=== PATIENT | male | born 1945 | race Caucasian/White ===

== ENCOUNTER 2017-07-05 14:05 | Emergency (ER) | payer MEDICARE ==
[2017-07-05] MEDS ORDERED: IPRATROPIUM-ALBUTEROL 3 ML NEB INHALATION STA ×2 (14:52→16:07)
[2017-07-05] MEDS ORDERED: MAGNESIUM SULFATE-D5W PMX 1 GM in DEXTROSE/WATER 1 100ML.BAG IVPB STA (14:52)
[2017-07-05] MEDS ORDERED: methylPREDNISolone SOD SUCCI 125 MG/2 ML VIAL IV STA (14:52)
--- NOTE | 2017-07-05 15:07 | ED ---
SOB HPI - General Chief Complaint: Shortness of Breath Stated Complaint: SOB-sent by [facility] Time Seen by Provider: 07/05/17 14:40 Source: patient, RN notes reviewed Mode of arrival: ambulatory Limitations: no limitations - History of Present Illness Initial Comments: This is a 71-year-old male history of heart disease and COPD states that shortness of breath or exertional dyspnea for about a week or so he has a cough with minimal white phlegm production no overt fevers chills or sweats he also states he's had no increased weight or peripheral edema. He denies any overt chest pain but does complain some tightness. MD Complaint: shortness of breath, cough - Related Data Home Medications Medication Instructions Recorded Confirmed Ascorbic Acid [Vitamin C] 500 mg PO QAM 05/08/15 07/05/17 Carvedilol [Coreg] 25 mg PO BID 05/08/15 07/05/17 Furosemide [Lasix] 40 mg PO BID 05/08/15 07/05/17 Metolazone [Zaroxolyn] 2.5 mg PO WESA 05/08/15 07/05/17 Nitroglycerin Sl Tabs [Nitrostat] 0.4 mg SUBLINGUAL Q5M PRN 05/08/15 07/05/17 [place]-3 Fatty Acids/Fish Oil [Fish 1 cap PO 05/08/15 07/05/17 Oil 1,000 mg Softgel] Ubidecarenone [Co Q-10] 200 mg PO QAM 05/08/15 07/05/17 Vitamin B Complex 1 cap PO QAM 05/08/15 07/05/17 diphenhydrAMINE [Benadryl] 25 mg PO 05/08/15 07/05/17 Cholecalciferol [Vitamin D3] 5,000 unit PO HS 04/25/16 07/05/17 Lisinopril [Zestril] 20 mg PO HS 04/25/16 07/05/17 Niacin 1,000 mg PO BID 04/25/16 07/05/17 [place] 500mg 500 mg PO QAM 04/25/16 07/05/17 Albuterol Inhaler [Ventolin Hfa 2 puff INHALATION RT-Q6H PRN 07/05/17 07/05/17 Inhaler] Allopurinol [Zyloprim] 100 mg PO BID 07/05/17 07/05/17 Aspirin [Children's Aspirin] 81 mg PO HS 07/05/17 07/05/17 Colchicine [Colcrys] 0.6 mg PO DAILY PRN 07/05/17 07/05/17 Glucosamine/Chondr 3x Strength 1 tab PO BID 07/05/17 07/05/17 Potassium Chloride [Klor-Con 20] 20 meq PO HS 07/05/17 07/05/17 Sildenafil Citrate [Viagra] 100 mg PO ONCE PRN 07/05/17 07/05/17 Simvastatin [Zocor] 40 mg PO HS 07/05/17 07/05/17 Vitamin E (Dl,Tocopheryl Acet) 400 unit PO QAM 07/05/17 07/05/17 [Vitamin E] Previous Rx's Medication Instructions Recorded Ipratropium-Albuterol Nebulize 3 ml INHALATION Q6HR #30 neb 07/05/17 [Duoneb 0.5 mg-3 mg/3 ml Soln] predniSONE 20 mg PO BID #10 tab 07/05/17 Allergies Allergy/AdvReac Type Severity Reaction Status Date / Time adhesive Allergy Rash/Hives Verified 07/05/17 15:37 Review of Systems ROS Statement: Those systems with pertinent positive or pertinent negative responses have been documented in the HPI. ROS Other: All systems not noted in ROS Statement are negative. Past Medical History Past Medical History: Coronary Artery Disease (CAD), Heart Failure, COPD, Osteoarthritis (OA) History of Any Multi-Drug Resistant Organisms: None Reported Past Surgical History: Coronary Bypass/CABG, Heart Catheterization With Stent Past Psychological History: No Psychological Hx Reported Smoking Status: Current every day smoker Past Alcohol Use History: Occasional Past Drug Use History: None Reported General Exam - General Exam Comments Initial Comments: This is a well-developed well-nourished awake alert oriented 3 male Limitations: no limitations General appearance: alert, in no apparent distress Head exam: Present: atraumatic, normocephalic, normal inspection Eye exam: Present: normal appearance, PERRL, EOMI. Absent: scleral icterus, conjunctival injection, periorbital swelling ENT exam: Present: normal exam, mucous membranes moist Neck exam: Present: normal inspection. Absent: tenderness, meningismus, lymphadenopathy Respiratory exam: Present: wheezes, decreased breath sounds. Absent: respiratory distress, rales, rhonchi, stridor Cardiovascular Exam: Present: regular rate, normal rhythm, normal heart sounds. Absent: systolic murmur, diastolic murmur, rubs, gallop, clicks GI/Abdominal exam: Present: soft, normal bowel sounds. Absent: distended, tenderness, guarding, rebound, rigid Extremities exam: Present: full ROM, normal capillary refill, other (Patient does demonstrate stasis dermatitis no evidence of acute edema.). Absent: tenderness, pedal edema, joint swelling, calf tenderness Back exam: Present: normal inspection Neurological exam: Present: alert, oriented X3, CN II-XII intact Psychiatric exam: Present: normal affect, normal mood Skin exam: Present: warm, dry, intact, normal color. Absent: rash Course Vital Signs 07/05/17 07/05/17 07/05/17 14:08 15:11 15:15 Temperature 97.0 F L Pulse Rate 72 60 75 Respiratory 18 18 Rate Blood Pressure 124/60 136/76 O2 Sat by Pulse 95 95 Oximetry 07/05/17 07/05/17 07/05/17 15:16 15:25 16:00 Temperature Pulse Rate 75 62 Respiratory 20 18 Rate Blood Pressure 112/69 O2 Sat by Pulse 95 Oximetry 07/05/17 07/05/17 16:12 16:25 Temperature Pulse Rate 74 78 Respiratory Rate Blood Pressure O2 Sat by Pulse Oximetry - Reevaluation(s) Reevaluation #1: 07/05/17 16:50 Reevaluation after initial treatment revealed some improvement in his aeration he doesn't feel the tightness or shortness of breath quite is severe as it was. Medical Decision Making - Medical Decision Making Reevaluation patient reveals some improvement he still has some diminished breath sounds with occasional expiratory wheezing. Patient was offered admission and does not want to be admitted this time he wants to go home and try his home nebulizer also he requests only about 30 refills for his nebulizer. Additionally he states he will try to double up on his Lasix as he normally does. He will return if is any problems he states. - Lab Data Result diagrams: 07/05/17 15:05 07/05/17 15:05 Lab Results 07/05/17 07/05/17 07/05/17 Range/Units 15:05 15:05 15:05 WBC 13.3 H (3.8-10.6) k/uL RBC 4.76 (4.30-5.90) m/uL Hgb 14.6 (13.0-17.5) gm/dL Hct 44.0 (39.0-53.0) % MCV 92.4 (80.0-100.0) fL MCH 30.6 (25.0-35.0) pg MCHC 33.2 (31.0-37.0) g/dL RDW 13.6 (11.5-15.5) % Plt Count 205 (150-450) k/uL Neutrophils % 74 % Lymphocytes % 18 % Monocytes % 5 % Eosinophils % 2 % Basophils % 0 % Neutrophils # 9.9 H (1.3-7.7) k/uL Lymphocytes # 2.4 (1.0-4.8) k/uL Monocytes # 0.7 (0-1.0) k/uL Eosinophils # 0.2 (0-0.7) k/uL Basophils # 0.0 (0-0.2) k/uL PT (9.0-12.0) sec INR (<1.2) APTT (22.0-30.0) sec Sodium 141 (137-145) mmol/L Potassium 4.0 (3.5-5.1) mmol/L Chloride 103 (98-107) mmol/L Carbon Dioxide 27 (22-30) mmol/L Anion Gap 11 mmol/L BUN 20 (9-20) mg/dL Creatinine 0.97 (0.66-1.25) mg/dL Est GFR (MDRD) Af Amer >60 (>60 ml/min/1.73 sqM) Est GFR (MDRD) Non-Af >60 (>60 ml/min/1.73 sqM) Glucose 102 H (74-99) mg/dL Calcium 9.0 (8.4-10.2) mg/dL Magnesium 1.8 (1.6-2.3) mg/dL Total Bilirubin 0.6 (0.2-1.3) mg/dL AST 30 (17-59) U/L ALT 34 (21-72) U/L Alkaline Phosphatase 65 (38-126) U/L Total Creatine Kinase 36 L (55-170) U/L CK-MB (CK-2) 1.6 (0.0-2.4) ng/mL CK-MB (CK-2) Rel Index 4.4 Troponin I 0.021 (0.000-0.034) ng/mL NT-Pro-B Natriuret Pep pg/mL Total Protein 6.9 (6.3-8.2) g/dL Albumin 3.8 (3.5-5.0) g/dL 07/05/17 07/05/17 Range/Units 15:05 15:05 WBC (3.8-10.6) k/uL RBC (4.30-5.90) m/uL Hgb (13.0-17.5) gm/dL Hct (39.0-53.0) % MCV (80.0-100.0) fL MCH (25.0-35.0) pg MCHC (31.0-37.0) g/dL RDW (11.5-15.5) % Plt Count (150-450) k/uL Neutrophils % % Lymphocytes % % Monocytes % % Eosinophils % % Basophils % % Neutrophils # (1.3-7.7) k/uL Lymphocytes # (1.0-4.8) k/uL Monocytes # (0-1.0) k/uL Eosinophils # (0-0.7) k/uL Basophils # (0-0.2) k/uL PT 10.6 (9.0-12.0) sec INR 1.0 (<1.2) APTT 24.9 (22.0-30.0) sec Sodium (137-145) mmol/L Potassium (3.5-5.1) mmol/L Chloride (98-107) mmol/L Carbon Dioxide (22-30) mmol/L Anion Gap mmol/L BUN (9-20) mg/dL Creatinine (0.66-1.25) mg/dL Est GFR (MDRD) Af Amer (>60 ml/min/1.73 sqM) Est GFR (MDRD) Non-Af (>60 ml/min/1.73 sqM) Glucose (74-99) mg/dL Calcium (8.4-10.2) mg/dL Magnesium (1.6-2.3) mg/dL Total Bilirubin (0.2-1.3) mg/dL AST (17-59) U/L ALT (21-72) U/L Alkaline Phosphatase (38-126) U/L Total Creatine Kinase (55-170) U/L CK-MB (CK-2) (0.0-2.4) ng/mL CK-MB (CK-2) Rel Index Troponin I (0.000-0.034) ng/mL NT-Pro-B Natriuret Pep 542 pg/mL Total Protein (6.3-8.2) g/dL Albumin (3.5-5.0) g/dL - EKG Data -: EKG Interpreted by [facility] EKG shows normal: sinus rhythm (Sinus rhythm with a rate of 74. Interval to 46 QRS 154 QT since QTC of 456/506Block pattern no acute ST-T wave changes.) - Radiology Data Radiology results: report reviewed (I did review the imaging and reports are is evidence of increased vascular markings and evidence of interstitial changes.), image reviewed Disposition Clinical Impression: Acute exacerbation of chronic obstructive airways disease Disposition: HOME SELF-CARE Condition: Good Instructions: COPD (Chronic Obstructive Pulmonary Disease) (ED), How Your Lungs Work (ED) Prescriptions: Ipratropium-Albuterol Nebulize [Duoneb 0.5 mg-3 mg/3 ml Soln] 3 ml INHALATION Q6HR #30 neb predniSONE 20 mg PO BID #10 tab Referrals: Annamarie Garcia MD [Primary Care Provider] - 1-2 days
[2017-07-05 15:22] LABS: Basophils % (A) 0 %; CH 30.5; CHCM 33.2; Eosinophils # (A) 0.2 k/uL (0-0.7); Eosinophils % (A) 2 %; HGB 14.6 gm/dL (13.0-17.5); Luc # (Auto) 0.22; Luc % (Auto) 2; Lymphocytes # (A) 2.4 k/uL (1.0-4.8); Lymphocytes % (A) 18 %; MCH 30.6 pg (25.0-35.0); MCHC 33.2 g/dL (31.0-37.0); MCV 92.4 fL (80.0-100.0); Mean Platelet Volume 7.2; Monocytes # (A) 0.7 k/uL (0-1.0); Monocytes % (A) 5 %; Neutrophils # (A) 9.9 k/uL (1.3-7.7); Neutrophils % (A) 74 %; RBC 4.76 m/uL (4.30-5.90); RDW 13.6 % (11.5-15.5); WBC 13.3 k/uL (3.8-10.6); WBC (Perox) 13.37
[2017-07-05 15:30] LABS: Partial Thromboplastin Time 24.9 sec (22.0-30.0); Prothrombin Time 10.6 sec (9.0-12.0)
[2017-07-05 15:34] LABS: ALT 34 U/L (21-72); AST 30 U/L (17-59); Alkaline Phosphatase 65 U/L (38-126); Anion Gap 11 mmol/L; Blood Urea Nitrogen 20 mg/dL (9-20); Carbon Dioxide 27 mmol/L (22-30); Chloride 103 mmol/L (98-107); Glucose 102 mg/dL (74-99); Magnesium 1.8 mg/dL (1.6-2.3); Non-African American GFR(MDRD) >60 (>60 ml/min/1.73 sqM); Sodium 141 mmol/L (137-145); Total Bilirubin 0.6 mg/dL (0.2-1.3); Total Protein 6.9 g/dL (6.3-8.2)
--- NOTE | 2017-07-05 15:37 | XR ---
EXAMINATION TYPE: XR chest 2V DATE OF EXAM: 07/05/2017 COMPARISON: NONE HISTORY: Cough for 3 days. TECHNIQUE: Frontal and lateral views of the chest are obtained. FINDINGS: Post-CABG changes with mediastinal clips and sternal wires is present. There is cardiomegal y with interstitial prominence felt to reflect reflect central vascular congestion and atheroscleroti c thoracic aorta. There is no suspicious focal airspace opacity, pleural effusion, or pneumothorax se en bilaterally. Osseous structures are intact. IMPRESSION: Consider CHF exacerbation as there is cardiomegaly with interstitial prominence favoring central vascular congestion, background of chronic parenchymal change is not excluded without prior comparison. Clinical correlation advised. No suspicious focal infiltrate is noted.
[2017-07-05 15:56] LABS: Creatine Kinase MB 1.6 ng/mL (0.0-2.4); Troponin I 0.021 ng/mL (0.000-0.034)
[2017-07-05 17:21] VITALS: BP 118/60; PULSE 80; RESP 20; TEMP 98.2
== END 2017-07-05 17:21 | disposition home or self-care (01) ==
LOC: EC 14:05
DX: J44.1 Chronic obstructive pulmonary disease with (acute) exacerbation (principal); I87.2 Venous insufficiency (chronic) (peripheral); I25.10 Atherosclerotic heart disease of native coronary artery without angina pectoris; I50.9 Heart failure, unspecified; M19.90 Unspecified osteoarthritis, unspecified site; F17.200 Nicotine dependence, unspecified, uncomplicated; Z95.1 Presence of aortocoronary bypass graft; Z95.5 Presence of coronary angioplasty implant and graft; Z79.82 Long term (current) use of aspirin; Z79.899 Other long term (current) drug therapy; Z91.048 Other nonmedicinal substance allergy status
CPT/HCPCS: 36415; 94640 ×2; 93005; 83880; 80053; 82550; 82553; 83735; 84484; 85025; 85610; 85730; 71020; 99285; 96365; 96375; J2930; J3475

== ENCOUNTER 2019-12-17 09:14 | Inpatient (IN) | payer MEDICARE ==
[2019-12-17] MEDS ORDERED: SODIUM CHLORIDE 0.9% 1,000 ML IV STA (10:10)
[2019-12-17] MEDS ORDERED: FUROSEMIDE 10 MG/ML 4 ML VIAL IV STA (10:11)
[2019-12-17 10:36] LABS: Anisocytosis Slight; Basophils % (A) 0 %; Eosinophils # (A) 0.1 k/uL (0-0.7); Eosinophils % (A) 1 %; HCT 35.9 % (39.0-53.0); HGB 10.4 gm/dL (13.0-17.5); Hypochromasia Marked; Lymphocytes # (A) 1.2 k/uL (1.0-4.8); Lymphocytes % (A) 8 %; MCH 20.8 pg (25.0-35.0); MCHC 28.8 g/dL (31.0-37.0); Mean Platelet Volume 7.1; Microcytosis Marked; Monocytes % (A) 6 %; Neutrophils # (A) 12.9 k/uL (1.3-7.7); Neutrophils % (A) 83 %; Platelet Count 285 k/uL (150-450); Poikilocytosis Moderate; RBC 4.99 m/uL (4.30-5.90); RDW 18.7 % (11.5-15.5); WBC 15.6 k/uL (3.8-10.6)
--- NOTE | 2019-12-17 10:39 | ED ---
General Adult HPI - General Chief complaint: Shortness of Breath Stated complaint: SOB Time Seen by Provider: 12/17/19 09:38 Source: patient Mode of arrival: wheelchair Limitations: no limitations - History of Present Illness Initial comments: Dictation was produced using [employer] dictation software. please excuse any grammatical, word or spelling errors. Chief Complaint: 74-year-old male past medical history of coronary artery disease, heart failure and COPD presents with shortness of breath. History of Present Illness: 74-year-old male with multiple comorbidities reports today with intermittent episodes of shortness of breath. Patient states that over the last 3 or 4 days he's been having increasing episodes in frequency of shortness of breath. Patient has history of this. States that he was admitted to the hospital at [facility] and had his medications held for several days. He states that since then he's been having increased lower extremity swelling, shortness of breath. Patient states that his sugars breath is worse with lying flat. He said having difficulty sleeping at night. at bedside reports that perhaps patient experiencing anxiety-related dyspnea. Patient does take Lasix at home. He states he took 100 mg total of Lasix yesterday. Patient however is on 80 mg 3 times a day. The ROS documented in this emergency department record has been reviewed and confirmed by me. Those systems with pertinent positive or negative responses have been documented in the HPI. All other systems are other negative and/or noncontributory. PHYSICAL EXAM: General Impression: Alert and oriented x3, mildly dyspneic HEENT: Normocephalic atraumatic, extra-ocular movements intact, pupils equal and reactive to light bilaterally, mucous membranes moist. Cardiovascular: Heart regular rate and rhythm, S1&S2 audible, no murmurs, rubs or gallops Chest: Diffuse crackles Abdomen: Bowel sounds present, abdomen soft, non-tender, non-distended, no organomegaly Musculoskeletal: Pulses present and equal in all extremities, 2+ pitting edema of the lower extremities Motor: no focal deficits noted Neurological: CN II-XII grossly intact, no focal motor or sensory deficits noted Skin: Intact with no visualized rashes Psych: Normal affect and mood ED course: 74-year-old male with chief complaint of shortness of breath. Signs upon arrival shows 9% on room air, rest vital signs within acceptable limits. Patient has history of atrial fibrillation and is currently on eliquis. Laboratory evaluation obtained. Leukocytosis 15.6. Patient not have any localizing symptoms of infection. Patient also has microcytic anemia. Coag panel is unremarkable. Metabolic panel shows elevation of renal markers. C reatinine is 1.53. Most recent creatinine for comparison was from 2017. Arianna with patient's new baseline creatinine is. Lactic acidosis of 2.3. Patient has troponin 0.026 likely troponin leak. Prematurity peptide of 3700. Clinical presentation consistent with acute CHF exacerbation. Patient given Lasix. Patient still slightly dyspneic however no distal 2 point where he would require BiPAP. Patient be admitted to [facility] hospitalist group. Pending discussion with hospitalist. EKG interpretation: Ventricular rate 96, H fibrillation, QRS 152, QTc 528. - Related Data Home Medications Medication Instructions Recorded Confirmed Carvedilol [Coreg] 12.5 mg PO BID 05/08/15 12/17/19 Furosemide [Lasix] 40 mg PO DAILY@1200 05/08/15 12/17/19 Metolazone [Zaroxolyn] 2.5 mg PO Q48H 05/08/15 12/17/19 Nitroglycerin Sl Tabs [Nitrostat] 0.4 mg SUBLINGUAL Q5M PRN 05/08/15 12/17/19 [place]-3 Fatty Acids/Fish Oil [Fish 1 cap PO HS 05/08/15 12/17/19 Oil 1,000 mg Softgel] Ubidecarenone [Co Q-10] 200 mg PO QAM 05/08/15 12/17/19 Vitamin B Complex 1 cap PO QAM 05/08/15 12/17/19 diphenhydrAMINE [Benadryl] 25 mg PO HS 05/08/15 12/17/19 Cholecalciferol [Vitamin D3] 5,000 unit PO HS 04/25/16 12/17/19 Niacin 1,000 mg PO BID 04/25/16 12/17/19 [place] 500mg 500 mg PO QAM 04/25/16 12/17/19 Albuterol Inhaler [Ventolin Hfa 2 puff INHALATION RT-Q6H PRN 07/05/17 12/17/19 Inhaler] Allopurinol [Zyloprim] 100 mg PO BID 07/05/17 12/17/19 Colchicine [Colcrys] 0.6 mg PO DAILY PRN 07/05/17 12/17/19 Glucosamine/Chondr 3x Strength 1 tab PO BID 07/05/17 12/17/19 Potassium Chloride [Klor-Con 20] 20 meq PO HS 07/05/17 12/17/19 Simvastatin [Zocor] 40 mg PO HS 07/05/17 12/17/19 Vitamin E (Dl,Tocopheryl Acet) 400 unit PO QAM 07/05/17 12/17/19 [Vitamin E] Apixaban [Eliquis] 5 mg PO BID 12/17/19 12/17/19 Fluticasone/Salmeterol [Advair 1 puff INHALATION RT-BID 12/17/19 12/17/19 500-50 Diskus] Furosemide [Lasix] 60 mg PO DAILY 12/17/19 12/17/19 Omeprazole 20 mg PO BID 12/17/19 12/17/19 Tiotropium 18 Mcg/Puff [Spiriva] 1 puff INHALATION RT-DAILY 12/17/19 12/17/19 Allergies Allergy/AdvReac Type Severity Reaction Status Date / Time adhesive Allergy Rash/Hives Verified 12/17/19 09:22 Review of Systems ROS Statement: Those systems with pertinent positive or pertinent negative responses have been documented in the HPI. ROS Other: All systems not noted in ROS Statement are negative. Past Medical History Past Medical History: Coronary Artery Disease (CAD), Heart Failure, COPD, Osteoarthritis (OA) History of Any Multi-Drug Resistant Organisms: None Reported Past Surgical History: Coronary Bypass/CABG, Heart Catheterization With Stent Past Psychological History: No Psychological Hx Reported Smoking Status: Former smoker Past Alcohol Use History: Occasional Past Drug Use History: None Reported General Exam Limitations: no limitations Course Vital Signs 12/17/19 12/17/19 12/17/19 09:20 09:59 11:20 Temperature 97.8 F Pulse Rate 98 81 Respiratory 18 20 18 Rate Blood Pressure 99/59 121/89 O2 Sat by Pulse 90 L 97 Oximetry Medical Decision Making - Lab Data Result diagrams: 12/17/19 10:21 12/17/19 10:21 Lab Results 12/17/19 12/17/19 12/17/19 Range/Units 10:21 10:21 10:21 WBC 15.6 H (3.8-10.6) k/uL RBC 4.99 (4.30-5.90) m/uL Hgb 10.4 L (13.0-17.5) gm/dL Hct 35.9 L (39.0-53.0) % MCV 72.0 L (80.0-100.0) fL MCH 20.8 L (25.0-35.0) pg MCHC 28.8 L (31.0-37.0) g/dL RDW 18.7 H (11.5-15.5) % Plt Count 285 (150-450) k/uL Neutrophils % 83 % Lymphocytes % 8 % Monocytes % 6 % Eosinophils % 1 % Basophils % 0 % Neutrophils # 12.9 H (1.3-7.7) k/uL Lymphocytes # 1.2 (1.0-4.8) k/uL Monocytes # 1.0 (0-1.0) k/uL Eosinophils # 0.1 (0-0.7) k/uL Basophils # 0.0 (0-0.2) k/uL Hypochromasia Marked Poikilocytosis Moderate Anisocytosis Slight Microcytosis Marked PT 12.7 H (9.0-12.0) sec INR 1.3 H (<1.2) APTT 23.2 (22.0-30.0) sec Sodium 135 L (137-145) mmol/L Potassium 3.5 (3.5-5.1) mmol/L Chloride 92 L (98-107) mmol/L Carbon Dioxide 31 H (22-30) mmol/L Anion Gap 12 mmol/L BUN 66 H (9-20) mg/dL Creatinine 1.53 H (0.66-1.25) mg/dL Est GFR (CKD-EPI)AfAm 51 (>60 ml/min/1.73 sqM) Est GFR (CKD-EPI)NonAf 44 (>60 ml/min/1.73 sqM) Glucose 152 H (74-99) mg/dL Plasma Lactic Acid Rashid (0.7-2.0) mmol/L Calcium 8.8 (8.4-10.2) mg/dL Magnesium 2.1 (1.6-2.3) mg/dL Total Bilirubin 1.3 (0.2-1.3) mg/dL AST 46 (17-59) U/L ALT 46 (4-49) U/L Alkaline Phosphatase 89 (38-126) U/L Troponin I (0.000-0.034) ng/mL NT-Pro-B Natriuret Pep pg/mL Total Protein 7.5 (6.3-8.2) g/dL Albumin 3.7 (3.5-5.0) g/dL 12/17/19 12/17/19 12/17/19 Range/Units 10:21 10:21 10:21 WBC (3.8-10.6) k/uL RBC (4.30-5.90) m/uL Hgb (13.0-17.5) gm/dL Hct (39.0-53.0) % MCV (80.0-100.0) fL MCH (25.0-35.0) pg MCHC (31.0-37.0) g/dL RDW (11.5-15.5) % Plt Count (150-450) k/uL Neutrophils % % Lymphocytes % % Monocytes % % Eosinophils % % Basophils % % Neutrophils # (1.3-7.7) k/uL Lymphocytes # (1.0-4.8) k/uL Monocytes # (0-1.0) k/uL Eosinophils # (0-0.7) k/uL Basophils # (0-0.2) k/uL Hypochromasia Poikilocytosis Anisocytosis Microcytosis PT (9.0-12.0) sec INR (<1.2) APTT (22.0-30.0) sec Sodium (137-145) mmol/L Potassium (3.5-5.1) mmol/L Chloride (98-107) mmol/L Carbon Dioxide (22-30) mmol/L Anion Gap mmol/L BUN (9-20) mg/dL Creatinine (0.66-1.25) mg/dL Est GFR (CKD-EPI)AfAm (>60 ml/min/1.73 sqM) Est GFR (CKD-EPI)NonAf (>60 ml/min/1.73 sqM) Glucose (74-99) mg/dL Plasma Lactic Acid Rashid 2.3 H* (0.7-2.0) mmol/L Calcium (8.4-10.2) mg/dL Magnesium (1.6-2.3) mg/dL Total Bilirubin (0.2-1.3) mg/dL AST (17-59) U/L ALT (4-49) U/L Alkaline Phosphatase (38-126) U/L Troponin I 0.026 (0.000-0.034) ng/mL NT-Pro-B Natriuret Pep 3720 pg/mL Total Protein (6.3-8.2) g/dL Albumin (3.5-5.0) g/dL Disposition Clinical Impression: Congestive heart failure Disposition: ADMITTED IP TO THIS HOSP Condition: Fair Referrals: Annamarie Garcia MD [Primary Care Provider] - 1-2 days Decision Time: 11:47
[2019-12-17 10:42] LABS: INR 1.3 (<1.2); Partial Thromboplastin Time 23.2 sec (22.0-30.0); Prothrombin Time 12.7 sec (9.0-12.0)
[2019-12-17 10:45] LABS: Albumin 3.7 g/dL (3.5-5.0); Calcium 8.8 mg/dL (8.4-10.2); Magnesium 2.1 mg/dL (1.6-2.3); Potassium 3.5 mmol/L (3.5-5.1); Total Bilirubin 1.3 mg/dL (0.2-1.3); Total Protein 7.5 g/dL (6.3-8.2)
--- NOTE | 2019-12-17 11:05 | XR ---
EXAMINATION TYPE: XR chest 2V DATE OF EXAM: 12/17/2019 COMPARISON: 07/05/2017 HISTORY: Difficulty breathing TECHNIQUE: Frontal and lateral views of the chest are obtained. FINDINGS: Moderate pulmonary vascular congestion and interstitial edema. Post CABG changes the chest . Diffuse osseous demineralization. Trace left pleural effusion. No sizable pneumothorax. IMPRESSION: Moderate interstitial edema and trace left pleural effusion. Consider congestive heart f ailure.
--- NOTE | 2019-12-17 14:32 | P.CRDCN ---
History of Present Illness Consult date: 12/17/19 Consult reason: congestive heart failure Chief complaint: Shortness of breath, bilateral lower extremity edema History of present illness: This is a pleasant 74-year-old gentleman who has a known history of coronary artery disease, he had a myocardial infarction in 1994 at which time he underwent stent placement, coronary artery bypass grafting surgery in 2006, hypertension, hyperlipidemia, persistent atrial fibrillation, on Eliquis for anticoagulation. Patient recently had issues with a bleeding ulcer and was transferred to [address] [place] [address], approximately a month ago, patient states he was taken off his Eliquis at that time, he had procedures performed there, and was cleared to go back on his Eliquis. Patient also states that his regular home medications have been placed on hold. 4. At time, he had his dose of Coreg decreased and states that he held the lisinopril. Patient thinks it was secondary to hypotension, we are unsure of what his renal function looks like at that time. For approximately one month duration patient states that he's been progressively more short of breath, he's developed PND and orthopnea and significant bilateral lower extremity edema. For this reason he came to the emergency room for further evaluation and treatment. Chest x-ray showed moderate interstitial edema and trace left pleural effusion, consider congestive heart failure. EKG shows atrial fibrillation with a moderately rapid ventricular response, occasional PVCs. Left bundle-branch block pattern. Blood pressure 120/80, heart rate in the 80s to 90s, 97% on 2 L of oxygen. White blood cell count 15.6, hemoglobin 10.4, platelet count 285. Sodium 135, potassium 3.5, BUN 66, creatinine 1.5. Plasma lactic acid 2.3, magnesium 2.1, troponin 0.026, BNP level 3720. Patient was initiated on IV Lasix in the emergency room. He was also resumed on his Lipitor. We will resume the patient's Eliquis keeping a close eye on the kidney function, because he is currently on 5 twice a day. We will resume the patient's Coreg, hold off on the PAMELA inhibitor. Obtain records from [facility]. Past Medical History Past Medical History: Coronary Artery Disease (CAD), Heart Failure, COPD, Osteoarthritis (OA) History of Any Multi-Drug Resistant Organisms: None Reported Past Surgical History: Coronary Bypass/CABG, Heart Catheterization With Stent Past Psychological History: No Psychological Hx Reported Smoking Status: Former smoker Past Alcohol Use History: Occasional Past Drug Use History: None Reported Medications and Allergies Home Medications Medication Instructions Recorded Confirmed Type Carvedilol [Coreg] 12.5 mg PO BID 05/08/15 12/17/19 History Furosemide [Lasix] 40 mg PO DAILY@1200 05/08/15 12/17/19 History Metolazone [Zaroxolyn] 2.5 mg PO Q48H 05/08/15 12/17/19 History Nitroglycerin Sl Tabs [Nitrostat] 0.4 mg SUBLINGUAL Q5M PRN 05/08/15 12/17/19 History [place]-3 Fatty Acids/Fish Oil [Fish 1 cap PO HS 05/08/15 12/17/19 History Oil 1,000 mg Softgel] Ubidecarenone [Co Q-10] 200 mg PO QAM 05/08/15 12/17/19 History Vitamin B Complex 1 cap PO QAM 05/08/15 12/17/19 History diphenhydrAMINE [Benadryl] 25 mg PO HS 05/08/15 12/17/19 History Cholecalciferol [Vitamin D3] 5,000 unit PO HS 04/25/16 12/17/19 History Niacin 1,000 mg PO BID 04/25/16 12/17/19 History [place] 500mg 500 mg PO QAM 04/25/16 12/17/19 History Albuterol Inhaler [Ventolin Hfa 2 puff INHALATION RT-Q6H PRN 07/05/17 12/17/19 History Inhaler] Allopurinol [Zyloprim] 100 mg PO BID 07/05/17 12/17/19 History Colchicine [Colcrys] 0.6 mg PO DAILY PRN 07/05/17 12/17/19 History Glucosamine/Chondr 3x Strength 1 tab PO BID 07/05/17 12/17/19 History Potassium Chloride [Klor-Con 20] 20 meq PO HS 07/05/17 12/17/19 History Simvastatin [Zocor] 40 mg PO HS 07/05/17 12/17/19 History Vitamin E (Dl,Tocopheryl Acet) 400 unit PO QAM 07/05/17 12/17/19 History [Vitamin E] Apixaban [Eliquis] 5 mg PO BID 12/17/19 12/17/19 History Fluticasone/Salmeterol [Advair 1 puff INHALATION RT-BID 12/17/19 12/17/19 History 500-50 Diskus] Furosemide [Lasix] 60 mg PO DAILY 12/17/19 12/17/19 History Omeprazole 20 mg PO BID 12/17/19 12/17/19 History Tiotropium 18 Mcg/Puff [Spiriva] 1 puff INHALATION RT-DAILY 12/17/19 12/17/19 History Allergies Allergy/AdvReac Type Severity Reaction Status Date / Time adhesive Allergy Rash/Hives Verified 12/17/19 09:22 Physical Exam Vitals: Vital Signs Temp Pulse Resp BP Pulse Ox 12/17/19 11:20 81 18 121/89 97 12/17/19 09:59 20 12/17/19 09:20 97.8 F 98 18 99/59 90 L Intake and Output 12/16/19 12/17/19 12/17/19 22:59 06:59 14:59 Other: Weight 113.398 kg PHYSICAL EXAMINATION: GENERAL: 74-year-old gentleman in no acute distress at the time of my examination HEENT: Head is atraumatic, normocephalic. Pupils equal, round. Sclera anicteric. Conjunctiva are clear. Mucous membranes of the mouth are moist. Neck is supple. There is elevated jugular venous pressure.No carotid bruit is heard. HEART EXAMINATION: Heart S1 and S2 irregularly irregular a systolic murmur is heard CHEST EXAMINATION:'s reveal rales bilaterally, diminished air entry to the bases bilaterally ABDOMEN: Soft, obese, nontender. Bowel sounds are heard. No organomegaly noted. EXTREMITIES:[ 1+ peripheral pulses with 2-3+ evidence of peripheral edema , chronic venous stasis bilaterally to the lower extremities NEUROLOGIC patient is awake, alert and oriented 3 . . Results 12/17/19 10:21 12/17/19 10:21 Cardiac Enzymes 12/17/19 12/17/19 Range/Units 10:21 10:21 AST 46 (17-59) U/L Troponin I 0.026 (0.000-0.034) ng/mL Coagulation 12/17/19 Range/Units 10: PT 12.7 H (9.0-12.0) sec APTT 23.2 (22.0-30.0) sec CBC 12/17/19 Range/Units 10:21 WBC 15.6 H (3.8-10.6) k/uL RBC 4.99 (4.30-5.90) m/uL Hgb 10.4 L (13.0-17.5) gm/dL Hct 35.9 L (39.0-53.0) % Plt Count 285 (150-450) k/uL Comprehensive Metabolic Panel 12/17/19 Range/Units 10:21 Sodium 135 L (137-145) mmol/L Potassium 3.5 (3.5-5.1) mmol/L Chloride 92 L (98-107) mmol/L Carbon Dioxide 31 H (22-30) mmol/L BUN 66 H (9-20) mg/dL Creatinine 1.53 H (0.66-1.25) mg/dL Glucose 152 H (74-99) mg/dL Calcium 8.8 (8.4-10.2) mg/dL AST 46 (17-59) U/L ALT 46 (4-49) U/L Alkaline Phosphatase 89 (38-126) U/L Total Protein 7.5 (6.3-8.2) g/dL Albumin 3.7 (3.5-5.0) g/dL Current Medications Generic Name Dose Route Start Last Admin Trade Name Freq PRN Reason Stop Dose Admin Atorvastatin Calcium 40 mg 12/18/19 09:00 Lipitor PO DAILY KECIA Furosemide 40 mg 12/17/19 21:00 Lasix IV Q12H KECIA Sodium Chloride 1,000 mls @ 20 mls/hr 12/17/19 10:10 12/17/19 10:13 Saline 0.9% IV 12/18/19 10:09 Not Given .Q24H STA Intake and Output 12/16/19 12/17/19 12/17/19 22:59 06:59 14:59 Other: Weight 113.398 kg Patient Weight 12/18/19 06:59 Weight 113.398 kg 12/17/19 10:21 12/17/19 10:21 EKG Interpretations (text) EKG shows atrial fibrillation with occasional PVCs, left bundle-branch block pattern Assessment and Plan Plan: Assessment and plan #1 congestive heart failure, LV function unknown #2 recent GI bleeding with evidence of bleeding ulcer, status post procedures performed at [facility] #3 persistent atrial fibrillation, on Eliquis for anticoagulation #4 hypertension #5 coronary artery disease with prior myocardial infarction and 89 at which time patient underwent stent placement, also has history of coronary bypass grafting surgery in 2006 #6 prior history of smoking #7 COPD #8 renal insufficiency, creatinine 1.5 #9 hypokalemia #10 elevated white blood cell count with elevated lactic acid Plan We will obtain an echocardiogram with Doppler study. Continue current dose of IV Lasix. Resume the patient's Coreg. We will also request documents from a [facility] on the patient's most recent procedures. We will also attempt to get records from the patient's finger waver Dr. Fei Laird. Patient has been resumed on Eliquis 5 mg one tablet by mouth twice a day, we will monitor the kidney function closely. You to monitor the intake and output along with daily weights and daily lytes BUN and creatinine. Replace potassium. Further recommendations to follow. DNP note has been reviewed, I agree with a documented findings and plan of care. Patient was seen and examined.
[2019-12-17] MEDS ORDERED: NITROGLYCERIN SL TABS 0.4 MG TAB SUBLINGUAL PRN (14:43)
[2019-12-17] MEDS ORDERED: COLCHICINE 0.6 MG EACH PO PRN (14:43)
[2019-12-17] MEDS ORDERED: IPRATROPIUM-ALBUTEROL 3 ML NEB INHALATION PRN (14:44)
[2019-12-17] MEDS: IPRATROPIUM-ALBUTEROL 3 ML NEB INHALATION SCH ×2 (17:17→19:44)
[2019-12-17] MEDS ORDERED: ACETAMINOPHEN TAB 500 MG TAB PO PRN (18:36)
[2019-12-17] MEDS ORDERED: HYDROcodone/APAP 5-325MG 1 EACH TAB PO PRN (18:36)
[2019-12-17] MEDS ORDERED: TEMAZEPAM 15 MG CAP PO PRN (18:36)
[2019-12-17] MEDS ORDERED: ALPRAZolam 0.25 MG TAB PO PRN (18:36)
[2019-12-17] MEDS: FORMOTEROL FUMARATE 20 MCG/2 ML NEBU INHALATION SCH (19:44)
[2019-12-17] MEDS: BUDESONIDE 1 MG/2 ML NEBU INHALATION SCH (19:44)
[2019-12-17] MEDS ORDERED: SYMBICORT 160-4.5 MCG INHALER INHALATION SCH (20:00)
[2019-12-17] MEDS: methylPREDNISolone SOD SUCCI 125 MG/2 ML VIAL IV SCH (20:23)
[2019-12-17] MEDS: CARVEDILOL 12.5 MG TAB PO SCH (20:23)
[2019-12-17] MEDS: FUROSEMIDE 10 MG/ML 4 ML VIAL IV SCH (20:23)
--- NOTE | 2019-12-17 20:56 | HP ---
HISTORY AND PHYSICAL CHIEF COMPLAINT: Shortness of breath. HISTORY OF PRESENT ILLNESS: This 74-year-old gentleman with a past medical history of multiple medical problems, including history of CAD, CHF, COPD, DVT, history of CAD, CABG and stent, being followed by Dr. Annamarie Garcia in the outpatient setting in the [facility] is living in [place] at this time. The patient was complaining of shortness of breath which has increased over the last 3 to 4 days. The patient is unable to take a proper breath. The patient was previously admitted to [facility] and medications were adjusted. Now the patient also had bilateral lower extremity swelling and significant increasing shortness of breath. The patient came to [facility] and was admitted for further evaluation and treatment. The evaluation showed elevated WBC at 15.6. The patient also had a cough with mucopurulent sputum. Lactic acid is 2.3 and creatinine is 1.53. A chest x-ray was done which was evaluated personally by me. It showed evidence of bilateral interstitial edema and pleural effusion, also. The NT- proBNP was elevated up to 3727. Cardiology evaluation is underway at this time. The patient's ejection fraction is unknown at this time. The patient had persistent atrial fibrillation. The patient also had renal insufficiency and diuretics were initiated. There is no history of any fever, rigor or chills. No history of headache, loss of consciousness, seizures at this time. As mentioned earlier, EKG showed some occasional PVCs as well as no chest pain. No palpitations. No fever. PAST MEDICAL HISTORY: History of CAD, history of persistent atrial fibrillation, history of CHF, COPD, DJD, history of CAD, CABG stent. HOME MEDICATIONS: 1. Benadryl 25 mg at bedtime. 2. Vitamin E 400 units each morning. 3. Vitamin B complex 1 p.o. daily. 4. Coenzyme Q 200 mg p.o. each morning. 6. Zocor 40 mg at bedtime. 7. Klor-Con 20 mEq p.o. at bedtime. 8. Omeprazole 20 mg p.o. b.i.d. 9. [place]-3 fatty acids 1 p.o. q.8. 10.Aleve 500 mg 11.Nitrostat 0.4 subcutaneously p.r.n. 12.Niacin 1000 mg p.o. b.i.d. 13.Zaroxolyn 2.5 mg q.48 hours. 14.Glucosamine 1 p.o. b.i.d. 15.Lasix 60 mg p.o. daily and 40 mg p.o. daily. 16.Advair 500/50 one puff b.i.d. 17.Colcrys 0.6 daily p.r.n. 18.Vitamin D3 5000 daily. 19.Coreg 12.5 mg b.i.d. 20.Eliquis 5 mg p.o. b.i.d. 21.Zyloprim 100 mg p.o. b.i.d. 22.Ventolin HFA 2 puffs q.6 p.r.n. ALLERGIES: ADHESIVES. FAMILY HISTORY: History of heart disease and strokes in the family. SOCIAL HISTORY: Previous history of smoking. Occasional alcohol intake. REVIEW OF SYSTEMS: ENT: Diminished hearing. Diminished vision. CARDIOVASCULAR SYSTEM: As mentioned earlier. RESPIRATORY SYSTEM: As mentioned earlier. GI: No nausea, vomiting. : No dysuria or retention. NERVOUS SYSTEM: No numbness, weakness. ALLERGY/IMMUNOLOGY: No asthma, hayfever. MUSCULOSKELETAL: As mentioned earlier. HEMATOLOGY/ONCOLOGY: No history of anemia. ENDOCRINE: No history of diabetes, hypothyroidism. CONSTITUTIONAL: As mentioned earlier. DERMATOLOGY: Negative. RHEUMATOLOGY: Negative. PSYCHIATRY: As mentioned earlier. PHYSICAL EXAMINATION: Patient is alert and oriented x3. Pulse 86, blood pressure 99/60, respiration 18, temperature normal, pulse ox 98% on 2 L. HEENT: Conjunctivae normal. Oral mucosa moist. NECK: No jugular venous distention. No carotid bruit. No lymph node enlargement. CARDIOVASCULAR SYSTEM: S1, S2 muffled. No S3. No S4. RESPIRATORY SYSTEM: Breath sounds diminished at the bases. Bilateral scattered rhonchi and crackles. ABDOMEN: Soft, non-tender. LEGS: Bilateral leg edema. NERVOUS SYSTEM: Higher functions as mentioned earlier. Moves all 4 limbs. No focal motor or sensory deficit. LYMPHATICS: No lymph node palpable in neck, axillae or groin. SKIN: No ulcer, rash, bleeding. JOINTS: No active deforming arthropathy. LABS: WBC 15.6, hemoglobin 10.4. INR is 1.6. Sodium 135 and creatinine 1.53. ASSESSMENT: 1. Shortness of breath, multifactorial, with congestive heart failure, acute exacerbation, ejection fraction unknown, as well as chronic obstructive pulmonary disease, acute exacerbation, with acute purulent tracheobronchitis or bronchopneumonia. 2. Increased white count. 3. Anemia, microcytic, of undetermined etiology. 4. Mild coagulopathy. 5. Persistent atrial fibrillation. 6. Hyponatremia. 7. Increased creatinine with chronic kidney disease, stage III possibly. 8. Elevated lactic acid. Rule out sepsis. 9. Elevated BNP. 10.History of coronary artery disease, coronary artery bypass grafting, stent. 11.History of congestive heart failure. 12.History of degenerative joint disease. 13.Remote history of nicotine dependence. 14.Obesity with body mass index of 33.9. RECOMMENDATIONS AND DISCUSSION: In this 74-year-old gentleman who presented with multiple complex medical issues, we will monitor the patient closely, continue the current medications, continue with symptomatic treatment. We will optimize IV diuretics as well as bronchodilators. Otherwise, resume the home medications. Cardiology and pulmonology consultations. I would also recommend empiric antibiotics. Will obtain the cultures also. Resume the home medications. DVT prophylaxis. Guarded prognosis because of the multiple complex medical issues. Further recommendations to follow. I would also recommend a 2D echo with Doppler. See orders for further details. Guarded prognosis. Further recommendations to follow. I would also recommend that the patient follow up with his primary physician as well as Cardiology after discharge. KAREN / KASSANDRA: [id number] / MTDD
[2019-12-17] MEDS ORDERED: CHONDR PO SCH (21:00)
[2019-12-17] MEDS ORDERED: FUROSEMIDE 10 MG/ML 4 ML VIAL IV SCH (21:00)
[2019-12-17] MEDS ORDERED: NON FORMULARY DRUG (Simvastatin 40 MG) PO SCH (21:00)
[2019-12-17] MEDS ORDERED: NON FORMULARY DRUG (Omega-3 Fatty Acids/Fish Oil [Fish Oil 1,000 Mg Softgel] 1 CAP) PO SCH (21:00)
[2019-12-17] MEDS ORDERED: GLUCOSAMINE PO SCH (21:00)
[2019-12-17 22:07] LABS: Glucose,Whole Blood 162 mg/dL (75-99)
[2019-12-17] MEDS: CHOLECALCIFEROL 1,000 UNIT TAB PO SCH (22:07)
[2019-12-17] MEDS: diphenhydrAMINE 25 MG CAP PO SCH (22:07)
[2019-12-17] MEDS: POTASSIUM CHLORIDE ER 20 MEQ TAB.ER PO SCH (22:07)
[2019-12-17] MEDS: ALLOPURINOL 100 MG TAB PO SCH (22:07)
[2019-12-17] MEDS: APIXABAN 5 MG TAB PO SCH (22:07)
[2019-12-17] MEDS: INSULIN ASPART (NovoLOG) 100 UNIT/ML VIAL SQ SCH (22:26)
[2019-12-17] MEDS: NIACIN TR 500 MG CAPLET PO SCH (22:26)
[2019-12-18] MEDS: FUROSEMIDE 10 MG/ML 4 ML VIAL IV SCH ×4 (01:28→23:32)
[2019-12-18] MEDS: methylPREDNISolone SOD SUCCI 125 MG/2 ML VIAL IV SCH ×5 (01:29→23:32)
[2019-12-18 06:11] LABS: Glucose,Whole Blood 245 mg/dL (75-99)
[2019-12-18] MEDS: PANTOPRAZOLE 40 MG TABLET PO SCH (06:51)
[2019-12-18] MEDS: CARVEDILOL 12.5 MG TAB PO SCH ×2 (06:51→18:02)
[2019-12-18] MEDS: INSULIN ASPART (NovoLOG) 100 UNIT/ML VIAL SQ SCH ×4 (06:52→21:29)
[2019-12-18] MEDS: BUDESONIDE 1 MG/2 ML NEBU INHALATION SCH ×2 (07:29→21:23)
[2019-12-18] MEDS: FORMOTEROL FUMARATE 20 MCG/2 ML NEBU INHALATION SCH ×2 (07:29→21:23)
[2019-12-18] MEDS: IPRATROPIUM-ALBUTEROL 3 ML NEB INHALATION SCH ×4 (07:29→21:23)
[2019-12-18 07:30] LABS: Calcium 8.2 mg/dL (8.4-10.2); Potassium 3.4 mmol/L (3.5-5.1)
[2019-12-18 07:42] LABS: Anisocytosis Slight; Basophils % (A) 0 %; Eosinophils % (A) 0 %; HCT 30.9 % (39.0-53.0); Hypochromasia Marked; Lymphocytes # (A) 0.6 k/uL (1.0-4.8); Lymphocytes % (A) 4 %; MCH 20.7 pg (25.0-35.0); MCHC 28.6 g/dL (31.0-37.0); MCV 72.5 fL (80.0-100.0); Mean Platelet Volume 7.5; Microcytosis Moderate; Monocytes # (A) 0.2 k/uL (0-1.0); Monocytes % (A) 2 %; Neutrophils # (A) 12.8 k/uL (1.3-7.7); Neutrophils % (A) 93 %; Platelet Count 248 k/uL (150-450); Poikilocytosis Moderate; RBC 4.26 m/uL (4.30-5.90); RDW 18.2 % (11.5-15.5); WBC 13.7 k/uL (3.8-10.6)
[2019-12-18 07:45] LABS: HGB 8.8 gm/dL (13.0-17.5)
[2019-12-18] MEDS ORDERED: Potassium Replacement Protocol 1 EACH MISC MISCELLANE PRN (07:54)
[2019-12-18] MEDS ORDERED: NON FORMULARY DRUG (Ubidecarenone [Co Q-10] 200 MG) PO SCH (09:00)
[2019-12-18] MEDS ORDERED: OLIVE LEAF PO SCH (09:00)
[2019-12-18] MEDS ORDERED: NON FORMULARY DRUG (Vitamin B Complex [Vitamin B Complex] 1 CAP) PO SCH (09:00)
[2019-12-18] MEDS: ALLOPURINOL 100 MG TAB PO SCH ×2 (09:07→21:28)
[2019-12-18] MEDS: ATORVASTATIN 40 MG TAB PO SCH (09:07)
[2019-12-18] MEDS: POTASSIUM CHLORIDE ER 20 MEQ TAB.ER PO SCH ×3 (09:07→21:28)
[2019-12-18] MEDS: APIXABAN 5 MG TAB PO SCH ×2 (09:07→21:28)
[2019-12-18] MEDS: VITAMIN E (DL,TOCOPHERYL ACET) 400 UNIT CAP PO SCH (09:08)
[2019-12-18] MEDS: NIACIN TR 500 MG CAPLET PO SCH ×2 (09:08→21:29)
--- NOTE | 2019-12-18 11:06 | ECHOF ---
Referral Reason:cad MEASUREMENTS -------- HEIGHT: 182.9 cm WEIGHT: 113.4 kg BP: 121/89 RVIDd: 3.9 cm (< 3.3) IVSd: 1.3 cm (0.6 - 1.1) LVIDd: 5.9 cm (3.9 - 5.3) LVPWd: 1.3 cm (0.6 - 1.1) IVSs: 1.9 cm LVIDs: 3.7 cm LVPWs: 1.4 cm LA Diam: 4.7 cm (2.7 - 3.8) LAESV Index (A-L): 58.39 ml/m Ao Diam: 3.6 cm (2.0 - 3.7) AV Cusp: 2.3 cm (1.5 - 2.6) MV EXCURSION: 11.800 mm (> 18.000) MV EF SLOPE: 99 mm/s (70 - 150) EPSS: 2.1 cm RAP: 15.00 mmHg RVSP: 70.74 mmHg FINDINGS -------- Sinus rhythm. This was a technically adequate study. The left ventricular size is normal. There is mild concentric left ventricular hypertrophy. Overa ll left ventricular systolic function is mildly impaired with, an EF between 45 - 50 %. There is ev idence of paradoxical septal motion. The right ventricle is moderately enlarged. LA is severely dilated >40 ml/m2 The right atrium is normal in size. Interatrial and interventricular septum intact. There is mild aortic valve sclerosis. Mild mitral annular calcification present. [id number] mitral regurgitation is present. Kveo-rf-ztaazdyu tricuspid regurgitation present. There is severe pulmonary hypertension. The rig ht ventricular systolic pressure, as measured by Doppler, is 70.74mmHg. Trace/mild (physiologic) pulmonic regurgitation. The aortic root size is normal. The inferior vena cava is dilated with no significant inspiratory collapse which is consistent estima justin right atrial pressure of >15 mmHg. There is no pericardial effusion. CONCLUSIONS -------- 1. Sinus rhythm. 2. This was a technically adequate study. 3. The left ventricular size is normal. 4. There is mild concentric left ventricular hypertrophy. 5. Overall left ventricular systolic function is mildly impaired with, an EF between 45 - 50 %. 6. There is evidence of paradoxical septal motion. 7. The right ventricle is moderately enlarged. 8. LA is severely dilated >40 ml/m2 9. The right atrium is normal in size. 10. Interatrial and interventricular septum intact. 11. There is mild aortic valve sclerosis. 12. Mild mitral annular calcification present. 13. Hdal-wz-apsccwsw mitral regurgitation is present. 14. Sebi-yc-eeasyuum tricuspid regurgitation present. 15. There is severe pulmonary hypertension. 16. The right ventricular systolic pressure, as measured by Doppler, is 70.74mmHg. 17. Trace/mild (physiologic) pulmonic regurgitation. 18. The aortic root size is normal. 19. The inferior vena cava is dilated with no significant inspiratory collapse which is consistent es timated right atrial pressure of >20 mmHg. 20. There is no pericardial effusion. HAND WORKER: Liza Marshall RDCS
[2019-12-18 12:22] LABS: Glucose,Whole Blood 365 mg/dL (75-99)
[2019-12-18 14:29] VITALS: BMI 32.5
[2019-12-18 17:33] LABS: Glucose,Whole Blood 153 mg/dL (75-99)
[2019-12-18 20:54] LABS: Glucose,Whole Blood 265 mg/dL (75-99)
[2019-12-18] MEDS: diphenhydrAMINE 25 MG CAP PO SCH (21:28)
[2019-12-18] MEDS: CHOLECALCIFEROL 1,000 UNIT TAB PO SCH (21:28)
--- NOTE | 2019-12-18 22:21 | PN ---
PROGRESS NOTE DATE OF SERVICE: 12/18/2019 This 74-year-old gentleman who was admitted with CHF, acute exacerbation, also had multiple other medical problems, including COPD as well as possible tracheobronchitis. Cardiology is following the patient closely. A 2D echo with Doppler was done yesterday which showed ejection fraction about 45% to 50% and mild to moderate mitral regurgitation, mild to moderate tricuspid regurgitation and severe pulmonary hypertension. The patient is being closely monitored. The patient had bilateral leg swelling. Past medical history reviewed. REVIEW OF SYSTEMS: CARDIOVASCULAR SYSTEM: As mentioned earlier. RESPIRATORY SYSTEM: As mentioned earlier. GI: No nausea, vomiting. : No dysuria or retention. NERVOUS SYSTEM: No numbness, weakness. CURRENT MEDICATIONS: Reviewed. They include: 1. Tylenol p.r.n. 2. [place] 5 mg q.6 p.r.n. 3. DuoNeb q.i.d. and p.r.n. 4. Zyloprim 100 mg p.o. b.i.d. 5. Xanax 0.25 t.i.d. 6. Eliquis 5 mg p.o. b.i.d. 7. Lipitor. 8. Pulmicort 1 mg b.i.d. 9. Coreg. 10.Rocephin 1 gram daily. 11.Colcrys. 12.Perforomist b.i.d. 13.NovoLog. 14.Solu-Medrol 60 IV q.6. 15.Nitrostat. 16.K-Dur. 17.Restoril. 18.Vitamin E. PHYSICAL EXAMINATION: Patient is alert and oriented x3. Pulse 101, blood pressure 101/53, respiration 20, temperature normal, pulse ox 94% on 4 L. HEENT: Conjunctivae normal. NECK: No jugular venous distention. CARDIOVASCULAR SYSTEM: S1, S2 muffled. RESPIRATORY SYSTEM: Breath sounds diminished at the bases. Bilateral scattered rhonchi and crackles. ABDOMEN: Soft, obese. LEGS: Bilateral leg edema. NERVOUS SYSTEM: Diffusely weak. LABS: WBC 13.7, hemoglobin is 8.8. Sodium 134, potassium 3.4. Creatinine is 1.60. Accu- Cheks 153. ASSESSMENT: 1. Shortness of breath, multifactorial, with congestive heart failure, acute exacerbation, with acute on chronic systolic dysfunction, ejection fraction 40% to 50%, as well as chronic obstructive pulmonary disease, acute exacerbation, with acute purulent tracheobronchitis or bronchopneumonia. 2. Increased white count. 3. Anemia, microcytic, of undetermined etiology. 4. Mild coagulopathy. 5. Persistent atrial fibrillation. 6. Hyponatremia. 7. Increased creatinine with chronic kidney disease, stage III, possibly. 8. Mild to moderate mitral regurgitation as well as mild to moderate tricuspid regurgitation and severe pulmonary hypertension on the 2D echo. 9. Elevated lactic acid. Rule out sepsis. 10.Elevated BNP. 11.History of coronary artery disease, coronary artery bypass grafting, stent. 12.History of congestive heart failure. 13.History of degenerative joint disease. 14.Remote history of nicotine dependence. 15.Obesity with body mass index of 33.9. RECOMMENDATIONS AND DISCUSSION: I recommend to continue current medications, continue with symptomatic treatment. Continue with IV diuretics. Monitor fluid/electrolyte balance. Fluid restriction to 1200 mL per 24 hours. Continue with the bronchodilators. Continue the antibiotics. Continue steroids. Otherwise, the prognosis is guarded because of multiple complex medical issues, and further recommendations to follow. Strict intake per chart. The patient has already lost about several liters of fluid per intake/output charting. Once again, the prognosis is guarded and further recommendations to follow. Patient on Coreg and Eliquis, also. MMODL / IJN: [id number] / MTDD
[2019-12-19 06:34] LABS: Glucose,Whole Blood 241 mg/dL (75-99)
[2019-12-19] MEDS: methylPREDNISolone SOD SUCCI 125 MG/2 ML VIAL IV SCH ×3 (06:36→18:17)
[2019-12-19] MEDS: PANTOPRAZOLE 40 MG TABLET PO SCH (06:36)
[2019-12-19] MEDS: INSULIN ASPART (NovoLOG) 100 UNIT/ML VIAL SQ SCH ×4 (06:41→20:23)
[2019-12-19 08:17] LABS: Anisocytosis Slight; Basophils % (A) 0 %; Eosinophils % (A) 0 %; HGB 8.5 gm/dL (13.0-17.5); Hypochromasia Marked; Lymphocytes # (A) 0.5 k/uL (1.0-4.8); Lymphocytes % (A) 2 %; MCH 21.2 pg (25.0-35.0); MCHC 29.4 g/dL (31.0-37.0); MCV 72.2 fL (80.0-100.0); Mean Platelet Volume 7.7; Microcytosis Marked; Monocytes # (A) 0.9 k/uL (0-1.0); Monocytes % (A) 4 %; Neutrophils # (A) 20.7 k/uL (1.3-7.7); Neutrophils % (A) 93 %; Platelet Count 236 k/uL (150-450); Poikilocytosis Moderate; RBC 4.02 m/uL (4.30-5.90); WBC 22.2 k/uL (3.8-10.6)
[2019-12-19 08:29] LABS: Calcium 8.3 mg/dL (8.4-10.2); Potassium 3.3 mmol/L (3.5-5.1)
[2019-12-19] MEDS: FORMOTEROL FUMARATE 20 MCG/2 ML NEBU INHALATION SCH ×2 (09:54→20:53)
[2019-12-19] MEDS: BUDESONIDE 1 MG/2 ML NEBU INHALATION SCH ×2 (09:54→20:53)
[2019-12-19] MEDS: IPRATROPIUM-ALBUTEROL 3 ML NEB INHALATION SCH ×4 (09:54→20:54)
[2019-12-19] MEDS: CARVEDILOL 12.5 MG TAB PO SCH ×2 (10:03→18:17)
[2019-12-19] MEDS: FUROSEMIDE 10 MG/ML 4 ML VIAL IV SCH ×2 (10:04→20:09)
[2019-12-19] MEDS: APIXABAN 5 MG TAB PO SCH ×2 (10:04→20:10)
[2019-12-19] MEDS: VITAMIN E (DL,TOCOPHERYL ACET) 400 UNIT CAP PO SCH (10:04)
[2019-12-19] MEDS: ATORVASTATIN 40 MG TAB PO SCH (10:04)
[2019-12-19] MEDS: ALLOPURINOL 100 MG TAB PO SCH ×2 (10:04→20:10)
[2019-12-19] MEDS: NIACIN TR 500 MG CAPLET PO SCH ×2 (10:04→20:09)
[2019-12-19 12:48] LABS: Glucose,Whole Blood 256 mg/dL (75-99)
[2019-12-19] MEDS: POTASSIUM CHLORIDE ER 20 MEQ TAB.ER PO SCH ×3 (13:18→20:11)
--- NOTE | 2019-12-19 15:58 | PN ---
PROGRESS NOTE Mr. Gerber is a 74-year-old male who presented with symptoms of progressive dyspnea and evidence of congestive heart failure. He has a known history of coronary artery disease and has been followed in the past at [facility]. He has a prior history of coronary artery bypass grafting in 2006, history of hypertension, hyperlipidemia, atrial fibrillation, on Eliquis. He is feeling much better today. He is lying supine. He denies any chest pain. His breathing is better. He denies any dizziness or palpitations. He denies any nausea. He underwent an echocardiogram on admission and that revealed an ejection fraction of 45% to 50% with mild to moderate mitral regurgitation. He continues to be at this time on Eliquis 5 mg twice a day, Coreg 12.5 mg twice a day, Lasix 40 mg IV q.8 hours. PHYSICAL EXAMINATION: Blood pressure 100/60 with a heart rate in the 80s. LUNGS: Clear. HEART: Irregularly irregular. S1, S2. No S3. No rub, with a systolic murmur. ABDOMEN: Soft, nontender. EXTREMITIES: Plus 1 to 2 edema with chronic stasis. LAB DATA: Lab data revealed a white blood cell count of 22.2, which is worse compared to yesterday. Hemoglobin of 8.5. His BUN and creatinine are 70 and 1.69, mildly worse than yesterday. His potassium is 3.3. IMPRESSION: 1. Congestive heart failure with mild ischemic cardiomyopathy. 2. Atrial fibrillation, anticoagulated. 3. Status post coronary artery bypass grafting. 4. Status post recent gastrointestinal bleeding, stable. 5. Chronic obstructive lung disease. 6. History of hypertension. His blood pressure is on the low side at this time. RECOMMENDATIONS: I will cut down the dose of his IV Lasix at this time. Follow his renal function. I will obtain a reevaluation of his CBC as well as chest x-ray because of his leukocytosis. I will try to obtain the workup that was done at [facility] to compare his ejection fraction. If his blood pressure stabilizes, then he may be a candidate to add hydralazine to his regimen. MMODL / IJN: [id number] /
[2019-12-19 17:13] LABS: Glucose,Whole Blood 281 mg/dL (75-99)
--- NOTE | 2019-12-19 17:49 | PN ---
PROGRESS NOTE DATE OF SERVICE: 12/19/2019 This 74-year-old gentleman who presented with CHF, acute exacerbation, ejection fraction 45% to 50%, also had multiple valvular abnormalities. The patient also had atrial fibrillation. Cardiology is following the patient closely. Lab-golden, white count is elevated at 20.2 and creatinine is 1.69. Glucose is 212. Magnesium is 2.4. Past medical history reviewed. REVIEW OF SYSTEMS: CARDIOVASCULAR SYSTEM: As mentioned earlier. RESPIRATORY SYSTEM: As mentioned earlier. GI: As mentioned earlier. : No dysuria or retention. NERVOUS SYSTEM: No numbness, weakness. CURRENT MEDICATIONS: Reviewed. They include: 1. Tylenol p.r.n. 2. Velma 5 mg q.6. 3. DuoNeb q.i.d. and p.r.n. 4. Zyloprim 100 mg p.o. b.i.d. 5. Xanax 0.25 t.i.d. 6. Eliquis 5 mg p.o. b.i.d. 7. Lipitor 40 mg daily. 8. Pulmicort 1 mg b.i.d. 9. Coreg 12.5 mg b.i.d. 10.Rocephin 1 gram daily. 11.Vitamin D3. 12.Colchicine 0.6 daily. 13.Benadryl. 14.Perforomist. 15.Lasix 40 mg IV b.i.d. 16.NovoLog. 17.Solu-Medrol 60 IV q.6. 18.Niacin TR. 19.Nitrostat. 20.Protonix. 21.K-Dur 10 mEq. 22.Restoril. 23.Vitamin E. PHYSICAL EXAMINATION: Patient is alert, oriented x3. Still short of breath. Pulse 79, blood pressure 100/57, respiration 20, temperature normal, pulse ox 100% on 4 L. HEENT: Conjunctivae normal. NECK: Jugular venous distention in the root of the neck. CARDIOVASCULAR SYSTEM: S1, S2 muffled. Ejection systolic murmur. RESPIRATORY SYSTEM: Breath sounds diminished at the bases. Scattered rhonchi and crackles. ABDOMEN: Soft, obese. Abdominal wall edema. LEGS: Bilateral leg edema. NERVOUS SYSTEM: Diffusely weak. LABS: WBC 20.2, hemoglobin 8.5. Sodium 133, potassium 3.3, creatinine 1.69. ASSESSMENT: 1. Shortness of breath, multifactorial, with congestive heart failure, acute exacerbation, with acute on chronic systolic dysfunction, ejection fraction 40% to 50%, as well as chronic obstructive pulmonary disease, acute exacerbation, with acute purulent tracheobronchitis and bronchopneumonia. 2. Increased white count. 3. Anemia, microcytic, of undetermined origin. 4. Mild coagulopathy. 5. Persistent atrial fibrillation. 6. Hyponatremia. 7. Increased creatinine with chronic kidney disease, stage III possibly. 8. Mild to moderate mitral regurgitation as well as mild to moderate tricuspid regurgitation and severe pulmonary hypertension on the 2D echo. 9. Elevated lactic acid, improved. 10.Increased BNP. 11.History of coronary artery disease, coronary artery bypass grafting, stent. 12.History of congestive heart failure. 13.History of degenerative joint disease. 14.Remote history of nicotine dependence. 15.Obesity with body mass index of 33.9. 16.FULL CODE. RECOMMENDATIONS AND DISCUSSION: In this 74-year-old gentleman who presented with multiple complex medical issues, we will monitor the patient closely, continue the current medications, continue symptomatic treatment. The patient is diuresing at this time. The Lasix dose has been decreased. Continue with antibiotics. Continue the bronchodilators. I would also recommend a chest x-ray, repeat evaluation chest x-ray today and continue to monitor. Further recommendations to follow. Repeat labs in the morning. Continue the rest of the medications. Closely follow with Cardiology. Further recommendations to follow. MMLATHAL / ROSALINON: [id number] /
[2019-12-19] MEDS ORDERED: POTASSIUM CHLORIDE ER 20 MEQ TAB.ER PO STA (20:00)
[2019-12-19] MEDS: CHOLECALCIFEROL 1,000 UNIT TAB PO SCH (20:09)
[2019-12-19] MEDS: diphenhydrAMINE 25 MG CAP PO SCH (20:10)
[2019-12-19 20:20] LABS: Glucose,Whole Blood 213 mg/dL (75-99)
--- NOTE | 2019-12-19 21:30 | XR ---
EXAMINATION: XR chest 2V DATE AND TIME: 12/19/2019 6:49 PM CLINICAL INDICATION: PHH; chf TECHNIQUE: Departmental protocol COMPARISON: 12/17/2019 FINDINGS: The inflation pattern of the lung parenchyma is mildly improved. There remains a prominent pattern of cardiogenic interstitial phase pulmonary edema. The pleural spaces are negative. The cardiac silhouette is mild-moderately enlarged. The skeletal structures and soft tissues are negative for acute findings. IMPRESSION: Mild interval improvement, but prominent cardiogenic interstitial phase pulmonary edema remains.
[2019-12-20] MEDS: methylPREDNISolone SOD SUCCI 125 MG/2 ML VIAL IV SCH ×4 (01:00→17:07)
[2019-12-20 06:04] LABS: Glucose,Whole Blood 282 mg/dL (75-99)
[2019-12-20] MEDS: CARVEDILOL 12.5 MG TAB PO SCH ×2 (06:21→17:07)
[2019-12-20] MEDS: INSULIN ASPART (NovoLOG) 100 UNIT/ML VIAL SQ SCH ×4 (06:21→20:18)
[2019-12-20] MEDS: PANTOPRAZOLE 40 MG TABLET PO SCH (06:21)
[2019-12-20 08:04] LABS: Anisocytosis Slight; Basophils % (A) 0 %; Eosinophils % (A) 0 %; HCT 32.2 % (39.0-53.0); Hypochromasia Marked; Lymphocytes # (A) 0.5 k/uL (1.0-4.8); Lymphocytes % (A) 2 %; MCH 20.5 pg (25.0-35.0); MCV 73.3 fL (80.0-100.0); Mean Platelet Volume 8.2; Microcytosis Moderate; Monocytes # (A) 0.5 k/uL (0-1.0); Monocytes % (A) 2 %; Neutrophils # (A) 20.9 k/uL (1.3-7.7); Neutrophils % (A) 95 %; Platelet Count 249 k/uL (150-450); Poikilocytosis Moderate; RDW 19.1 % (11.5-15.5); WBC 21.9 k/uL (3.8-10.6)
[2019-12-20 08:13] LABS: Calcium 8.6 mg/dL (8.4-10.2)
[2019-12-20] MEDS: FUROSEMIDE 10 MG/ML 4 ML VIAL IV SCH ×2 (09:13→20:19)
[2019-12-20] MEDS: APIXABAN 5 MG TAB PO SCH ×2 (09:13→20:19)
[2019-12-20] MEDS: ALLOPURINOL 100 MG TAB PO SCH ×2 (09:13→20:19)
[2019-12-20] MEDS: ATORVASTATIN 40 MG TAB PO SCH (09:13)
[2019-12-20] MEDS: NIACIN TR 500 MG CAPLET PO SCH ×2 (09:14→20:19)
[2019-12-20] MEDS: BUDESONIDE 1 MG/2 ML NEBU INHALATION SCH ×2 (09:14→19:38)
[2019-12-20] MEDS: FORMOTEROL FUMARATE 20 MCG/2 ML NEBU INHALATION SCH ×2 (09:14→19:38)
[2019-12-20] MEDS: IPRATROPIUM-ALBUTEROL 3 ML NEB INHALATION SCH ×4 (09:14→19:38)
[2019-12-20] MEDS: VITAMIN E (DL,TOCOPHERYL ACET) 400 UNIT CAP PO SCH (09:15)
[2019-12-20 12:35] LABS: Glucose,Whole Blood 226 mg/dL (75-99)
[2019-12-20 15:03] LABS: Anisocytosis Slight; HCT 34.3 % (39.0-53.0); HGB 9.7 gm/dL (13.0-17.5); Hypochromasia Marked; MCH 20.9 pg (25.0-35.0); MCHC 28.4 g/dL (31.0-37.0); MCV 73.4 fL (80.0-100.0); Mean Platelet Volume 7.7; Microcytosis Moderate; Platelet Count 246 k/uL (150-450); Poikilocytosis Moderate; RBC 4.67 m/uL (4.30-5.90); RDW 19.1 % (11.5-15.5); WBC 23.9 k/uL (3.8-10.6)
--- NOTE | 2019-12-20 16:35 | P.PN ---
Subjective Progress Note Date: 12/20/19 This pleasant 74-year-old gentleman who presented with symptoms of progressive dyspnea and evidence of congestive heart failure. He has a known history of CAD is a follow-up past at [facility]. He has prior history of CABG in 2017, hypertension, hyperlipidemia, atrial fibrillation for which he is on Eliquis. Overall he is feeling better. He denies any chest discomfort, his breathing is improved, he has no dizziness or palpitations, no nausea or vomiting, no orthopnea or PND. Echocardiogram on this admission revealed an ejection fraction of 45% with mild to moderate MR. Labs this morning showed a white blood cell count of 21,900, hemoglobin 9.0, BUN 80, creatinine 2.02 which is up since yesterday. He is currently on Lipitor 40 mg daily, Eliquis 5mg BID, carvedilol 12.5 mg by mouth twice a day, Lasix 40 mg IV push every 12 hours. Blood pressure has been low at times. Objective - Vital Signs Vital signs: Vital Signs Temp 98.4 F 12/20/19 12:00 Pulse 88 12/20/19 12:07 Resp 18 12/20/19 12:00 BP 105/62 12/20/19 12:00 Pulse Ox 98 12/20/19 12:00 Intake & Output 12/19/19 12/20/19 12/20/19 18:59 06:59 18:59 Intake Total 698 838 600 Output Total 1000 1100 600 Balance -302 -262 0 Weight 110.9 kg Intake: Oral 698 838 600 Output: Urine 1000 1100 600 Other: Voiding Method Toilet Toilet Toilet - Exam PHYSICAL EXAMINATION: HEENT: Head is atraumatic, normocephalic. Pupils equal, round. Neck is supple. There is no elevated jugular venous pressure. HEART EXAMINATION: Heart sounds irregularly irregular, S1 and S2 with a systolic murmur. CHEST EXAMINATION: Lungs are clear to auscultation and precussion. No chest wall tenderness is noted on palpation or with deep breathing. ABDOMEN: Soft, nontender. Bowel sounds are heard. No organomegaly noted. EXTREMITIES: Evidence of 1+ peripheral edema and evidence of chronic stasis noted. NEUROLOGIC patient is awake, alert and oriented x3. . - Labs CBC & Chem 7: 12/20/19 14:12 12/20/19 06:57 Labs: Abnormal Lab Results - Last 24 Hours (Table) 12/19/19 12/19/19 12/20/19 Range/Units 17:12 20:19 06:02 WBC (3.8-10.6) k/uL Hgb (13.0-17.5) gm/dL Hct (39.0-53.0) % MCV (80.0-100.0) fL MCH (25.0-35.0) pg MCHC (31.0-37.0) g/dL RDW (11.5-15.5) % Neutrophils # (1.3-7.7) k/uL Lymphocytes # (1.0-4.8) k/uL Sodium (137-145) mmol/L Chloride (98-107) mmol/L BUN (9-20) mg/dL Creatinine (0.66-1.25) mg/dL Glucose (74-99) mg/dL POC Glucose (mg/dL) 281 H 213 H 282 H (75-99) mg/dL 12/20/19 12/20/19 12/20/19 Range/Units 06:57 06:57 12:33 WBC 21.9 H (3.8-10.6) k/uL Hgb 9.0 L (13.0-17.5) gm/dL Hct 32.2 L (39.0-53.0) % MCV 73.3 L (80.0-100.0) fL MCH 20.5 L (25.0-35.0) pg MCHC 28.0 L (31.0-37.0) g/dL RDW 19.1 H (11.5-15.5) % Neutrophils # 20.9 H (1.3-7.7) k/uL Lymphocytes # 0.5 L (1.0-4.8) k/uL Sodium 132 L (137-145) mmol/L Chloride 90 L (98-107) mmol/L BUN 80 H (9-20) mg/dL Creatinine 2.02 H (0.66-1.25) mg/dL Glucose 258 H (74-99) mg/dL POC Glucose (mg/dL) 226 H (75-99) mg/dL 12/20/19 Range/Units 14:12 WBC 23.9 H (3.8-10.6) k/uL Hgb 9.7 L (13.0-17.5) gm/dL Hct 34.3 L (39.0-53.0) % MCV 73.4 L (80.0-100.0) fL MCH 20.9 L (25.0-35.0) pg MCHC 28.4 L (31.0-37.0) g/dL RDW 19.1 H (11.5-15.5) % Neutrophils # (1.3-7.7) k/uL Lymphocytes # (1.0-4.8) k/uL Sodium (137-145) mmol/L Chloride (98-107) mmol/L BUN (9-20) mg/dL Creatinine (0.66-1.25) mg/dL Glucose (74-99) mg/dL POC Glucose (mg/dL) (75-99) mg/dL Assessment and Plan Assessment: #1 congestive heart failure with mild ischemic cardiomyopathy #2 chronic atrial fibrillation, anticoagulated #3 status post CABG #4 status post recent GI bleed, stable #5 COPD #6 hypertension with hypotension at times Plan: From cardiology perspective, we'll switch to by mouth Lasix. Follow his renal function. Continue to follow daily weights, electrolytes and accurate I's and O's. Continue to follow blood pressure closely. May consider addition of hydralazine once blood pressure stabilizes. We will continue to follow the patient and provide further recommendations accordingly. [employer]PLANE [employer]LECT[employer]IC[employer] note has been reviewed, I agree with a documented findings and plan of care. Patient was seen and examined.
[2019-12-20 17:25] LABS: Glucose,Whole Blood 212 mg/dL (75-99)
[2019-12-20] MEDS ORDERED: BENZOCAINE/MENTHOL LOZENG 1 EACH LOZENGE MUCOUS MEM PRN (19:38)
[2019-12-20 20:15] LABS: Glucose,Whole Blood 269 mg/dL (75-99)
[2019-12-20] MEDS: predniSONE 20 MG TAB PO SCH (20:18)
[2019-12-20] MEDS: POTASSIUM CHLORIDE ER 20 MEQ TAB.ER PO SCH (20:19)
[2019-12-20] MEDS: CHOLECALCIFEROL 1,000 UNIT TAB PO SCH (20:19)
[2019-12-20] MEDS: diphenhydrAMINE 25 MG CAP PO SCH (20:19)
--- NOTE | 2019-12-20 21:56 | PN ---
PROGRESS NOTE DATE OF SERVICE: 12/20/2019 This 74-year-old gentleman admitted with CHF, acute exacerbation, is on IV diuretics. The chest x-ray has improved significantly. It still shows some increased vascularity. Cardiology has recommended to continue with daily weight and recommended switching to p.o. Lasix. The blood pressure is 98/52 at this time. Patient is being closely monitored. No chest pain. No palpitations. No fever. PHYSICAL EXAMINATION: Alert and oriented x3. Pulse 77, blood pressure 98/52, respirations 16, temperature 98.2, pulse ox 94% on room air. HEENT: Conjunctivae normal. NECK: No jugular venous distention. CARDIOVASCULAR SYSTEM: S1, S2 muffled. RESPIRATORY SYSTEM: Breath sounds diminished at the bases. No rhonchi. No crackles. ABDOMEN: Soft, non-tender. LEGS: No edema. No swelling. NERVOUS SYSTEM: No focal deficit. LABS: Labs at this time show WBC 23.9, hemoglobin 9.7, glucose 212. ASSESSMENT: 1. Shortness of breath, possibly multifactorial, mostly congestive heart failure, acute exacerbation, with acute on chronic systolic dysfunction, ejection fraction 40% to 50%, as well as chronic obstructive pulmonary disease, acute exacerbation, with purulent tracheobronchitis and bronchopneumonia. 2. Increased white count. 3. Anemia, microcytic, of undetermined etiology. 4. Mild coagulopathy. 5. Persistent atrial fibrillation. 6. Hyponatremia. 7. Increased creatinine with chronic kidney disease, stage III possibly. 8. Mild to moderate mitral regurgitation as well as mild to moderate tricuspid regurgitation with severe pulmonary hypertension on the 2D echo. 9. Elevated lactic acid, improved. 10.Increased BNP. 11.History of coronary artery disease, coronary artery bypass grafting, stent. 12.History of congestive heart failure. 13.History of degenerative joint disease. 14.Remote history of nicotine dependence. 15.Obesity with body mass index of 33.2. 16.FULL CODE. RECOMMENDATIONS AND DISCUSSION: I recommend to continue current medications, continue with the monitoring, symptomatic treatment. Otherwise at this time continue with the p.o. diuretics. Monitor creatinine closely. Closely follow with Cardiology. Guarded prognosis because of multiple complex medical issues. Further recommendations to follow. Possible discharge in the next 24-48 hours. MMODL / IJN: [id number] /
[2019-12-21 04:09] VITALS: RESP 20
[2019-12-21 06:06] LABS: Glucose,Whole Blood 268 mg/dL (75-99)
[2019-12-21] MEDS: INSULIN ASPART (NovoLOG) 100 UNIT/ML VIAL SQ SCH ×2 (06:20→12:24)
[2019-12-21] MEDS: PANTOPRAZOLE 40 MG TABLET PO SCH (06:20)
[2019-12-21] MEDS: CARVEDILOL 12.5 MG TAB PO SCH (06:20)
[2019-12-21 08:13] LABS: Calcium 8.7 mg/dL (8.4-10.2); Potassium 3.6 mmol/L (3.5-5.1)
[2019-12-21] MEDS: BUDESONIDE 1 MG/2 ML NEBU INHALATION SCH (09:16)
[2019-12-21] MEDS: IPRATROPIUM-ALBUTEROL 3 ML NEB INHALATION SCH ×2 (09:16→12:33)
[2019-12-21] MEDS: FORMOTEROL FUMARATE 20 MCG/2 ML NEBU INHALATION SCH (09:16)
[2019-12-21] MEDS: VITAMIN E (DL,TOCOPHERYL ACET) 400 UNIT CAP PO SCH (09:45)
[2019-12-21] MEDS: FUROSEMIDE 10 MG/ML 4 ML VIAL IV SCH (09:45)
[2019-12-21] MEDS: ATORVASTATIN 40 MG TAB PO SCH (09:45)
[2019-12-21] MEDS: ALLOPURINOL 100 MG TAB PO SCH (09:45)
[2019-12-21] MEDS: APIXABAN 5 MG TAB PO SCH (09:45)
[2019-12-21] MEDS: predniSONE 20 MG TAB PO SCH (09:45)
[2019-12-21] MEDS: NIACIN TR 500 MG CAPLET PO SCH (09:45)
[2019-12-21 11:59] VITALS: TEMP 97.3
[2019-12-21 12:11] LABS: Glucose,Whole Blood 425 mg/dL (75-99)
[2019-12-21 12:13] LABS: Glucose,Whole Blood 439 mg/dL (75-99)
[2019-12-21 12:44] VITALS: PULSE 75
[2019-12-21 14:13] VITALS: BP 102/57
--- NOTE | 2019-12-21 22:52 | DS ---
DISCHARGE SUMMARY FINAL DIAGNOSES: 1. Shortness of breath possibly multifactorial mostly congestive heart failure acute exacerbation with acute on chronic systolic dysfunction ejection fraction 40-50 percent, as well as chronic obstructive pulmonary disease acute exacerbation with acute purulent tracheobronchitis with bronchopneumonia, improved. 2. Increased WBC. 3. Anemia, microcytic undetermined etiology. 4. Mild coagulopathy. 5. Persistent atrial fibrillation. 6. Hyponatremia. 7. Increased creatinine with chronic kidney disease stage III possibly. 8. Mild to moderate mitral regurgitation as well as [id number] tricuspid regurgitation with severe pulmonary hypertension on the 2D echo. 9. Elevated lactic acid, improved. 10.BNP. 11.History of coronary artery disease, coronary artery bypass grafting stent. 12.History of congestive heart failure. 13.History of degenerative joint disease. 14.Remote history of nicotine dependence. 15.Obesity with body mass index of 33.6. 16.FULL CODE. DISCHARGE DISPOSITION: The patient will be discharged in stable condition with guarded prognosis. Cardiology cleared the patient for discharge. Total time taken 35 minutes. HISTORY OF PRESENT ILLNESS: This 74-year-old gentleman with a past medical history of multiple medical problems recently moved to the area, was admitted with shortness of breath which was possibly multifactorial. The patient was monitored closely. Patient also had COPD and CHF. Patient treated with bronchodilators and diuretics and steroids. Patient improved significantly. Cardiology saw the patient. Chest x-ray showed significant improvement. On exam, vitals are stable. Cardio system: S1, S2. Abdomen soft. Respirations: A few scattered rhonchi and crackles. NERVOUS SYSTEM: No focal deficits. The patient discharged in stable condition. Guarded prognosis. DISCHARGE ADVICE AND MEDICATIONS: 1. Diet is cardiac diet. 2. Activity limited until followup. 3. Followup with Dr. Tena 2-3 days. 4. Follow up with Dr. Carlson as recommended. 5. Follow up with Gastroenterology, Dermatology as recommended. MEDICATIONS: To be as follows include: 1. Advair 1 puff b.i.d. 2. Benadryl 25 mg q.h.s. 3. Coenzyme Q 20 mg q.a.m. 4. Colcrys 0.6 daily. 5. Coreg 12.5 mg b.i.d. 6. Eliquis 5 mg p.o. b.i.d. 7. [place]-3 fatty acids q.h.s. 8. Glucosamine b.i.d. 9. Klor-Con 20 mEq p.o. q.h.s. 10.Lasix 60 mg p.o. b.i.d. 11.Niacin 1000 mg p.o. b.i.d. 12.Nitrostat 0.4 sublingual p.r.n. 13.Aleve 500 q.a.m. 14.Omeprazole 20 mg p.o. b.i.d. 15.Spiriva 1 puff daily. 16.Ventolin p.r.n. 17.Vitamin B complex daily. 18.Vitamin D3 5000 units q.h.s. 19.Vitamin E 400 units q.a.m. 20.Zaroxolyn 2.5 mg q.48 hours. 21.Zocor 40 mg q.h.s. 22.Zyloprim 100 mg p.o. b.i.d. 23.Ceftin 500 mg p.o. b.i.d. for 3 days. 24.DuoNeb q.i.d. and p.r.n. 25.Lipitor 40 mg p.o. 26.Prednisone taper that is 40 mg daily for 3 days, 30 for 3 days, 20 for 3 days and 10 for 3 days. 27.Lasix dose was increased. 28.Follow up CBC, BMP with primary and field associate. MMODL / IJN: [id number] /
== END 2019-12-21 16:09 | disposition home or self-care (01) | DRG 291 ==
LOC: EC 09:14 → 3SCARD 11:43
PROVIDERS: ADMIT Hospitalist; ATTEND Hospitalist
DX: I13.0 Hypertensive heart and chronic kidney disease with heart failure and stage 1 through stage 4 chronic kidney disease, or unspecified chronic kidney disease (principal); I50.23 Acute on chronic systolic (congestive) heart failure; J18.0 Bronchopneumonia, unspecified organism; D68.9 Coagulation defect, unspecified; E87.1 Hypo-osmolality and hyponatremia; E87.2 Acidosis; I48.19 Other persistent atrial fibrillation; J44.0 Chronic obstructive pulmonary disease with (acute) lower respiratory infection; J44.1 Chronic obstructive pulmonary disease with (acute) exacerbation; D50.9 Iron deficiency anemia, unspecified; E66.9 Obesity, unspecified; E78.5 Hyperlipidemia, unspecified; E87.6 Hypokalemia; F41.9 Anxiety disorder, unspecified; I08.1 Rheumatic disorders of both mitral and tricuspid valves; I25.10 Atherosclerotic heart disease of native coronary artery without angina pectoris; I25.2 Old myocardial infarction; I25.5 Ischemic cardiomyopathy; I27.20 Pulmonary hypertension, unspecified; I44.7 Left bundle-branch block, unspecified; N18.3 Chronic kidney disease, stage 3 (moderate); J20.9 Acute bronchitis, unspecified; Z68.33 Body mass index [BMI] 33.0-33.9, adult; Z79.01 Long term (current) use of anticoagulants; Z79.899 Other long term (current) drug therapy; Z82.3 Family history of stroke; Z87.891 Personal history of nicotine dependence; Z95.1 Presence of aortocoronary bypass graft; Z95.5 Presence of coronary angioplasty implant and graft; Z82.49 Family history of ischemic heart disease and other diseases of the circulatory system; M19.90 Unspecified osteoarthritis, unspecified site; I49.3 Ventricular premature depolarization; Z87.11 Personal history of peptic ulcer disease; Z86.718 Personal history of other venous thrombosis and embolism
CPT/HCPCS: 36415; 71046; 80048; 80053; 83605; 83735; 83880; 84132; 84484; 85025; 85027; 85610; 85730; 93005; 93306; 94640; 94760; 96374; 99285

== ENCOUNTER → 2019-12-24 | Outpatient (CLI) | payer MEDICARE ==
[2019-12-24 19:01] LABS: African American GFR (CKD) 41.7 (60.0-200.0); Anion Gap 7.6 mmol/L (4.00-12.00); BUN/Creat Ratio 40.56 Ratio (12.00-20.00); Calcium 8.8 mg/dL (8.7-10.3); Carbon Dioxide 37.4 mmol/L (21.6-31.8); Potassium 3.3 mmol/L (3.5-5.5)
== END | disposition home or self-care (01) ==
LOC: LABWHC1 14:12
PROVIDERS: ATTEND Internal Medicine Interventional Cardiology
DX: I25.5 Ischemic cardiomyopathy (principal)
CPT/HCPCS: 36415; 80048; 83880

== ENCOUNTER 2020-01-21 07:17 | Inpatient (IN) | payer MEDICARE ==
[2020-01-21] MEDS ORDERED: IPRATROPIUM-ALBUTEROL 3 ML NEB INHALATION STA (07:46)
[2020-01-21] MEDS ORDERED: NITROGLYCERIN OINT 1 INCH/GM PACKET TOPICAL STA (07:46)
--- NOTE | 2020-01-21 07:51 | ED ---
General Adult HPI - General Chief complaint: Shortness of Breath Stated complaint: SAMIR Time Seen by Provider: 01/21/20 07:33 Source: patient, EMS, RN notes reviewed Mode of arrival: EMS Limitations: no limitations - History of Present Illness Initial comments: Patient is a pleasant 74-year-old male presenting to the emergency Department with complaints of shortness of breath. Onset of symptoms was last day or 2. Occasional cough. Dyspnea does worsen with lying flat. Patient complains of increasing leg edema. Patient did have his Lasix increased without much improvement. Patient does have history of similar symptoms previously associated with CHF. Patient also has history of COPD. No fevers. Cough is nonproductive. - Related Data Home Medications Medication Instructions Recorded Confirmed Carvedilol [Coreg] 12.5 mg PO BID 05/08/15 12/17/19 Metolazone [Zaroxolyn] 2.5 mg PO Q48H 05/08/15 12/17/19 Nitroglycerin Sl Tabs [Nitrostat] 0.4 mg SUBLINGUAL Q5M PRN 05/08/15 12/17/19 Philip-3 Fatty Acids/Fish Oil [Fish 1 cap PO HS 05/08/15 12/17/19 Oil 1,000 mg Softgel] Ubidecarenone [Co Q-10] 200 mg PO QAM 05/08/15 12/17/19 Vitamin B Complex 1 cap PO QAM 05/08/15 12/17/19 diphenhydrAMINE [Benadryl] 25 mg PO HS 05/08/15 12/17/19 Cholecalciferol [Vitamin D3 (25 5,000 unit PO HS 04/25/16 12/17/19 Mcg = 1000 Iu)] Niacin 1,000 mg PO BID 04/25/16 12/17/19 [place] Pyote 500mg 500 mg PO QAM 04/25/16 12/17/19 Albuterol Inhaler (Bulk) [Ventolin 2 puff INHALATION RT-Q6H PRN 07/05/17 Hfa Inhaler (Bulk)] Allopurinol [Zyloprim] 100 mg PO BID 07/05/17 12/17/19 Colchicine [Colcrys] 0.6 mg PO DAILY PRN 07/05/17 12/17/19 Glucosamine/Chondr 3x Strength 1 tab PO BID 07/05/17 12/17/19 Potassium Chloride [Klor-Con 20] 20 meq PO HS 07/05/17 12/17/19 Simvastatin [Zocor] 40 mg PO HS 07/05/17 12/17/19 Vitamin E (Dl,Tocopheryl Acet) 400 unit PO QAM 07/05/17 12/17/19 [Vitamin E] Apixaban [Eliquis] 5 mg PO BID 12/17/19 12/17/19 Fluticasone/Salmeterol [Advair 1 puff INHALATION RT-BID 12/17/19 12/17/19 500-50 Diskus] Omeprazole 20 mg PO BID 12/17/19 12/17/19 Tiotropium 18 Mcg/Puff [Spiriva] 1 puff INHALATION RT-DAILY 12/17/19 12/17/19 Previous Rx's Medication Instructions Recorded Atorvastatin [Lipitor] 40 mg PO DAILY #30 tab 12/21/19 Cefuroxime Axetil [Ceftin] 500 mg PO BID 3 Days #6 tab 12/21/19 Furosemide [Lasix] 60 mg PO BID #60 12/21/19 Ipratropium-Albuterol Nebulize 0 ml INHALATION TID #120 neb 12/21/19 [Duoneb 0.5 mg-3 mg/3 ml Soln] predniSONE 10 mg PO DIRECTED #30 tab 12/21/19 Allergies Allergy/AdvReac Type Severity Reaction Status Date / Time adhesive Allergy Rash/Hives Verified 01/21/20 07:58 Review of Systems ROS Statement: Those systems with pertinent positive or pertinent negative responses have been documented in the HPI. ROS Other: All systems not noted in ROS Statement are negative. Constitutional: Denies: fever Eyes: Denies: eye pain ENT: Denies: ear pain Respiratory: Reports: cough, dyspnea Cardiovascular: Denies: chest pain Endocrine: Denies: fatigue Gastrointestinal: Denies: abdominal pain Genitourinary: Denies: dysuria Musculoskeletal: Denies: back pain Skin: Denies: rash Neurological: Denies: weakness Past Medical History Past Medical History: Atrial Fibrillation, Coronary Artery Disease (CAD), Heart Failure, COPD, Osteoarthritis (OA), Prostate Disorder Additional Past Medical History / Comment(s): prostate cancer History of Any Multi-Drug Resistant Organisms: None Reported Past Surgical History: Coronary Bypass/CABG, Heart Catheterization With Stent Past Anesthesia/Blood Transfusion Reactions: No Reported Reaction Date of Last Stent Placement:: 1994 Past Psychological History: No Psychological Hx Reported Smoking Status: Former smoker Past Alcohol Use History: Occasional Past Drug Use History: None Reported - Past Family History Father Family Medical History: Cancer Additional Family Medical History / Comment(s): lung cancer Mother History Unknown: Yes General Exam Limitations: no limitations General appearance: alert, in no apparent distress Head exam: Present: normocephalic Eye exam: Present: normal appearance Neck exam: Present: normal inspection Respiratory exam: Present: decreased breath sounds Cardiovascular Exam: Present: regular rate, irregular rhythm GI/Abdominal exam: Present: soft. Absent: tenderness Extremities exam: Present: pedal edema. Absent: calf tenderness Neurological exam: Present: alert Psychiatric exam: Present: normal affect, normal mood Skin exam: Present: normal color Course Vital Signs 01/21/20 01/21/20 01/21/20 07:26 08:21 08:25 Temperature 97.8 F Pulse Rate 85 83 100 Respiratory 20 20 Rate Blood Pressure 105/75 101/72 O2 Sat by Pulse 96 98 Oximetry 01/21/20 09:00 Temperature Pulse Rate 81 Respiratory 20 Rate Blood Pressure 102/66 O2 Sat by Pulse 95 Oximetry EKG Findings - EKG Comments: EKG Findings:: Irregular rhythm 90. QRS 120. QT 360. QTC 450. Left axis. Poor R-wave progression. No acute ST change. Medical Decision Making - Medical Decision Making Patient reevaluated and updated. Case discussed in detail with Dr. Mcpherson, who will admit covering for hospital call. Cardiology will be placed on consult. - Lab Data Result diagrams: 01/21/20 07:31 01/21/20 07:31 Lab Results 01/21/20 01/21/20 01/21/20 Range/Units 07:31 07:31 07:31 WBC 14.8 H (3.8-10.6) k/uL RBC 5.03 (4.30-5.90) m/uL Hgb 9.9 L (13.0-17.5) gm/dL Hct 35.8 L (39.0-53.0) % MCV 71.1 L (80.0-100.0) fL MCH 19.6 L (25.0-35.0) pg MCHC 27.6 L (31.0-37.0) g/dL RDW 19.1 H (11.5-15.5) % Plt Count 338 (150-450) k/uL Neutrophils % 87 % Lymphocytes % 6 % Monocytes % 6 % Eosinophils % 0 % Basophils % 0 % Neutrophils # 12.8 H (1.3-7.7) k/uL Lymphocytes # 0.9 L (1.0-4.8) k/uL Monocytes # 0.8 (0-1.0) k/uL Eosinophils # 0.1 (0-0.7) k/uL Basophils # 0.0 (0-0.2) k/uL Hypochromasia Marked Poikilocytosis Slight Anisocytosis Slight Microcytosis Marked PT 14.6 H (9.0-12.0) sec INR 1.5 H (<1.2) APTT 25.4 (22.0-30.0) sec Sodium 135 L (137-145) mmol/L Potassium 4.6 (3.5-5.1) mmol/L Chloride 101 (98-107) mmol/L Carbon Dioxide 24 (22-30) mmol/L Anion Gap 10 mmol/L BUN 89 H (9-20) mg/dL Creatinine 1.60 H (0.66-1.25) mg/dL Est GFR (CKD-EPI)AfAm 48 (>60 ml/min/1.73 sqM) Est GFR (CKD-EPI)NonAf 42 (>60 ml/min/1.73 sqM) Glucose 232 H (74-99) mg/dL Plasma Lactic Acid Rashid (0.7-2.0) mmol/L Calcium 8.1 L (8.4-10.2) mg/dL Total Bilirubin 1.3 (0.2-1.3) mg/dL AST 60 H (17-59) U/L ALT 99 H (4-49) U/L Alkaline Phosphatase 116 (38-126) U/L Troponin I (0.000-0.034) ng/mL NT-Pro-B Natriuret Pep pg/mL Total Protein 6.3 (6.3-8.2) g/dL Albumin 2.9 L (3.5-5.0) g/dL 04/14/20 04/14/20 04/14/20 Range/Units 07:31 07:31 07:31 WBC (3.8-10.6) k/uL RBC (4.30-5.90) m/uL Hgb (13.0-17.5) gm/dL Hct (39.0-53.0) % MCV (80.0-100.0) fL MCH (25.0-35.0) pg MCHC (31.0-37.0) g/dL RDW (11.5-15.5) % Plt Count (150-450) k/uL Neutrophils % % Lymphocytes % % Monocytes % % Eosinophils % % Basophils % % Neutrophils # (1.3-7.7) k/uL Lymphocytes # (1.0-4.8) k/uL Monocytes # (0-1.0) k/uL Eosinophils # (0-0.7) k/uL Basophils # (0-0.2) k/uL Hypochromasia Poikilocytosis Anisocytosis Microcytosis PT (9.0-12.0) sec INR (<1.2) APTT (22.0-30.0) sec Sodium (137-145) mmol/L Potassium (3.5-5.1) mmol/L Chloride (98-107) mmol/L Carbon Dioxide (22-30) mmol/L Anion Gap mmol/L BUN (9-20) mg/dL Creatinine (0.66-1.25) mg/dL Est GFR (CKD-EPI)AfAm (>60 ml/min/1.73 sqM) Est GFR (CKD-EPI)NonAf (>60 ml/min/1.73 sqM) Glucose (74-99) mg/dL Plasma Lactic Acid Rashid 2.1 H* (0.7-2.0) mmol/L Calcium (8.4-10.2) mg/dL Total Bilirubin (0.2-1.3) mg/dL AST (17-59) U/L ALT (4-49) U/L Alkaline Phosphatase (38-126) U/L Troponin I 0.015 (0.000-0.034) ng/mL NT-Pro-B Natriuret Pep 4320 pg/mL Total Protein (6.3-8.2) g/dL Albumin (3.5-5.0) g/dL - Radiology Data Radiology results: image reviewed (Chest x-ray shows interstitial pattern consistent with CHF or interstitial pneumonia) Disposition Clinical Impression: Congestive heart failure Disposition: ADMITTED IP TO THIS HOSP Is patient prescribed a controlled substance at d/c from ED?: No Referrals: None,Stated [Primary Care Provider] - 1-2 days Decision Time: 09:34
[2020-01-21] MEDS ORDERED: PROPOFOL 10 MG/ML 20 ML VIAL IV ONE (08:12)
[2020-01-21 08:16] LABS: Anisocytosis Slight; Basophils % (A) 0 %; Eosinophils # (A) 0.1 k/uL (0-0.7); Eosinophils % (A) 0 %; HCT 35.8 % (39.0-53.0); HGB 9.9 gm/dL (13.0-17.5); Hypochromasia Marked; Lymphocytes # (A) 0.9 k/uL (1.0-4.8); Lymphocytes % (A) 6 %; MCH 19.6 pg (25.0-35.0); MCHC 27.6 g/dL (31.0-37.0); MCV 71.1 fL (80.0-100.0); Mean Platelet Volume 7.5; Microcytosis Marked; Monocytes # (A) 0.8 k/uL (0-1.0); Monocytes % (A) 6 %; Neutrophils # (A) 12.8 k/uL (1.3-7.7); Neutrophils % (A) 87 %; Platelet Count 338 k/uL (150-450); Poikilocytosis Slight; RBC 5.03 m/uL (4.30-5.90); RDW 19.1 % (11.5-15.5); WBC 14.8 k/uL (3.8-10.6)
[2020-01-21 08:24] LABS: Albumin 2.9 g/dL (3.5-5.0); Calcium 8.1 mg/dL (8.4-10.2); Potassium 4.6 mmol/L (3.5-5.1); Total Bilirubin 1.3 mg/dL (0.2-1.3); Total Protein 6.3 g/dL (6.3-8.2)
[2020-01-21 08:28] LABS: INR 1.5 (<1.2); Partial Thromboplastin Time 25.4 sec (22.0-30.0); Prothrombin Time 14.6 sec (9.0-12.0)
--- NOTE | 2020-01-21 08:31 | XR ---
EXAMINATION TYPE: XR chest 1V portable DATE OF EXAM: 01/21/2020 COMPARISON: 12/19/2019 HISTORY: Shortness of breath TECHNIQUE: Single frontal view of the chest is obtained. FINDINGS: Diffuse increased interstitial pattern with subsegmental basilar consolidation. Heart enla rged and is postoperative change. No pneumothorax. IMPRESSION: 1. Interstitial pattern with basilar consolidation correlate for CHF versus interstitial pneumonia.
[2020-01-21] MEDS ORDERED: ASPIRIN 325 MG TAB PO STA (09:48)
[2020-01-21] MEDS: FUROSEMIDE 10 MG/ML 4 ML VIAL IV SCH ×2 (09:59→17:29)
[2020-01-21] MEDS ORDERED: NITROGLYCERIN OINT 1 INCH/GM PACKET TOPICAL SCH (13:00)
[2020-01-21] MEDS ORDERED: IPRATROPIUM-ALBUTEROL 3 ML NEB INHALATION PRN (13:17)
[2020-01-21] MEDS: APIXABAN 5 MG TAB PO SCH ×2 (13:25→21:29)
[2020-01-21] MEDS ORDERED: NITROGLYCERIN SL TABS 0.4 MG TAB SUBLINGUAL PRN (13:38)
--- NOTE | 2020-01-21 13:52 | P.CRDCN ---
History of Present Illness History of present illness: HISTORY OF PRESENTING ILLNESS This is a pleasant 74-year-old [place] male past medical history significant for chronic persistent atrial fibrillation, coronary artery disease s/p bypass g rafting, COPD, chronic heart failure and former nicotine dependence. He follows in the office with Dr. Carlson. We have been asked to see in consultation for heart failure. Has been struggling with increased shortness of breath over the previous 2 days. He's been working with his primary care physician in adjusting his diuretics as an outpatient however he states he is not achieving any relief. He has a intermittent dry cough, dyspnea with exertion, lower extremity edema, PND and orthopnea. He denies chest pain, dizziness or palpitations. DIAGNOSTICS EKG reveals atrial fibrillation, left bundle branch block and poor R-wave progression. Chest xray basilar consolidations with interstitial pattern. Laboratory reviewed, WBC 14.8, hemoglobin 9.9, platelets 338, sodium 135, potassium 4.6, creatinine 1.6 with a GFR 42, lactic acid 2.1, troponin negative 1, NT proBNP 4320. Current cardiac medications include simvastatin 40 mg at bedtime, Lasix 80 mg daily, carvedilol 12.5 mg twice a day and Eliquis 5 mg twice a day. Most recent echocardiogram in December 2019 revealed mildly impaired LV systolic function with ejection fraction 45-50%, paradoxical septal wall motion abnormality, mild to moderate MR, mild to moderate TR and pulmonary hypertension with an RVSP of 70 mmHg. REVIEW OF SYSTEMS At the time of my exam: CONSTITUTIONAL: Denies fever or chills. CARDIOVASCULAR: Complains of shortness of breath, orthopnea and PND. Denies chest pain or palpitations. RESPIRATORY: Denies cough. GASTROINTESTINAL: Denies abdominal pain, diarrhea, constipation, nausea or vomiting. MUSCULOSKELETAL: Denies myalgias. NEUROLOGIC: Denies numbness, tingling or weakness. ENDOCRINE: Denies fatigue, weight change, polydipsia or polyurina. GENITOURINARY: Denies burning, hematuria or urgency with micturation. HEMATOLOGIC: Denies history of anemia or bleeding. PHYSICAL EXAMINATION Blood pressure 110/59 heart rate 97 afebrile and maintaining oxygen saturation on nasal cannula. CONSTITUTIONAL: No apparent distress. HEENT: Head is normocephalic. Pupils are equal, round. Sclerae anicteric. Mucous membranes of the mouth are moist. No JVD. No carotid bruit. CHEST EXAMINATION: Expiratory wheezes, bibasilar rales. No rhonchi. No chest wall tenderness is noted on palpation or with deep breathing. HEART EXAMINATION: Irregular rate and rhythm. S1, S2 heard. Systolic ejection murmur at the left sternal border, no gallops or rub. ABDOMEN: Soft, nontender. Positive bowel sounds. EXTREMITIES: 2+ peripheral pulses, bilateral Vinayak wraps in place, bilateral lower extremity 2+ pitting edema and no calf tenderness. NEUROLOGIC EXAMINATION: Patient is awake, alert and oriented x3. ASSESSMENT Acute on chronic diastolic heart failure, EF 45-50% Mild ischemic cardiomyopathy Leukocytosis Lactic acidosis Acute kidney injury Chronic persistent atrial fibrillation on long-term anticoagulation Left bundle branch block Coronary artery disease status post bypass grafting, performed at [facility] 2006. Exact details unavailable. Hypertension Dyslipidemia PLAN Continue to diurese with Lasix 40 mg IV 3 times a day. Resume Eliquis, aspirin, atorvastatin and Coreg as previously ordered. Follow renal function and electrolytes in the morning. Document accurate intake and output along with daily weights in the morning. Further recommendations to follow based on clinical course. Thank you kindly for this consultation. Nurse Practitioner note has been reviewed, I agree with a documented findings and plan of care. Patient was seen and examined. Past Medical History Past Medical History: Atrial Fibrillation, Coronary Artery Disease (CAD), Heart Failure, COPD, Osteoarthritis (OA), Prostate Disorder Additional Past Medical History / Comment(s): prostate cancer History of Any Multi-Drug Resistant Organisms: None Reported Past Surgical History: Coronary Bypass/CABG, Heart Catheterization With Stent Past Anesthesia/Blood Transfusion Reactions: No Reported Reaction Date of Last Stent Placement:: 1994 Past Psychological History: No Psychological Hx Reported Smoking Status: Former smoker Past Alcohol Use History: Occasional Past Drug Use History: None Reported - Past Family History Father Family Medical History: Cancer Additional Family Medical History / Comment(s): lung cancer Mother History Unknown: Yes Medications and Allergies Home Medications Medication Instructions Recorded Confirmed Type Nitroglycerin Sl Tabs [Nitrostat] 0.4 mg SUBLINGUAL Q5M PRN 05/08/15 01/21/20 History diphenhydrAMINE [Benadryl] 25 mg PO HS 05/08/15 01/21/20 History Albuterol Inhaler (Bulk) [Ventolin 2 puff INHALATION RT-Q6H PRN 07/05/17 01/21/20 History Hfa Inhaler (Bulk)] Allopurinol [Zyloprim] 100 mg PO BID 07/05/17 01/21/20 History Colchicine [Colcrys] 0.6 mg PO DAILY PRN 07/05/17 01/21/20 History Potassium Chloride [Klor-Con 20] 20 meq PO HS 07/05/17 01/21/20 History Apixaban [Eliquis] 5 mg PO BID 12/17/19 01/21/20 History Fluticasone/Salmeterol [Advair 1 puff INHALATION RT-BID 12/17/19 01/21/20 History 500-50 Diskus] Omeprazole 20 mg PO BID 12/17/19 01/21/20 History Tiotropium 18 Mcg/Puff [Spiriva] 1 puff INHALATION RT-DAILY 12/17/19 01/21/20 History Carvedilol [Coreg] 12.5 mg PO BID 01/21/20 01/21/20 History Furosemide [Lasix] 80 mg PO DAILY 01/21/20 01/21/20 History Ipratropium-Albuterol Nebulize 3 ml INHALATION RT-TID 01/21/20 01/21/20 History [Duoneb 0.5 mg-3 mg/3 ml Soln] Simvastatin [Zocor] 40 mg PO HS 01/21/20 01/21/20 History Allergies Allergy/AdvReac Type Severity Reaction Status Date / Time adhesive Allergy Rash/Hives Verified 01/21/20 10:09 Physical Exam Vitals: Vital Signs Temp Pulse Pulse Resp BP BP Pulse Ox 01/21/20 10:45 97 16 110/59 96 01/21/20 10:30 98.7 F 89 20 101/76 97 01/21/20 09:00 81 20 102/66 95 01/21/20 08:25 100 01/21/20 08:21 83 20 101/72 98 01/21/20 07:26 97.8 F 85 20 105/75 96 Intake and Output 01/20/20 01/21/20 01/21/20 22:59 06:59 14:59 Other: Weight 109.9 kg Results 01/21/20 07:31 01/21/20 07:31 Cardiac Enzymes 01/21/20 01/21/20 Range/Units 07:31 07:31 AST 60 H (17-59) U/L Troponin I 0.015 (0.000-0.034) ng/mL Coagulation 01/21/20 Range/Units 07:31 PT 14.6 H (9.0-12.0) sec APTT 25.4 (22.0-30.0) sec CBC 01/21/20 Range/Units 07:31 WBC 14.8 H (3.8-10.6) k/uL RBC 5.03 (4.30-5.90) m/uL Hgb 9.9 L (13.0-17.5) gm/dL Hct 35.8 L (39.0-53.0) % Plt Count 338 (150-450) k/uL Comprehensive Metabolic Panel 01/21/20 Range/Units 07:31 Sodium 135 L (137-145) mmol/L Potassium 4.6 (3.5-5.1) mmol/L Chloride 101 (98-107) mmol/L Carbon Dioxide 24 (22-30) mmol/L BUN 89 H (9-20) mg/dL Creatinine 1.60 H (0.66-1.25) mg/dL Glucose 232 H (74-99) mg/dL Calcium 8.1 L (8.4-10.2) mg/dL AST 60 H (17-59) U/L ALT 99 H (4-49) U/L Alkaline Phosphatase 116 (38-126) U/L Total Protein 6.3 (6.3-8.2) g/dL Albumin 2.9 L (3.5-5.0) g/dL Current Medications Generic Name Dose Route Start Last Admin Trade Name Freq PRN Reason Stop Dose Admin Apixaban 5 mg 01/21/20 12:45 Eliquis PO BID [facility] Aspirin 81 mg 01/23/20 09:00 Aspirin PO DAILY [facility] Atorvastatin Calcium 20 mg 01/21/20 21:00 Lipitor PO HS [facility] Carvedilol 12.5 mg 01/21/20 17:30 Coreg PO AC-BID [facility] Furosemide 40 mg 01/21/20 10:00 01/21/20 09:59 Lasix IV 40 mg Q8H [facility] Administration Potassium Chloride 20 meq 01/21/20 21:00 K-Dur 20 PO HS [facility] Sodium Chloride 10 ml 01/21/20 21:00 Saline Flush IV BID [facility] Intake and Output 01/20/20 01/21/20 01/21/20 22:59 06:59 14:59 Other: Weight 109.9 kg Patient Weight 01/22/20 06:59 Weight 109.9 kg 01/21/20 07:31 01/21/20 07:31
--- NOTE | 2020-01-21 14:34 | P.HPIM ---
History of Present Illness H&P Date: 01/21/20 Chief Complaint: Worsening dyspnea and lower extremity edema This a 74-year-old gentleman with medical history of CAD, MT, CABG, CHF, COPD, DVT, and multiple other medical issues presented to the ER with complaints of worsening shortness of breath and bilateral lower extremity edema. Reports over the last week medications adjusted/Lasix increased per PCP with no improvement in symptoms and presented to the ER. BUN 89, Creatinine 1.6, baseline 1.5, INR 1.5. Denies fever or chills. Denies sore throat. Reports occasional nonproductive cough ,exertional dyspnea, orthopnea. Denies chest pain, palpitations. Denies lightheadedness, dizziness or focal deficits. WBC 14.8. Lactic acid 2.1. Neutrophils 12.8 . Afebrile. EKG reported sinus rhythm with left bundle branch block ,anterior lateral infarct, age undetermined, possible septal sub-endocardial injury. Troponins negative 1. BNP 4320. AST 60, ALT 99. Hemoglobin 9.9. Chest x-ray reporting interstitial pattern, bibasilar consolidation, CHF versus interstitial pneumonia. Vital signs stable, maintaining O2 sats in the 90s on 3 L nasal cannula. Review of Systems ROS Statement: Those systems with pertinent positive or pertinent negative responses have been documented in the HPI. ROS Other: All systems not noted in ROS Statement are negative. Past Medical History Past Medical History: Atrial Fibrillation, Coronary Artery Disease (CAD), Heart Failure, COPD, Osteoarthritis (OA), Prostate Disorder Additional Past Medical History / Comment(s): prostate cancer History of Any Multi-Drug Resistant Organisms: None Reported Past Surgical History: Coronary Bypass/CABG, Heart Catheterization With Stent Past Anesthesia/Blood Transfusion Reactions: No Reported Reaction Date of Last Stent Placement:: 1994 Past Psychological History: No Psychological Hx Reported Smoking Status: Former smoker Past Alcohol Use History: Occasional Past Drug Use History: None Reported - Past Family History Father Family Medical History: Cancer Additional Family Medical History / Comment(s): lung cancer Mother History Unknown: Yes Medications and Allergies Home Medications Medication Instructions Recorded Confirmed Type Nitroglycerin Sl Tabs [Nitrostat] 0.4 mg SUBLINGUAL Q5M PRN 05/08/15 01/21/20 History diphenhydrAMINE [Benadryl] 25 mg PO HS 05/08/15 01/21/20 History Albuterol Inhaler (Bulk) [Ventolin 2 puff INHALATION RT-Q6H PRN 07/05/17 01/21/20 History Hfa Inhaler (Bulk)] Allopurinol [Zyloprim] 100 mg PO BID 07/05/17 01/21/20 History Colchicine [Colcrys] 0.6 mg PO DAILY PRN 07/05/17 01/21/20 History Potassium Chloride [Klor-Con 20] 20 meq PO HS 07/05/17 01/21/20 History Apixaban [Eliquis] 5 mg PO BID 12/17/19 01/21/20 History Fluticasone/Salmeterol [Advair 1 puff INHALATION RT-BID 12/17/19 01/21/20 History 500-50 Diskus] Omeprazole 20 mg PO BID 12/17/19 01/21/20 History Tiotropium 18 Mcg/Puff [Spiriva] 1 puff INHALATION RT-DAILY 12/17/19 01/21/20 History Carvedilol [Coreg] 12.5 mg PO BID 01/21/20 01/21/20 History Furosemide [Lasix] 80 mg PO DAILY 01/21/20 01/21/20 History Ipratropium-Albuterol Nebulize 3 ml INHALATION RT-TID 01/21/20 01/21/20 History [Duoneb 0.5 mg-3 mg/3 ml Soln] Simvastatin [Zocor] 40 mg PO HS 01/21/20 01/21/20 History Allergies Allergy/AdvReac Type Severity Reaction Status Date / Time adhesive Allergy Rash/Hives Verified 01/21/20 10:09 Physical Exam Vitals: Vital Signs Temp Pulse Pulse Resp BP BP Pulse Ox 01/21/20 10:45 97 16 110/59 96 01/21/20 10:30 98.7 F 89 20 101/76 97 01/21/20 09:00 81 20 102/66 95 01/21/20 08:25 100 01/21/20 08:21 83 20 101/72 98 01/21/20 07:26 97.8 F 85 20 105/75 96 Intake and Output 01/20/20 01/21/20 01/21/20 22:59 06:59 14:59 Other: Weight 109.9 kg PHYSICAL EXAM: VITAL SIGNS: As above GENERAL: Sitting up in bed, no acute distress HEENT: Conjunctivae normal. eyes normal. NECK: No JVD. No thyroid enlargement. No LNs CARDIOVASCULAR: S1, S2, irregular. Systolic murmur. RESPIRATION: Breath sounds diminished in the bases. No rhonchi. Bibasilar crackles with expiratory wheezes ABDOMEN: Soft, obese, nontender . No guarding. no masses palpable. No ascites, No hepatosplenomegaly.Bowel sounds heard. LEGS: Bilateral chronic venous stasis with 2+ pitting edema, Vinayak wrapped PSYCHIATRY: Alert and oriented X3, mood and affect normal. NERVOUS SYSTEM: Cranial N 2-12 grossly normal. Moves all 4 limbs. No focal deficits. Strength and sensation grossly intact.. Skin: no rash , warm and dry Lymphatic system. No LN neck axilla. Results CBC & Chem 7: 01/21/20 07:31 01/21/20 07:31 Labs: Abnormal Lab Results - Last 24 Hours (Table) 01/21/20 01/21/20 01/21/20 Range/Units 07:31 07:31 07:31 WBC 14.8 H (3.8-10.6) k/uL Hgb 9.9 L (13.0-17.5) gm/dL Hct 35.8 L (39.0-53.0) % MCV 71.1 L (80.0-100.0) fL MCH 19.6 L (25.0-35.0) pg MCHC 27.6 L (31.0-37.0) g/dL RDW 19.1 H (11.5-15.5) % Neutrophils # 12.8 H (1.3-7.7) k/uL Lymphocytes # 0.9 L (1.0-4.8) k/uL PT 14.6 H (9.0-12.0) sec INR 1.5 H (<1.2) Sodium 135 L (137-145) mmol/L BUN 89 H (9-20) mg/dL Creatinine 1.60 H (0.66-1.25) mg/dL Glucose 232 H (74-99) mg/dL Plasma Lactic Acid Rashid (0.7-2.0) mmol/L Calcium 8.1 L (8.4-10.2) mg/dL AST 60 H (17-59) U/L ALT 99 H (4-49) U/L Albumin 2.9 L (3.5-5.0) g/dL 01/21/20 Range/Units 07:31 WBC (3.8-10.6) k/uL Hgb (13.0-17.5) gm/dL Hct (39.0-53.0) % MCV (80.0-100.0) fL MCH (25.0-35.0) pg MCHC (31.0-37.0) g/dL RDW (11.5-15.5) % Neutrophils # (1.3-7.7) k/uL Lymphocytes # (1.0-4.8) k/uL PT (9.0-12.0) sec INR (<1.2) Sodium (137-145) mmol/L BUN (9-20) mg/dL Creatinine (0.66-1.25) mg/dL Glucose (74-99) mg/dL Plasma Lactic Acid Rashid 2.1 H* (0.7-2.0) mmol/L Calcium (8.4-10.2) mg/dL AST (17-59) U/L ALT (4-49) U/L Albumin (3.5-5.0) g/dL Assessment and Plan Assessment: Acute on chronic CHF exacerbation, systolic dysfunction, EF 45-50% Possible interstitial pneumonia, community-acquired, empiric antibiotics initiated Acute hypoxic respiratory failure secondary to the above Lactic acidosis Acute on chronic renal failure, stage III Chronic persistent atrial fibrillation, maintained on Eliquis CAD, history of MT, CABG, stent Hypertension Osteoarthritis Former nicotine dependence COPD History of prostate cancer Obesity, BMI 32.9 Utey-[id number] mitral regurgitation Mild to moderate tricuspid regurgitation Severe pulmonary hypertension Degenerative joint disease Plan: Continue on current medication regime ,monitoring and symptomatic treatment. Anticoagulated on Eliquis, aspirin. Maintain diuresing on Lasix IV push as per cardiology. Close monitoring of renal function with repeat labs ordered for a.m. Nephrology consult in place with recommendations pending. Nebulized bronchodilators ordered. Home medications reviewed and resumed accordingly. GI prophylaxis. Empiric antibiotics added to med regime. Pr ognosis guarded given multiple complex medical issues. The impression and plan of care has been dictated as directed. : I performed a history and examination of this patient, discussed the same with the dictator. I agree with the dictator's note ,documented as a scribe. Any additional findings or plans will be noted.
[2020-01-21] MEDS: IPRATROPIUM-ALBUTEROL 3 ML NEB INHALATION SCH ×2 (15:32→19:31)
[2020-01-21] MEDS: CARVEDILOL 12.5 MG TAB PO SCH (17:29)
[2020-01-21] MEDS: SYMBICORT 160-4.5 MCG INHALER INHALATION SCH (19:31)
[2020-01-21] MEDS: POTASSIUM CHLORIDE ER 20 MEQ TAB.ER PO SCH (21:29)
[2020-01-21] MEDS: ATORVASTATIN 20 MG TAB PO SCH (21:30)
[2020-01-21] MEDS: ALPRAZolam 0.5 MG TAB PO PRN (21:30)
--- NOTE | 2020-01-22 00:06 | CT ---
EXAMINATION TYPE: CT chest wo con DATE OF EXAM: 01/21/2020 COMPARISON: None HISTORY: SOB, CHF CT DLP: 697.10 mGycm Automated exposure control for dose reduction was used. Images were obtained from the thoracic inlet to the diaphragm without contrast. There is diffuse interstitial infiltrate throughout the lungs. Heart is enlarged. There are sternal w ires. There is no evidence of a pulmonary mass. There is no pericardial effusion. There is no pleural effusion. There are no hilar masses. There are small paratracheal lymph nodes that measure less than 1 cm. Thoracic aorta is atheromatous. There is no evidence of aneurysm. There is dense coronary roxi ry calcification. The bony thorax is intact. IMPRESSION: Extensive pulmonary interstitial infiltrates. This is nonspecific and could relate to congestive hear t failure. Moderate cardiomegaly. Interstitial pneumonia also possible. No pleural fluid seen to supp ort diagnosis of congestive heart failure.
[2020-01-22] MEDS: FUROSEMIDE 10 MG/ML 4 ML VIAL IV SCH ×2 (01:37→07:48)
[2020-01-22] MEDS: IPRATROPIUM-ALBUTEROL 3 ML NEB INHALATION SCH ×4 (07:43→19:26)
[2020-01-22] MEDS: SYMBICORT 160-4.5 MCG INHALER INHALATION SCH ×2 (07:43→19:26)
[2020-01-22] MEDS: APIXABAN 5 MG TAB PO SCH ×2 (07:48→20:46)
[2020-01-22] MEDS: CARVEDILOL 12.5 MG TAB PO SCH ×2 (07:48→17:33)
[2020-01-22] MEDS ORDERED: NON FORMULARY DRUG (Tiotropium 18 Mcg/Puff 1 PUFF) INHALATION SCH (08:00)
[2020-01-22 08:07] LABS: Anisocytosis Slight; Basophils % (A) 0 %; Eosinophils # (A) 0.1 k/uL (0-0.7); Eosinophils % (A) 0 %; HCT 36.9 % (39.0-53.0); HGB 10.2 gm/dL (13.0-17.5); Hypochromasia Marked; Lymphocytes # (A) 0.9 k/uL (1.0-4.8); Lymphocytes % (A) 6 %; MCH 19.7 pg (25.0-35.0); MCHC 27.6 g/dL (31.0-37.0); MCV 71.5 fL (80.0-100.0); Mean Platelet Volume 7.7; Microcytosis Marked; Monocytes # (A) 0.9 k/uL (0-1.0); Monocytes % (A) 6 %; Neutrophils % (A) 86 %; Platelet Count 321 k/uL (150-450); Poikilocytosis Slight; RBC 5.16 m/uL (4.30-5.90); RDW 19.1 % (11.5-15.5); WBC 15.1 k/uL (3.8-10.6)
[2020-01-22 08:16] LABS: Albumin 3.1 g/dL (3.5-5.0); Calcium 8.7 mg/dL (8.4-10.2); Potassium 4.4 mmol/L (3.5-5.1); Total Bilirubin 1.6 mg/dL (0.2-1.3); Total Protein 6.7 g/dL (6.3-8.2)
[2020-01-22] MEDS ORDERED: FUROSEMIDE 10 MG/ML 4 ML VIAL IV STA (08:32)
--- NOTE | 2020-01-22 08:46 | P.PN ---
Subjective HISTORY OF PRESENTING ILLNESS This is a pleasant 74-year-old [place] male past medical history significant for chronic persistent atrial fibrillation, coronary artery disease s/p bypass grafting, COPD, chronic heart failure and former nicotine dependence. He follows in the office with Dr. Carlson. He is seen and examined sitting up in the chair with his feet on the ground. He states his breathing is stable but he has been up urinating quite a bit which has made his night uncomfortable. He denies chest pain, dizziness or palpitations. Blood pressure 105/71 heart rate 94. Laboratory reviewed, WBC 15.1, hgb 10.2, plt 321, sodium 135, potassium 4.4, creatinine 1.5 with a GFR 45 and total bilirubin 1.6 up from 1.3 on admission. Currently maintained on Lasix IV 40 mg 3 times a day. Urine output for the previous 24 hours is 450 mL. PHYSICAL EXAMINATION CONSTITUTIONAL: No apparent distress. HEENT: Head is normocephalic. Pupils are equal, round. Sclerae anicteric. Mucous membranes of the mouth are moist. No JVD. No carotid bruit. CHEST EXAMINATION: Expiratory wheezes, bibasilar rales. No rhonchi. No chest wall tenderness is noted on palpation or with deep breathing. HEART EXAMINATION: Irregular rate and rhythm. S1, S2 heard. Systolic ejection murmur at the left sternal border, no gallops or rub. EXTREMITIES: 2+ peripheral pulses, bilateral Vinayak wraps in place, bilateral lower extremity 2+ pitting edema and no calf tenderness. ASSESSMENT Acute on chronic diastolic heart failure, EF 45-50% Mild ischemic cardiomyopathy Leukocytosis Lactic acidosis Acute kidney injury Chronic persistent atrial fibrillation on long-term anticoagulation Left bundle branch block Coronary artery disease status post bypass grafting, performed at [facility] 2006. Exact details unavailable. Hypertension Dyslipidemia PLAN Adjust Lasix dosing to 80 mg in the morning and 40 mg in the afternoon. Repeat CMP in the morning. Nurse Practitioner note has been reviewed, I agree with a documented findings and plan of care. Patient was seen and examined. Objective - Vital Signs Vital signs: Vital Signs Temp 96.4 F L 01/22/20 08:08 Pulse 94 01/22/20 07:55 Resp 17 01/22/20 07:00 BP 105/71 01/22/20 07:00 Pulse Ox 93 L 01/22/20 07:00 Intake & Output 01/21/20 01/22/20 01/22/20 18:59 06:59 18:59 Intake Total 150 Output Total 450 Balance 150 -450 Weight 109.9 kg 110.6 kg Intake: Oral 150 Output: Urine 450 Other: # Bowel Movements 1 - Labs CBC & Chem 7: 01/22/20 07:41 01/22/20 07:41 Labs: Abnormal Lab Results - Last 24 Hours (Table) 01/22/20 01/22/20 Range/Units 07:41 07:41 WBC 15.1 H (3.8-10.6) k/uL Hgb 10.2 L (13.0-17.5) gm/dL Hct 36.9 L (39.0-53.0) % MCV 71.5 L (80.0-100.0) fL MCH 19.7 L (25.0-35.0) pg MCHC 27.6 L (31.0-37.0) g/dL RDW 19.1 H (11.5-15.5) % Neutrophils # 13.0 H (1.3-7.7) k/uL Lymphocytes # 0.9 L (1.0-4.8) k/uL Sodium 135 L (137-145) mmol/L BUN 76 H (9-20) mg/dL Creatinine 1.50 H (0.66-1.25) mg/dL Glucose 139 H (74-99) mg/dL Total Bilirubin 1.6 H (0.2-1.3) mg/dL ALT 93 H (4-49) U/L Albumin 3.1 L (3.5-5.0) g/dL
[2020-01-22] MEDS ORDERED: ASPIRIN 325 MG TAB PO SCH (09:49)
--- NOTE | 2020-01-22 12:12 | P.NPCON ---
History of Present Illness - Reason for Consult chronic renal failure - History of Present Illness Reason for presentation: Chronic kidney disease History of present illness: Patient is a 74-year-old male seen in renal consultation for chronic kidney disease. Patient has chronic kidney disease stage III with baseline creatinine near 1.5. Patient presented to the hospital with shortness of breath and w orsening lower extremity edema. He was also complaining of orthopnea. Patient states his dose of Lasix was increased as an outpatient without any relief in his symptoms. He does admit to a nonproductive cough. No vomiting or diarrhea. No history of diabetes. Denies use of nonsteroidals. Admits to good urine output. No hematuria or dysuria. His legs are currently wrapped but states edema is slowly improving. Blood pressure is stable on the lower side. He is currently receiving IV Lasix. Denies fever or chills. No chest pain. No abdominal pain. No other complaints at this time. Vital signs are stable. General: The patient appeared well nourished and normally developed. HEENT: Head exam is unremarkable. Neck is without jugular venous distension. LUNGS: Lungs are clear to auscultation and percussion. Breath sounds decreased. HEART: Rate and Rhythm are regular. ABDOMEN: Abdominal exam reveals normal bowel sounds. Non-tender and non- distended. EXTREMITITES: 2+ edema. Past Medical History Past Medical History: Atrial Fibrillation, Coronary Artery Disease (CAD), Heart Failure, COPD, Osteoarthritis (OA), Prostate Disorder Additional Past Medical History / Comment(s): prostate cancer History of Any Multi-Drug Resistant Organisms: None Reported Past Surgical History: Coronary Bypass/CABG, Heart Catheterization With Stent Past Anesthesia/Blood Transfusion Reactions: No Reported Reaction Date of Last Stent Placement:: 1994 Past Psychological History: No Psychological Hx Reported Smoking Status: Former smoker Past Alcohol Use History: Occasional Past Drug Use History: None Reported - Past Family History Father Family Medical History: Cancer Additional Family Medical History / Comment(s): lung cancer Mother History Unknown: Yes Medications and Allergies Home Medications Medication Instructions Recorded Confirmed Type Nitroglycerin Sl Tabs [Nitrostat] 0.4 mg SUBLINGUAL Q5M PRN 05/08/15 01/21/20 History diphenhydrAMINE [Benadryl] 25 mg PO HS 05/08/15 01/21/20 History Albuterol Inhaler (Bulk) [Ventolin 2 puff INHALATION RT-Q6H PRN 07/05/17 01/21/20 History Hfa Inhaler (Bulk)] Allopurinol [Zyloprim] 100 mg PO BID 07/05/17 01/21/20 History Colchicine [Colcrys] 0.6 mg PO DAILY PRN 07/05/17 01/21/20 History Potassium Chloride [Klor-Con 20] 20 meq PO HS 07/05/17 01/21/20 History Apixaban [Eliquis] 5 mg PO BID 12/17/19 01/21/20 History Fluticasone/Salmeterol [Advair 1 puff INHALATION RT-BID 12/17/19 01/21/20 History 500-50 Diskus] Omeprazole 20 mg PO BID 12/17/19 01/21/20 History Tiotropium 18 Mcg/Puff [Spiriva] 1 puff INHALATION RT-DAILY 12/17/19 01/21/20 History Carvedilol [Coreg] 12.5 mg PO BID 01/21/20 01/21/20 History Furosemide [Lasix] 80 mg PO DAILY 01/21/20 01/21/20 History Ipratropium-Albuterol Nebulize 3 ml INHALATION RT-TID 01/21/20 01/21/20 History [Duoneb 0.5 mg-3 mg/3 ml Soln] Simvastatin [Zocor] 40 mg PO HS 01/21/20 01/21/20 History Allergies Allergy/AdvReac Type Severity Reaction Status Date / Time adhesive Allergy Rash/Hives Verified 01/21/20 10:09 Physical Exam Vitals: Vital Signs Temp Pulse Pulse Resp BP Pulse Ox 01/22/20 11:49 90 01/22/20 11:39 92 01/22/20 08:08 96.4 F L 01/22/20 07:55 94 01/22/20 07:45 17 01/22/20 07:40 94 01/22/20 07:00 87 17 105/71 93 L 01/22/20 04:37 21 01/22/20 02:32 97.5 F L 96 21 101/59 96 01/21/20 23:53 92 18 01/21/20 20:00 92 18 01/21/20 19:47 97.7 F 92 18 94/64 98 01/21/20 19:43 99 01/21/20 19:34 98 01/21/20 16:00 18 01/21/20 15:45 94 01/21/20 15:32 92 01/21/20 14:35 97.3 F L 97 17 100/64 93 L Intake and Output 01/21/20 01/22/20 01/22/20 22:59 06:59 14:59 Intake Total 150 380 Output Total 450 Balance 150 -450 380 Intake: Oral 150 380 Output: Urine 450 Other: # Bowel Movements 1 Weight 110.6 kg Results - Lab Results Most recent lab results Calcium 8.7 mg/dL (8.4-10.2) 01/22/20 07:41 01/22/20 07:41 01/22/20 07:41 Assessment and Plan Plan: Assessment: 1. Chronic kidney disease stage III with baseline creatinine near 1.5. GFR at baseline. 2. Acute on chronic systolic CHF with ejection fraction of 45-50% with mild to moderate mitral and tricuspid regurgitation. 3. Severe pulmonary hypertension. 4. Volume overload. Plan: Maintain IV Lasix. He is receiving 80 mg in the morning and 40 mg in the evening. Low-salt diet and 1500 mL fluid resection. Continue to monitor renal function and urine output. Check urinalysis. Check renal ultrasound. Thank you for the sedation. I will continue to follow the patient with you during his hospital stay.
--- NOTE | 2020-01-22 13:14 | P.PN ---
Subjective Progress Note Date: 01/22/20 This a 74-year-old gentleman with medical history of CAD, [place], CABG, CHF, COPD, DVT, and multiple other medical issues presented to the ER with complaints of worsening shortness of breath and bilateral lower extremity edema. Reports over the last week medications adjusted/Lasix increased per PCP with no improvement in symptoms and presented to the ER. BUN 89, Creatinine 1.6, baseline 1.5, INR 1.5. Denies fever or chills. Denies sore throat. Reports occasional nonproductive cough ,exertional dyspnea, orthopnea. Denies chest pain, palpitations. Denies lightheadedness, dizziness or focal deficits. WBC 14.8. Lactic acid 2.1. Neutrophils 12.8 . Afebrile. EKG reported sinus rhythm with left bundle branch block ,anterior lateral infarct, age undetermined, possible septal sub-endocardial injury. Troponins negative 1. BNP 4320. AST 60, ALT 99. Hemoglobin 9.9. Chest x-ray reporting interstitial pattern, bibasilar consolidation, CHF versus interstitial pneumonia. Vital signs stable, rodrigue ntaining O2 sats in the 90s on 3 L nasal cannula. 01/22/2020 diuresing on Lasix IV push with 24-hour I&O reflecting a negative fluid balance. Edema improving. Renal function improving, BUN 76 creatinine 1.5. Oxygen requirements titrated down to 2 L, maintaining O2 sats in the 90s. Borderline hypotension. Denies chest pain, palpitations or increasing shortness of breath. Objective - Vital Signs Vital signs: Vital Signs Temp 96.4 F L 01/22/20 08:08 Pulse 90 01/22/20 11:49 Resp 17 01/22/20 07:45 BP 105/71 01/22/20 07:00 Pulse Ox 93 L 01/22/20 07:00 Intake & Output 01/21/20 01/22/20 01/22/20 18:59 06:59 18:59 Intake Total 150 380 Output Total 450 Balance 150 -450 380 Weight 109.9 kg 110.6 kg Intake: Oral 150 380 Output: Urine 450 Other: # Bowel Movements 1 - Exam VITAL SIGNS: As above GENERAL: Sitting up in bed, no acute distress HEENT: Conjunctivae normal. eyes normal. Oral mucosa moist. NECK: No JVD. No thyroid enlargement. No LNs CARDIOVASCULAR: S1, S2, irregular. Systolic murmur. RESPIRATION: Breath sounds diminished in the bases. No rhonchi. Fine Bibasilar crackles with occasional scattered expiratory wheezes ABDOMEN: Soft, obese, nontender . No guarding. no masses palpable. No ascites, No hepatosplenomegaly.Bowel sounds heard. LEGS: Bilateral chronic venous stasis with decreasing edema, Vinayak wrapped PSYCHIATRY: Alert and oriented X3, mood and affect normal. NERVOUS SYSTEM: Cranial N 2-12 grossly normal. Moves all 4 limbs. No focal deficits. Strength and sensation grossly intact.. Skin: no rash , warm and dry - Labs CBC & Chem 7: 01/22/20 07:41 01/22/20 07:41 Labs: Abnormal Lab Results - Last 24 Hours (Table) 01/22/20 01/22/20 Range/Units 07:41 07:41 WBC 15.1 H (3.8-10.6) k/uL Hgb 10.2 L (13.0-17.5) gm/dL Hct 36.9 L (39.0-53.0) % MCV 71.5 L (80.0-100.0) fL MCH 19.7 L (25.0-35.0) pg MCHC 27.6 L (31.0-37.0) g/dL RDW 19.1 H (11.5-15.5) % Neutrophils # 13.0 H (1.3-7.7) k/uL Lymphocytes # 0.9 L (1.0-4.8) k/uL Sodium 135 L (137-145) mmol/L BUN 76 H (9-20) mg/dL Creatinine 1.50 H (0.66-1.25) mg/dL Glucose 139 H (74-99) mg/dL Total Bilirubin 1.6 H (0.2-1.3) mg/dL ALT 93 H (4-49) U/L Albumin 3.1 L (3.5-5.0) g/dL Assessment and Plan Assessment: Acute on chronic CHF exacerbation, systolic dysfunction, EF 45-50% Possible interstitial pneumonia, community-acquired, empiric antibiotics initiated Acute hypoxic respiratory failure secondary to the above Lactic acidosis Acute on chronic renal failure, stage III. Baseline creatinine 1.5 Chronic persistent atrial fibrillation, maintained on Eliquis CAD, history of [place], CABG, stent Hypertension Osteoarthritis Former nicotine dependence COPD History of prostate cancer Obesity, BMI 32.9 [id number] mitral regurgitation Mild to moderate tricuspid regurgitation Severe pulmonary hypertension Degenerative joint disease Plan: Continue on current medication regime ,monitoring and symptomatic treatment. Diuretics as per cardiology and nephrology. Maintain CHF/fluid restriction diet. Renal ultrasound ordered. CMP in a.m., mild increase in total bilirubin from 1.3-1.6. The impression and plan of care has been dictated as directed. : I performed a history and examination of this patient, discussed the same with the dictator. I agree with the dictator's note ,documented as a scribe. Any additional findings or plans will be noted.
--- NOTE | 2020-01-22 13:34 | US ---
EXAMINATION TYPE: US kidneys/renal and bladder DATE OF EXAM: 01/22/2020 COMPARISON: NONE CLINICAL HISTORY: russ. abn labs, patient states just voiding before exam Portable exam EXAM MEASUREMENTS: Right Kidney: 11.3 x 4.1 x 5.4 cm Left Kidney: 11.4 x 3.7 x 5.2 cm Right Kidney: No hydronephrosis or masses seen Left Kidney: No hydronephrosis or masses seen Bladder: Nondistended, not well visualized Bilateral Jets not seen due to nondistended bladder There is no evidence for hydronephrosis at this point in time. No nephrolithiasis is seen. No lb s are identified. The urinary bladder is anechoic. IMPRESSION: No distinct abnormality appreciated.
[2020-01-22] MEDS ORDERED: FUROSEMIDE 10 MG/ML 4 ML VIAL IV SCH (14:00)
[2020-01-22] MEDS: ALPRAZolam 0.5 MG TAB PO PRN ×2 (14:40→20:36)
[2020-01-22] MEDS: POTASSIUM CHLORIDE ER 20 MEQ TAB.ER PO SCH (20:36)
[2020-01-22] MEDS: ATORVASTATIN 20 MG TAB PO SCH (20:36)
[2020-01-22] MEDS: diphenhydrAMINE 25 MG CAP PO SCH (20:36)
[2020-01-23] MEDS: APIXABAN 5 MG TAB PO SCH ×2 (07:22→20:49)
[2020-01-23] MEDS: CARVEDILOL 12.5 MG TAB PO SCH ×2 (07:22→17:35)
[2020-01-23] MEDS: IPRATROPIUM-ALBUTEROL 3 ML NEB INHALATION SCH ×4 (08:21→19:34)
[2020-01-23] MEDS: SYMBICORT 160-4.5 MCG INHALER INHALATION SCH ×2 (08:21→19:34)
[2020-01-23 08:53] LABS: Calcium 8.7 mg/dL (8.4-10.2); Magnesium 2.2 mg/dL (1.6-2.3); Potassium 4.3 mmol/L (3.5-5.1); Total Bilirubin 1.2 mg/dL (0.2-1.3); Total Protein 6.7 g/dL (6.3-8.2)
[2020-01-23] MEDS ORDERED: FUROSEMIDE 10 MG/ML 10 ML VIAL IV SCH (09:00)
[2020-01-23] MEDS ORDERED: ASPIRIN 81 MG PO SCH (09:00)
--- NOTE | 2020-01-23 09:35 | P.PN ---
Subjective HISTORY OF PRESENTING ILLNESS This is a pleasant 74-year-old [place] male past medical history significant for chronic persistent atrial fibrillation, coronary artery disease s/p bypass grafting, COPD, chronic heart failure and former nicotine dependence. He follows in the office with Dr. Carlson. He is seen and examined sitting up in the chair with his feet on the ground eating breakfast. He states his breathing is slightly improving, however the staff states he gets quite dyspneic getting from the bed to the chair. He denies chest pain, dizziness or palpitations. Diuretics were adjusted yesterday to avoid night time dose. Currently maintained on 120 mg daily. Blood pressure 106/71 heart rate 93 afebrile and maintaining oxygen saturation on nasal cannula. Nephrology saw him yesterday and ordered an ultrasound of his abdomen that was unremarkable. Laboratory data reviewed, sodium 136, potassium 4.3, creatinine 1.43 with a GFR of 48, total bilirubin 1.2. PHYSICAL EXAMINATION CONSTITUTIONAL: No apparent distress. HEENT: Head is normocephalic. Pupils are equal, round. Sclerae anicteric. Mucous membranes of the mouth are moist. No JVD. No carotid bruit. CHEST EXAMINATION: Expiratory wheezes, no rales or rhonchi. No chest wall tenderness is noted on palpation or with deep breathing. HEART EXAMINATION: Irregular rate and rhythm. S1, S2 heard. Systolic ejection murmur at the left sternal border, no gallops or rub. EXTREMITIES: 2+ peripheral pulses, bilateral Vinayak wraps in place, bilateral lower extremity 2+ pitting edema up to the knees and no calf tenderness. ASSESSMENT Acute on chronic diastolic heart failure, EF 45-50% Mild ischemic cardiomyopathy Leukocytosis Lactic acidosis Acute kidney injury Valvular heart disease Pulmonary hypertension, RVSP 70 mmHg Chronic persistent atrial fibrillation on long-term anticoagulation Left bundle branch block Coronary artery disease status post bypass grafting, performed at [facility] 2006. Exact details unavailable. Hypertension Dyslipidemia PLAN Continue current medical regimen. Accurate documentation of output to effectively assess diuresis. Follow renal function and electrolytes in the morning. Nurse Practitioner note has been reviewed, I agree with a documented findings and plan of care. Patient was seen and examined. Objective - Vital Signs Vital signs: Vital Signs Temp 97.3 F L 01/22/20 19:32 Pulse 93 01/23/20 07:00 Resp 16 01/23/20 07:00 BP 106/71 01/23/20 07:00 Pulse Ox 92 L 01/22/20 19:32 Intake & Output 01/22/20 01/23/20 01/23/20 18:59 06:59 18:59 Intake Total 530 Balance 530 Weight 110.6 kg Intake: Oral 530 - Labs CBC & Chem 7: 01/22/20 07:41 01/23/20 07:44 Labs: Abnormal Lab Results - Last 24 Hours (Table) 01/22/20 01/22/20 Range/Units 07:41 07:41 WBC 15.1 H (3.8-10.6) k/uL Hgb 10.2 L (13.0-17.5) gm/dL Hct 36.9 L (39.0-53.0) % MCV 71.5 L (80.0-100.0) fL MCH 19.7 L (25.0-35.0) pg MCHC 27.6 L (31.0-37.0) g/dL RDW 19.1 H (11.5-15.5) % Neutrophils # 13.0 H (1.3-7.7) k/uL Lymphocytes # 0.9 L (1.0-4.8) k/uL Sodium 135 L (137-145) mmol/L BUN 76 H (9-20) mg/dL Creatinine 1.50 H (0.66-1.25) mg/dL Glucose 139 H (74-99) mg/dL Total Bilirubin 1.6 H (0.2-1.3) mg/dL ALT 93 H (4-49) U/L Albumin 3.1 L (3.5-5.0) g/dL
[2020-01-23] MEDS: AZITHROMYCIN 500 MG in SODIUM CHLORIDE 0.9% 250 ML IVPB SCH (11:23)
--- NOTE | 2020-01-23 11:46 | P.PN ---
Subjective Progress Note Date: 01/23/20 This a 74-year-old gentleman with medical history of CAD, [place], CABG, CHF, COPD, DVT, and multiple other medical issues presented to the ER with complaints of worsening shortness of breath and bilateral lower extremity edema. Reports over the last week medications adjusted/Lasix increased per PCP with no improvement in symptoms and presented to the ER. BUN 89, Creatinine 1.6, baseline 1.5, INR 1.5. Denies fever or chills. Denies sore throat. Reports occasional nonproductive cough ,exertional dyspnea, orthopnea. Denies chest pain, palpitations. Denies lightheadedness, dizziness or focal deficits. WBC 14.8. Lactic acid 2.1. Neutrophils 12.8 . Afebrile. EKG reported sinus rhythm with left bundle branch block ,anterior lateral infarct, age undetermined, possible septal sub-endocardial injury. Troponins negative 1. BNP 4320. AST 60, ALT 99. Hemoglobin 9.9. Chest x-ray reporting interstitial pattern, bibasilar consolidation, CHF versus interstitial pneumonia. Vital signs stable, rodrigue ntaining O2 sats in the 90s on 3 L nasal cannula. 01/22/2020 diuresing on Lasix IV push with 24-hour I&O reflecting a negative fluid balance. Edema improving. Renal function improving, BUN 76 creatinine 1.5. Oxygen requirements titrated down to 2 L, maintaining O2 sats in the 90s. Borderline hypotension. Denies chest pain, palpitations or increasing shortness of breath. 01/23/2020 maintained on 1500 MLS fluid restriction, low-salt diet and diuretics . Lasix dosing adjusted yesterday to avoid night dose and facilitate sleep. 24- hour I&O inaccurate. Reports better sleep, breathing improving. Staff reports exertional dyspnea .Maintaining O2 sats in the 90s on 3 L nasal cannula. Bord alex hypotension. Evaluated by nephrology with recommendations noted. Creatinine slowly trending down, currently 1.43. Renal ultrasound unremarkable. LFTs within normal limits with exception of mild elevation of ALT. Sodium 136, potassium 4.3, magnesium 2.2 Objective - Vital Signs Vital signs: Vital Signs Temp 97.3 F L 01/22/20 19:32 Pulse 96 01/23/20 08:32 Resp 16 01/23/20 07:00 BP 106/71 01/23/20 07:00 Pulse Ox 92 L 01/22/20 19:32 Intake & Output 01/22/20 01/23/20 01/23/20 18:59 06:59 18:59 Intake Total 530 Balance 530 Weight 110.6 kg Intake: Oral 530 - Exam VITAL SIGNS: As above GENERAL: Sitting up in chair, no acute distress HEENT: Conjunctivae normal. eyes normal. Oral mucosa moist. NECK: No JVD. No thyroid enlargement. No LNs CARDIOVASCULAR: S1, S2, irregular. Systolic murmur. RESPIRATION: Breath sounds diminished in the bases. No rhonchi. Scattered expiratory wheezes ABDOMEN: Soft, obese, nontender . No guarding. no masses palpable. No ascites, No hepatosplenomegaly.Bowel sounds heard. LEGS: Bilateral chronic venous stasis with edema, Vinayak wrapped. PSYCHIATRY: Alert and oriented X3, mood and affect normal. NERVOUS SYSTEM: Cranial N 2-12 grossly normal. Moves all 4 limbs. No focal deficits. Strength and sensation grossly intact.. Skin: no rash , warm and dry - Labs CBC & Chem 7: 01/22/20 07:41 01/23/20 07:44 Labs: Abnormal Lab Results - Last 24 Hours (Table) 01/23/20 Range/Units 07:44 Sodium 136 L (137-145) mmol/L BUN 70 H (9-20) mg/dL Creatinine 1.43 H (0.66-1.25) mg/dL Glucose 117 H (74-99) mg/dL ALT 79 H (4-49) U/L Albumin 3.0 L (3.5-5.0) g/dL Assessment and Plan Assessment: Acute on chronic CHF exacerbation, systolic dysfunction, EF 45-50% Possible interstitial pneumonia, community-acquired, empiric antibiotics initiated Acute hypoxic respiratory failure secondary to the above Lactic acidosis Chronic renal failure, stage III. Baseline creatinine 1.5 Chronic persistent atrial fibrillation, maintained on Eliquis CAD, history of [place], CABG, stent Hypertension Osteoarthritis Former nicotine dependence COPD History of prostate cancer Obesity, BMI 32.9 [id number] mitral regurgitation Mild to moderate tricuspid regurgitation Severe pulmonary hypertension Degenerative joint disease Plan: Continue on current medication regime ,monitoring and symptomatic treatment. Continue on fluid restrictions. Maintain diuretics as per cardiology and nephrology. Strict I&O's as per CHF protocol. Close monitoring of renal function, electrolytes with repeat labs ordered for a.m. increase ambulation as tolerated. The impression and plan of care has been dictated as directed. : I performed a history and examination of this patient, discussed the same with the dictator. I agree with the dictator's note ,documented as a scribe. Any additional findings or plans will be noted.
--- NOTE | 2020-01-23 12:12 | P.PN ---
Subjective patient is seen in follow-up for chronic kidney disease. Renal function is stable. Remains edematous. He has been voiding. No vomiting or diarrhea. Vital signs are stable. General: The patient appeared well nourished and normally developed. HEENT: Head exam is unremarkable. Neck is without jugular venous distension. LUNGS: Lungs are clear to auscultation and percussion. Breath sounds decreased. HEART: Rate and Rhythm are regular. ABDOMEN: Nontender. Nondistended. EXTREMITITES: 2+ edema. Objective - Vital Signs Vital signs: Vital Signs Temp 97.3 F L 01/22/20 19:32 Pulse 90 01/23/20 11:50 Resp 16 01/23/20 07:00 BP 106/71 01/23/20 07:00 Pulse Ox 92 L 01/22/20 19:32 Intake & Output 01/22/20 01/23/20 01/23/20 18:59 06:59 18:59 Intake Total 530 Balance 530 Weight 110.6 kg Intake: Oral 530 - Labs CBC & Chem 7: 01/22/20 07:41 01/23/20 07:44 Labs: Abnormal Lab Results - Last 24 Hours (Table) 01/23/20 Range/Units 07:44 Sodium 136 L (137-145) mmol/L BUN 70 H (9-20) mg/dL Creatinine 1.43 H (0.66-1.25) mg/dL Glucose 117 H (74-99) mg/dL ALT 79 H (4-49) U/L Albumin 3.0 L (3.5-5.0) g/dL Assessment and Plan Plan: Assessment: 1. Chronic kidney disease stage III with baseline creatinine near 1.5. GFR at baseline. No hydronephrosis noted on kidney ultrasound. 2. Acute on chronic systolic CHF with ejection fraction of 45-50% with mild to moderate mitral and tricuspid regurgitation. 3. Severe pulmonary hypertension. 4. Volume overload. Plan: Discontinue IV push Lasix and start Lasix drip at 10 mL an hour. Low-salt diet and 1500 mL fluid resection. Continue to monitor renal function and urine output. Follow-up urinalysis. Repeat electrolytes in the morning.
[2020-01-23] MEDS: FUROSEMIDE 100 MG in SODIUM CHLORIDE 0.9% 90 ML IV SCH ×2 (13:40→21:25)
[2020-01-23 18:11] LABS: Appearance,Urine Clear (Clear); Bilirubin,Urine Negative (Negative); Blood,Urine Negative (Negative); Color,Urine Yellow; Glucose,Urine (UA) Negative (Negative); Ketones,Urine Negative (Negative); Leukocyte Esterase,Urine Negative (Negative); Nitrite,Urine Negative (Negative); PH, Urine 5.5 (5.0-8.0); Protein,Urine Negative (Negative); Specific Gravity,Urine 1.012 (1.001-1.035); Urobilinogen,Urine <2.0 mg/dL (<2.0)
[2020-01-23] MEDS: ATORVASTATIN 20 MG TAB PO SCH (20:49)
[2020-01-23] MEDS: POTASSIUM CHLORIDE ER 20 MEQ TAB.ER PO SCH (20:49)
[2020-01-23] MEDS: diphenhydrAMINE 25 MG CAP PO SCH (20:49)
[2020-01-24] MEDS: FUROSEMIDE 100 MG in SODIUM CHLORIDE 0.9% 90 ML IV SCH ×2 (07:29→17:10)
[2020-01-24] MEDS: SYMBICORT 160-4.5 MCG INHALER INHALATION SCH ×2 (08:02→19:17)
[2020-01-24] MEDS: IPRATROPIUM-ALBUTEROL 3 ML NEB INHALATION SCH ×4 (08:02→19:16)
--- NOTE | 2020-01-24 08:29 | P.PN ---
Subjective HISTORY OF PRESENTING ILLNESS This is a pleasant 74-year-old [place] male past medical history significant for chronic persistent atrial fibrillation, coronary artery disease s/p bypass grafting, COPD, chronic heart failure and former nicotine dependence. He follows in the office with Dr. Carlson. He is seen and examined sitting up in the chair with his feet elevated. VINAYAK wraps in place with ongoing significant bilateral lower extremity edema. He is struggling with ongoing exertional dyspnea. He is having frequent PVC's on telemetry with a short run of ventricular tachycardia. He denies chest pain, dizziness or palpitations. Lasix infusion has been initiated per nephrology. Output documented as 1100 cc for the previous 24 hrs however his weight has gone up according to the documentation. Blood pressure 110/88 heart rate 88 maintaining oxygen saturation on nasal cannula. Daily labs are pending. PHYSICAL EXAMINATION CONSTITUTIONAL: No apparent distress. HEENT: Head is normocephalic. Pupils are equal, round. Sclerae anicteric. Mucous membranes of the mouth are moist. No JVD. No carotid bruit. CHEST EXAMINATION: Expiratory wheezes, bilateral scattered rales and rhonchi. No chest wall tenderness is noted on palpation or with deep breathing. HEART EXAMINATION: Irregular rate and rhythm. S1, S2 heard. Systolic ejection murmur at the left sternal border, no gallops or rub. EXTREMITIES: 2+ peripheral pulses, bilateral Vinayak wraps in place, bilateral lower extremity 2+ pitting edema up to the knees and no calf tenderness. ASSESSMENT Acute on chronic diastolic heart failure, EF 45-50% Mild ischemic cardiomyopathy Leukocytosis Lactic acidosis Acute kidney injury Valvular heart disease Pulmonary hypertension, RVSP 70 mmHg Chronic persistent atrial fibrillation on long-term anticoagulation Left bundle branch block Coronary artery disease status post bypass grafting, performed at [facility] 2006. Exact details unavailable. Hypertension Dyslipidemia PLAN Continue with lasix infusion. Fluid restriction discussed with him in detail. Keep legs elevated as much as possible. We will consider increasing coreg if his blood pressure will tolerate. Nurse Practitioner note has been reviewed, I agree with a documented findings and plan of care. Patient was seen and examined. Objective - Vital Signs Vital signs: Vital Signs Temp 97.2 F L 01/24/20 07:00 Pulse 88 01/24/20 08:14 Resp 20 01/24/20 07:00 BP 110/88 01/24/20 07:00 Pulse Ox 93 L 01/24/20 07:00 Intake & Output 01/23/20 01/24/20 01/24/20 18:59 06:59 18:59 Intake Total 77.5 100 Output Total 300 800 Balance -300 -722.5 100 Weight 112.5 kg Intake: Intake, IV Titration 77.5 100 Amount Furosemide 100 mg In 77.5 100 Sodium Chloride 0.9% 90 ml @ 10 MG/HR 10 mls/hr IV .Q10H [facility] Rx#: [id number] Output: Urine 300 800 Other: Voiding Method Urinal # Voids 1 1 # Bowel Movements 1 - Labs CBC & Chem 7: 01/22/20 07:41 01/23/20 07:44 Labs: Abnormal Lab Results - Last 24 Hours (Table) 01/23/20 Range/Units 07:44 Sodium 136 L (137-145) mmol/L BUN 70 H (9-20) mg/dL Creatinine 1.43 H (0.66-1.25) mg/dL Glucose 117 H (74-99) mg/dL ALT 79 H (4-49) U/L Albumin 3.0 L (3.5-5.0) g/dL
[2020-01-24] MEDS ORDERED: CARVEDILOL 12.5 MG TAB PO SCH (08:30)
[2020-01-24] MEDS: CARVEDILOL 12.5 MG TAB PO SCH ×2 (08:50→17:10)
[2020-01-24] MEDS: AZITHROMYCIN 500 MG in SODIUM CHLORIDE 0.9% 250 ML IVPB SCH (09:23)
[2020-01-24] MEDS: APIXABAN 5 MG TAB PO SCH ×2 (09:23→20:58)
[2020-01-24 10:28] LABS: Calcium 8.3 mg/dL (8.4-10.2); Magnesium 2.1 mg/dL (1.6-2.3)
[2020-01-24 10:31] LABS: Potassium 5.4 mmol/L (3.5-5.1)
--- NOTE | 2020-01-24 11:29 | P.PN ---
Subjective patient is seen in follow-up for chronic kidney disease. Renal function is stable. Remains edematous. He has been voiding but strict I's and O's not done. No vomiting or diarrhea. He is currently maintained on Lasix drip at 10 mL an hour. Vital signs are stable. General: The patient appeared well nourished and normally developed. HEENT: Head exam is unremarkable. Neck is without jugular venous distension. LUNGS: Lungs are clear to auscultation and percussion. Breath sounds decreased. HEART: Rate and Rhythm are regular. ABDOMEN: Nontender. Nondistended. EXTREMITITES: 2+ edema. Objective - Vital Signs Vital signs: Vital Signs Temp 97.2 F L 01/24/20 07:00 Pulse 88 01/24/20 08:14 Resp 20 01/24/20 07:00 BP 110/88 01/24/20 07:00 Pulse Ox 93 L 01/24/20 07:00 Intake & Output 01/23/20 01/24/20 01/24/20 18:59 06:59 18:59 Intake Total 77.5 100 Output Total 300 800 120 Balance -300 -722.5 -20 Weight 112.5 kg Intake: Intake, IV Titration 77.5 100 Amount Furosemide 100 mg In 77.5 100 Sodium Chloride 0.9% 90 ml @ 10 MG/HR 10 mls/hr IV .Q10H [facility] Rx#: [id number] Output: Urine 300 800 120 Other: Voiding Method Toilet Urinal # Voids 1 1 # Bowel Movements 1 - Labs CBC & Chem 7: 01/22/20 07:41 01/24/20 08:45 Labs: Abnormal Lab Results - Last 24 Hours (Table) 01/24/20 Range/Units 08:45 Sodium 135 L (137-145) mmol/L Potassium 5.4 H (3.5-5.1) mmol/L BUN 68 H (9-20) mg/dL Creatinine 1.44 H (0.66-1.25) mg/dL Glucose 159 H (74-99) mg/dL Calcium 8.3 L (8.4-10.2) mg/dL Assessment and Plan Plan: Assessment: 1. Chronic kidney disease stage III with baseline creatinine near 1.5. GFR at baseline. No hydronephrosis noted on kidney ultrasound. UA benign. 2. Acute on chronic systolic CHF with ejection fraction of 45-50% with mild to moderate mitral and tricuspid regurgitation. 3. Severe pulmonary hypertension. 4. Volume overload. Plan: Continue Lasix drip at 10 mL an hour. Add metolazone 5 mg once daily. Low-salt diet and 1500 mL fluid resection. Strict I's and O's and daily weights.bmp Continue to monitor renal function and urine output. Repeat electrolytes in the morning.
--- NOTE | 2020-01-24 11:34 | P.PN ---
Subjective Progress Note Date: 01/24/20 This a 74-year-old gentleman with medical history of CAD, TX, CABG, CHF, COPD, DVT, and multiple other medical issues presented to the ER with complaints of worsening shortness of breath and bilateral lower extremity edema. Reports over the last week medications adjusted/Lasix increased per PCP with no improvement in symptoms and presented to the ER. BUN 89, Creatinine 1.6, baseline 1.5, INR 1.5. Denies fever or chills. Denies sore throat. Reports occasional nonproductive cough ,exertional dyspnea, orthopnea. Denies chest pain, palpitations. Denies lightheadedness, dizziness or focal deficits. WBC 14.8. Lactic acid 2.1. Neutrophils 12.8 . Afebrile. EKG reported sinus rhythm with left bundle branch block ,anterior lateral infarct, age undetermined, possible septal sub-endocardial injury. Troponins negative 1. BNP 4320. AST 60, ALT 99. Hemoglobin 9.9. Chest x-ray reporting interstitial pattern, bibasilar consolidation, CHF versus interstitial pneumonia. Vital signs stable, rodrigue ntaining O2 sats in the 90s on 3 L nasal cannula. 01/22/2020 diuresing on Lasix IV push with 24-hour I&O reflecting a negative fluid balance. Edema improving. Renal function improving, BUN 76 creatinine 1.5. Oxygen requirements titrated down to 2 L, maintaining O2 sats in the 90s. Borderline hypotension. Denies chest pain, palpitations or increasing shortness of breath. 01/23/2020 maintained on 1500 MLS fluid restriction, low-salt diet and diuretics . Lasix dosing adjusted yesterday to avoid night dose and facilitate sleep. 24- hour I&O inaccurate. Reports better sleep, breathing improving. Staff reports exertional dyspnea .Maintaining O2 sats in the 90s on 3 L nasal cannula. Bord alex hypotension. Evaluated by nephrology with recommendations noted. Creatinine slowly trending down, currently 1.43. Renal ultrasound unremarkable. LFTs within normal limits with exception of mild elevation of ALT. Sodium 136, potassium 4.3, magnesium 2.2 01/24/2020 Lasix infusion initiated yesterday afternoon as per nephrology. 24- hour I&O reporting increased weight. Significant edema. Worsening dyspnea. Maintaining O2 sats in the low 90s on 4 L nasal cannula O2. Renal function sta ble. Potassium 5.4 Telemetry reporting controlled A. fib with short asymptomatic, nonsustained V. tach run earlier this morning. Objective - Vital Signs Vital signs: Vital Signs Temp 97.2 F L 01/24/20 07:00 Pulse 88 01/24/20 08:14 Resp 20 01/24/20 07:00 BP 110/88 01/24/20 07:00 Pulse Ox 93 L 01/24/20 07:00 Intake & Output 01/23/20 01/24/20 01/24/20 18:59 06:59 18:59 Intake Total 77.5 100 Output Total 300 800 120 Balance -300 -722.5 -20 Weight 112.5 kg Intake: Intake, IV Titration 77.5 100 Amount Furosemide 100 mg In 77.5 100 Sodium Chloride 0.9% 90 ml @ 10 MG/HR 10 mls/hr IV .Q10H [facility] Rx#: [id number] Output: Urine 300 800 120 Other: Voiding Method Urinal # Voids 1 1 # Bowel Movements 1 - Exam VITAL SIGNS: As above GENERAL: Sitting up in chair, no acute distress HEENT: Conjunctivae normal. eyes normal. Oral mucosa moist. NECK: No JVD. No thyroid enlargement. No LNs CARDIOVASCULAR: S1, S2, irregular. Systolic murmur. RESPIRATION: Breath sounds diminished in the bases. No rhonchi. Scattered rhonchi, crackles with expiratory wheezes ABDOMEN: Soft, obese, nontender . No guarding. no masses palpable. No ascites, No hepatosplenomegaly.Bowel sounds heard. LEGS: Bilateral chronic venous stasis with 2+edema, Vinayak wrapped. PSYCHIATRY: Alert and oriented X3, mood and affect normal. NERVOUS SYSTEM: Cranial N 2-12 grossly normal. Moves all 4 limbs. No focal deficits. Strength and sensation grossly intact.. Skin: no rash , warm and dry - Labs CBC & Chem 7: 01/22/20 07:41 01/24/20 08:45 Labs: Abnormal Lab Results - Last 24 Hours (Table) 01/24/20 Range/Units 08:45 Sodium 135 L (137-145) mmol/L Potassium 5.4 H (3.5-5.1) mmol/L BUN 68 H (9-20) mg/dL Creatinine 1.44 H (0.66-1.25) mg/dL Glucose 159 H (74-99) mg/dL Calcium 8.3 L (8.4-10.2) mg/dL Assessment and Plan Assessment: Acute on chronic CHF exacerbation, systolic dysfunction, EF 45-50%, on Lasix drip Possible interstitial pneumonia, community-acquired, empiric antibiotics initiated Acute hypoxic respiratory failure secondary to the above Lactic acidosis Chronic renal failure, stage III. Baseline creatinine 1.5 Chronic persistent atrial fibrillation, maintained on Eliquis CAD, history of TX, CABG, stent Hypertension Osteoarthritis Former nicotine dependence COPD History of prostate cancer Obesity, BMI 32.9 [id number]-rfddsaeu mitral regurgitation Mild to moderate tricuspid regurgitation Severe pulmonary hypertension Degenerative joint disease Plan: Continue on current medication regime ,monitoring and symptomatic treatment. Continue diuresing on Lasix drip, maintaining fluid restrictions, low potassium diet. Strict I and Os. Close monitoring of renal function, electrolytes with repeat labs ordered for a.m.PT/OT. The impression and plan of care has been dictated as directed. : I performed a history and examination of this patient, discussed the same with the dictator. I agree with the dictator's note ,documented as a scribe. Any additional findings or plans will be noted.
[2020-01-24] MEDS: METOLAZONE 5 MG TAB PO SCH (12:18)
[2020-01-24] MEDS: ALPRAZolam 0.5 MG TAB PO PRN (12:18)
[2020-01-24] MEDS ORDERED: LIDOCAINE URO-JET JELLY 2% 5 ML KIT URETHRAL ONE (13:45)
--- NOTE | 2020-01-24 16:25 | P.GSCN ---
History of Present Illness Consult date: 01/24/20 Reason for Consult: Urinary retention Requesting physician: Kenyetta Sneed History of present illness: The patient is a 74-year-old white male with a history of CAD, AL, CHF, COPD, DVT, and multiple other medical issues admitted with progressive shortness of breath and bilateral lower extremity edema. He is being treated for exacerbation of CHF. He has experienced increased difficulty voiding. Bladder scan has shown over 700 mL of urine in the bladder, and attempts by the nursing staff to insert a Choi catheter have been unsuccessful. The patient states that he has been voiding every hour at home prior to admission. Review of Systems - Constitutional Denies chills, Denies fever - Cardiovascular Denies chest pain - Respiratory Reports dyspnea - Genitourinary Reports urinary frequency, Reports urinary retention Past Medical History Past Medical History: Atrial Fibrillation, Coronary Artery Disease (CAD), Heart Failure, COPD, Osteoarthritis (OA), Prostate Disorder Additional Past Medical History / Comment(s): prostate cancer History of Any Multi-Drug Resistant Organisms: None Reported Past Surgical History: Coronary Bypass/CABG, Heart Catheterization With Stent Past Anesthesia/Blood Transfusion Reactions: No Reported Reaction Date of Last Stent Placement:: 1994 Past Psychological History: No Psychological Hx Reported Smoking Status: Former smoker Past Alcohol Use History: Occasional Past Drug Use History: None Reported - Past Family History Father Family Medical History: Cancer Additional Family Medical History / Comment(s): lung cancer Mother History Unknown: Yes Medications and Allergies Home Medications Medication Instructions Recorded Confirmed Type Nitroglycerin Sl Tabs [Nitrostat] 0.4 mg SUBLINGUAL Q5M PRN 05/08/15 01/21/20 History diphenhydrAMINE [Benadryl] 25 mg PO 05/08/15 01/21/20 History Albuterol Inhaler (Bulk) [Ventolin 2 puff INHALATION RT-Q6H PRN 07/05/17 01/21/20 History Hfa Inhaler (Bulk)] Allopurinol [Zyloprim] 100 mg PO BID 07/05/17 01/21/20 History Colchicine [Colcrys] 0.6 mg PO DAILY PRN 07/05/17 01/21/20 History Potassium Chloride [Klor-Con 20] 20 meq PO 07/05/17 01/21/20 History Apixaban [Eliquis] 5 mg PO BID 12/17/19 01/21/20 History Fluticasone/Salmeterol [Advair 1 puff INHALATION RT-BID 12/17/19 01/21/20 History 500-50 Diskus] Omeprazole 20 mg PO BID 12/17/19 01/21/20 History Tiotropium 18 Mcg/Puff [Spiriva] 1 puff INHALATION RT-DAILY 12/17/19 01/21/20 History Carvedilol [Coreg] 12.5 mg PO BID 01/21/20 01/21/20 History Furosemide [Lasix] 80 mg PO DAILY 01/21/20 01/21/20 History Ipratropium-Albuterol Nebulize 3 ml INHALATION RT-TID 01/21/20 01/21/20 History [Duoneb 0.5 mg-3 mg/3 ml Soln] Simvastatin [Zocor] 40 mg PO HS 01/21/20 01/21/20 History Allergies Allergy/AdvReac Type Severity Reaction Status Date / Time adhesive Allergy Rash/Hives Verified 01/21/20 10:09 Surgical - Exam Vital Signs Temp Pulse Resp BP Pulse Ox 97.8 F 85 20 105/75 96 01/21/20 07:26 01/21/20 07:26 01/21/20 07:26 01/21/20 07:26 01/21/20 07:26 - General well developed, well nourished, no distress - Abdomen Abdomen: soft, non tender, no guarding, no rigid, no rebound - Genitourinary normal penis with no external lesions, testicles non-tender - Psychiatric oriented to time, oriented to person, oriented to place, speech is normal, memory intact Results - Labs 01/22/20 07:41 01/24/20 08:45 Abnormal Lab Results - Last 24 Hours (Table) 01/24/20 Range/Units 08:45 Sodium 135 L (137-145) mmol/L Potassium 5.4 H (3.5-5.1) mmol/L BUN 68 H (9-20) mg/dL Creatinine 1.44 H (0.66-1.25) mg/dL Glucose 159 H (74-99) mg/dL Calcium 8.3 L (8.4-10.2) mg/dL Diabetes panel 01/24/20 Range/Units 08:45 Sodium 135 L (137-145) mmol/L Potassium 5.4 H (3.5-5.1) mmol/L Chloride 102 (98-107) mmol/L Carbon Dioxide 24 (22-30) mmol/L BUN 68 H (9-20) mg/dL Creatinine 1.44 H (0.66-1.25) mg/dL Glucose 159 H (74-99) mg/dL Calcium 8.3 L (8.4-10.2) mg/dL Calcium panel 01/24/20 Range/Units 08:45 Calcium 8.3 L (8.4-10.2) mg/dL Pituitary panel 01/24/20 Range/Units 08:45 Sodium 135 L (137-145) mmol/L Potassium 5.4 H (3.5-5.1) mmol/L Chloride 102 (98-107) mmol/L Carbon Dioxide 24 (22-30) mmol/L BUN 68 H (9-20) mg/dL Creatinine 1.44 H (0.66-1.25) mg/dL Glucose 159 H (74-99) mg/dL Calcium 8.3 L (8.4-10.2) mg/dL Adrenal panel 01/24/20 Range/Units 08:45 Sodium 135 L (137-145) mmol/L Potassium 5.4 H (3.5-5.1) mmol/L Chloride 102 (98-107) mmol/L Carbon Dioxide 24 (22-30) mmol/L BUN 68 H (9-20) mg/dL Creatinine 1.44 H (0.66-1.25) mg/dL Glucose 159 H (74-99) mg/dL Calcium 8.3 L (8.4-10.2) mg/dL Assessment and Plan (1) Urinary retention Current Visit: Yes Status: Acute Code(s): R33.9 - RETENTION OF URINE, UNSPECIFIED SNOMED Code(s): 112573752 Plan: The penis was prepped and draped sterilely. 2% lidocaine gel was administered intraurethrally. A 16-Angolan coud-tip Choi catheter was inserted, with return of 1 L of clear yellow urine. I would suggested the Choi catheter remain in place while the patient is being diuresed. I have ordered tamsulosin, and he will be given a voiding trial in several days.
[2020-01-24] MEDS: diphenhydrAMINE 25 MG CAP PO SCH (20:58)
[2020-01-24] MEDS: ATORVASTATIN 20 MG TAB PO SCH (20:58)
[2020-01-24] MEDS: POTASSIUM CHLORIDE ER 20 MEQ TAB.ER PO SCH (20:58)
[2020-01-24 21:39] LABS: Calcium 8.4 mg/dL (8.4-10.2); Magnesium 2.1 mg/dL (1.6-2.3); Potassium 3.9 mmol/L (3.5-5.1)
[2020-01-24] MEDS ORDERED: CARVEDILOL 6.25 MG TAB PO STA (23:14)
[2020-01-25] MEDS: ALPRAZolam 0.5 MG TAB PO PRN ×3 (02:02→21:30)
[2020-01-25] MEDS: FUROSEMIDE 100 MG in SODIUM CHLORIDE 0.9% 90 ML IV SCH ×3 (02:37→21:30)
[2020-01-25 08:05] LABS: Calcium 8.1 mg/dL (8.4-10.2); Potassium 3.5 mmol/L (3.5-5.1)
[2020-01-25 08:18] LABS: Anisocytosis Slight; Hypochromasia Marked; MCH 19.6 pg (25.0-35.0); MCHC 27.4 g/dL (31.0-37.0); MCV 71.6 fL (80.0-100.0); Mean Platelet Volume 8.2; Microcytosis Marked; Platelet Count 335 k/uL (150-450); Poikilocytosis Slight; RBC 4.61 m/uL (4.30-5.90); RDW 19.3 % (11.5-15.5); WBC 14.9 k/uL (3.8-10.6)
[2020-01-25] MEDS: IPRATROPIUM-ALBUTEROL 3 ML NEB INHALATION SCH ×4 (08:18→19:51)
[2020-01-25] MEDS: SYMBICORT 160-4.5 MCG INHALER INHALATION SCH ×2 (08:19→19:52)
[2020-01-25 09:03] LABS: ABG HCO3 29 mmol/L (21-25); ABG PCO2 37 mmHg (35-45); ABG PO2 180 mmHg (83-108); ABG TCO2 30 mmol/L (19-24); Allen Test Performed? Yes
[2020-01-25] MEDS: HALOPERIDOL LACTATE 5 MG/ML 1 ML VIAL IVP PRN ×2 (09:15→22:53)
--- NOTE | 2020-01-25 09:15 | XR ---
EXAMINATION TYPE: XR chest 1V portable DATE OF EXAM: 01/25/2020 HISTORY: sob. REFERENCE: Previous study dated 01/21/2020. FINDINGS: There has been a midline sternotomy. The heart is enlarged. There is vascular congestion and interstitial change. I suspect a left-sided e ffusion. The overall appearance has improved slightly from previous. IMPRESSION: FINDINGS MOST CONSISTENT WITH IMPROVING CONGESTIVE HEART FAILURE.
[2020-01-25] MEDS: METOLAZONE 5 MG TAB PO SCH (09:23)
[2020-01-25] MEDS: APIXABAN 5 MG TAB PO SCH ×2 (09:23→20:09)
[2020-01-25] MEDS: METOPROLOL TARTRATE 25 MG TAB PO SCH ×4 (09:25→20:09)
[2020-01-25] MEDS: TAMSULOSIN 0.4 MG CAP.ER.24H PO SCH (09:25)
--- NOTE | 2020-01-25 09:41 | PN ---
PROGRESS NOTE Mr. Ayala was transferred from the medical floor because of wide QRS tachycardia. On reviewing the rhythm strips, this could very well be aberrancy. He has underlying atrial fibrillation. He is; however, stable. He is not in heart failure. He is still on a Lasix drip. His magnesium level was 2.1 and potassium level was acceptable last night. Vitals are stable. JVD 1 cm, no carotid bruit. S1, S2 heard normally. Short systolic murmur noted. Lungs revealed improved air entry. Abdomen is soft. Lower extremities reveal remarkably improved edema. I am recommending that we switch him from Coreg to metoprolol and check a BMP magnesium level tomorrow. The Lasix drip can possibly switched over to IV push Lasix, but I will let Dr. Bui, the textile bag sewer address this issue. MMODL / IJN: [id number] /
--- NOTE | 2020-01-25 09:53 | P.PN ---
Subjective Progress Note Date: 01/25/20 Principal diagnosis: 74-year-old followed up for chronic kidney disease, congestive heart failure, edema on Lasix drip, and metolazone. Has 1820 mL of urine. He remains on a BiPAP but cc somewhat better. He has mild edema History of present illness: Patient is a 74-year-old male seen in renal consultation for chronic kidney disease. Patient has chronic kidney disease stage III with baseline creatinine near 1.5. Patient presented to the hospital with shortness of breath and worsening lower extremity edema. He was also complaining of orthopnea. Patient states his dose of Lasix was increased as an outpatient without any relief in his symptoms. He does admit to a nonproductive cough. No vomiting or diarrhea. No history of diabetes. Denies use of nonsteroidals. Admits to good urine output. No hematuria or dysuria. His legs are currently wrapped but states edema is slowly improving. Blood pressure is stable on the lower side. He is currently receiving IV Lasix. Denies fever or chills. No chest pain. No abdominal pain. No other complaints at this time. Objective - Vital Signs Vital signs: Vital Signs Temp 97.7 F 01/25/20 08:46 Pulse 92 01/25/20 08:31 Resp 22 01/25/20 08:00 BP 131/61 01/25/20 08:00 Pulse Ox 98 01/25/20 09:20 Intake & Output 01/24/20 01/25/20 01/25/20 18:59 06:59 18:59 Intake Total 196.833 94.5 Output Total 820 1000 Balance -623.167 -905.5 Weight 109.5 kg Intake: Intake, IV Titration 196.833 94.5 Amount Furosemide 100 mg In 196.833 94.5 Sodium Chloride 0.9% 90 ml @ 10 MG/HR 10 mls/hr IV .Q10H [facility] Rx#: [id number] Output: Urine 820 1000 Uretheral (Choi) 700 Other: Voiding Method Toilet Urinal On examination he is on BiPAP. Neck is supple no facial asymmetry no JVD noted Lungs are clear to auscultation with good air entry bilaterally Heart sounds are unremarkable No murmur rub gallop were heard Abdomen soft nontender no masses felt Extremity exam was mild edema Neurologically awake alert oriented - Labs CBC & Chem 7: 01/25/20 05:25 01/25/20 05:25 Labs: Abnormal Lab Results - Last 24 Hours (Table) 01/24/20 01/24/20 01/25/20 Range/Units 08:45 21:01 05:25 WBC (3.8-10.6) k/uL Hgb (13.0-17.5) gm/dL Hct (39.0-53.0) % MCV (80.0-100.0) fL MCH (25.0-35.0) pg MCHC (31.0-37.0) g/dL RDW (11.5-15.5) % ABG pH (7.35-7.45) ABG pO2 (83-108) mmHg ABG HCO3 (21-25) mmol/L ABG Total CO2 (19-24) mmol/L ABG O2 Saturation (94-97) % Sodium 135 L 136 L (137-145) mmol/L Potassium 5.4 H (3.5-5.1) mmol/L BUN 68 H 65 H 61 H (9-20) mg/dL Creatinine 1.44 H 1.41 H 1.46 H (0.66-1.25) mg/dL Glucose 159 H 127 H 106 H (74-99) mg/dL Calcium 8.3 L 8.1 L (8.4-10.2) mg/dL 01/25/20 01/25/20 Range/Units 05:25 08:53 WBC 14.9 H (3.8-10.6) k/uL Hgb 9.0 L (13.0-17.5) gm/dL Hct 33.0 L (39.0-53.0) % MCV 71.6 L (80.0-100.0) fL MCH 19.6 L (25.0-35.0) pg MCHC 27.4 L (31.0-37.0) g/dL RDW 19.3 H (11.5-15.5) % ABG pH 7.50 H (7.35-7.45) ABG pO2 180 H (83-108) mmHg ABG HCO3 29 H (21-25) mmol/L ABG Total CO2 30 H (19-24) mmol/L ABG O2 Saturation 100.0 H (94-97) % Sodium (137-145) mmol/L Potassium (3.5-5.1) mmol/L BUN (9-20) mg/dL Creatinine (0.66-1.25) mg/dL Glucose (74-99) mg/dL Calcium (8.4-10.2) mg/dL Assessment and Plan Assessment: Impression 1. Chronic kidney disease stage III baseline creatinine 1.5. Stable renal function 2. Volume overload is in need of IV Lasix drip with metolazone and therefore his renal function and wall May not be controlled once she is off of IV Lasix. His urine output is marginal in spite of this and requiring further metolazone. Chest x-ray shows CHF but improved 3. Severe pulmonary hypertension 4. Anemia off chronic kidney disease hemoglobin is 9. Recommendation 1. Check iron saturation. 2. Maintain Lasix drip. 3 if I saturation is adequate we'll start Epogen
[2020-01-25] MEDS: AZITHROMYCIN 500 MG in SODIUM CHLORIDE 0.9% 250 ML IVPB SCH (11:35)
[2020-01-25] MEDS: CARVEDILOL 12.5 MG TAB PO SCH (11:37)
--- NOTE | 2020-01-25 12:12 | P.PN ---
Subjective This a 74-year-old gentleman with medical history of CAD, NM, CABG, CHF, COPD, DVT, and multiple other medical issues presented to the ER with complaints of worsening shortness of breath and bilateral lower extremity edema. Reports over the last week medications adjusted/Lasix increased per PCP with no improvement in symptoms and presented to the ER. BUN 89, Creatinine 1.6, baseline 1.5, INR 1.5. Denies fever or chills. Denies sore throat. Reports occasional nonproductive cough ,exertional dyspnea, orthopnea. Denies chest pain, palpitations. Denies lightheadedness, dizziness or focal deficits. WBC 14.8. Lactic acid 2.1. Neutrophils 12.8 . Afebrile. EKG reported sinus rhythm with left bundle branch block ,anterior lateral infarct, age undetermined, possible septal sub-endocardial injury. Troponins negative 1. BNP 4320. AST 60, ALT 99. Hemoglobin 9.9. Chest x-ray reporting interstitial pattern, bibasilar consolidation, CHF versus interstitial pneumonia. Vital signs stable, maintaining O2 sats in the 90s on 3 L nasal cannula. 01/22/2020 diuresing on Lasix IV push with 24-hour I&O reflecting a negative fluid balance. Edema improving. Renal function improving, BUN 76 creatinine 1.5. Oxygen requirements titrated down to 2 L, maintaining O2 sats in the 90s. Borderline hypotension. Denies chest pain, palpitations or increasing shortness of breath. 01/23/2020 maintained on 1500 MLS fluid restriction, low-salt diet and diuretics . Lasix dosing adjusted yesterday to avoid night dose and facilitate sleep. 24- hour I&O inaccurate. Reports better sleep, breathing improving. Staff reports exertional dyspnea .Maintaining O2 sats in the 90s on 3 L nasal cannula. Borderline hypotension. Evaluated by nephrology with recommendations noted. Creatinine slowly trending down, currently 1.43. Renal ultrasound unremarkable. LFTs within normal limits with exception of mild elevation of ALT. Sodium 136, potassium 4.3, magnesium 2.2 01/24/2020 Lasix infusion initiated yesterday afternoon as per nephrology. 24- hour I&O reporting increased weight. Significant edema. Worsening dyspnea. Maintaining O2 sats in the low 90s on 4 L nasal cannula O2. Renal function stable. Potassium 5.4 Telemetry reporting controlled A. fib with short asymptomatic, nonsustained V. tach run earlier this morning. 01/25/2020: Patient became very confused overnight and had a 22 beat run of suspected V. tach. I was contacted several times by the nursing staff. Pulmonology was also consult at that time and the patient was transferred down to the telemetry floor. He also became very confused and pulled out his IVs. He has received 1 mg Haldol since then. Cardiology will adjust his medications and he remains on Lasix drip for congestive heart failure. He had echo in 19 testing done which was negative. Currently his status is improved from overnight. Blood pressure remains controlled, oxygen is now better after he was on a BiPAP. He discontinue the BiPAP himself and is now on partial rebreather and tolerating this with an O2 sat of 94%. He remains afebrile and slightly hypothermic. Heart rate has remained controlled in the 90s. Labs today show continued leukocytosis with anemia. Hemoglobin is now down to 9.0. MCV 71.6. BUN and creatinine are stable at currently 61 and 1.46 with a GFR of 54. Other laboratory studies remained stable. A blood gas today showed pH 7.5 with a PCO2 of 37 and PO2 of 180. He appears more himself and then the staff prescribed earlier. He is currently awake alert and oriented 3. He indicates he feels better. He denies significant chest pains pressures worsening of shortness of breath on minimal exertion. He indicates he has an appetite and does not have any nausea or vomiting. Unsure when his last bowel movement was. Objective - Vital Signs Vital signs: Vital Signs Temp 97.4 F L 01/25/20 11:35 Pulse 99 01/25/20 11:38 Resp 20 01/25/20 11:35 BP 103/58 01/25/20 11:35 Pulse Ox 94 L 01/25/20 11:35 Intake & Output 01/24/20 01/25/20 01/25/20 18:59 06:59 18:59 Intake Total 196.833 94.5 Output Total 820 1000 Balance -623.167 -905.5 Weight 109.5 kg Intake: Intake, IV Titration 196.833 94.5 Amount Furosemide 100 mg In 196.833 94.5 Sodium Chloride 0.9% 90 ml @ 10 MG/HR 10 mls/hr IV .Q10H [facility] Rx#: [id number] Output: Urine 820 1000 Uretheral (Choi) 700 Other: Voiding Method Toilet Urinal - Exam General: The patient is awake and alert, in no distress, and is on a rebreather this time. Neck: The neck is supple, there is no thyromegaly, lymphadenopathy, tenderness or JVD. Cardiovascular: S1S2 is normal, There is a regular rate and rhythm. No significant murmur, rub or gallop is appreciated. Respiratory: Lungs are coarse with the slightly worsening basilar crackles compared to one day ago. There is a minimal expiratory wheeze. There is no significant rhonchi appreciated. Gastrointestinal: Soft, distended due to truncal obesity, non-tender abdomen without masses or organomegaly noted. There is no rebound or guarding present. Bowel sounds are unremarkable. Musculoskeletal: Normal ROM, no tenderness, There is no pedal edema. There is no calf tenderness or swelling. No cords were appreciated. Neurological: CN II-XII intact, there are no obvious motor or sensory deficits. Coordination appears grossly intact. Speech is normal. He is awake alert and oriented 3. Skin: Skin is warm and dry and no rashes or lesions are noted. - Labs CBC & Chem 7: 01/25/20 05:25 01/25/20 05:25 Labs: Abnormal Lab Results - Last 24 Hours (Table) 01/24/20 01/25/20 01/25/20 Range/Units 21:01 05:25 05:25 WBC 14.9 H (3.8-10.6) k/uL Hgb 9.0 L (13.0-17.5) gm/dL Hct 33.0 L (39.0-53.0) % MCV 71.6 L (80.0-100.0) fL MCH 19.6 L (25.0-35.0) pg MCHC 27.4 L (31.0-37.0) g/dL RDW 19.3 H (11.5-15.5) % ABG pH (7.35-7.45) ABG pO2 (83-108) mmHg ABG HCO3 (21-25) mmol/L ABG Total CO2 (19-24) mmol/L ABG O2 Saturation (94-97) % Sodium 136 L (137-145) mmol/L BUN 65 H 61 H (9-20) mg/dL Creatinine 1.41 H 1.46 H (0.66-1.25) mg/dL Glucose 127 H 106 H (74-99) mg/dL Calcium 8.1 L (8.4-10.2) mg/dL 01/25/20 Range/Units 08:53 WBC (3.8-10.6) k/uL Hgb (13.0-17.5) gm/dL Hct (39.0-53.0) % MCV (80.0-100.0) fL MCH (25.0-35.0) pg MCHC (31.0-37.0) g/dL RDW (11.5-15.5) % ABG pH 7.50 H (7.35-7.45) ABG pO2 180 H (83-108) mmHg ABG HCO3 29 H (21-25) mmol/L ABG Total CO2 30 H (19-24) mmol/L ABG O2 Saturation 100.0 H (94-97) % Sodium (137-145) mmol/L BUN (9-20) mg/dL Creatinine (0.66-1.25) mg/dL Glucose (74-99) mg/dL Calcium (8.4-10.2) mg/dL Assessment and Plan (1) Acute systolic CHF (congestive heart failure) Current Visit: Yes Status: Acute Priority: High Code(s): I50.21 - ACUTE SYSTOLIC (CONGESTIVE) HEART FAILURE SNOMED Code(s): 254137036 (2) Acute respiratory failure with hypoxia Current Visit: Yes Status: Acute Priority: High Code(s): J96.01 - ACUTE RESPIRATORY FAILURE WITH HYPOXIA SNOMED Code(s): 97941078 (3) Chronic renal disease, stage 3, moderately decreased glomerular filtration rate between 30-59 mL/min/1.73 square meter Current Visit: Yes Status: Chronic Priority: Medium Code(s): N18.3 - CHRONIC KIDNEY DISEASE, STAGE 3 (MODERATE) SNOMED Code(s): 019819913 (4) Atrial fibrillation Current Visit: Yes Status: Chronic Priority: Medium Code(s): I48.91 - UNSPECIFIED ATRIAL FIBRILLATION SNOMED Code(s): 88621534 (5) Coronary arteriosclerosis in [place] artery Current Visit: Yes Status: Chronic Priority: Medium Code(s): I25.10 - ATHSCL HEART DISEASE OF [place] CORONARY ARTERY W/O ANG PCTRS SNOMED Code(s): 27650426 (6) Essential (primary) hypertension Current Visit: Yes Status: Chronic Priority: Low Code(s): I10 - ESSENTIAL (PRIMARY) HYPERTENSION SNOMED Code(s): 84702979 (7) COPD (chronic obstructive pulmonary disease) Current Visit: Yes Status: Chronic Priority: Medium Code(s): J44.9 - CHRONIC OBSTRUCTIVE PULMONARY DISEASE, UNSPECIFIED SNOMED Code(s): 00561980 (8) Personal history of prostate cancer Current Visit: Yes Status: Acute Priority: Low Code(s): Z85.46 - PERSONAL HISTORY OF MALIGNANT NEOPLASM OF PROSTATE SNOMED Code(s): 373508799 (9) Mitral regurgitation Current Visit: Yes Status: Chronic Priority: Low Code(s): I34.0 - NONRHEUMATIC MITRAL (VALVE) INSUFFICIENCY SNOMED Code(s): 60796011 (10) Tricuspid regurgitation Current Visit: Yes Status: Chronic Priority: Medium Code(s): I07.1 - RHEUMATIC TRICUSPID INSUFFICIENCY SNOMED Code(s): 352017270 (11) Pulmonary hypertension Current Visit: Yes Status: Chronic Priority: High Code(s): I27.20 - PULMONARY HYPERTENSION, UNSPECIFIED SNOMED Code(s): 04230782 (12) Anemia of chronic disease Current Visit: Yes Status: Chronic Priority: Medium Code(s): D63.8 - ANEM IA IN OTHER CHRONIC DISEASES CLASSIFIED ELSEWHERE SNOMED Code(s): 537669781 (13) Iron deficiency Current Visit: Yes Status: Chronic Priority: Medium Code(s): E61.1 - IRON DEFICIENCY SNOMED Code(s): 41156565 Plan: Further recommendations from my nephrology regarding the IV Lasix drip.. Await further recommendations from cardiology. A consult pulmonology was ordered await the recommendations well. Overall Status is improved from several hours ago. We'll have staff continue to monitor him closely. Repeat labs in a.m. He'll be reevaluated next 24 hours.
--- NOTE | 2020-01-25 14:38 | CONS ---
CONSULTATION PULMONARY/CRITICAL CARE CONSULTATION: DATE OF SERVICE: 01/25/2020 REASON FOR CONSULTATION: Increased shortness of breath, CHF, respiratory distress, rapid response team called on patient. This is a 74-year-old male who presented to the emergency department on January 20 complaining of shortness of breath. He apparently had been having shortness of breath for a couple days prior to admission. In addition, he had some occasional cough which was nonproductive of any phlegm. In addition, he apparently complained of being orthopneic. In addition, he complained of increasing lower extremity edema. The patient recently had his Lasix increased without much improvement. For that reason, came in to be evaluated. He was essentially admitted with a diagnosis of CHF exacerbation according to the ER notes. The patient apparently became more short of breath this morning. A rapid response team was called. I happened to be on [address] [facility] floor. They put me on consultation. The patient had a blood gas done. The blood gas done on 100% showed a pO2 of 180, pCO2 of 37, and a pH of 7.50. That was on a non-rebreather. The patient also had vital signs which suggested that he was in distress, i.e. more rapid heart rate and also more rapid respiratory rate. He had conversational dyspnea. He could not lie flat. We decided to go ahead and put him on BiPAP at 12/5 at 50%. In addition, he was being maintained on a Lasix drip. The primary was called. In addition to the chest x-ray which showed CHF, the blood gas was ordered. The chest x-ray was done at about 9:15 this morning and it was already read by their radiologist and it was consistent with CHF. On admission, his N terminal proBNP was 4320. His rapid senior virus screen was negative. I thought he was stable enough to stay on the floor at this time. The primary service was called. HOME MEDICATIONS: Include Coreg, Zaroxolyn, nitroglycerin tablets, fish oil, coenzyme Q, vitamin B complex, Benadryl, niacin, olive leaf, albuterol inhaler, Zyloprim, colchicine, glucosamine, potassium chloride, Zocor, vitamin E, Eliquis, Advair, omeprazole, and tiotropium bromide. In addition, other medications include prednisone, Lasix, Ceftin, and Lipitor. ALLERGIES: ADHESIVE TAPE. MEDICAL HISTORY: Positive for atrial fibrillation, CAD, CHF, COPD, DJD, and prostate cancer. SURGICAL HISTORY: Includes bypass grafting, heart catheterization with stent and some other minor procedures. SOCIAL HISTORY: Positive for previous tobacco use. He drinks occasionally. No illicit drug use. FAMILY HISTORY: Positive for mother who is healthy and a father with a history of lung cancer. REVIEW OF SYSTEMS: CONSTITUTIONAL: Weakness. NEUROLOGIC: Negative. HEENT: Negative. CARDIOVASCULAR: Negative. PULMONARY: Shortness of breath, worse lying flat and dry nonproductive cough. GI: Negative. : Negative. RHEUMATOLOGIC: Negative. IMMUNOLOGIC: Negative. ENDOCRINOLOGIC: Negative. DERMATOLOGIC: Negative. Vital signs are reviewed. Temperature is 97.7, heart rate 92, respiratory rate 22, blood pressure 131/61 mean 84 and 6 L saturation was only 84%. He is saturating much better on the non-rebreather. The patient clearly had some conversational dyspnea. There was no audible wheezing or use of accessory muscles. HEENT: Examination is grossly unremarkable. Mucous membranes are moist. Nasal O2 noted. NECK: Supple, full range of motion. No adenopathy. Neck veins are flat. CARDIOVASCULAR: Examination reveals regular rhythm and rate. Heart rate in mid 90s. S1, S2 normal. No distinct murmur. Heart sounds are distant. LUNGS: Sounds reveal bibasilar crackles. A few scattered rhonchi. No wheezes. ABDOMEN: Obese, bowel sounds are heard. EXTREMITIES: Reveal some mild edema. SKIN: Without rash. NEUROLOGIC: Examination is brief but nonfocal. LAB WORK: From January 24, include a white count of 14.9, hemoglobin 9, hematocrit 33.0, platelet count 335,000. Blood gases on the non-rebreather show a pO2 of 180, pCO2 of 37, and a pH of 7.50. These blood gases are consistent with a primary metabolic alkalosis. Sodium 137, potassium 3.5, chloride 101, CO2 is 29. BUN and creatinine were 61 and 1.46 compared to 65 and 1.41 yesterday. The rest of his labs look okay. His initial N terminal proBNP was 4320. His senior virus rapid test was negative. His urine is negative. Chest x-ray is consistent with heart failure. A CT scan of the chest done back on January 21 is consistent with CHF. Medications are reviewed. ASSESSMENT: 1. Increasing shortness of breath, likely related to underlying congestive heart failure. There may also be a component of chronic obstructive pulmonary disease exacerbation. 2. History of coronary artery disease. 3. History of congestive heart failure. 4. History of chronic obstructive pulmonary disease. 5. History of osteoarthritis. 6. History of prostate cancer. 7. History of hyperlipidemia. 8. Multiple other medical problems and comorbidities. 9. Atrial fibrillation PLAN: The patient was placed on BiPAP at 12, 5 and 50%. He is already on a Lasix drip. In addition, the patient is on Zithromax and Rocephin. He is on Symbicort. He is on updrafts. He is also receiving a Zaroxolyn. No additional recommendations are made. The patient in my opinion could stay on the floor. The primary service is called. Additional recommendations and suggestions are forthcoming. KAREN / KASSANDRA: [id number] / MTDD
[2020-01-25 16:29] LABS: % Iron Saturation 4.7 (15.00-50.00)
[2020-01-25] MEDS: POTASSIUM CHLORIDE ER 20 MEQ TAB.ER PO SCH (20:09)
[2020-01-25] MEDS: diphenhydrAMINE 25 MG CAP PO SCH (20:09)
[2020-01-25] MEDS: ATORVASTATIN 20 MG TAB PO SCH (20:09)
[2020-01-26 06:43] LABS: Anisocytosis Slight; HCT 31.4 % (39.0-53.0); HGB 8.7 gm/dL (13.0-17.5); Hypochromasia Marked; MCH 19.5 pg (25.0-35.0); MCHC 27.8 g/dL (31.0-37.0); MCV 70.1 fL (80.0-100.0); Mean Platelet Volume 7.1; Microcytosis Marked; Platelet Count 269 k/uL (150-450); Poikilocytosis Slight; RBC 4.48 m/uL (4.30-5.90); RDW 19.4 % (11.5-15.5); WBC 16.7 k/uL (3.8-10.6)
[2020-01-26] MEDS ORDERED: ALBUTEROL HFA INHALER INHALATION PRN (07:00)
[2020-01-26 07:05] LABS: Calcium 7.9 mg/dL (8.4-10.2); Potassium 3.3 mmol/L (3.5-5.1)
[2020-01-26] MEDS ORDERED: TIOTROPIUM 18 MCG/PUFF INHALER INHALATION SCH (08:00)
[2020-01-26] MEDS: METOPROLOL TARTRATE 25 MG TAB PO SCH ×2 (08:26→15:59)
[2020-01-26] MEDS: TAMSULOSIN 0.4 MG CAP.ER.24H PO SCH (08:26)
[2020-01-26] MEDS: APIXABAN 5 MG TAB PO SCH ×2 (08:26→21:00)
[2020-01-26] MEDS: METOLAZONE 5 MG TAB PO SCH ×2 (08:27→11:54)
[2020-01-26] MEDS: ALBUTEROL HFA INHALER INHALATION SCH ×3 (08:27→20:59)
[2020-01-26] MEDS: SYMBICORT 160-4.5 MCG INHALER INHALATION SCH (08:27)
[2020-01-26] MEDS ORDERED: AZITHROMYCIN 500 MG TAB PO SCH (09:00)
--- NOTE | 2020-01-26 09:29 | XR ---
EXAMINATION TYPE: XR chest 1V portable DATE OF EXAM: 01/26/2020 HISTORY: CHF. REFERENCE: Previous study dated 01/25/2020. FINDINGS: The study remains rotated. There is been a midline sternotomy. The heart is enlarged. There is vascular congestion and interstit ial change. Cannot exclude a small, left effusion. IMPRESSION: CONTINUING CHANGES OF CONGESTIVE HEART FAILURE, NOT MUCH CHANGED FROM PREVIOUS.
--- NOTE | 2020-01-26 10:17 | P.PN ---
Subjective Progress Note Date: 01/26/20 Principal diagnosis: 74-year-old followed up for chronic kidney disease, congestive heart failure, edema on Lasix drip, and metolazone. His response is suboptimal. He feels very weak and tired hardly able to sit up even with support. He says he has a good appetite. He has mild edema. His urine output was 1500 mL on Lasix 10 mg/h with metolazone 5 mg a day. His ejection fraction is maintained at 45-50% based on Dr. Carlson's report of the echocardiogram in December 2019 Hence his poor response to large doses of diuretics in spite of a well- maintained ejection fraction is not very well explained. Urine analysis benign ultrasound of the kidney does not show any hydronephrosis History of present illness: Patient is a 74-year-old male seen in renal consultation for chronic kidney disease. Patient has chronic kidney disease stage III with baseline creatinine near 1.5. Patient presented to the hospital with shortness of breath and worsening lower extremity edema. He was also complaining of orthopnea. Patient states his dose of Lasix was increased as an outpatient without any relief in his symptoms. He does admit to a nonproductive cough. No vomiting or diarrhea. No history of diabetes. Denies use of nonsteroidals. Admits to good urine output. No hematuria or dysuria. His legs are currently wrapped but states edema is slowly improving. Blood pressure is stable on the lower side. He is currently receiving IV Lasix. Denies fever or chills. No chest pain. No abdominal pain. No other complaints at this time. Objective - Vital Signs Vital signs: Vital Signs Temp 97.4 F L 01/26/20 08:00 Pulse 83 01/26/20 08:00 Resp 18 01/26/20 08:00 BP 116/67 01/26/20 08:00 Pulse Ox 96 01/26/20 08:00 Intake & Output 01/25/20 01/26/20 01/26/20 18:59 06:59 18:59 Intake Total 400 192.667 Output Total 1500 Balance -1100 192.667 Weight 114.5 kg Intake: Intake, IV Titration 100 72.667 Amount Furosemide 100 mg In 100 72.667 Sodium Chloride 0.9% 90 ml @ 10 MG/HR 10 mls/hr IV .Q10H [facility] Rx#: [id number] Oral 300 120 Output: Urine 1500 Other: Voiding Method Indwelling Catheter Indwelling Catheter Indwelling Catheter On examination he is profoundly weak and depressed HEENT exam no JVP neck is supple no facial asymmetry Lungs are significant for bilateral fine crackles more on the right than on the left with fair air entry bilaterally Heart sounds are unremarkable for any murmur rub gallop Abdomen soft nontender no masses felt Extremity exam was mild edema with cool to touch Neurologically awake alert oriented but extremely weak had difficulty sitting up even with support - Labs CBC & Chem 7: 01/26/20 06:28 01/26/20 06:28 Labs: Abnormal Lab Results - Last 24 Hours (Table) 01/25/20 01/25/20 01/26/20 Range/Units 05:25 05:25 06:28 WBC (3.8-10.6) k/uL Hgb (13.0-17.5) gm/dL Hct (39.0-53.0) % MCV (80.0-100.0) fL MCH (25.0-35.0) pg MCHC (31.0-37.0) g/dL RDW (11.5-15.5) % Potassium 3.3 L (3.5-5.1) mmol/L BUN 61 H (9-20) mg/dL Creatinine 1.50 H (0.66-1.25) mg/dL Glucose 125 H (74-99) mg/dL Calcium 7.9 L (8.4-10.2) mg/dL Iron 14 L (65-175) ug/dL % Saturation 4.70 L (15.00-50.00) Procalcitonin 0.35 H (0.02-0.09) ng/mL 01/26/20 Range/Units 06:28 WBC 16.7 H (3.8-10.6) k/uL Hgb 8.7 L (13.0-17.5) gm/dL Hct 31.4 L (39.0-53.0) % MCV 70.1 L (80.0-100.0) fL MCH 19.5 L (25.0-35.0) pg MCHC 27.8 L (31.0-37.0) g/dL RDW 19.4 H (11.5-15.5) % Potassium (3.5-5.1) mmol/L BUN (9-20) mg/dL Creatinine (0.66-1.25) mg/dL Glucose (74-99) mg/dL Calcium (8.4-10.2) mg/dL Iron (65-175) ug/dL % Saturation (15.00-50.00) Procalcitonin (0.02-0.09) ng/mL Assessment and Plan Assessment: Impression 1. Chronic kidney disease stage III baseline creatinine 1.5. Stable renal function, with creatinine 1.5 but poor urine output on max dose of Lasix 10 mg per hour drip as well as 5 mg and metolazone. 2. Chest x-ray shows CHF but improved 3. Severe pulmonary hypertension 4. Anemia off chronic kidney disease hemoglobin is 9. Recommendation 1. Start IV Ferrlecit 125 daily for 3 doses . 2. Maintain Lasix drip. At 10 mg per hour 3. Increase metolazone to 10 mg 4. Will discuss with cardiology and start him on dopamine drip and see if this will improve his urine output and congestive heart failure
[2020-01-26] MEDS: DARBEPOETIN ALFA 40 MCG/0.4 ML SYRINGE SQ SCH (11:27)
[2020-01-26] MEDS: POTASSIUM CHLORIDE ER 20 MEQ TAB.ER PO SCH ×4 (11:27→21:00)
[2020-01-26] MEDS: HALOPERIDOL LACTATE 5 MG/ML 1 ML VIAL IVP PRN (11:27)
[2020-01-26] MEDS: DEXTROSE/WATER 1 250ML.BAG with DOPamine DRIP 800 MG IV SCH (11:34)
--- NOTE | 2020-01-26 11:48 | PN ---
PROGRESS NOTE Mr. Gerber is in sinus rhythm. He had short run of 4-beat PVC. He is doing better. Potassium is low at 3.3. I am recommending that we supplement potassium. Ventricular ectopy has improved a lot. We will continue Lopressor. Vitals are stable. No JVD. S1-S2 heard normally. Short, systolic murmur noted. Lungs reveal improved air entry. Abdomen and lower extremity exam looks unchanged. The patient is still on a Lasix drip is being addressed by Nephrology. Potassium is low at 3.3. I will address this with supplements. Continue beta danuta for now. No significant ectopy. MMODL / IJN: [id number] /
--- NOTE | 2020-01-26 12:12 | P.PN ---
Subjective Progress Note Date: 01/26/20 Principal diagnosis: Acute exacerbation of congestive heart failure/COPD The patient is seen today 01/26/2020 in follow-up on the selective care unit. He is currently resting comfortably in bed. Awake and alert in no acute distress. Breathing a bit easier today compared to yesterday. Currently off the BiPAP. Maintaining O2 saturations in the low 90s on 6 L high flow nasal cannula. Chest x-ray continued to show evidence of congestive heart failure. He is afebrile. Atrial fibrillation with a controlled ventricular response. White count 16.7. Hemoglobin 8.7. Sodium 137. Potassium 3.3. Creatinine 1.50. Currently 19 not detected. He is continued on Symbicort, Spiriva, albuterol. He is on a Lasix drip at 10 mg per hour. Dopamine drip at 2.5 mcg/kg/m. Currently in a positive balance. Objective - Vital Signs Vital signs: Vital Signs Temp 97.8 F 01/26/20 11:36 Pulse 90 01/26/20 11:36 Resp 26 H 01/26/20 11:36 BP 102/68 01/26/20 11:36 Pulse Ox 92 L 01/26/20 11:36 Intake & Output 01/25/20 01/26/20 01/26/20 18:59 06:59 18:59 Intake Total 400 192.667 118 Output Total 1500 Balance -1100 192.667 118 Weight 114.5 kg Intake: Intake, IV Titration 100 72.667 Amount Furosemide 100 mg In 100 72.667 Sodium Chloride 0.9% 90 ml @ 10 MG/HR 10 mls/hr IV .Q10H [facility] Rx#: [id number] Oral 300 120 118 Output: Urine 1500 Other: Voiding Method Indwelling Catheter Indwelling Catheter Indwelling Catheter - Exam GENERAL EXAM: Alert, pleasant 74-year-old gentleman, on 6 L high flow nasal cannula currently, comfortable in no apparent distress. HEAD: Normocephalic. EYES: Normal reaction of pupils, equal size. NOSE: Clear with pink turbinates. THROAT: No erythema or exudates. NECK: No masses, no JVD. CHEST: No chest wall deformity. LUNGS: Equal air entry with crackles in the bilateral posterior bases CVS: S1 and S2 normal with no audible murmur, irregular rhythm. ABDOMEN: No hepatosplenomegaly, normal bowel sounds, no guarding or rigidity. SPINE: No scoliosis or deformity SKIN: No rashes CENTRAL NERVOUS SYSTEM: No focal deficits, tone is normal in all 4 extremities. EXTREMITIES: There is 1-2+ peripheral edema. No clubbing, no cyanosis. Periph eral pulses are intact. - Labs CBC & Chem 7: 01/26/20 06:28 01/26/20 06:28 Labs: Abnormal Lab Results - Last 24 Hours (Table) 01/25/20 01/25/20 01/26/20 Range/Units 05:25 05:25 06:28 WBC (3.8-10.6) k/uL Hgb (13.0-17.5) gm/dL Hct (39.0-53.0) % MCV (80.0-100.0) fL MCH (25.0-35.0) pg MCHC (31.0-37.0) g/dL RDW (11.5-15.5) % Potassium 3.3 L (3.5-5.1) mmol/L BUN 61 H (9-20) mg/dL Creatinine 1.50 H (0.66-1.25) mg/dL Glucose 125 H (74-99) mg/dL Calcium 7.9 L (8.4-10.2) mg/dL Iron 14 L (65-175) ug/dL % Saturation 4.70 L (15.00-50.00) Procalcitonin 0.35 H (0.02-0.09) ng/mL 01/26/20 Range/Units 06:28 WBC 16.7 H (3.8-10.6) k/uL Hgb 8.7 L (13.0-17.5) gm/dL Hct 31.4 L (39.0-53.0) % MCV 70.1 L (80.0-100.0) fL MCH 19.5 L (25.0-35.0) pg MCHC 27.8 L (31.0-37.0) g/dL RDW 19.4 H (11.5-15.5) % Potassium (3.5-5.1) mmol/L BUN (9-20) mg/dL Creatinine (0.66-1.25) mg/dL Glucose (74-99) mg/dL Calcium (8.4-10.2) mg/dL Iron (65-175) ug/dL % Saturation (15.00-50.00) Procalcitonin (0.02-0.09) ng/mL Assessment and Plan Assessment: 1 Acute exacerbation of chronic systolic congestive heart failure with mildly impaired left ventricular systolic function ejection fraction 45-50%. Currently on a Lasix drip and dopamine drip. 2 Acute exacerbation of chronic obstructive pulmonary disease 3 Pulmonary hypertension 4 Coronary artery disease 5 History of osteoarthritis 6 History of prostate cancer 7 Hyperlipidemia 8 Atrial fibrillation anticoagulated with Eliquis 9 Acute on chronic kidney disease Plan: The patient was seen and evaluated by Dr. Stafford. Chest x-ray and labs reviewed We'll continue to titrate down the FiO2 as tolerated BiPAP support as necessary Continue diuretics We'll continue to follow and make further recommendations based on his clinical status I, the cosigning physician, performed a history & physical examination of the patient. Lungs sounds with crackles in the bilateral posterior bases. Maintaining good O2 saturations in the 90s on 6 L high flow nasal cannula. I discussed the assessment and plan of care with my nurse practitioner, Latisha Lowe. I attest to the above note as dictated by her.
--- NOTE | 2020-01-26 12:14 | P.PN ---
Subjective Progress Note Date: 01/26/20 Principal diagnosis: Anemia of chronic disease CHF 01/26/2020 patient oriented times 3, following commands. He is mildly agitated as he is wanting to get out of bed. With this he has received 1 mg of Haldol at 2100 with little to no improvement. . Currently vital signs are stable blood pressure 116/67 heart rate 83 sinus rhythm on 6 L nasal cannula 96% and 97.4 axillary temp with respiratory rate of 18. Current status is questionable worsening from yesterday if not same although he has not required BiPAP to maintain oxygenation his lung sounds worsened. An increased white blood count to 16.7, hemoglobin study is 8.7 hematocrit 31.4, platelet count is 67. Chem panel showed increase in creatinine to 1.5, sodium 137 potassium 3.3 BUN 61 calcium level 7.9 with pro-calcitonin level drawn yesterday 0.35. Peripheral edema in lower extremity greatly improved. Objective - Vital Signs Vital signs: Vital Signs Temp 97.8 F 01/26/20 11:36 Pulse 90 01/26/20 11:36 Resp 26 H 01/26/20 11:36 BP 102/68 01/26/20 11:36 Pulse Ox 92 L 01/26/20 11:36 Intake & Output 01/25/20 01/26/20 01/26/20 18:59 06:59 18:59 Intake Total 400 192.667 118 Output Total 1500 Balance -1100 192.667 118 Weight 114.5 kg Intake: Intake, IV Titration 100 72.667 Amount Furosemide 100 mg In 100 72.667 Sodium Chloride 0.9% 90 ml @ 10 MG/HR 10 mls/hr IV .Q10H [facility] Rx#: [id number] Oral 300 120 118 Output: Urine 1500 Other: Voiding Method Indwelling Catheter Indwelling Catheter Indwelling Catheter - Exam GENERAL: Ill-appearing, anxious . HEAD: Atraumatic, normocephalic. EYES: Pupils equal round and reactive to light, extraocular movements intact, sclera anicteric, conjunctiva are normal. ENT:nares patent, oropharynx clear without exudates. Moist mucous membranes. NECK: Normal range of motion, supple without lymphadenopathy or JVD, no thyromegaly LUNGS: Lungs are coarse with slightly worsening basilar crackles compared to yesterday. No significant rhonchi appreciated. HEART: Regular rate and rhythm without murmurs, rubs or gallops.S1S2 Normal ABDOMEN: Soft, distended due to truncal obesity, normoactive bowel sounds. No guarding, no rebound. No masses appreciated. EXTREMITIES: Normal range of motion, no pitting or edema. No clubbing or cyanosis. NEUROLOGICAL: Cranial nerves II through XII grossly intact. Normal speech, recurrent MSIR. PSYCH: Normal mood, normal affect. SKIN: Warm, Dry, normal turgor, no rashes or lesions noted. - Constitutional General appearance: Present: morbidly obese - Labs CBC & Chem 7: 01/26/20 06:28 01/26/20 06:28 Labs: Abnormal Lab Results - Last 24 Hours (Table) 01/25/20 01/25/20 01/26/20 Range/Units 05:25 05:25 06:28 WBC (3.8-10.6) k/uL Hgb (13.0-17.5) gm/dL Hct (39.0-53.0) % MCV (80.0-100.0) fL MCH (25.0-35.0) pg MCHC (31.0-37.0) g/dL RDW (11.5-15.5) % Potassium 3.3 L (3.5-5.1) mmol/L BUN 61 H (9-20) mg/dL Creatinine 1.50 H (0.66-1.25) mg/dL Glucose 125 H (74-99) mg/dL Calcium 7.9 L (8.4-10.2) mg/dL Iron 14 L (65-175) ug/dL % Saturation 4.70 L (15.00-50.00) Procalcitonin 0.35 H (0.02-0.09) ng/mL 01/26/20 Range/Units 06:28 WBC 16.7 H (3.8-10.6) k/uL Hgb 8.7 L (13.0-17.5) gm/dL Hct 31.4 L (39.0-53.0) % MCV 70.1 L (80.0-100.0) fL MCH 19.5 L (25.0-35.0) pg MCHC 27.8 L (31.0-37.0) g/dL RDW 19.4 H (11.5-15.5) % Potassium (3.5-5.1) mmol/L BUN (9-20) mg/dL Creatinine (0.66-1.25) mg/dL Glucose (74-99) mg/dL Calcium (8.4-10.2) mg/dL Iron (65-175) ug/dL % Saturation (15.00-50.00) Procalcitonin (0.02-0.09) ng/mL Assessment and Plan (1) Acute respiratory failure with hypoxia Current Visit: Yes Status: Acute Priority: High Code(s): J96.01 - ACUTE RESPIRATORY FAILURE WITH HYPOXIA SNOMED Code(s): 26415360 (2) Acute systolic CHF (congestive heart failure) Current Visit: Yes Status: Acute Priority: High Code(s): I50.21 - ACUTE SYSTOLIC (CONGESTIVE) HEART FAILURE SNOMED Code(s): 234856002 (3) At risk for readmission to hospital Current Visit: Yes Status: Acute Code(s): Z91.89 - OTH PERSONAL RISK FACTORS, NOT ELSEWHERE CLASSIFIED SNOMED Code(s): 2749757622783 (4) Congestive heart failure Current Visit: Yes Status: Acute Code(s): I50.9 - HEART FAILURE, UNSPECIFIED SNOMED Code(s): 85640583 (5) Personal history of prostate cancer Current Visit: Yes Status: Acute Priority: Low Code(s): Z85.46 - PERSONAL HISTORY OF MALIGNANT NEOPLASM OF PROSTATE SNOMED Code(s): 080035652 (6) Pneumonia Current Visit: Yes Status: Acute Code(s): J18.9 - PNEUMONIA, UNSPECIFIED ORGANISM SNOMED Code(s): 772850694 (7) Urinary retention Current Visit: Yes Status: Acute Code(s): R33.9 - RETENTION OF URINE, UNSPECIFIED SNOMED Code(s): 923389510 (8) Anemia of chronic disease Current Visit: Yes Status: Chronic Priority: Medium Code(s): D63.8 - ANEMIA IN OTHER CHRONIC DISEASES CLASSIFIED ELSEWHERE SNOMED Code(s): 335691197 (9) COPD (chronic obstructive pulmonary disease) Current Visit: Yes Status: Chronic Priority: Medium Code(s): J44.9 - CHRONIC OBSTRUCTIVE PULMONARY DISEASE, UNSPECIFIED SNOMED Code(s): 98606980 (10) Chronic renal disease, stage 3, moderately decreased glomerular filtration rate between 30-59 mL/min/1.73 square meter Current Visit: Yes Status: Chronic Priority: Medium Code(s): N18.3 - CHRONIC KIDNEY DISEASE, STAGE 3 (MODERATE) SNOMED Code(s): 809078822 (11) Coronary arteriosclerosis in [place] artery Current Visit: Yes Status: Chronic Priority: Medium Code(s): I25.10 - ATHSCL HEART DISEASE OF [place] CORONARY ARTERY W/O ANG PCTRS SNOMED Code(s): 85500099 (12) Essential (primary) hypertension Current Visit: Yes Status: Chronic Priority: Low Code(s): I10 - ESSENTIAL (PRIMARY) HYPERTENSION SNOMED Code(s): 84925102 (13) Iron deficiency Current Visit: Yes Status: Chronic Priority: Medium Code(s): E61.1 - IRON DEFICIENCY SNOMED Code(s): 46970057 (14) Mitral regurgitation Current Visit: Yes Status: Chronic Priority: Low Code(s): I34.0 - NONRHEUMATIC MITRAL (VALVE) INSUFFICIENCY SNOMED Code(s): 44018693 (15) Pulmonary hypertension Current Visit: Yes Status: Chronic Priority: High Code(s): I27.20 - PULMONARY HYPERTENSION, UNSPECIFIED SNOMED Code(s): 57646076 Plan: Surface echo at bedside Sepsis bundle for increasing white count Repeat labs in the a.m. We'll be reevaluated in 24 hours We will have staff continue to monitor him closely Wait for further recommendations from cardiology, nephrology and pulmonology Time with Patient: Greater than 30
[2020-01-26 12:20] LABS: Anisocytosis Slight; HCT 35.7 % (39.0-53.0); HGB 9.6 gm/dL (13.0-17.5); Hypochromasia Marked; MCH 19.1 pg (25.0-35.0); MCV 70.8 fL (80.0-100.0); Mean Platelet Volume 7.3; Microcytosis Marked; Platelet Count 319 k/uL (150-450); Poikilocytosis Slight; RBC 5.04 m/uL (4.30-5.90); RDW 19.4 % (11.5-15.5); WBC 17.1 k/uL (3.8-10.6)
[2020-01-26 12:25] LABS: INR 1.7 (<1.2); Partial Thromboplastin Time 26.4 sec (22.0-30.0); Prothrombin Time 16.6 sec (9.0-12.0)
[2020-01-26 12:28] LABS: Albumin 2.6 g/dL (3.5-5.0); Calcium 8.1 mg/dL (8.4-10.2); Potassium 3.7 mmol/L (3.5-5.1); Total Bilirubin 1.1 mg/dL (0.2-1.3)
[2020-01-26] MEDS: FUROSEMIDE 100 MG in SODIUM CHLORIDE 0.9% 90 ML IV SCH ×2 (12:40→20:22)
[2020-01-26 13:04] LABS: Eosinophils # (M) 0.17 k/uL (0-0.7); Lymphocytes # (M) 1.03 k/uL (1.0-4.8); Monocytes # (M) 0.34 k/uL (0-1.0); Neutrophils # (M) 15.56 k/uL (1.3-7.7); Neutrophils % (M) 91 %; Nucleated Red Blood Cells 0 /100 WBC (0-0); Total Cells Counted 100
[2020-01-26] MEDS ORDERED: LORazepam 2 MG/ML INJ IV STA (13:24)
--- NOTE | 2020-01-26 13:34 | P.PN ---
Progress Note - Text Progress Note Date: 01/26/20 Mr. Gerber' Choi catheter continues to drain clear yellow urine. His congestive heart failure is being treated with Lasix and dopamine drips. He is receiving tamsulosin. The Choi catheter may be removed for a voiding trial when it is no longer medically needed. However, I would ask that the catheter be removed early in the morning in the event that catheter replacement is needed. Postvoid residuals should be checked with a bladder scan after the catheter is removed.
[2020-01-26] MEDS: SODIUM FERRIC GLUCONAT-SUCROSE 125 MG in SODIUM CHLORIDE 0.9% 100 ML IVPB SCH (13:43)
[2020-01-26 16:04] LABS: Glucose,Whole Blood 200 mg/dL (75-99)
[2020-01-26] MEDS ORDERED: CISATRACURIUM 2 MG/ML 5 ML VIAL IV ONE (16:16)
--- NOTE | 2020-01-26 16:22 | XR ---
EXAMINATION TYPE: XR chest 1V portable DATE OF EXAM: 01/26/2020 COMPARISON: Today HISTORY: Tube placement TECHNIQUE: FINDINGS: Endotracheal tube is 4 cm from the che. There is pulmonary interstitial and alveolar simón ma. There are sternal wires. Heart is enlarged. There is nasogastric tube in the stomach. There are c hest leads. IMPRESSION: Pulmonary edema probably due to congestive heart failure slightly improved compared to ex am earlier today.
[2020-01-26 16:52] LABS: ABG Base Excess 6.6 mmol/L; ABG HCO3 30 mmol/L (21-25); ABG Oxygen Saturation 99.5 % (94-97); ABG PCO2 40 mmHg (35-45); ABG PH 7.49 (7.35-7.45); ABG PO2 219 mmHg (83-108); ABG TCO2 31 mmol/L (19-24); Allen Test Performed? Yes
[2020-01-26] MEDS: NOREPINEPHRINE 8 MG in SODIUM CHLORIDE 0.9% 250 ML IV SCH (16:59)
--- NOTE | 2020-01-26 17:38 | XR ---
EXAMINATION TYPE: XR chest 1V portable DATE OF EXAM: 01/26/2020 COMPARISON: Today HISTORY: Check tube placement. Central line placement. TECHNIQUE: FINDINGS: Endotracheal tube is 4.5 cm from the che. There is left subclavian catheter with the tip in the superior vena cava. Nasogastric tube is in the stomach. There is some pulmonary interstitial edema. Heart is enlarged. There is blunting left costophrenic angle. IMPRESSION: Pulmonary edema. Pleural fluid and infiltrate left lower lobe increased compared to exam one hour ago.
[2020-01-26] MEDS ORDERED: NALOXONE 0.4 MG/ML 1 ML VIAL IV PRN (17:45)
[2020-01-26 20:00] LABS: ABG Base Excess 5.9 mmol/L; ABG HCO3 30 mmol/L (21-25); ABG Oxygen Saturation 89.8 % (94-97); ABG PCO2 41 mmHg (35-45); ABG PH 7.47 (7.35-7.45); ABG TCO2 31 mmol/L (19-24); Allen Test Performed? Yes
[2020-01-26] MEDS ORDERED: INSULIN ASPART (NovoLOG) 100 UNIT/ML VIAL SQ SCH (20:00)
[2020-01-26 20:10] LABS: ABG PO2 59 mmHg (83-108)
--- NOTE | 2020-01-26 20:20 | XR ---
EXAMINATION TYPE: XR chest 1V portable DATE OF EXAM: 01/26/2020 COMPARISON: 01/26/2020 HISTORY: Check line placement TECHNIQUE: FINDINGS: Endotracheal tube is 4.5 cm from the che. There is left subclavian catheter with tip in the superior vena cava. There is nasogastric tube in the stomach. There is pulmonary edema. Heart chuck ears enlarged. There are sternal wires. There are surgical clips in the left upper lobe. IMPRESSION: Pulmonary edema unchanged compared to exam 3 hours ago.
[2020-01-26] MEDS: CHLORHEXIDINE GLUCONATE 15 ML CUP MUCOUS MEM SCH (20:35)
[2020-01-26] MEDS: PROPOFOL 1,000 MG in EMPTY BAG 1 BAG IV SCH (20:37)
[2020-01-26] MEDS ORDERED: HALOPERIDOL 1 MG TAB PO SCH (21:00)
[2020-01-26] MEDS: ATORVASTATIN 20 MG TAB PO SCH (21:00)
[2020-01-26] MEDS: FORMOTEROL FUMARATE 20 MCG/2 ML NEBU INHALATION SCH (21:05)
[2020-01-26] MEDS: IPRATROPIUM-ALBUTEROL 3 ML NEB INHALATION SCH (21:05)
[2020-01-26] MEDS: BUDESONIDE 1 MG/2 ML NEBU INHALATION SCH (21:05)
[2020-01-26 23:27] LABS: Glucose,Whole Blood 140 mg/dL (75-99)
[2020-01-27] MEDS: INSULIN ASPART (NovoLOG) 100 UNIT/ML VIAL SQ SCH ×4 (00:14→20:45)
[2020-01-27] MEDS: PROPOFOL 1,000 MG in EMPTY BAG 1 BAG IV SCH ×6 (00:14→20:46)
[2020-01-27] MEDS: IPRATROPIUM-ALBUTEROL 3 ML NEB INHALATION SCH ×6 (00:29→18:57)
[2020-01-27] MEDS: POTASSIUM BICARBONATE/CIT AC 20 MEQ TABLET.EFF NG-TUBE SCH ×6 (01:15→22:35)
[2020-01-27] MEDS: FUROSEMIDE 100 MG in SODIUM CHLORIDE 0.9% 90 ML IV SCH ×3 (01:46→19:45)
--- NOTE | 2020-01-27 04:30 | PCN ---
PROCEDURE NOTE PROCEDURE: Right radial arterial line. PREOPERATIVE DIAGNOSIS: Frequent blood draws and blood gas monitoring. POSTOPERATIVE DIAGNOSIS: Frequent blood draws and blood gas monitoring. LEATHER ROLLER: Dr. Stafford ARTERIAL LINE PLACEMENT: Indications: Hemodynamic monitoring. A time-out was completed verifying correct patient, procedure, site, positioning, and implant(s) or special equipment if applicable. Carlos's test was performed to ensure adequate perfusion. The patient's right wrist was prepped and draped in sterile fashion. 1% Lidocaine was used to anesthetize the area. An 18G Arrow arterial line was introduced into the right radial artery. The catheter was threaded over the guide wire and the needle was removed with appropriate pulsatile blood return. Blood loss was minimal. The catheter was then sutured in place to the skin and a sterile dressing applied. Perfusion to the extremity distal to the point of catheter insertion was checked and found to be adequate. The patient tolerated the procedure well and there were no complications. There was no immediate complication. We used a right radial arterial site. This catheter was sutured in place. A sterile dressing was applied by the nurse. There was informed consent and universal timeout. There was good waveform and blood pressure reading. The patient tolerated the procedure well. A sterile dressing was applied by the nurse. MMODL / IJN: [id number] /
--- NOTE | 2020-01-27 04:30 | PCN ---
PROCEDURE NOTE PROCEDURE: Left subclavian triple-lumen catheter. PREOPERATIVE DIAGNOSIS: Administration of fluids and pressors. POSTOPERATIVE DIAGNOSIS: Administration of fluids and pressors. COILER: Dr. Stafford. TRIPLE LUMEN CATHETER PLACEMENT: Indication: Hemodynamic monitoring/Intravenous access. A time-out was completed verifying correct patient, procedure, site, positioning, and implant(s) or special equipment if applicable. The patient was placed in a dependent position appropriate for triple lumen catheter placement based on the vein to be cannulated. The patient's left shoulder was prepped and draped in sterile fashion. 1% Lidocaine was used to anesthetize the surrounding skin area. A triple lumen 9F Cordis catheter was introduced into the left subclavian vein using Seldinger technique. The catheter was threaded smoothly over the guide wire and appropriate blood return was obtained. Each lumen of the catheter was evacuated of air and flushed with sterile saline. The catheter was then sutured in place to the skin and a sterile dressing applied. Perfusion to the extremity distal to the point of catheter insertion was checked and found to be adequate. There was informed consent and universal timeout. There was no immediate complication. We used the left subclavian site. Patient tolerated the procedure well. There was good blood return from all 3 ports. A stat chest x-ray was ordered. The tip of the catheter was seen at the junction of the right atrium superior vena cava. The catheter was sutured in place. A sterile dressing was applied by the nurse. There was no immediate complication. MMODL / IJN: [id number] /
[2020-01-27 05:23] LABS: ABG Base Excess 11.4 mmol/L; ABG HCO3 34 mmol/L (21-25); ABG Oxygen Saturation 98.7 % (94-97); ABG PCO2 40 mmHg (35-45); ABG PH 7.54 (7.35-7.45); ABG PO2 132 mmHg (83-108); ABG TCO2 35 mmol/L (19-24)
[2020-01-27 05:24] LABS: Allen Test Performed? no
[2020-01-27 05:42] LABS: Anisocytosis Slight; Basophils % (A) 0 %; Eosinophils # (A) 0.1 k/uL (0-0.7); Eosinophils % (A) 1 %; HCT 37.4 % (39.0-53.0); HGB 10.3 gm/dL (13.0-17.5); Hypochromasia Marked; Lymphocytes # (A) 1.4 k/uL (1.0-4.8); Lymphocytes % (A) 7 %; MCH 19.2 pg (25.0-35.0); MCHC 27.5 g/dL (31.0-37.0); MCV 69.7 fL (80.0-100.0); Mean Platelet Volume 7.2; Microcytosis Marked; Monocytes # (A) 1.1 k/uL (0-1.0); Monocytes % (A) 6 %; Neutrophils # (A) 16.5 k/uL (1.3-7.7); Neutrophils % (A) 85 %; Platelet Count 375 k/uL (150-450); Poikilocytosis Slight; RBC 5.37 m/uL (4.30-5.90); RDW 19.2 % (11.5-15.5); WBC 19.5 k/uL (3.8-10.6)
[2020-01-27 05:59] LABS: Glucose,Whole Blood 133 mg/dL (75-99)
[2020-01-27 06:18] LABS: Albumin 2.7 g/dL (3.5-5.0); Calcium 8.3 mg/dL (8.4-10.2); Potassium 3.2 mmol/L (3.5-5.1); Total Bilirubin 1.3 mg/dL (0.2-1.3); Total Protein 6.4 g/dL (6.3-8.2)
--- NOTE | 2020-01-27 07:46 | PN ---
PROGRESS NOTE Mr. Gerber is a 74-year-old male with a known history of mild to moderate cardiomyopathy, history of chronic persistent atrial fibrillation, prior history of GI bleeding, who presented with symptoms of progressive dyspnea and CHF, had worsening of his dyspnea requiring mechanical ventilation. He remains intubated and sedated. He is in atrial fibrillation, which has been chronic. He is on low-dose IV dopamine in addition to norepinephrine. His urine output is good. He had ventricular ectopic activity that has resolved. He continued to be on Eliquis 5 mg twice a day, Lipitor 20 mg daily, Lasix 10 mg IV drip, metolazone 10 mg daily. PHYSICAL EXAMINATION: Blood pressure running in the low 100 with a heart rate in the 80s. LUNGS: Clear anteriorly. HEART: Irregular, irregular S1, S2. No S3 with a systolic murmur heard at the base. No diastolic murmur. No rub. ABDOMEN: Soft. Positive bowel sounds. No organomegaly. EXTREMITIES: +2 edema with chronic skin changes. LAB DATA: Lab data revealed BUN and creatinine 53 and 1.16. A pH 7.54, pO2 of 132. Hemoglobin of 10.3, white blood cell of 19.5. IMPRESSION: 1. Respiratory failure with congestive heart failure with a moderately impaired left ventricular systolic function. 2. History of chronic persistent atrial fibrillation, has been anticoagulated. 3. Renal failure improving. 4. Prior history of gastrointestinal bleeding. 5. History of coronary artery disease, status post coronary artery bypass grafting. 6. History of chronic obstructive lung disease. 7. History of hypertension. 8. History of hyperlipidemia. RECOMMENDATION: The patient underwent an echocardiogram during his admission earlier in December and at that time. His echocardiogram revealed an ejection fraction 45% to 50% with mild to moderate mitral and tricuspid regurgitation and significant pulmonary hypertension. Patient will be continued on the IV Lasix. We will try to wean the IV norepinephrine as tolerated. Follow his blood pressure closely and his urine output. Hopefully, we can start to attempt to wean in the next 24 hours and depending on his progress, further recommendation will be made. MMODL / IJN: [id number] /
[2020-01-27] MEDS: FORMOTEROL FUMARATE 20 MCG/2 ML NEBU INHALATION SCH ×2 (07:51→18:57)
[2020-01-27] MEDS: BUDESONIDE 1 MG/2 ML NEBU INHALATION SCH ×2 (07:51→18:57)
--- NOTE | 2020-01-27 07:52 | XR ---
EXAMINATION TYPE: XR chest 1V portable DATE OF EXAM: 01/27/2020 COMPARISON: 01/26/2020 HISTORY: SOB, Follow Up FINDINGS: Indwelling tubes and catheters are unchanged. Scattered interstitial and alveolar infiltrates as well as small left-sided pleural effusion persist and appear slightly improved. Stable appearance of the cardio-mediastinal structures at this time. Pleural effusion unchanged. IMPRESSION: 1. Scattered interstitial and alveolar infiltrates as well as small left-sided pleural effusion pers ist and appear slightly improved. Clinical correlation and follow up until resolution is recommended.
[2020-01-27] MEDS: CHLORHEXIDINE GLUCONATE 15 ML CUP MUCOUS MEM SCH ×2 (08:19→20:09)
[2020-01-27] MEDS: PANTOPRAZOLE 40 MG/10 ML VIAL IV SCH (08:21)
[2020-01-27] MEDS: APIXABAN 5 MG TAB PO SCH ×2 (08:26→20:09)
[2020-01-27] MEDS: SODIUM FERRIC GLUCONAT-SUCROSE 125 MG in SODIUM CHLORIDE 0.9% 100 ML IVPB SCH (08:45)
[2020-01-27] MEDS: METOLAZONE 5 MG TAB PO SCH (08:47)
[2020-01-27] MEDS: AZITHROMYCIN 500 MG in SODIUM CHLORIDE 0.9% 250 ML IVPB SCH (09:15)
--- NOTE | 2020-01-27 10:39 | P.PN ---
Subjective Progress Note Date: 01/27/20 this is a 74-year-old male patient with known history of CAD, previous bypass surgery, COPD, congestion heart failure, chronic atrial fibrillation who has been struggling for worsening shortness of breath and he came into the hospital for further adviceon 01/21/2020. His EKG showed atrial fibrillation per chest x-ray showed basilar consolidation with interstitial pattern. His proBNP level was 4320 and the troponins were negative and echocardiogram from December showed mildly impaired LV function with an ejection fraction of 45-50% and paradoxical septal wall motion abnormality with a [id number] MR, moderate TR, severe pulmonary hypertension with a RVSP of 70 mmHg. The patient was diagnosed having an acute on top of chronic diastolic heart failure and the patient was diuresed with IV Lasix 40 mg every 8 hours and he was asked to resume his long-term medications. The patient got sick sequently transferred to the intensive care unit on 01/25/2024 worsening shortness of breath. Adequate response team was involved in a patient was found to be hypoxic and he was placed on 100% nonrebreather facemask. Subsequently was placed on a BiPAP and he got moved to the intensive care unit for further monitoring. He was kept on BiPAP and he was started on Lasix drip and he was covered with an empiric antibiotic coverage utilizing a combination of Rocephin and Zithromax. The patient currently is still on the same antibiotic coverage. He has required low-dose norepinephrine infusion for blood pressure control. He remains on Lasix drip at 10 mg an hour. His net fluid balance has been -1.5 L on 01/25/2020 . The patient was doing well and 60s of oxygen by nasal cannula. Yesterday afternoon, the patient became progressively more hypoxic and had to be intubated and placed on mechanical ventilation. Chest x-ray post intubation showed pulmonary edema essentially unchanged and ET tube was repositioned and it was in a adequate location. Post intubation blood gas showed a pH of 7.49 with a pCO2 of 41 and pO2 of 59 and a necessity ventilator changes were done. This morning of 01/27/2020,the patient is being seen in follow-up in the intensive care unit. He remains on renal dose dopamine at 2.5 mg/kg/m. He is receiving Lasix drip at 10 mg an hour in addition to Zaroxolyn 10 mg by mouth daily. Norepinephrine infusion is being utilized forblood pressure support. Meanwhile the patient is sedated with propofol and the patient is on a ventilator. The patient remains on a assist-control mode of ventilator and currently he is on a mechanical ventilator within assist-control mode at the rate of 20 with a tidal volume of 500 and FiO2 of 50% with a PEEP of 10. Blood gases from today showed a pH of 7.4 with a pCO2 of 40 and pO2 of 142. The patient's chest exit shows improvement in the pulmonary edema. The patient is on dopamine at 2.5 g per KG per minute. The patient on Lasix drip at 10 mg an hour. The patient is on levo fed running at 0.02 mg per KG per minute and IV fluids with normal state rate of 10 mL an hour. He is receiving vital 1.03 capacities an hour. He is was sedated for now with propofol. Objective - Vital Signs Vital signs: Vital Signs Temp 98.4 F 01/27/20 04:00 Pulse 87 01/27/20 06:00 Resp 20 01/27/20 06:00 BP 102/68 01/27/20 06:00 Pulse Ox 99 01/27/20 06:00 Intake & Output 01/26/20 01/26/20 01/27/20 06:59 18:59 06:59 Intake Total 192.667 232.586 488.883 Output Total 2400 2295 Balance 192.667 -2167.414 -1806.117 Weight 114.5 kg 107.9 kg Intake: IV 154.0 Dextrose/Water 1 250ml. 54.0 bag @ 2.5 MCG/KG/MIN 5. 367 mls/hr IV .Q24H [facility] with DOPamine DRIP 800 mg Rx#:[id number] Furosemide 100 mg In 100 Sodium Chloride 0.9% 90 ml @ 10 MG/HR 10 mls/hr IV .Q10H [facility] Rx#: [id number] Intake, IV Titration 72.667 114.586 299.883 Amount Furosemide 100 mg In 72.667 100 54 Sodium Chloride 0.9% 90 ml @ 10 MG/HR 10 mls/hr IV .Q10H [facility] Rx#: [id number] Norepinephrine 8 mg In 14.586 45.310 Sodium Chloride 0.9% 250 ml @ 0.05 MCG/KG/MIN 11. 078 mls/hr IV .[id number] [facility] Rx#:[id number] Propofol 1,000 mg In 200.573 Empty Bag 1 bag @ Titrate IV .Q0M [facility] Rx#: [id number] Oral 120 118 Tube Feeding 35 Output: Urine 2400 2295 Other: Voiding Method Indwelling Catheter Indwelling Catheter Indwelling Catheter ABP, PAP, CO, CI - Last Documented Arterial Blood Pressure 109/51 - Exam GENERAL EXAM: Alert, pleasant 74-year-old gentleman, currently intubated on mechanical ventilator sedated with propofol. Orogastric and orotracheal tube are both in place and the patient has a left IJ triple-lumen catheter in place. HEAD: Normocephalic. EYES: Normal reaction of pupils, equal size. NOSE: Clear with pink turbinates. THROAT: No erythema or exudates. NECK: No masses, no JVD. CHEST: No chest wall deformity. LUNGS: Equal air entry with crackles in the bilateral posterior bases CVS: S1 and S2 normal with no audible murmur, irregular rhythm. ABDOMEN: No hepatosplenomegaly, normal bowel sounds, no guarding or rigidity. SPINE: No scoliosis or deformity SKIN: No rashes CENTRAL NERVOUS SYSTEM: No focal deficits, tone is normal in all 4 extremities. EXTREMITIES: There is 1-2+ peripheral edema. No clubbing, no cyanosis. Peripheral pulses are intact. - Labs CBC & Chem 7: 01/27/20 05:15 01/27/20 05:15 Labs: Abnormal Lab Results - Last 24 Hours (Table) 01/26/20 01/26/20 01/26/20 Range/Units 06:28 06:28 11:56 WBC 16.7 H 17.1 H (3.8-10.6) k/uL Hgb 8.7 L 9.6 L (13.0-17.5) gm/dL Hct 31.4 L 35.7 L (39.0-53.0) % MCV 70.1 L 70.8 L (80.0-100.0) fL MCH 19.5 L 19.1 L (25.0-35.0) pg MCHC 27.8 L 27.0 L (31.0-37.0) g/dL RDW 19.4 H 19.4 H (11.5-15.5) % Neutrophils # (1.3-7.7) k/uL Neutrophils # (Manual) 15.56 H (1.3-7.7) k/uL Monocytes # (0-1.0) k/uL PT (9.0-12.0) sec INR (<1.2) ABG pH (7.35-7.45) ABG pO2 (83-108) mmHg ABG HCO3 (21-25) mmol/L ABG Total CO2 (19-24) mmol/L ABG O2 Saturation (94-97) % Potassium 3.3 L (3.5-5.1) mmol/L Carbon Dioxide (22-30) mmol/L BUN 61 H (9-20) mg/dL Creatinine 1.50 H (0.66-1.25) mg/dL Glucose 125 H (74-99) mg/dL POC Glucose (mg/dL) (75-99) mg/dL Plasma Lactic Acid Rashid (0.7-2.0) mmol/L Calcium 7.9 L (8.4-10.2) mg/dL AST (17-59) U/L ALT (4-49) U/L Alkaline Phosphatase (38-126) U/L Troponin I (0.000-0.034) ng/mL Total Protein (6.3-8.2) g/dL Albumin (3.5-5.0) g/dL 01/26/20 01/26/20 01/26/20 Range/Units 11:56 11:56 11:56 WBC (3.8-10.6) k/uL Hgb (13.0-17.5) gm/dL Hct (39.0-53.0) % MCV (80.0-100.0) fL MCH (25.0-35.0) pg MCHC (31.0-37.0) g/dL RDW (11.5-15.5) % Neutrophils # (1.3-7.7) k/uL Neutrophils # (Manual) (1.3-7.7) k/uL Monocytes # (0-1.0) k/uL PT 16.6 H (9.0-12.0) sec INR 1.7 H (<1.2) ABG pH (7.35-7.45) ABG pO2 (83-108) mmHg ABG HCO3 (21-25) mmol/L ABG Total CO2 (19-24) mmol/L ABG O2 Saturation (94-97) % Potassium (3.5-5.1) mmol/L Carbon Dioxide (22-30) mmol/L BUN 57 H (9-20) mg/dL Creatinine 1.52 H (0.66-1.25) mg/dL Glucose 148 H (74-99) mg/dL POC Glucose (mg/dL) (75-99) mg/dL Plasma Lactic Acid Rashid (0.7-2.0) mmol/L Calcium 8.1 L (8.4-10.2) mg/dL AST 60 H (17-59) U/L ALT 66 H (4-49) U/L Alkaline Phosphatase 171 H (38-126) U/L Troponin I 0.047 H* (0.000-0.034) ng/mL Total Protein 6.0 L (6.3-8.2) g/dL Albumin 2.6 L (3.5-5.0) g/dL 01/26/20 01/26/20 01/26/20 Range/Units 12:16 16:02 16:49 WBC (3.8-10.6) k/uL Hgb (13.0-17.5) gm/dL Hct (39.0-53.0) % MCV (80.0-100.0) fL MCH (25.0-35.0) pg MCHC (31.0-37.0) g/dL RDW (11.5-15.5) % Neutrophils # (1.3-7.7) k/uL Neutrophils # (Manual) (1.3-7.7) k/uL Monocytes # (0-1.0) k/uL PT (9.0-12.0) sec INR (<1.2) ABG pH 7.49 H (7.35-7.45) ABG pO2 219 H (83-108) mmHg ABG HCO3 30 H (21-25) mmol/L ABG Total CO2 31 H (19-24) mmol/L ABG O2 Saturation 99.5 H (94-97) % Potassium (3.5-5.1) mmol/L Carbon Dioxide (22-30) mmol/L BUN (9-20) mg/dL Creatinine (0.66-1.25) mg/dL Glucose (74-99) mg/dL POC Glucose (mg/dL) 200 H (75-99) mg/dL Plasma Lactic Acid Rashid 3.3 H* (0.7-2.0) mmol/L Calcium (8.4-10.2) mg/dL AST (17-59) U/L ALT (4-49) U/L Alkaline Phosphatase (38-126) U/L Troponin I (0.000-0.034) ng/mL Total Protein (6.3-8.2) g/dL Albumin (3.5-5.0) g/dL 01/26/20 01/26/20 01/26/20 Range/Units 17:10 19:58 23:24 WBC (3.8-10.6) k/uL Hgb (13.0-17.5) gm/dL Hct (39.0-53.0) % MCV (80.0-100.0) fL MCH (25.0-35.0) pg MCHC (31.0-37.0) g/dL RDW (11.5-15.5) % Neutrophils # (1.3-7.7) k/uL Neutrophils # (Manual) (1.3-7.7) k/uL Monocytes # (0-1.0) k/uL PT (9.0-12.0) sec INR (<1.2) ABG pH 7.47 H (7.35-7.45) ABG pO2 59 L* (83-108) mmHg ABG HCO3 30 H (21-25) mmol/L ABG Total CO2 31 H (19-24) mmol/L ABG O2 Saturation 89.8 L (94-97) % Potassium (3.5-5.1) mmol/L Carbon Dioxide (22-30) mmol/L BUN (9-20) mg/dL Creatinine (0.66-1.25) mg/dL Glucose (74-99) mg/dL POC Glucose (mg/dL) 140 H (75-99) mg/dL Plasma Lactic Acid Rashid (0.7-2.0) mmol/L Calcium (8.4-10.2) mg/dL AST (17-59) U/L ALT (4-49) U/L Alkaline Phosphatase (38-126) U/L Troponin I 0.065 H* (0.000-0.034) ng/mL Total Protein (6.3-8.2) g/dL Albumin (3.5-5.0) g/dL 01/27/20 01/27/20 01/27/20 Range/Units 00:25 05:15 05:15 WBC 19.5 H (3.8-10.6) k/uL Hgb 10.3 L (13.0-17.5) gm/dL Hct 37.4 L (39.0-53.0) % MCV 69.7 L (80.0-100.0) fL MCH 19.2 L (25.0-35.0) pg MCHC 27.5 L (31.0-37.0) g/dL RDW 19.2 H (11.5-15.5) % Neutrophils # 16.5 H (1.3-7.7) k/uL Neutrophils # (Manual) (1.3-7.7) k/uL Monocytes # 1.1 H (0-1.0) k/uL PT (9.0-12.0) sec INR (<1.2) ABG pH (7.35-7.45) ABG pO2 (83-108) mmHg ABG HCO3 (21-25) mmol/L ABG Total CO2 (19-24) mmol/L ABG O2 Saturation (94-97) % Potassium 2.8 L 3.2 L (3.5-5.1) mmol/L Carbon Dioxide 33 H (22-30) mmol/L BUN 53 H (9-20) mg/dL Creatinine (0.66-1.25) mg/dL Glucose 120 H (74-99) mg/dL POC Glucose (mg/dL) (75-99) mg/dL Plasma Lactic Acid Rashid (0.7-2.0) mmol/L Calcium 8.3 L (8.4-10.2) mg/dL AST (17-59) U/L ALT 63 H (4-49) U/L Alkaline Phosphatase 166 H (38-126) U/L Troponin I (0.000-0.034) ng/mL Total Protein (6.3-8.2) g/dL Albumin 2.7 L (3.5-5.0) g/dL 01/27/20 01/27/20 01/27/20 Range/Units 05:15 05:18 05:58 WBC (3.8-10.6) k/uL Hgb (13.0-17.5) gm/dL Hct (39.0-53.0) % MCV (80.0-100.0) fL MCH (25.0-35.0) pg MCHC (31.0-37.0) g/dL RDW (11.5-15.5) % Neutrophils # (1.3-7.7) k/uL Neutrophils # (Manual) (1.3-7.7) k/uL Monocytes # (0-1.0) k/uL PT (9.0-12.0) sec INR (<1.2) ABG pH 7.54 H (7.35-7.45) ABG pO2 132 H (83-108) mmHg ABG HCO3 34 H (21-25) mmol/L ABG Total CO2 35 H (19-24) mmol/L ABG O2 Saturation 98.7 H (94-97) % Potassium (3.5-5.1) mmol/L Carbon Dioxide (22-30) mmol/L BUN (9-20) mg/dL Creatinine (0.66-1.25) mg/dL Glucose (74-99) mg/dL POC Glucose (mg/dL) 133 H (75-99) mg/dL Plasma Lactic Acid Rashid (0.7-2.0) mmol/L Calcium (8.4-10.2) mg/dL AST (17-59) U/L ALT (4-49) U/L Alkaline Phosphatase (38-126) U/L Troponin I 0.114 H* (0.000-0.034) ng/mL Total Protein (6.3-8.2) g/dL Albumin (3.5-5.0) g/dL Assessment and Plan Plan: 1 acute hypoxic respiratory failure secondary to acute decompensated systolic heaailure/pulmonary edema. The patient's present with congestion heart failure. The patient had a mildly impaired left ventricular systolic function ejection fraction 45-50%. he patient was treated with a combination of diuretics ut ilizing Lasix and Zaroxolyn was placed on dopamine drip. Nevertheless the patient's condition decompensated and the patient had to be intubated yesterday and placed on mechanical ventilator and the post intubation chest x-rays consistent with pulmonary edema. Note that the patient also has significant pulmonary hypertension on echocardiogram, probably chronic and the PA pressures arequite elevated with an RVSP of 70 without any significant respiratory collapse of the IVC consistent withright-sided fluid overload. He has severe pulmonary hypertension consistent with right heart failure along with mild to moderate MR His LA is severely dilated also. No history of any pulmonary embolism. 2 Acute exacerbation of chronic obstructive pulmonary disease 3 severe secondary pulmonary hypertension, details as discussed above 4 Coronary artery disease, the with previous history of coronary artery bypass surgery 5 chronic atrial fibrillation maintained on Eliquis on outpatient basis 6 History of prostate cancer 7 Hyperlipidemia 8 chronic kidney disease stage III without evidence of any hydronephrosis based on the ultrasound of the kidneys done during this current admission. The renal function is also normalized and the creatinine is down to 1.16. 9 chronic microcytic anemia, rule out underlying iron deficiency 10 leukocytosis, likely reactive Plan Continue ventilator support Dropped a respiratory rate down to 12 as the patient has some respiratory alkalosis. Also drop the FiO2 down to 40% and PEEP down to 8 Continue Lasix drip at 10 mg an hour Renal dose dopamine Norepinephrine infusion for blood pressure control Keep the propofol for sedation Continue the broad-spectrum antibiotics Continue Zaroxolyn Continue enteral feeding for nutritional support We'll continue to follow and will make further recommendations based on her progress. Condition is still critical. This critically care evaluation was done and more than 30 minutes. Time with Patient: Greater than 30
[2020-01-27 10:58] LABS: Glucose,Whole Blood 133 mg/dL (75-99)
--- NOTE | 2020-01-27 15:28 | PN ---
PROGRESS NOTE Patient is seen for followup for acute kidney injury, mainly cardiorenal, associated with CHF. He is currently maintained on Lasix drip. Patient has good urine output. He is also on 10 mg of Zaroxolyn daily. There is also a very low dose of Levophed noted. PHYSICAL EXAMINATION: On examination, the patient is on the vent. He is stable. Blood pressure this morning 116/99, heart rate 90 per minute. He is afebrile. Examination shows abdomen is soft, nontender. Examination of lower extremities shows no significant edema. MANAGER COMMUNICATION exam cannot be performed. LABS: Hemoglobin 10.3, sodium 139, potassium 3.2, chloride 98. CO2 is 33. BUN 53, creatinine 1.16. ASSESSMENT: 1. Acute kidney injury, cardiorenal, with improvement in renal function. Continue with Lasix drip. 2. Chronic kidney disease, stage III. Baseline creatinine 1.5; perhaps lower now secondary to nephrosclerosis. 3. Congestive heart failure volume overload, improving. 4. Severe pulmonary hypertension. 5. Anemia of chronic disease. 6. Iron deficiency, maintained on IV iron. PLAN: Continue with IV iron. Continue Lasix drip and metolazone. Repeat labs in a.m. Monitor electrolytes, mainly potassium and magnesium, and watch for metabolic alkalosis. MMODL / IJN: [id number] /
[2020-01-27] MEDS: DEXTROSE/WATER 1 250ML.BAG with DOPamine DRIP 800 MG IV SCH (16:38)
--- NOTE | 2020-01-27 17:31 | P.PN ---
Subjective Progress Note Date: 01/27/20 This a 74-year-old gentleman with medical history of CAD, OK, CABG, CHF, COPD, DVT, and multiple other medical issues presented to the ER with complaints of worsening shortness of breath and bilateral lower extremity edema. Reports over the last week medications adjusted/Lasix increased per PCP with no improvement in symptoms and presented to the ER. BUN 89, Creatinine 1.6, baseline 1.5, INR 1.5. Denies fever or chills. Denies sore throat. Reports occasional nonproductive cough ,exertional dyspnea, orthopnea. Denies chest pain, palpitations. Denies lightheadedness, dizziness or focal deficits. WBC 14.8. Lactic acid 2.1. Neutrophils 12.8 . Afebrile. EKG reported sinus rhythm with left bundle branch block ,anterior lateral infarct, age undetermined, possible septal sub-endocardial injury. Troponins negative 1. BNP 4320. AST 60, ALT 99. Hemoglobin 9.9. Chest x-ray reporting interstitial pattern, bibasilar consolidation, CHF versus interstitial pneumonia. Vital signs stable, rodrigue ntaining O2 sats in the 90s on 3 L nasal cannula. 01/22/2020 diuresing on Lasix IV push with 24-hour I&O reflecting a negative fluid balance. Edema improving. Renal function improving, BUN 76 creatinine 1.5. Oxygen requirements titrated down to 2 L, maintaining O2 sats in the 90s. Borderline hypotension. Denies chest pain, palpitations or increasing shortness of breath. 01/23/2020 maintained on 1500 MLS fluid restriction, low-salt diet and diuretics . Lasix dosing adjusted yesterday to avoid night dose and facilitate sleep. 24- hour I&O inaccurate. Reports better sleep, breathing improving. Staff reports exertional dyspnea .Maintaining O2 sats in the 90s on 3 L nasal cannula. Bord alex hypotension. Evaluated by nephrology with recommendations noted. Creatinine slowly trending down, currently 1.43. Renal ultrasound unremarkable. LFTs within normal limits with exception of mild elevation of ALT. Sodium 136, potassium 4.3, magnesium 2.2 01/24/2020 Lasix infusion initiated yesterday afternoon as per nephrology. 24- hour I&O reporting increased weight. Significant edema. Worsening dyspnea. Maintaining O2 sats in the low 90s on 4 L nasal cannula O2. Renal function sta ble. Potassium 5.4 Telemetry reporting controlled A. fib with short asymptomatic, nonsustained V. tach run earlier this morning. 01/27/2020 patient developed worsening shortness of breath, was transferred to ICU yesterday, intubated. ABGs noted. Remains vent dependent with FiO2 weaned down to 40% and PEEP weaned down to +6. Maintained on renal dose dopamine, Lasix drip, Levophed, diprovan. Chest x-ray reporting improvement. Renal function improving. Potassium 3.2, magnesium pending. Objective - Vital Signs Vital signs: Vital Signs Temp 98.7 F 01/27/20 16:00 Pulse 106 H 01/27/20 17:00 Resp 16 01/27/20 17:00 BP 89/59 01/27/20 17:00 Pulse Ox 96 01/27/20 17:00 Intake & Output 01/26/20 01/27/20 01/27/20 18:59 06:59 18:59 Intake Total 232.586 564.854 3696.0 Output Total 2400 2695 2050 Balance -2167.414 -2061.290 -817.0 Weight 107.9 kg 107.9 kg Intake: IV 169.4 618.0 Azthromycin 250 Dextrose/Water 1 250ml. 59.4 81.0 bag @ 2.5 MCG/KG/MIN 5. 367 mls/hr IV .Q24H [facility] with DOPamine DRIP 800 mg Rx#:[id number] Furosemide 100 mg In 110 10 Sodium Chloride 0.9% 90 ml @ 10 MG/HR 10 mls/hr IV .Q10H [facility] Rx#: [id number] Lasix 100 Pressure bag 27 cefTRIAXone 1 gm In 50 Sodium Chloride 0.9% 50 ml @ 100 mls/hr IVPB Q24H [facility] Rx#:[id number] ferric 100 Intake, IV Titration 114.586 399.310 287 Amount Furosemide 100 mg In 100 54 87 Sodium Chloride 0.9% 90 ml @ 10 MG/HR 10 mls/hr IV .Q10H [facility] Rx#: [id number] Norepinephrine 8 mg In 14.586 45.310 Sodium Chloride 0.9% 250 ml @ 0.05 MCG/KG/MIN 11. 078 mls/hr IV .[id number] [facility] Rx#:[id number] Propofol 1,000 mg In 300.000 200 Empty Bag 1 bag @ Titrate IV .Q0M [facility] Rx#: [id number] Oral 118 Tube Feeding 65 328 Output: Urine 2400 2695 2050 Other: Voiding Method Indwelling Catheter Indwelling Catheter Indwelling Catheter ABP, PAP, CO, CI - Last Documented Arterial Blood Pressure 122/54 - Exam VITAL SIGNS: As above GENERAL: Intubated, on mechanical ventilation, sedated on diprovan HEENT: Conjunctivae normal. eyes normal. NECK: No JVD. No thyroid enlargement. No LNs CARDIOVASCULAR: S1, S2, irregular. Systolic murmur. RESPIRATION: Breath sounds diminished in the bases. No rhonchi. Bibasilar crackles. ABDOMEN: Soft, obese, nontender . No guarding. no masses palpable. No ascites, No hepatosplenomegaly.Bowel sounds heard. LEGS: Bilateral chronic venous stasis with positive edema NERVOUS SYSTEM: Unable to assess as patient sedated and on mechanical ventilation Skin: no rash , warm and dry Microbiology 01/26/20 11:56 Blood Blood Culture - Preliminary No Growth after 24 hours 01/26/20 12:06 Blood Blood Culture - Preliminary No Growth after 24 hours 01/26/20 21:25 Sputum Gram Stain - Preliminary 01/26/20 21:25 Sputum Sputum Culture - Preliminary - Labs CBC & Chem 7: 01/27/20 05:15 01/27/20 10:50 Labs: Abnormal Lab Results - Last 24 Hours (Table) 01/26/20 01/26/20 01/26/20 Range/Units 17:10 17:10 19:58 WBC (3.8-10.6) k/uL Hgb (13.0-17.5) gm/dL Hct (39.0-53.0) % MCV (80.0-100.0) fL MCH (25.0-35.0) pg MCHC (31.0-37.0) g/dL RDW (11.5-15.5) % Neutrophils # (1.3-7.7) k/uL Monocytes # (0-1.0) k/uL ABG pH 7.47 H (7.35-7.45) ABG pO2 59 L* (83-108) mmHg ABG HCO3 30 H (21-25) mmol/L ABG Total CO2 31 H (19-24) mmol/L ABG O2 Saturation 89.8 L (94-97) % Potassium (3.5-5.1) mmol/L Carbon Dioxide (22-30) mmol/L BUN (9-20) mg/dL Glucose (74-99) mg/dL POC Glucose (mg/dL) (75-99) mg/dL Calcium (8.4-10.2) mg/dL ALT (4-49) U/L Alkaline Phosphatase (38-126) U/L Troponin I 0.065 H* (0.000-0.034) ng/mL Albumin (3.5-5.0) g/dL Procalcitonin 0.44 H (0.02-0.09) ng/mL 01/26/20 01/27/20 01/27/20 Range/Units 23:24 00:25 05:15 WBC 19.5 H (3.8-10.6) k/uL Hgb 10.3 L (13.0-17.5) gm/dL Hct 37.4 L (39.0-53.0) % MCV 69.7 L (80.0-100.0) fL MCH 19.2 L (25.0-35.0) pg MCHC 27.5 L (31.0-37.0) g/dL RDW 19.2 H (11.5-15.5) % Neutrophils # 16.5 H (1.3-7.7) k/uL Monocytes # 1.1 H (0-1.0) k/uL ABG pH (7.35-7.45) ABG pO2 (83-108) mmHg ABG HCO3 (21-25) mmol/L ABG Total CO2 (19-24) mmol/L ABG O2 Saturation (94-97) % Potassium 2.8 L (3.5-5.1) mmol/L Carbon Dioxide (22-30) mmol/L BUN (9-20) mg/dL Glucose (74-99) mg/dL POC Glucose (mg/dL) 140 H (75-99) mg/dL Calcium (8.4-10.2) mg/dL ALT (4-49) U/L Alkaline Phosphatase (38-126) U/L Troponin I (0.000-0.034) ng/mL Albumin (3.5-5.0) g/dL Procalcitonin (0.02-0.09) ng/mL 01/27/20 01/27/20 01/27/20 Range/Units 05:15 05:15 05:18 WBC (3.8-10.6) k/uL Hgb (13.0-17.5) gm/dL Hct (39.0-53.0) % MCV (80.0-100.0) fL MCH (25.0-35.0) pg MCHC (31.0-37.0) g/dL RDW (11.5-15.5) % Neutrophils # (1.3-7.7) k/uL Monocytes # (0-1.0) k/uL ABG pH 7.54 H (7.35-7.45) ABG pO2 132 H (83-108) mmHg ABG HCO3 34 H (21-25) mmol/L ABG Total CO2 35 H (19-24) mmol/L ABG O2 Saturation 98.7 H (94-97) % Potassium 3.2 L (3.5-5.1) mmol/L Carbon Dioxide 33 H (22-30) mmol/L BUN 53 H (9-20) mg/dL Glucose 120 H (74-99) mg/dL POC Glucose (mg/dL) (75-99) mg/dL Calcium 8.3 L (8.4-10.2) mg/dL ALT 63 H (4-49) U/L Alkaline Phosphatase 166 H (38-126) U/L Troponin I 0.114 H* (0.000-0.034) ng/mL Albumin 2.7 L (3.5-5.0) g/dL Procalcitonin (0.02-0.09) ng/mL 01/27/20 01/27/20 01/27/20 Range/Units 05:58 10:50 10:57 WBC (3.8-10.6) k/uL Hgb (13.0-17.5) gm/dL Hct (39.0-53.0) % MCV (80.0-100.0) fL MCH (25.0-35.0) pg MCHC (31.0-37.0) g/dL RDW (11.5-15.5) % Neutrophils # (1.3-7.7) k/uL Monocytes # (0-1.0) k/uL ABG pH (7.35-7.45) ABG pO2 (83-108) mmHg ABG HCO3 (21-25) mmol/L ABG Total CO2 (19-24) mmol/L ABG O2 Saturation (94-97) % Potassium (3.5-5.1) mmol/L Carbon Dioxide (22-30) mmol/L BUN (9-20) mg/dL Glucose (74-99) mg/dL POC Glucose (mg/dL) 133 H 133 H (75-99) mg/dL Calcium (8.4-10.2) mg/dL ALT (4-49) U/L Alkaline Phosphatase (38-126) U/L Troponin I 0.086 H* (0.000-0.034) ng/mL Albumin (3.5-5.0) g/dL Procalcitonin (0.02-0.09) ng/mL Microbiology - Last 24 Hours (Table) 01/26/20 11:56 Blood Culture - Preliminary Blood No Growth after 24 hours 01/26/20 12:06 Blood Culture - Preliminary Blood No Growth after 24 hours 01/26/20 21:25 Gram Stain - Preliminary Sputum Sputum Culture - Preliminary Assessment and Plan Assessment: Acute hypoxic respiratory failure secondary to decompensated acute CHF systolic dysfunction secondary to pulmonary edema, mechanical ventilator-dependent, Hypotension secondary to the above, pressor dependent Acute on chronic CHF exacerbation, systolic dysfunction, EF 45-50%, on Lasix and renal dose dopamine drips Possible interstitial pneumonia, community-acquired, empiric antibiotics ini tiated Acute COPD exacerbation Lactic acidosis Acute on Chronic renal failure, stage III. Baseline creatinine 1.5, cardiorenal. Chronic microcytic anemia, iron deficiency Chronic persistent atrial fibrillation, maintained on Eliquis CAD, history of OK, CABG, stent Hypertension Osteoarthritis Former nicotine dependence Obesity, BMI 32.9 mitral regurgitation tricuspid regurgitation Severe pulmonary hypertension Degenerative joint disease History of prostate cancer Choi catheter placement per urology, possibly urinary retention, possible stricture Hypokalemia secondary to diuresing Plan: Continue on current medication regime ,monitoring and symptomatic treatment. Cultures pending, maintain antibiotics. Diuretics IV iron as per nephrology. Receiving replacement protocol supplementation for potassium of 3.2. Vent weaning/pressors as per deck molder. Follow closely with multiple consults. Prognosis guarded given multiple complex medical issues. The impression and plan of care has been dictated as directed. : I performed a history and examination of this patient, discussed the same with the dictator. I agree with the dictator's note ,documented as a scribe. Any additional findings or plans will be noted.
[2020-01-27] MEDS: ATORVASTATIN 20 MG TAB PO SCH (20:09)
[2020-01-27] MEDS: POTASSIUM CHLORIDE ER 20 MEQ TAB.ER PO SCH (20:09)
[2020-01-27 20:22] LABS: Glucose,Whole Blood 161 mg/dL (75-99)
[2020-01-27 23:56] LABS: Glucose,Whole Blood 145 mg/dL (75-99)
[2020-01-28] MEDS: POTASSIUM BICARBONATE/CIT AC 20 MEQ TABLET.EFF NG-TUBE SCH ×6 (00:58→17:27)
[2020-01-28] MEDS: IPRATROPIUM-ALBUTEROL 3 ML NEB INHALATION SCH ×7 (01:14→23:34)
[2020-01-28 04:32] LABS: Anisocytosis Moderate; Basophils # (A) 0.1 k/uL (0-0.2); Basophils % (A) 0 %; Eosinophils # (A) 0.1 k/uL (0-0.7); Eosinophils % (A) 1 %; HCT 37.2 % (39.0-53.0); HGB 10.5 gm/dL (13.0-17.5); Hypochromasia Marked; Lymphocytes # (A) 1.4 k/uL (1.0-4.8); Lymphocytes % (A) 8 %; MCH 19.7 pg (25.0-35.0); MCHC 28.3 g/dL (31.0-37.0); MCV 69.7 fL (80.0-100.0); Mean Platelet Volume 6.5; Microcytosis Marked; Monocytes # (A) 1.3 k/uL (0-1.0); Monocytes % (A) 7 %; Neutrophils # (A) 14.9 k/uL (1.3-7.7); Neutrophils % (A) 82 %; Platelet Count 306 k/uL (150-450); Poikilocytosis Moderate; RBC 5.34 m/uL (4.30-5.90); WBC 18.1 k/uL (3.8-10.6)
[2020-01-28 04:41] LABS: Calcium 8.3 mg/dL (8.4-10.2)
[2020-01-28] MEDS: FUROSEMIDE 100 MG in SODIUM CHLORIDE 0.9% 90 ML IV SCH (06:00)
[2020-01-28 06:03] LABS: ABG Base Excess 19.8 mmol/L; ABG Oxygen Saturation 98.7 % (94-97); ABG PCO2 45 mmHg (35-45); ABG PO2 117 mmHg (83-108); ABG TCO2 43 mmol/L (19-24)
[2020-01-28 06:06] LABS: ABG HCO3 42 mmol/L (21-25); ABG PH 7.58 (7.35-7.45)
[2020-01-28 06:36] LABS: Glucose,Whole Blood 157 mg/dL (75-99)
[2020-01-28] MEDS: FORMOTEROL FUMARATE 20 MCG/2 ML NEBU INHALATION SCH ×2 (07:22→19:13)
[2020-01-28] MEDS: BUDESONIDE 1 MG/2 ML NEBU INHALATION SCH ×2 (07:22→19:13)
--- NOTE | 2020-01-28 07:59 | XR ---
EXAMINATION TYPE: XR chest 1V portable DATE OF EXAM: 01/28/2020 COMPARISON: 01/27/2020 INDICATION: Difficulty breathing TECHNIQUE: Single frontal view of the chest is obtained. FINDINGS: The heart size is enlarged. The pulmonary vasculature is normal. Small left pleural effusion is present. Endotracheal tube tip is above the che. Nasogastric tube transverses the thorax. Left central veno us catheter tip is in the distal superior vena cava. IMPRESSION: 1. Small left pleural effusion, stable. 2. Small right lung infiltrate is improving from comparison. 3. Lines and catheters discussed above
[2020-01-28] MEDS: CHLORHEXIDINE GLUCONATE 15 ML CUP MUCOUS MEM SCH ×2 (08:03→22:57)
[2020-01-28] MEDS: PANTOPRAZOLE 40 MG/10 ML VIAL IV SCH (08:03)
[2020-01-28] MEDS: APIXABAN 5 MG TAB PO SCH ×2 (08:04→20:28)
[2020-01-28] MEDS: PROPOFOL 1,000 MG in EMPTY BAG 1 BAG IV SCH (08:15)
[2020-01-28] MEDS: AZITHROMYCIN 500 MG in SODIUM CHLORIDE 0.9% 250 ML IVPB SCH (08:27)
[2020-01-28] MEDS: NOREPINEPHRINE 8 MG in SODIUM CHLORIDE 0.9% 250 ML IV SCH ×3 (08:30→19:08)
[2020-01-28] MEDS: METOPROLOL TARTRATE 25 MG TAB PO SCH ×2 (08:36→20:28)
[2020-01-28] MEDS: INSULIN ASPART (NovoLOG) 100 UNIT/ML VIAL SQ SCH ×5 (08:45→23:11)
[2020-01-28] MEDS: FUROSEMIDE 10 MG/ML 4 ML VIAL IV SCH (08:50)
[2020-01-28] MEDS ORDERED: METOLAZONE 5 MG TAB PO SCH (09:00)
--- NOTE | 2020-01-28 09:23 | PN ---
PROGRESS NOTE Mr. Gerber is a 74-year-old male with a history of coronary artery disease, status post coronary artery bypass grafting history of chronic persistent atrial fibrillation, prior history of GI bleeding, who presented with progressive dyspnea and worsening CHF, requiring mechanical ventilation. He continues to be intubated and sedated. He continues to be on IV dopamine at low dose as well as norepinephrine. He has a good urinary output. Hemodynamically, he had no evidence of hypotension. His urine output has been good. He has a low-grade fever. He continues to be at this time on Diamox, Eliquis 5 mg twice a day, Lipitor 20 mg daily, furosemide 40 mg IV daily, metolazone 10 mg a day. PHYSICAL EXAMINATION: Blood pressure 110/60 with a heart rate in the 110s. Temperature of 100.1, T-max of a 100.6. LUNGS: Clear anteriorly. HEART: Irregular regular, S1, S2. No S3 with a systolic murmur, no diastolic murmur, no rub. ABDOMEN: Soft. Positive bowel sounds. EXTREMITIES: +2 edema. LAB DATA: Revealed BUN and creatinine 48 and 1.22. Sodium 141, potassium 3.0. His pH 7.58, PO2 of 117. White blood cell of 18.1, hemoglobin of 10.5. His chest x-ray revealed a left- sided effusion with evidence of fluid overload. IMPRESSION: 1. Respiratory failure with congestive heart failure in a mildly to moderately impaired left ventricular systolic function by echocardiography. 2. Status post coronary artery bypass grafting. 3. Chronic persistent atrial fibrillation. 4. Renal failure. 5. Low-grade fever, could be pneumonia. 6. History of chronic obstructive lung disease. 7. Hypertension. 8. Hyperlipidemia. RECOMMENDATION: From the cardiac standpoint, will stop his IV norepinephrine. I will cut down the dose of the metolazone to 5 mg daily. I will add a low-dose beta danuta to control his ventricular response. Dr. Contreras will adjust his antibiotics and make a decision regarding weaning. Will follow his renal function closely and depending on his progress, further recommendation will be made. MMODL / IJN: [id number] /
[2020-01-28] MEDS: SODIUM FERRIC GLUCONAT-SUCROSE 125 MG in SODIUM CHLORIDE 0.9% 100 ML IVPB SCH (09:26)
[2020-01-28 12:00] LABS: Glucose,Whole Blood 138 mg/dL (75-99)
--- NOTE | 2020-01-28 12:02 | P.PN ---
Subjective Progress Note Date: 01/28/20 this is a 74-year-old male patient with known history of CAD, previous bypass surgery, COPD, congestion heart failure, chronic atrial fibrillation who has been struggling for worsening shortness of breath and he came into the hospital for further adviceon 01/21/2020. His EKG showed atrial fibrillation per chest x-ray showed basilar consolidation with interstitial pattern. His proBNP level was 4320 and the troponins were negative and echocardiogram from December showed mildly impaired LV function with an ejection fraction of 45-50% and paradoxical septal wall motion abnormality with a [id number] MR, moderate TR, severe pulmonary hypertension with a RVSP of 70 mmHg. The patient was diagnosed having an acute on top of chronic diastolic heart failure and the patient was diuresed with IV Lasix 40 mg every 8 hours and he was asked to resume his long-term medications. The patient got sick sequently transferred to the intensive care unit on 01/25/2024 worsening shortness of breath. Adequate response team was involved in a patient was found to be hypoxic and he was placed on 100% nonrebreather facemask. Subsequently was placed on a BiPAP and he got moved to the intensive care unit for further monitoring. He was kept on BiPAP and he was started on Lasix drip and he was covered with an empiric antibiotic coverage utilizing a combination of Rocephin and Zithromax. The patient currently is still on the same antibiotic coverage. He has required low-dose norepinephrine infusion for blood pressure control. He remains on Lasix drip at 10 mg an hour. His net fluid balance has been -1.5 L on 01/25/2020 . The patient was doing well and 60s of oxygen by nasal cannula. Yesterday afternoon, the patient became progressively more hypoxic and had to be intubated and placed on mechanical ventilation. Chest x-ray post intubation showed pulmonary edema essentially unchanged and ET tube was repositioned and it was in a adequate location. Post intubation blood gas showed a pH of 7.49 with a pCO2 of 41 and pO2 of 59 and a necessity ventilator changes were done. This morning of 01/27/2020,the patient is being seen in follow-up in the intensive care unit. He remains on renal dose dopamine at 2.5 mg/kg/m. He is receiving Lasix drip at 10 mg an hour in addition to Zaroxolyn 10 mg by mouth daily. Norepinephrine infusion is being utilized forblood pressure support. Meanwhile the patient is sedated with propofol and the patient is on a ventilator. The patient remains on a assist-control mode of ventilator and currently he is on a mechanical ventilator within assist-control mode at the rate of 20 with a tidal volume of 500 and FiO2 of 50% with a PEEP of 10. Blood gases from today showed a pH of 7.4 with a pCO2 of 40 and pO2 of 142. The patient's chest exit shows improvement in the pulmonary edema. The patient is on dopamine at 2.5 g per KG per minute. The patient on Lasix drip at 10 mg an hour. The patient is on levo fed running at 0.02 mg per KG per minute and IV fluids with normal state rate of 10 mL an hour. He is receiving vital 1.03 capacities an hour. He is was sedated for now with propofol. On today's evaluation of 01/28/2020, seeing the patient for a follow-up. This morning the patient remains sedated with propofol at 20 mcg/kg per minute. The patient is on normal saline at 30 mL an hour. The patient has a CVA combination of diuretics including Lasix and Zaroxolyn. The patient was also on renal dose dopamine. The patient has been a negative fluid balance of more than 3 L over the past 24 hours. The patient has developed some metabolic alkalosis. Norepinephrine is running at a lower rate of 0.08 mg per KG per minute for blood pressure support. The patient is currently on assist control mode at the rate of 12 with tidal volume of 450 and FiO2 of 40% with a PEEP of 5. The blood gases from today showed a pH of 7.58 with a pCO2 of 45 and pO2 of 117. The white cell count is at 18.1. The chest x-ray shows improvement in the pulmonary edema with some residual pleural fluid in the lung bases bilaterally. The patient also showing improvement in the renal function and creatinine is down to 1.2. No other significant events otherwise. Lactic acid level is down to 1.4. The patient is on empiric antibiotic coverage utilizing a combination of Rocephin and Zithromax. The patient is on long-term and to coagulation with Eliquis 5 mg by mouth twice a day. Norepinephrine dose being titrated accordingly. Objective - Vital Signs Vital signs: Vital Signs Temp 100.6 F H 01/28/20 08:00 Pulse 98 01/28/20 11:30 Resp 23 01/28/20 11:00 BP 100/71 01/28/20 11:00 Pulse Ox 98 01/28/20 11:00 Intake & Output 01/27/20 01/28/20 01/28/20 18:59 06:59 18:59 Intake Total 1254.4 902.854 643.783 Output Total 2250 1765 473 Balance -995.6 -862.146 170.783 Weight 107.9 kg 106.1 kg Intake: IV 639.4 220.8 389.4 Azthromycin 250 250 Dextrose/Water 1 250ml. 86.4 64.8 5.4 bag @ 2.5 MCG/KG/MIN 5. 367 mls/hr IV .Q24H [facility] with DOPamine DRIP 800 mg Rx#:[id number] Furosemide 100 mg In 10 Sodium Chloride 0.9% 90 ml @ 10 MG/HR 10 mls/hr IV .Q10H [facility] Rx#: [id number] Lasix 110 120 10 Pressure bag 33 36 24 cefTRIAXone 1 gm In 50 Sodium Chloride 0.9% 50 ml @ 100 mls/hr IVPB Q24H [facility] Rx#:[id number] ferric 100 100 Intake, IV Titration 287 346.054 230.383 Amount Furosemide 100 mg In 87 202.166 Sodium Chloride 0.9% 90 ml @ 10 MG/HR 10 mls/hr IV .Q10H [facility] Rx#: [id number] Norepinephrine 8 mg In 198.104 Sodium Chloride 0.9% 250 ml @ 0.05 MCG/KG/MIN 11. 078 mls/hr IV .[id number] [facility] Rx#:[id number] Propofol 1,000 mg In 200 143.888 32.279 Empty Bag 1 bag @ Titrate IV .Q0M [facility] Rx#: [id number] Tube Feeding 328 336 24 Output: Urine 2250 1765 473 Other: Voiding Method Indwelling Catheter Indwelling Catheter Indwelling Catheter ABP, PAP, CO, CI - Last Documented Arterial Blood Pressure 120/60 - Exam GENERAL EXAM: Alert, pleasant 74-year-old gentleman, currently intubated on mechanical ventilator sedated with propofol. Orogastric and orotracheal tube are both in place and the patient has a left IJ triple-lumen catheter in place. HEAD: Normocephalic. EYES: Normal reaction of pupils, equal size. NOSE: Clear with pink turbinates. THROAT: No erythema or exudates. NECK: No masses, no JVD. CHEST: No chest wall deformity. LUNGS: Equal air entry with crackles in the bilateral posterior bases CVS: S1 and S2 normal with no audible murmur, irregular rhythm. ABDOMEN: No hepatosplenomegaly, normal bowel sounds, no guarding or rigidity. SPINE: No scoliosis or deformity SKIN: No rashes CENTRAL NERVOUS SYSTEM: No focal deficits, tone is normal in all 4 extremities. EXTREMITIES: There is 1-2+ peripheral edema. No clubbing, no cyanosis. Peripheral pulses are intact. - Labs CBC & Chem 7: 01/28/20 04:10 01/28/20 04:10 Labs: Abnormal Lab Results - Last 24 Hours (Table) 01/27/20 01/27/20 01/27/20 Range/Units 20: 20:20 23:55 WBC (3.8-10.6) k/uL Hgb (13.0-17.5) gm/dL Hct (39.0-53.0) % MCV (80.0-100.0) fL MCH (25.0-35.0) pg MCHC (31.0-37.0) g/dL RDW (11.5-15.5) % Neutrophils # (1.3-7.7) k/uL Monocytes # (0-1.0) k/uL ABG pH (7.35-7.45) ABG pO2 (83-108) mmHg ABG HCO3 (21-25) mmol/L ABG Total CO2 (19-24) mmol/L ABG O2 Saturation (94-97) % Potassium 2.7 L* (3.5-5.1) mmol/L Chloride (98-107) mmol/L Carbon Dioxide (22-30) mmol/L BUN (9-20) mg/dL Glucose (74-99) mg/dL POC Glucose (mg/dL) 161 H 145 H (75-99) mg/dL Calcium (8.4-10.2) mg/dL 01/28/20 01/28/20 01/28/20 Range/Units 04:10 04:10 05:36 WBC 18.1 H (3.8-10.6) k/uL Hgb 10.5 L (13.0-17.5) gm/dL Hct 37.2 L (39.0-53.0) % MCV 69.7 L (80.0-100.0) fL MCH 19.7 L (25.0-35.0) pg MCHC 28.3 L (31.0-37.0) g/dL RDW 20.0 H (11.5-15.5) % Neutrophils # 14.9 H (1.3-7.7) k/uL Monocytes # 1.3 H (0-1.0) k/uL ABG pH 7.58 H* (7.35-7.45) ABG pO2 117 H (83-108) mmHg ABG HCO3 42 H* (21-25) mmol/L ABG Total CO2 43 H (19-24) mmol/L ABG O2 Saturation 98.7 H (94-97) % Potassium 3.0 L (3.5-5.1) mmol/L Chloride 94 L (98-107) mmol/L Carbon Dioxide 38 H (22-30) mmol/L BUN 48 H (9-20) mg/dL Glucose 148 H (74-99) mg/dL POC Glucose (mg/dL) (75-99) mg/dL Calcium 8.3 L (8.4-10.2) mg/dL 01/28/20 Range/Units 06:34 WBC (3.8-10.6) k/uL Hgb (13.0-17.5) gm/dL Hct (39.0-53.0) % MCV (80.0-100.0) fL MCH (25.0-35.0) pg MCHC (31.0-37.0) g/dL RDW (11.5-15.5) % Neutrophils # (1.3-7.7) k/uL Monocytes # (0-1.0) k/uL ABG pH (7.35-7.45) ABG pO2 (83-108) mmHg ABG HCO3 (21-25) mmol/L ABG Total CO2 (19-24) mmol/L ABG O2 Saturation (94-97) % Potassium (3.5-5.1) mmol/L Chloride (98-107) mmol/L Carbon Dioxide (22-30) mmol/L BUN (9-20) mg/dL Glucose (74-99) mg/dL POC Glucose (mg/dL) 157 H (75-99) mg/dL Calcium (8.4-10.2) mg/dL Microbiology - Last 24 Hours (Table) 01/26/20 21:25 Gram Stain - Preliminary Sputum Sputum Culture - Preliminary Gram Neg Bacilli 01/26/20 11:56 Blood Culture - Preliminary Blood No Growth after 24 hours 01/26/20 12:06 Blood Culture - Preliminary Blood No Growth after 24 hours Assessment and Plan Plan: 1 acute hypoxic respiratory failure secondary to acute decompensated systolic heaailure/pulmonary edema. The patient's present with congestion heart failure. The patient had a mildly impaired left ventricular systolic function ejection fraction 45-50%. he patient was treated with a combination of diuretics utilizing Lasix and Zaroxolyn was placed on dopamine drip. Nevertheless the patient's condition decompensated and the patient had to be intubated yesterday and placed on mechanical ventilator and the post intubation chest x-rays consistent with pulmonary edema. Note that the patient also has significant pulmonary hypertension on echocardiogram, probably chronic and the PA pressures arequite elevated with an RVSP of 70 without any significant respiratory collapse of the IVC consistent withright-sided fluid overload. He has severe pulmonary hypertension consistent with right heart failure along with mild to moderate MR His LA is severely dilated also. No history of any pulmonary embolism. On today's evaluation of 01/28/2020, the patient is improving. The patient has been negative fluid balance and the patient has been diuresing well with a combination of diuretics. The patient will be taken off the Lasix and placed on Lasix 40 mg IV every 24 hours. Zaroxolyn can be discontinued. The patient will be also taken off the dopamine renal dose. Norepinephrine is being utilized for hemodynamic support. Oxygenation is improved. The patient's chest x-rays improved. The patient developed some metabolic alkalosis secondary to aggressive diuresis. 2 Acute exacerbation of chronic obstructive pulmonary disease 3 severe secondary pulmonary hypertension, details as discussed above 4 Coronary artery disease, the with previous history of coronary artery bypass surgery 5 chronic atrial fibrillation maintained on Eliquis on outpatient basis 6 History of prostate cancer 7 Hyperlipidemia 8 chronic kidney disease stage III without evidence of any hydronephrosis based on the ultrasound of the kidneys done during this current admission. The renal function is also normalized and the creatinine is down to 1.2, and the patient has excellent urine output 9 chronic microcytic anemia, rule out underlying iron deficiency 10 leukocytosis, likely reactive Plan Continue ventilator support Drop the tidal volume to 450 and keep the respiratory rate of 12 Discontinue the Lasix drip and put the patient Lasix 40 mg IV 24 hours Titrate norepinephrine infusion for blood pressure control Discontinue the dopamine renal dose Give 2 dose of Diamox to 50 mg IV every 12 hours Sedation holiday Assessment weaning parameters and candidacy for further weaning Continue enteral feeding for nutritional support We'll continue to follow and will make further recommendations based on her progress. Condition is still critical. This critically care evaluation was done and more than 30 minutes. Time with Patient: Greater than 30
--- NOTE | 2020-01-28 15:11 | PN ---
PROGRESS NOTE Patient is seen for followup for acute kidney injury. He was maintained on Lasix drip. Patient's volume status has improved significantly. There is improvement in his lower extremity edema. This morning his blood pressure had dropped and serum creatinine is at 1.2 from 1.16 yesterday. He is also more alkalotic based on his electrolytes. The Lasix drip was discontinued and patient is switched to IV push Lasix. PHYSICAL EXAMINATION: On examination today, patient is sedated he is on the vent. FiO2 is at 40%. Blood pressure this morning was 129/55, heart rate of 102 per minute. Patient is afebrile. Examination shows the abdomen is soft and lower extremities shows improvement in edema with wrinkling of the skin noted. Chronic skin changes are seen. [facility] [employer] [facility] exam cannot be performed. LABS: Show hemoglobin 10.5 g/dL, sodium 141, potassium 3.0, chloride 94, CO2 is 38, BUN 48, creatinine 1.2. ASSESSMENT: 1. Acute kidney injury, cardiorenal, switch to IV push Lasix right now secondary to hypotension and ongoing metabolic alkalosis. Repeat labs in a.m. 2. Hypokalemia secondary to diuresis, currently being replaced. 3. Hypoxic respiratory failure currently on the vent. Sputum culture growing Gram- negative bacilli. PLAN: Agree with decreasing diuretics. Add Diamox for 1 day. Repeat labs in a.m. MMODL / IJN: [id number] /
[2020-01-28] MEDS ORDERED: Potassium Replacement Protocol 1 EACH MISC MISCELLANE PRN (16:01)
[2020-01-28 16:47] LABS: ABG Base Excess 17.6 mmol/L; ABG PCO2 47 mmHg (35-45); ABG PH 7.54 (7.35-7.45); ABG PO2 87 mmHg (83-108); ABG TCO2 42 mmol/L (19-24); Allen Test Performed? Yes
[2020-01-28 16:49] LABS: ABG HCO3 40 mmol/L (21-25)
[2020-01-28] MEDS ORDERED: POTASSIUM CHLORIDE 20 MEQ in WATER FOR INJECTION 1 100ML.BAG IVPB STA (17:26)
--- NOTE | 2020-01-28 18:19 | P.PN ---
Subjective Progress Note Date: 01/28/20 This a 74-year-old gentleman with medical history of CAD, VA, CABG, CHF, COPD, DVT, and multiple other medical issues presented to the ER with complaints of worsening shortness of breath and bilateral lower extremity edema. Reports over the last week medications adjusted/Lasix increased per PCP with no improvement in symptoms and presented to the ER. BUN 89, Creatinine 1.6, baseline 1.5, INR 1.5. Denies fever or chills. Denies sore throat. Reports occasional nonproductive cough ,exertional dyspnea, orthopnea. Denies chest pain, palpitations. Denies lightheadedness, dizziness or focal deficits. WBC 14.8. Lactic acid 2.1. Neutrophils 12.8 . Afebrile. EKG reported sinus rhythm with left bundle branch block ,anterior lateral infarct, age undetermined, possible septal sub-endocardial injury. Troponins negative 1. BNP 4320. AST 60, ALT 99. Hemoglobin 9.9. Chest x-ray reporting interstitial pattern, bibasilar consolidation, CHF versus interstitial pneumonia. Vital signs stable, rodrigue ntaining O2 sats in the 90s on 3 L nasal cannula. 01/22/2020 diuresing on Lasix IV push with 24-hour I&O reflecting a negative fluid balance. Edema improving. Renal function improving, BUN 76 creatinine 1.5. Oxygen requirements titrated down to 2 L, maintaining O2 sats in the 90s. Borderline hypotension. Denies chest pain, palpitations or increasing shortness of breath. 01/23/2020 maintained on 1500 MLS fluid restriction, low-salt diet and diuretics . Lasix dosing adjusted yesterday to avoid night dose and facilitate sleep. 24- hour I&O inaccurate. Reports better sleep, breathing improving. Staff reports exertional dyspnea .Maintaining O2 sats in the 90s on 3 L nasal cannula. Bord alex hypotension. Evaluated by nephrology with recommendations noted. Creatinine slowly trending down, currently 1.43. Renal ultrasound unremarkable. LFTs within normal limits with exception of mild elevation of ALT. Sodium 136, potassium 4.3, magnesium 2.2 01/24/2020 Lasix infusion initiated yesterday afternoon as per nephrology. 24- hour I&O reporting increased weight. Significant edema. Worsening dyspnea. Maintaining O2 sats in the low 90s on 4 L nasal cannula O2. Renal function sta ble. Potassium 5.4 Telemetry reporting controlled A. fib with short asymptomatic, nonsustained V. tach run earlier this morning. 01/27/2020 patient developed worsening shortness of breath, was transferred to ICU yesterday, intubated. ABGs noted. Remains vent dependent with FiO2 weaned down to 40% and PEEP weaned down to +6. Maintained on renal dose dopamine, Lasix drip, Levophed, diprovan. Chest x-ray reporting improvement. Renal function improving. Potassium 3.2, magnesium pending. 01/28/2020 chest x-ray reports improvement. Maintained on mechanical ventilation with FiO2 40%, PEEP weaned down to +5. Lasix and dopamine drips have been discontinued. Receiving Diamox 2 doses. Lasix converted to IV push. Remains pressor dependent with Levophed weaning in progress renal function continues to improve, creatinine down to 1.2. Maintained on Rocephin and Zithromax. Sputum culture currently reporting gram-negative bacilli. Potassium being replaced. Sedation holiday being discussed, but patient extremely weak, opening eyes. Objective - Vital Signs Vital signs: Vital Signs Temp 99.0 F 01/28/20 12:00 Pulse 102 H 01/28/20 12:00 Resp 20 01/28/20 12:00 BP 108/63 01/28/20 12:00 Pulse Ox 98 01/28/20 12:00 Intake & Output 01/27/20 01/28/20 01/28/20 18:59 06:59 18:59 Intake Total 1254.4 902.854 907.783 Output Total 2250 1765 553 Balance -995.6 -862.146 354.783 Weight 107.9 kg 106.1 kg Intake: IV 639.4 220.8 395.4 Azthromycin 250 250 Dextrose/Water 1 250ml. 86.4 64.8 5.4 bag @ 2.5 MCG/KG/MIN 5. 367 mls/hr IV .Q24H [facility] with DOPamine DRIP 800 mg Rx#:[id number] Furosemide 100 mg In 10 Sodium Chloride 0.9% 90 ml @ 10 MG/HR 10 mls/hr IV .Q10H [facility] Rx#: [id number] Lasix 110 120 10 Pressure bag 33 36 30 cefTRIAXone 1 gm In 50 Sodium Chloride 0.9% 50 ml @ 100 mls/hr IVPB Q24H [facility] Rx#:[id number] ferric 100 100 Intake, IV Titration 287 346.054 488.383 Amount Furosemide 100 mg In 87 202.166 Sodium Chloride 0.9% 90 ml @ 10 MG/HR 10 mls/hr IV .Q10H [facility] Rx#: [id number] Norepinephrine 8 mg In 456.104 Sodium Chloride 0.9% 250 ml @ 0.05 MCG/KG/MIN 11. 078 mls/hr IV .[id number] [facility] Rx#:[id number] Propofol 1,000 mg In 200 143.888 32.279 Empty Bag 1 bag @ Titrate IV .Q0M [facility] Rx#: [id number] Tube Feeding 328 336 24 Output: Urine 2250 1765 553 Other: Voiding Method Indwelling Catheter Indwelling Catheter Indwelling Catheter ABP, PAP, CO, CI - Last Documented Arterial Blood Pressure 124/57 - Exam VITAL SIGNS: As above GENERAL: Intubated, on mechanical ventilation, sedated on diprovan HEENT: Conjunctivae normal. eyes normal. NECK: No JVD. No thyroid enlargement. No LNs CARDIOVASCULAR: S1, S2, irregular. Systolic murmur. RESPIRATION: Breath sounds diminished in the bases. No rhonchi. Bibasilar crackles. ABDOMEN: Soft, obese, nontender . No guarding. no masses palpable. Bowel sounds heard. LEGS: Bilateral chronic venous stasis with decreasing edema NERVOUS SYSTEM: Unable to assess as patient sedated and on mechanical ventilation Skin: no rash , warm and dry Microbiology 01/26/20 11:56 Blood Blood Culture - Preliminary No Growth after 48 hours 01/26/20 12:06 Blood Blood Culture - Preliminary No Growth after 48 hours 01/26/20 21:25 Sputum Gram Stain - Preliminary 01/26/20 21:25 Sputum Sputum Culture - Preliminary Gram Neg Bacilli - Labs CBC & Chem 7: 01/28/20 04:10 01/28/20 14:15 Labs: Abnormal Lab Results - Last 24 Hours (Table) 01/27/20 01/27/20 01/27/20 Range/Units 20:20 20:20 23:55 WBC (3.8-10.6) k/uL Hgb (13.0-17.5) gm/dL Hct (39.0-53.0) % MCV (80.0-100.0) fL MCH (25.0-35.0) pg MCHC (31.0-37.0) g/dL RDW (11.5-15.5) % Neutrophils # (1.3-7.7) k/uL Monocytes # (0-1.0) k/uL ABG pH (7.35-7.45) ABG pO2 (83-108) mmHg ABG HCO3 (21-25) mmol/L ABG Total CO2 (19-24) mmol/L ABG O2 Saturation (94-97) % Potassium 2.7 L* (3.5-5.1) mmol/L Chloride (98-107) mmol/L Carbon Dioxide (22-30) mmol/L BUN (9-20) mg/dL Glucose (74-99) mg/dL POC Glucose (mg/dL) 161 H 145 H (75-99) mg/dL Calcium (8.4-10.2) mg/dL 01/28/20 01/28/20 01/28/20 Range/Units 04:10 04:10 05:36 WBC 18.1 H (3.8-10.6) k/uL Hgb 10.5 L (13.0-17.5) gm/dL Hct 37.2 L (39.0-53.0) % MCV 69.7 L (80.0-100.0) fL MCH 19.7 L (25.0-35.0) pg MCHC 28.3 L (31.0-37.0) g/dL RDW 20.0 H (11.5-15.5) % Neutrophils # 14.9 H (1.3-7.7) k/uL Monocytes # 1.3 H (0-1.0) k/uL ABG pH 7.58 H* (7.35-7.45) ABG pO2 117 H (83-108) mmHg ABG HCO3 42 H* (21-25) mmol/L ABG Total CO2 43 H (19-24) mmol/L ABG O2 Saturation 98.7 H (94-97) % Potassium 3.0 L (3.5-5.1) mmol/L Chloride 94 L (98-107) mmol/L Carbon Dioxide 38 H (22-30) mmol/L BUN 48 H (9-20) mg/dL Glucose 148 H (74-99) mg/dL POC Glucose (mg/dL) (75-99) mg/dL Calcium 8.3 L (8.4-10.2) mg/dL 01/28/20 01/28/20 Range/Units 06:34 11:58 WBC (3.8-10.6) k/uL Hgb (13.0-17.5) gm/dL Hct (39.0-53.0) % MCV (80.0-100.0) fL MCH (25.0-35.0) pg MCHC (31.0-37.0) g/dL RDW (11.5-15.5) % Neutrophils # (1.3-7.7) k/uL Monocytes # (0-1.0) k/uL ABG pH (7.35-7.45) ABG pO2 (83-108) mmHg ABG HCO3 (21-25) mmol/L ABG Total CO2 (19-24) mmol/L ABG O2 Saturation (94-97) % Potassium (3.5-5.1) mmol/L Chloride (98-107) mmol/L Carbon Dioxide (22-30) mmol/L BUN (9-20) mg/dL Glucose (74-99) mg/dL POC Glucose (mg/dL) 157 H 138 H (75-99) mg/dL Calcium (8.4-10.2) mg/dL Microbiology - Last 24 Hours (Table) 01/26/20 21:25 Gram Stain - Preliminary Sputum Sputum Culture - Preliminary Gram Neg Bacilli 01/26/20 11:56 Blood Culture - Preliminary Blood No Growth after 24 hours 01/26/20 12:06 Blood Culture - Preliminary Blood No Growth after 24 hours Assessment and Plan Assessment: Acute hypoxic respiratory failure secondary to decompensated acute CHF systolic dysfunction secondary to pulmonary edema, mechanical ventilator-dependent, Hypotension secondary to the above, pressor dependent Acute on chronic CHF exacerbation, systolic dysfunction, EF 45-50%, on Lasix and renal dose dopamine drips Possible interstitial pneumonia, community-acquired, empiric antibiotics initiated Acute COPD exacerbation Lactic acidosis Acute on Chronic renal failure, stage III. Baseline creatinine 1.5, cardiorenal. Chronic microcytic anemia, iron deficiency Chronic persistent atrial fibrillation, maintained on Eliquis CAD, history of VA, CABG, stent Hypertension Osteoarthritis Former nicotine dependence Obesity, BMI 32.9 mitral regurgitation tricuspid regurgitation Severe pulmonary hypertension Degenerative joint disease History of prostate cancer Choi catheter placement per urology, possibly urinary retention, possible stricture Hypokalemia secondary to diuresing Plan: Continue on current medication regime ,monitoring and symptomatic treatment. Sedation holiday/weaning per pulmonary. Cultures pending, maintain antibiotics. Potassium replacement. Follow closely with multiple consults. Prognosis guarded given multiple complex medical issues. The impression and plan of care has been dictated as directed. : I performed a history and examination of this patient, discussed the same with the dictator. I agree with the dictator's note ,documented as a scribe. Any additional findings or plans will be noted.
[2020-01-28 19:04] LABS: Glucose,Whole Blood 142 mg/dL (75-99)
[2020-01-28] MEDS: ATORVASTATIN 20 MG TAB PO SCH (20:28)
[2020-01-28] MEDS: POTASSIUM CHLORIDE ER 20 MEQ TAB.ER PO SCH (20:29)
[2020-01-28 21:56] LABS: ABG Base Excess 17.8 mmol/L; ABG Oxygen Saturation 98.8 % (94-97); ABG PCO2 45 mmHg (35-45); ABG PO2 113 mmHg (83-108); ABG TCO2 41 mmol/L (19-24); Allen Test Performed? Yes
[2020-01-28 21:58] LABS: ABG PH 7.56 (7.35-7.45)
[2020-01-28 21:59] LABS: ABG HCO3 40 mmol/L (21-25)
[2020-01-28 23:02] LABS: Glucose,Whole Blood 147 mg/dL (75-99)
[2020-01-29] MEDS: POTASSIUM CHLORIDE 10 MEQ in WATER FOR INJECTION 1 100ML.BAG IVPB SCH ×4 (00:31→03:53)
[2020-01-29 06:23] LABS: Glucose,Whole Blood 128 mg/dL (75-99)
[2020-01-29] MEDS: INSULIN ASPART (NovoLOG) 100 UNIT/ML VIAL SQ SCH ×3 (06:24→17:48)
[2020-01-29 06:53] LABS: Anisocytosis Moderate; HCT 33.4 % (39.0-53.0); Hypochromasia Marked; MCH 19.3 pg (25.0-35.0); MCHC 26.9 g/dL (31.0-37.0); MCV 71.6 fL (80.0-100.0); Mean Platelet Volume 7.1; Microcytosis Marked; Platelet Count 263 k/uL (150-450); Poikilocytosis Slight; RBC 4.67 m/uL (4.30-5.90); RDW 20.5 % (11.5-15.5)
[2020-01-29 06:54] LABS: INR 1.3 (<1.2); Partial Thromboplastin Time 26.8 sec (22.0-30.0); Prothrombin Time 13.3 sec (9.0-12.0)
[2020-01-29 06:56] LABS: Potassium 3.5 mmol/L (3.5-5.1)
[2020-01-29] MEDS: BUDESONIDE 1 MG/2 ML NEBU INHALATION SCH ×2 (07:33→20:00)
[2020-01-29] MEDS: FORMOTEROL FUMARATE 20 MCG/2 ML NEBU INHALATION SCH ×2 (07:33→20:00)
[2020-01-29] MEDS: IPRATROPIUM-ALBUTEROL 3 ML NEB INHALATION SCH ×4 (07:33→20:00)
[2020-01-29] MEDS: CHLORHEXIDINE GLUCONATE 15 ML CUP MUCOUS MEM SCH ×2 (07:57→19:51)
--- NOTE | 2020-01-29 08:16 | XR ---
EXAMINATION TYPE: XR chest 1V portable DATE OF EXAM: 01/29/2020 COMPARISON: 01/28/2020 HISTORY: Difficulty breathing TECHNIQUE: Single frontal view of the chest is obtained. FINDINGS: There is improved left pleural effusion but new trace right pleural effusion. Cardiomedias tinal silhouette is again stable with post CABG changes and is rotated to the left secondary to patie nt positioning. Bibasilar airspace disease at the hemidiaphragms is likely on the basis of atelectasi s. No new focal consolidation or pneumothorax. IMPRESSION: M proved left but new right pleural effusions, both trace. Probable bibasilar atelectasi s.
[2020-01-29 08:33] LABS: Eosinophils # (M) 0.16 k/uL (0-0.7); Monocytes # (M) 0.48 k/uL (0-1.0); Neutrophils # (M) 14.56 k/uL (1.3-7.7); Neutrophils % (M) 91 %; Nucleated Red Blood Cells 0 /100 WBC (0-0); Total Cells Counted 100
[2020-01-29 08:40] LABS: Polychromasia Present
--- NOTE | 2020-01-29 09:13 | PN ---
PROGRESS NOTE Mr. Gerber is a 74-year-old male with a known history of coronary artery disease status post coronary artery bypass grafting, history of atrial fibrillation who presented with worsening dyspnea and had worsening renal function. He was intubated, extubated yesterday. He is awake, confused at time. He is on BIPAP. His ventricular response is stable, hemodynamically stable. He is on no pressor. He continues to be at this time on Diamox 250 mg IV q.12 hours, Eliquis 5 mg twice a day, Lipitor 20 mg daily, Lasix 40 mg IV daily, metoprolol tartrate 25 mg twice a day. PHYSICAL EXAMINATION: Blood pressure 114/40 with a heart rate in 90s. LUNGS: With crackles at the bases. HEART: Irregular regular, S1, S2. No S3 with a systolic murmur. ABDOMEN: Soft, nontender. EXTREMITIES: +1 edema. LAB DATA: BUN and creatinine 47 and 1.58, potassium 3.5, hemoglobin of 9. His bicarb is 37, which is slightly improved compared to yesterday, but he continues to be alkalotic on his blood gases. His chest x-ray revealed bilateral effusion with worse on the right side with possible consolidation. IMPRESSION: 1. Respiratory failure with evidence of CHF, improving clinically. 2. Worsening renal function. 3. Status post coronary artery bypass grafting. 4. Chronic persistent atrial fibrillation. 5. History of chronic obstructive lung disease. 6. Hypertension. 7. Hyperlipidemia. RECOMMENDATION: Will continue present therapy. Will follow his renal function closely to adjust his diuretic as needed. Will continue on the present dose of beta danuta and depending on his progress, further recommendation will be made. MMODL / IJN: [id number] /
[2020-01-29] MEDS: AZITHROMYCIN 500 MG in SODIUM CHLORIDE 0.9% 250 ML IVPB SCH (09:21)
[2020-01-29] MEDS: PANTOPRAZOLE 40 MG/10 ML VIAL IV SCH (09:21)
[2020-01-29] MEDS: APIXABAN 5 MG TAB PO SCH ×2 (09:21→20:43)
[2020-01-29] MEDS: METOPROLOL TARTRATE 25 MG TAB PO SCH ×2 (09:21→20:42)
[2020-01-29] MEDS: FUROSEMIDE 10 MG/ML 4 ML VIAL IV SCH (09:22)
[2020-01-29] MEDS: PIPERACILLIN-TAZOBACTAM 3.375 GM in SODIUM CHLORIDE 0.9% 100 ML IVPB SCH ×2 (09:48→15:58)
[2020-01-29] MEDS: SODIUM FERRIC GLUCONAT-SUCROSE 125 MG in SODIUM CHLORIDE 0.9% 100 ML IVPB SCH (10:58)
[2020-01-29 12:15] LABS: Glucose,Whole Blood 209 mg/dL (75-99)
--- NOTE | 2020-01-29 14:03 | P.PN ---
Subjective Progress Note Date: 01/29/20 this is a 74-year-old male patient with known history of CAD, previous bypass surgery, COPD, congestion heart failure, chronic atrial fibrillation who has been struggling for worsening shortness of breath and he came into the hospital for further adviceon 01/21/2020. His EKG showed atrial fibrillation per chest x-ray showed basilar consolidation with interstitial pattern. His proBNP level was 4320 and the troponins were negative and echocardiogram from December showed mildly impaired LV function with an ejection fraction of 45-50% and paradoxical septal wall motion abnormality with a [id number] MR, moderate TR, severe pulmonary hypertension with a RVSP of 70 mmHg. The patient was diagnosed having an acute on top of chronic diastolic heart failure and the patient was diuresed with IV Lasix 40 mg every 8 hours and he was asked to resume his long-term medications. The patient got sick sequently transferred to the intensive care unit on 01/25/2024 worsening shortness of breath. Adequate response team was involved in a patient was found to be hypoxic and he was placed on 100% nonrebreather facemask. Subsequently was placed on a BiPAP and he got moved to the intensive care unit for further monitoring. He was kept on BiPAP and he was started on Lasix drip and he was covered with an empiric antibiotic coverage utilizing a combination of Rocephin and Zithromax. The patient currently is still on the same antibiotic coverage. He has required low-dose norepinephrine infusion for blood pressure control. He remains on Lasix drip at 10 mg an hour. His net fluid balance has been -1.5 L on 01/25/2020 . The patient was doing well and 60s of oxygen by nasal cannula. Yesterday afternoon, the patient became progressively more hypoxic and had to be intubated and placed on mechanical ventilation. Chest x-ray post intubation showed pulmonary edema essentially unchanged and ET tube was repositioned and it was in a adequate location. Post intubation blood gas showed a pH of 7.49 with a pCO2 of 41 and pO2 of 59 and a necessity ventilator changes were done. This morning of 01/27/2020,the patient is being seen in follow-up in the intensive care unit. He remains on renal dose dopamine at 2.5 mg/kg/m. He is receiving Lasix drip at 10 mg an hour in addition to Zaroxolyn 10 mg by mouth daily. Norepinephrine infusion is being utilized forblood pressure support. Meanwhile the patient is sedated with propofol and the patient is on a ventilator. The patient remains on a assist-control mode of ventilator and currently he is on a mechanical ventilator within assist-control mode at the rate of 20 with a tidal volume of 500 and FiO2 of 50% with a PEEP of 10. Blood gases from today showed a pH of 7.4 with a pCO2 of 40 and pO2 of 142. The patient's chest exit shows improvement in the pulmonary edema. The patient is on dopamine at 2.5 g per KG per minute. The patient on Lasix drip at 10 mg an hour. The patient is on levo fed running at 0.02 mg per KG per minute and IV fluids with normal state rate of 10 mL an hour. He is receiving vital 1.03 capacities an hour. He is was sedated for now with propofol. On today's evaluation of 01/28/2020, seeing the patient for a follow-up. This morning the patient remains sedated with propofol at 20 mcg/kg per minute. The patient is on normal saline at 30 mL an hour. The patient has a CVA combination of diuretics including Lasix and Zaroxolyn. The patient was also on renal dose dopamine. The patient has been a negative fluid balance of more than 3 L over the past 24 hours. The patient has developed some metabolic alkalosis. Norepinephrine is running at a lower rate of 0.08 mg per KG per minute for blood pressure support. The patient is currently on assist control mode at the rate of 12 with tidal volume of 450 and FiO2 of 40% with a PEEP of 5. The blood gases from today showed a pH of 7.58 with a pCO2 of 45 and pO2 of 117. The white cell count is at 18.1. The chest x-ray shows improvement in the pulmonary edema with some residual pleural fluid in the lung bases bilaterally. The patient also showing improvement in the renal function and creatinine is down to 1.2. No other significant events otherwise. Lactic acid level is down to 1.4. The patient is on empiric antibiotic coverage utilizing a combination of Rocephin and Zithromax. The patient is on long-term and to coagulation with Eliquis 5 mg by mouth twice a day. Norepinephrine dose being titrated accordingly. On 01/29/2020, the patient is extubated. Noted the patient was taken off the sedation yesterday and he remains quite sleepy and drowsy for prolonged period of time. Ultimately by afternoon, he was extubated to BiPAP. He remained on BiPAP throughout the night and the patient continues to be the BiPAP this morning. He became slightly there is a sitter at the bedside. On today's evaluation, I saw in the ICU. He was on a BiPAP pressure of 10/5 cm of water and FiO2 of 40%. He was extubated. His IV fluids were running at KVO. He was in atrial fibrillation with a controlled rate. His chest x-ray showed improvem ent in the pulmonary edema. The patient was in a negative fluid balance of at least 6 L over the past 24 hours. He has developed some metabolic alkalosis and a serum bicarbonate is up to 37. BUN is at 47 with a creatinine of 1.5. Based on that, we are going to back off on his diuretics. Diabetes. 40 mg every 24 hours. He remains on DuoNeb nebulized treatments around the clock. He remains on a combination of Zosyn and Zithromax. Zosyn was added and the Rocephin was up as the patient sputum Gram stain and culture showed pneumonias aeruginosa. The Is a 16. Hemoglobin Dropped down to 9.0. No Other Significant Events Otherwise for Now. The Patient Is Currently off Pressors. Objective - Vital Signs Vital signs: Vital Signs Temp 97.7 F 01/29/20 12:00 Pulse 85 01/29/20 12:30 Resp 22 01/29/20 12:30 BP 108/61 01/29/20 07:00 Pulse Ox 86 L 01/29/20 12:30 Intake & Output 01/28/20 01/29/20 01/29/20 18:59 06:59 18:59 Intake Total 943.783 346.441 568 Output Total 921 540 790 Balance 22.783 -193.559 -222 Weight 107.1 kg 107.1 kg Intake: IV 431.4 259 568 Azithromycin 500 mg In 250 Sodium Chloride 0.9% 250 ml @ 250 mls/hr IVPB DAILY [facility] Rx#:[id number] Azthromycin 250 Dextrose/Water 1 250ml. 5.4 bag @ 2.5 MCG/KG/MIN 5. 367 mls/hr IV .Q24H [facility] with DOPamine DRIP 800 mg Rx#:[id number] KVO 220 100 Lasix 10 Piperacillin-Tazobactam 3 100 .375 gm In Sodium Chloride 0.9% 100 ml @ 25 mls/hr IVPB Q8HR [facility] Rx# :[id number] Pressure bag 66 39 18 Sodium Ferric Gluconat- 100 Sucrose 125 mg In Sodium Chloride 0.9% 100 ml @ 100 mls/hr IVPB DAILY [facility] Rx#:[id number] ferric 100 Intake, IV Titration 488.383 87.441 Amount Norepinephrine 8 mg In 456.104 87.441 Sodium Chloride 0.9% 250 ml @ 0.05 MCG/KG/MIN 11. 078 mls/hr IV .[id number] [facility] Rx#:[id number] Propofol 1,000 mg In 32.279 Empty Bag 1 bag @ Titrate IV .Q0M [facility] Rx#: [id number] Tube Feeding 24 Output: Urine 921 540 790 Other: Voiding Method Indwelling Catheter Indwelling Catheter Indwelling Catheter ABP, PAP, CO, CI - Last Documented Arterial Blood Pressure 123/48 - Exam GENERAL EXAM: Alert, pleasant 74-year-old gentleman, currently extubated and the patient was utilizing BiPAP in the morning and is getting to be transferred to a nasal cannula. the patient has a left IJ triple-lumen catheter in place. HEAD: Normocephalic. EYES: Normal reaction of pupils, equal size. NOSE: Clear with pink turbinates. THROAT: No erythema or exudates. NECK: No masses, no JVD. CHEST: No chest wall deformity. LUNGS: Equal air entry with crackles in the bilateral posterior bases CVS: S1 and S2 normal with no audible murmur, irregular rhythm. ABDOMEN: No hepatosplenomegaly, normal bowel sounds, no guarding or rigidity. SPINE: No scoliosis or deformity SKIN: No rashes CENTRAL NERVOUS SYSTEM: No focal deficits, tone is normal in all 4 extremities. He did have some confusion and the patient is improved for now. There is a sitter at the bedside. EXTREMITIES: There is 1-2+ peripheral edema. No clubbing, no cyanosis. Peripheral pulses are intact. - Labs CBC & Chem 7: 01/29/20 06:19 01/29/20 06:19 Labs: Abnormal Lab Results - Last 24 Hours (Table) 01/28/20 01/28/20 01/28/20 Range/Units 14:15 16:40 19:02 WBC (3.8-10.6) k/uL Hgb (13.0-17.5) gm/dL Hct (39.0-53.0) % MCV (80.0-100.0) fL MCH (25.0-35.0) pg MCHC (31.0-37.0) g/dL RDW (11.5-15.5) % Neutrophils # (Manual) (1.3-7.7) k/uL Lymphocytes # (Manual) (1.0-4.8) k/uL PT (9.0-12.0) sec INR (<1.2) ABG pH 7.54 H (7.35-7.45) ABG pCO2 47 H (35-45) mmHg ABG pO2 (83-108) mmHg ABG HCO3 40 H* (21-25) mmol/L ABG Total CO2 42 H (19-24) mmol/L ABG O2 Saturation 98.0 H (94-97) % Potassium 3.1 L (3.5-5.1) mmol/L Carbon Dioxide (22-30) mmol/L BUN (9-20) mg/dL Creatinine (0.66-1.25) mg/dL Glucose (74-99) mg/dL POC Glucose (mg/dL) 142 H (75-99) mg/dL Calcium (8.4-10.2) mg/dL 01/28/20 01/28/20 01/29/20 Range/Units 21:55 23:01 06:19 WBC (3.8-10.6) k/uL Hgb (13.0-17.5) gm/dL Hct (39.0-53.0) % MCV (80.0-100.0) fL MCH (25.0-35.0) pg MCHC (31.0-37.0) g/dL RDW (11.5-15.5) % Neutrophils # (Manual) (1.3-7.7) k/uL Lymphocytes # (Manual) (1.0-4.8) k/uL PT (9.0-12.0) sec INR (<1.2) ABG pH 7.56 H* (7.35-7.45) ABG pCO2 (35-45) mmHg ABG pO2 113 H (83-108) mmHg ABG HCO3 40 H* (21-25) mmol/L ABG Total CO2 41 H (19-24) mmol/L ABG O2 Saturation 98.8 H (94-97) % Potassium (3.5-5.1) mmol/L Carbon Dioxide 37 H (22-30) mmol/L BUN 47 H (9-20) mg/dL Creatinine 1.58 H (0.66-1.25) mg/dL Glucose 111 H (74-99) mg/dL POC Glucose (mg/dL) 147 H (75-99) mg/dL Calcium 8.0 L (8.4-10.2) mg/dL 01/29/20 01/29/20 01/29/20 Range/Units 06:19 06:19 06:21 WBC 16.0 H (3.8-10.6) k/uL Hgb 9.0 L D (13.0-17.5) gm/dL Hct 33.4 L (39.0-53.0) % MCV 71.6 L (80.0-100.0) fL MCH 19.3 L (25.0-35.0) pg MCHC 26.9 L (31.0-37.0) g/dL RDW 20.5 H (11.5-15.5) % Neutrophils # (Manual) 14.56 H (1.3-7.7) k/uL Lymphocytes # (Manual) 0.80 L (1.0-4.8) k/uL PT 13.3 H (9.0-12.0) sec INR 1.3 H (<1.2) ABG pH (7.35-7.45) ABG pCO2 (35-45) mmHg ABG pO2 (83-108) mmHg ABG HCO3 (21-25) mmol/L ABG Total CO2 (19-24) mmol/L ABG O2 Saturation (94-97) % Potassium (3.5-5.1) mmol/L Carbon Dioxide (22-30) mmol/L BUN (9-20) mg/dL Creatinine (0.66-1.25) mg/dL Glucose (74-99) mg/dL POC Glucose (mg/dL) 128 H (75-99) mg/dL Calcium (8.4-10.2) mg/dL 01/29/20 Range/Units 12:14 WBC (3.8-10.6) k/uL Hgb (13.0-17.5) gm/dL Hct (39.0-53.0) % MCV (80.0-100.0) fL MCH (25.0-35.0) pg MCHC (31.0-37.0) g/dL RDW (11.5-15.5) % Neutrophils # (Manual) (1.3-7.7) k/uL Lymphocytes # (Manual) (1.0-4.8) k/uL PT (9.0-12.0) sec INR (<1.2) ABG pH (7.35-7.45) ABG pCO2 (35-45) mmHg ABG pO2 (83-108) mmHg ABG HCO3 (21-25) mmol/L ABG Total CO2 (19-24) mmol/L ABG O2 Saturation (94-97) % Potassium (3.5-5.1) mmol/L Carbon Dioxide (22-30) mmol/L BUN (9-20) mg/dL Creatinine (0.66-1.25) mg/dL Glucose (74-99) mg/dL POC Glucose (mg/dL) 209 H (75-99) mg/dL Calcium (8.4-10.2) mg/dL Microbiology - Last 24 Hours (Table) 01/26/20 21:25 Gram Stain - Final Sputum Sputum Culture - Final Pseudomonas aeruginosa 01/26/20 11:56 Blood Culture - Preliminary Blood No Growth after 48 hours 01/26/20 12:06 Blood Culture - Preliminary Blood No Growth after 48 hours Assessment and Plan Plan: 1 acute hypoxic respiratory failure secondary to acute decompensated systolic heaailure/pulmonary edema. The patient's present with congestion heart failure. The patient had a mildly impaired left ventricular systolic function ejection fraction 45-50%. he patient was treated with a combination of diuretics utilizing Lasix and Zaroxolyn was placed on dopamine drip. Nevertheless the patient's condition decompensated and the patient had to be intubated yesterday and placed on mechanical ventilator and the post intubation chest x-rays c onsistent with pulmonary edema. Note that the patient also has significant pulmonary hypertension on echocardiogram, probably chronic and the PA pressures arequite elevated with an RVSP of 70 without any significant respiratory collapse of the IVC consistent withright-sided fluid overload. He has severe pulmonary hypertension consistent with right heart failure along with mild to moderate MR His LA is severely dilated also. No history of any pulmonary embolism. On 01/29/2020, the patient was extubated to BiPAP around 12 hours ago and the patient is gradually going to be transitioned to a nasal cannula. He remains on IV Lasix. I will also metabolic alkalosis as the patient was being diuresed aggressively and he has been negative fluid balance. Follow-up chest x-ray from today shows improvement left-sided pleural effusion and there is a new trace left-sided pleural effusion. The sputum showed pseudomonas aeruginosa. The patient was started on Zosyn and Rocephin was discontinued. 2 Acute exacerbation of chronic obstructive pulmonary disease 3 severe secondary pulmonary hypertension, details as discussed above 4 Coronary artery disease, the with previous history of coronary artery bypass surgery 5 chronic atrial fibrillation maintained on Eliquis on outpatient basis 6 History of prostate cancer 7 Hyperlipidemia 8 chronic kidney disease stage III without evidence of any hydronephrosis based on the ultrasound of the kidneys done during this current admission. The renal function is also normalized and the creatinine is down to 1.2, and the patient has excellent urine output 9 chronic microcytic anemia, rule out underlying iron deficiency 10 leukocytosis, likely reactive Plan Drop the Lasix to once a day dosing Give the patient a dose of Diamox to 250 mg every 12 hours Utilizes BiPAP) patient to a nasal cannula Monitor mental status Dropped Rocephin and this was this patient to Zosyn based on pseudomonas aeruginosa cultures in the sputum Give the patient long-term and to coagulation with Eliquis Rest of the medication will be kept unchanged. The patient Denies to follow 24 hours for monitoring. May utilize on a BiPAP as needed based on his overall respiratory status. We'll continue to follow and will make further recommendations based on her p juan jose. Condition is still critical. This critically care evaluation was done and more than 30 minutes. Time with Patient: Greater than 30
--- NOTE | 2020-01-29 14:52 | PN ---
PROGRESS NOTE Patient is seen for followup for acute kidney injury and cardiorenal syndrome. He was maintained on Lasix drip which is now discontinued, as serum creatinine had increased and patient developed significant metabolic alkalosis. He was extubated yesterday. He had been doing fairly well. The patient remains on IV Lasix 40 mg daily. He has had good urine output. He is currently not on any pressors. PHYSICAL EXAMINATION: This morning blood pressure was 118/51, heart rate of 88 per minute. He is afebrile. Examination shows edema 2+ bilateral lower extremities. ABDOMEN: Soft, nontender. QC MANAGER exam shows patient is confused, but he has been communicating and he is moving all 4 extremities. LABS: Show hemoglobin 9.0, sodium 144, potassium 3.5, chloride 101. CO2 is 37, BUN 47 serum creatinine 1.58. ASSESSMENT: 1. Acute kidney injury mainly cardiorenal and his serum creatinine has increased over the last couple of days, mainly associated with recent diuresis. His Lasix is now decreased. He has good urine output. We will repeat labs in a.m. Continue to avoid nephrotoxic medications. 2. Iron deficiency maintained status post IV iron next. 3. Anemia of chronic disease maintained on Aranesp no active bleeding noted. 4. Hypokalemia kalemia currently on supplementation. 5. Hypoxic respiratory failure. Patient was on the vent. He was extubated yesterday, doing fairly well. PLAN: Continue current dose of IV Lasix. DC IV iron repeat labs in a.m. Continue with the Diamox for now. MMODL / IJN: [id number] /
--- NOTE | 2020-01-29 15:14 | P.PN ---
Subjective Progress Note Date: 01/29/20 This a 74-year-old gentleman with medical history of CAD, [place], CABG, CHF, COPD, DVT, and multiple other medical issues presented to the ER with complaints of worsening shortness of breath and bilateral lower extremity edema. Reports over the last week medications adjusted/Lasix increased per PCP with no improvement in symptoms and presented to the ER. BUN 89, Creatinine 1.6, baseline 1.5, INR 1.5. Denies fever or chills. Denies sore throat. Reports occasional nonproductive cough ,exertional dyspnea, orthopnea. Denies chest pain, palpitations. Denies lightheadedness, dizziness or focal deficits. WBC 14.8. Lactic acid 2.1. Neutrophils 12.8 . Afebrile. EKG reported sinus rhythm with left bundle branch block ,anterior lateral infarct, age undetermined, possible septal sub-endocardial injury. Troponins negative 1. BNP 4320. AST 60, ALT 99. Hemoglobin 9.9. Chest x-ray reporting interstitial pattern, bibasilar consolidation, CHF versus interstitial pneumonia. Vital signs stable, rodrigue ntaining O2 sats in the 90s on 3 L nasal cannula. 01/22/2020 diuresing on Lasix IV push with 24-hour I&O reflecting a negative fluid balance. Edema improving. Renal function improving, BUN 76 creatinine 1.5. Oxygen requirements titrated down to 2 L, maintaining O2 sats in the 90s. Borderline hypotension. Denies chest pain, palpitations or increasing shortness of breath. 01/23/2020 maintained on 1500 MLS fluid restriction, low-salt diet and diuretics . Lasix dosing adjusted yesterday to avoid night dose and facilitate sleep. 24- hour I&O inaccurate. Reports better sleep, breathing improving. Staff reports exertional dyspnea .Maintaining O2 sats in the 90s on 3 L nasal cannula. Bord alex hypotension. Evaluated by nephrology with recommendations noted. Creatinine slowly trending down, currently 1.43. Renal ultrasound unremarkable. LFTs within normal limits with exception of mild elevation of ALT. Sodium 136, potassium 4.3, magnesium 2.2 01/24/2020 Lasix infusion initiated yesterday afternoon as per nephrology. 24- hour I&O reporting increased weight. Significant edema. Worsening dyspnea. Maintaining O2 sats in the low 90s on 4 L nasal cannula O2. Renal function sta ble. Potassium 5.4 Telemetry reporting controlled A. fib with short asymptomatic, nonsustained V. tach run earlier this morning. 01/27/2020 patient developed worsening shortness of breath, was transferred to ICU yesterday, intubated. ABGs noted. Remains vent dependent with FiO2 weaned down to 40% and PEEP weaned down to +6. Maintained on renal dose dopamine, Lasix drip, Levophed, diprovan. Chest x-ray reporting improvement. Renal function improving. Potassium 3.2, magnesium pending. 01/28/2020 chest x-ray reports improvement. Maintained on mechanical ventilation with FiO2 40%, PEEP weaned down to +5. Lasix and dopamine drips have been discontinued. Receiving Diamox 2 doses. Lasix converted to IV push. Remains pressor dependent with Levophed weaning in progress renal function continues to improve, creatinine down to 1.2. Maintained on Rocephin and Zithromax. Sputum culture currently reporting gram-negative bacilli. Potassium being replaced. Sedation holiday being discussed, but patient extremely weak, opening eyes. 01/29/2020 patient extubated yesterday afternoon , maintained overnight on BiPAP .this morning, currently maintaining O2 sats in the 90s on 7 L high flow nasal cannula. Afebrile, T-max 100.6, WBC trending down currently 16. Sputum cultures reporting Pseudomonas aeruginosa, maintained on Zosyn. Sitter at bedside. Standing up at bedside with PT. Chest x-ray reporting improvement left pleural effusion with new trace right pleural effusion with possible bibasilar atelectasis. Hemoglobin dropped to 9. INR 1.3. Diuresing well on Lasix IV push with 24-hour I&O reflecting a negative fluid balance. Renal function mildly worsening, BUN 47, creatinine up to 1.58. Potassium 3.5. Alkalotic,Bicarb 37. Telemetry atrial fibrillation with controlled ventricular rate. Objective - Vital Signs Vital signs: Vital Signs Temp 97.1 F L 01/29/20 08:00 Pulse 86 01/29/20 11:00 Resp 25 H 01/29/20 11:00 BP 108/61 01/29/20 07:00 Pulse Ox 99 01/29/20 11:00 Intake & Output 01/28/20 01/29/20 01/29/20 18:59 06:59 18:59 Intake Total 943.783 346.441 545 Output Total 921 540 490 Balance 22.783 -193.559 55 Weight 107.1 kg Intake: IV 431.4 259 545 Azithromycin 500 mg In 250 Sodium Chloride 0.9% 250 ml @ 250 mls/hr IVPB DAILY [facility] Rx#:[id number] Azthromycin 250 Dextrose/Water 1 250ml. 5.4 bag @ 2.5 MCG/KG/MIN 5. 367 mls/hr IV .Q24H KECIA with DOPamine DRIP 800 mg Rx#:[id number] KVO 220 80 Lasix 10 Piperacillin-Tazobactam 3 100 .375 gm In Sodium Chloride 0.9% 100 ml @ 25 mls/hr IVPB Q8HR [facility] Rx# :[id number] Pressure bag 66 39 15 Sodium Ferric Gluconat- 100 Sucrose 125 mg In Sodium Chloride 0.9% 100 ml @ 100 mls/hr IVPB DAILY [facility] Rx#:[id number] ferric 100 Intake, IV Titration 488.383 87.441 Amount Norepinephrine 8 mg In 456.104 87.441 Sodium Chloride 0.9% 250 ml @ 0.05 MCG/KG/MIN 11. 078 mls/hr IV .[id number] [facility] Rx#:[id number] Propofol 1,000 mg In 32.279 Empty Bag 1 bag @ Titrate IV .Q0M [facility] Rx#: [id number] Tube Feeding 24 Output: Urine 921 540 490 Other: Voiding Method Indwelling Catheter Indwelling Catheter ABP, PAP, CO, CI - Last Documented Arterial Blood Pressure 118/51 - Exam VITAL SIGNS: As above GENERAL: Sitting up at side of bed with PT, alert and oriented 2, mild confusion HEENT: Conjunctivae normal. eyes normal. NECK: No JVD. No thyroid enlargement. No LNs CARDIOVASCULAR: S1, S2, irregular. Systolic murmur. RESPIRATION: Breath sounds diminished in the bases. Scattered crackles throughout ABDOMEN: Soft, obese, nontender . No guarding. no masses palpable. Bowel sounds heard. LEGS: Bilateral chronic venous stasis with decreasing edema NERVOUS SYSTEM: No focal deficits. Skin: no rash , warm and dry Microbiology 01/26/20 11:56 Blood Blood Culture - Preliminary No Growth after 72 hours 01/26/20 12:06 Blood Blood Culture - Preliminary No Growth after 72 hours 01/26/20 21:25 Sputum Gram Stain - Final 01/26/20 21:25 Sputum Sputum Culture - Final Pseudomonas aeruginosa - Labs CBC & Chem 7: 01/29/20 06:19 01/29/20 06:19 Labs: Abnormal Lab Results - Last 24 Hours (Table) 01/28/20 01/28/20 01/28/20 Range/Units 11:58 14:15 16:40 WBC (3.8-10.6) k/uL Hgb (13.0-17.5) gm/dL Hct (39.0-53.0) % MCV (80.0-100.0) fL MCH (25.0-35.0) pg MCHC (31.0-37.0) g/dL RDW (11.5-15.5) % Neutrophils # (Manual) (1.3-7.7) k/uL Lymphocytes # (Manual) (1.0-4.8) k/uL PT (9.0-12.0) sec INR (<1.2) ABG pH 7.54 H (7.35-7.45) ABG pCO2 47 H (35-45) mmHg ABG pO2 (83-108) mmHg ABG HCO3 40 H* (21-25) mmol/L ABG Total CO2 42 H (19-24) mmol/L ABG O2 Saturation 98.0 H (94-97) % Potassium 3.1 L (3.5-5.1) mmol/L Carbon Dioxide (22-30) mmol/L BUN (9-20) mg/dL Creatinine (0.66-1.25) mg/dL Glucose (74-99) mg/dL POC Glucose (mg/dL) 138 H (75-99) mg/dL Calcium (8.4-10.2) mg/dL 01/28/20 01/28/20 01/28/20 Range/Units 19:02 21:55 23:01 WBC (3.8-10.6) k/uL Hgb (13.0-17.5) gm/dL Hct (39.0-53.0) % MCV (80.0-100.0) fL MCH (25.0-35.0) pg MCHC (31.0-37.0) g/dL RDW (11.5-15.5) % Neutrophils # (Manual) (1.3-7.7) k/uL Lymphocytes # (Manual) (1.0-4.8) k/uL PT (9.0-12.0) sec INR (<1.2) ABG pH 7.56 H* (7.35-7.45) ABG pCO2 (35-45) mmHg ABG pO2 113 H (83-108) mmHg ABG HCO3 40 H* (21-25) mmol/L ABG Total CO2 41 H (19-24) mmol/L ABG O2 Saturation 98.8 H (94-97) % Potassium (3.5-5.1) mmol/L Carbon Dioxide (22-30) mmol/L BUN (9-20) mg/dL Creatinine (0.66-1.25) mg/dL Glucose (74-99) mg/dL POC Glucose (mg/dL) 142 H 147 H (75-99) mg/dL Calcium (8.4-10.2) mg/dL 01/29/20 01/29/20 01/29/20 Range/Units 06:19 06:19 06:19 WBC 16.0 H (3.8-10.6) k/uL Hgb 9.0 L D (13.0-17.5) gm/dL Hct 33.4 L (39.0-53.0) % MCV 71.6 L (80.0-100.0) fL MCH 19.3 L (25.0-35.0) pg MCHC 26.9 L (31.0-37.0) g/dL RDW 20.5 H (11.5-15.5) % Neutrophils # (Manual) 14.56 H (1.3-7.7) k/uL Lymphocytes # (Manual) 0.80 L (1.0-4.8) k/uL PT 13.3 H (9.0-12.0) sec INR 1.3 H (<1.2) ABG pH (7.35-7.45) ABG pCO2 (35-45) mmHg ABG pO2 (83-108) mmHg ABG HCO3 (21-25) mmol/L ABG Total CO2 (19-24) mmol/L ABG O2 Saturation (94-97) % Potassium (3.5-5.1) mmol/L Carbon Dioxide 37 H (22-30) mmol/L BUN 47 H (9-20) mg/dL Creatinine 1.58 H (0.66-1.25) mg/dL Glucose 111 H (74-99) mg/dL POC Glucose (mg/dL) (75-99) mg/dL Calcium 8.0 L (8.4-10.2) mg/dL 01/29/20 Range/Units 06:21 WBC (3.8-10.6) k/uL Hgb (13.0-17.5) gm/dL Hct (39.0-53.0) % MCV (80.0-100.0) fL MCH (25.0-35.0) pg MCHC (31.0-37.0) g/dL RDW (11.5-15.5) % Neutrophils # (Manual) (1.3-7.7) k/uL Lymphocytes # (Manual) (1.0-4.8) k/uL PT (9.0-12.0) sec INR (<1.2) ABG pH (7.35-7.45) ABG pCO2 (35-45) mmHg ABG pO2 (83-108) mmHg ABG HCO3 (21-25) mmol/L ABG Total CO2 (19-24) mmol/L ABG O2 Saturation (94-97) % Potassium (3.5-5.1) mmol/L Carbon Dioxide (22-30) mmol/L BUN (9-20) mg/dL Creatinine (0.66-1.25) mg/dL Glucose (74-99) mg/dL POC Glucose (mg/dL) 128 H (75-99) mg/dL Calcium (8.4-10.2) mg/dL Microbiology - Last 24 Hours (Table) 01/26/20 21:25 Gram Stain - Final Sputum Sputum Culture - Final Pseudomonas aeruginosa 01/26/20 11:56 Blood Culture - Preliminary Blood No Growth after 48 hours 01/26/20 12:06 Blood Culture - Preliminary Blood No Growth after 48 hours Assessment and Plan Assessment: Acute hypoxic respiratory failure secondary to decompensated acute CHF systolic dysfunction secondary to pulmonary edema, status post mechanical ventilator-dependent, status post BiPAP Hypotension secondary to the above, pressor dependent Acute on chronic CHF exacerbation, systolic dysfunction, EF 45-50%, status post Lasix and renal dose dopamine drips Possible interstitial pneumonia, community-acquired, sputum culture reporting Pseudomonas aeruginosa. Acute COPD exacerbation Lactic acidosis Acute on Chronic renal failure, stage III. Baseline creatinine 1.5, cardiorenal. Chronic microcytic anemia, iron deficiency Chronic persistent atrial fibrillation, maintained on Eliquis CAD, history of [place], CABG, stent Hypertension Osteoarthritis Former nicotine dependence Obesity, BMI 32.9 mitral regurgitation tricuspid regurgitation Severe pulmonary hypertension Degenerative joint disease History of prostate cancer Choi catheter placement per urology, possibly urinary retention, possible stricture Hypokalemia secondary to diuresing Metabolic alkalosis Acute metabolic encephalopathy, multifactorial, improving Plan: Continue on current medication regime , Diamox, monitoring and symptomatic treatment. Mildly worsening renal function, diuretics decreased. Maintain antibiotics of Zosyn, secondary to sputum with Pseudomonas aeruginosa. Anticoagulated with Eliquis. PT/OT. Prognosis guarded given multiple complex medical issues. The impression and plan of care has been dictated as directed. : I performed a history and examination of this patient, discussed the same with the dictator. I agree with the dictator's note ,documented as a scribe. Any additional findings or plans will be noted.
[2020-01-29] MEDS: POTASSIUM BICARBONATE/CIT AC 20 MEQ TABLET.EFF NG-TUBE SCH ×3 (15:55→18:03)
[2020-01-29 17:30] LABS: Glucose,Whole Blood 127 mg/dL (75-99)
[2020-01-29] MEDS: ATORVASTATIN 20 MG TAB PO SCH (20:42)
[2020-01-29] MEDS: POTASSIUM CHLORIDE ER 20 MEQ TAB.ER PO SCH (20:43)
[2020-01-29 23:22] LABS: Glucose,Whole Blood 145 mg/dL (75-99)
[2020-01-30] MEDS: INSULIN ASPART (NovoLOG) 100 UNIT/ML VIAL SQ SCH ×4 (00:37→18:04)
[2020-01-30] MEDS: PIPERACILLIN-TAZOBACTAM 3.375 GM in SODIUM CHLORIDE 0.9% 100 ML IVPB SCH ×3 (00:38→16:07)
[2020-01-30] MEDS: POTASSIUM BICARBONATE/CIT AC 20 MEQ TABLET.EFF NG-TUBE SCH ×2 (02:09→03:15)
[2020-01-30 04:51] LABS: Potassium 3.8 mmol/L (3.5-5.1)
[2020-01-30] MEDS ORDERED: POTASSIUM BICARBONATE/CIT AC 20 MEQ TABLET.EFF NG-TUBE SCH (06:00)
[2020-01-30] MEDS: FORMOTEROL FUMARATE 20 MCG/2 ML NEBU INHALATION SCH ×2 (07:19→20:15)
[2020-01-30] MEDS: IPRATROPIUM-ALBUTEROL 3 ML NEB INHALATION SCH ×4 (07:19→20:15)
[2020-01-30] MEDS: BUDESONIDE 1 MG/2 ML NEBU INHALATION SCH ×2 (07:19→20:15)
[2020-01-30 07:52] LABS: Glucose,Whole Blood 123 mg/dL (75-99)
[2020-01-30 08:44] LABS: Anisocytosis Moderate; Basophils % (A) 0 %; Eosinophils # (A) 0.2 k/uL (0-0.7); Eosinophils % (A) 1 %; HCT 34.7 % (39.0-53.0); HGB 9.1 gm/dL (13.0-17.5); Hypochromasia Marked; Lymphocytes # (A) 1.2 k/uL (1.0-4.8); Lymphocytes % (A) 9 %; MCH 19.7 pg (25.0-35.0); MCHC 26.3 g/dL (31.0-37.0); Mean Platelet Volume 8.4; Microcytosis Moderate; Monocytes # (A) 0.6 k/uL (0-1.0); Monocytes % (A) 5 %; Neutrophils % (A) 83 %; Platelet Count 233 k/uL (150-450); Poikilocytosis Slight; RBC 4.63 m/uL (4.30-5.90); RDW 20.4 % (11.5-15.5); WBC 13.2 k/uL (3.8-10.6)
[2020-01-30] MEDS: APIXABAN 5 MG TAB PO SCH ×2 (08:55→20:48)
[2020-01-30] MEDS: METOPROLOL TARTRATE 25 MG TAB PO SCH ×2 (08:55→20:48)
[2020-01-30] MEDS: AZITHROMYCIN 500 MG in SODIUM CHLORIDE 0.9% 250 ML IVPB SCH (08:56)
[2020-01-30] MEDS: PANTOPRAZOLE 40 MG/10 ML VIAL IV SCH (08:56)
[2020-01-30] MEDS: FUROSEMIDE 10 MG/ML 4 ML VIAL IV SCH ×2 (08:56→09:26)
--- NOTE | 2020-01-30 09:36 | PN ---
PROGRESS NOTE Mr. Gerber is a 74-year-old male who has a history of coronary artery disease, history of atrial fibrillation. He presented with respiratory failure requiring mechanical ventilation. He is extubated, feeling better today. His breathing is stable. He denies any chest pain. He denies any dizziness or palpitation. He continues to be in atrial fibrillation with controlled ventricular response. He continues to be at this time on Eliquis 5 mg twice a day, Lipitor 20 mg daily, Lasix 40 mg IV daily, metoprolol tartrate 25 mg twice a day. PHYSICAL EXAMINATION: Blood pressure 104/50 with a heart rate in the 80s. LUNGS: With a few crackles at the bases. HEART: Irregular regular, S1, S2. No S3 with a systolic murmur, no diastolic murmur, no rub. ABDOMEN: Soft, nontender. Positive bowel sounds. EXTREMITIES: With chronic stasis and 1+ edema. LAB DATA: Revealed creatinine 1.52, BUN of 44, potassium 3.8. His calcium is 8, magnesium is 2.5. IMPRESSION: 1. Respiratory failure with congestive heart failure with mildly to moderately impaired left ventricular systolic function, improving. 2. Chronic persistent atrial fibrillation. 3. Status post coronary artery bypass grafting. 4. Atrial fibrillation, anticoagulated. 5. History of chronic obstructive lung disease. 6. History of hypertension. 7. History of hyperlipidemia. RECOMMENDATION: From the cardiac standpoint, will continue present therapy. Continue to follow his renal function. I will continue on present dose of diuretics and depending on his renal function, further recommendation will be made. MMODL / IJN: [id number] /
[2020-01-30] MEDS: methylPREDNISolone SOD SUCCI 40 MG/ML 1 ML VIAL IV SCH ×2 (09:44→16:07)
[2020-01-30 11:42] LABS: Glucose,Whole Blood 205 mg/dL (75-99)
[2020-01-30 12:25] LABS: Albumin 2.5 g/dL (3.5-5.0); Calcium 7.9 mg/dL (8.4-10.2); Potassium 3.8 mmol/L (3.5-5.1); Total Bilirubin 0.7 mg/dL (0.2-1.3); Total Protein 5.8 g/dL (6.3-8.2)
[2020-01-30 13:44] LABS: Anisocytosis Moderate; HCT 33.7 % (39.0-53.0); Hypochromasia Marked; MCH 20.2 pg (25.0-35.0); MCHC 26.9 g/dL (31.0-37.0); MCV 75.1 fL (80.0-100.0); Mean Platelet Volume 7.3; Microcytosis Moderate; Platelet Count 225 k/uL (150-450); Poikilocytosis Slight; RBC 4.49 m/uL (4.30-5.90); RDW 20.8 % (11.5-15.5)
--- NOTE | 2020-01-30 14:31 | P.PN ---
Subjective Progress Note Date: 01/30/20 this is a 74-year-old male patient with known history of CAD, previous bypass surgery, COPD, congestion heart failure, chronic atrial fibrillation who has been struggling for worsening shortness of breath and he came into the hospital for further adviceon 01/21/2020. His EKG showed atrial fibrillation per chest x-ray showed basilar consolidation with interstitial pattern. His proBNP level was 4320 and the troponins were negative and echocardiogram from December showed mildly impaired LV function with an ejection fraction of 45-50% and paradoxical septal wall motion abnormality with a [id number] MR, moderate TR, severe pulmonary hypertension with a RVSP of 70 mmHg. The patient was diagnosed having an acute on top of chronic diastolic heart failure and the patient was diuresed with IV Lasix 40 mg every 8 hours and he was asked to resume his long-term medications. The patient got sick sequently transferred to the intensive care unit on 01/25/2024 worsening shortness of breath. Adequate response team was involved in a patient was found to be hypoxic and he was placed on 100% nonrebreather facemask. Subsequently was placed on a BiPAP and he got moved to the intensive care unit for further monitoring. He was kept on BiPAP and he was started on Lasix drip and he was covered with an empiric antibiotic coverage utilizing a combination of Rocephin and Zithromax. The patient currently is still on the same antibiotic coverage. He has required low-dose norepinephrine infusion for blood pressure control. He remains on Lasix drip at 10 mg an hour. His net fluid balance has been -1.5 L on 01/25/2020 . The patient was doing well and 60s of oxygen by nasal cannula. Yesterday afternoon, the patient became progressively more hypoxic and had to be intubated and placed on mechanical ventilation. Chest x-ray post intubation showed pulmonary edema essentially unchanged and ET tube was repositioned and it was in a adequate location. Post intubation blood gas showed a pH of 7.49 with a pCO2 of 41 and pO2 of 59 and a necessity ventilator changes were done. This morning of 01/27/2020,the patient is being seen in follow-up in the intensive care unit. He remains on renal dose dopamine at 2.5 mg/kg/m. He is receiving Lasix drip at 10 mg an hour in addition to Zaroxolyn 10 mg by mouth daily. Norepinephrine infusion is being utilized forblood pressure support. Meanwhile the patient is sedated with propofol and the patient is on a ventilator. The patient remains on a assist-control mode of ventilator and currently he is on a mechanical ventilator within assist-control mode at the rate of 20 with a tidal volume of 500 and FiO2 of 50% with a PEEP of 10. Blood gases from today showed a pH of 7.4 with a pCO2 of 40 and pO2 of 142. The patient's chest exit shows improvement in the pulmonary edema. The patient is on dopamine at 2.5 g per KG per minute. The patient on Lasix drip at 10 mg an hour. The patient is on levo fed running at 0.02 mg per KG per minute and IV fluids with normal state rate of 10 mL an hour. He is receiving vital 1.03 capacities an hour. He is was sedated for now with propofol. On today's evaluation of 01/28/2020, seeing the patient for a follow-up. This morning the patient remains sedated with propofol at 20 mcg/kg per minute. The patient is on normal saline at 30 mL an hour. The patient has a CVA combination of diuretics including Lasix and Zaroxolyn. The patient was also on renal dose dopamine. The patient has been a negative fluid balance of more than 3 L over the past 24 hours. The patient has developed some metabolic alkalosis. Norepinephrine is running at a lower rate of 0.08 mg per KG per minute for blood pressure support. The patient is currently on assist control mode at the rate of 12 with tidal volume of 450 and FiO2 of 40% with a PEEP of 5. The blood gases from today showed a pH of 7.58 with a pCO2 of 45 and pO2 of 117. The white cell count is at 18.1. The chest x-ray shows improvement in the pulmonary edema with some residual pleural fluid in the lung bases bilaterally. The patient also showing improvement in the renal function and creatinine is down to 1.2. No other significant events otherwise. Lactic acid level is down to 1.4. The patient is on empiric antibiotic coverage utilizing a combination of Rocephin and Zithromax. The patient is on long-term and to coagulation with Eliquis 5 mg by mouth twice a day. Norepinephrine dose being titrated accordingly. On 01/29/2020, the patient is extubated. Noted the patient was taken off the sedation yesterday and he remains quite sleepy and drowsy for prolonged period of time. Ultimately by afternoon, he was extubated to BiPAP. He remained on BiPAP throughout the night and the patient continues to be the BiPAP this morning. He became slightly there is a sitter at the bedside. On today's evaluation, I saw in the ICU. He was on a BiPAP pressure of 10/5 cm of water and FiO2 of 40%. He was extubated. His IV fluids were running at KVO. He was in atrial fibrillation with a controlled rate. His chest x-ray showed improvem ent in the pulmonary edema. The patient was in a negative fluid balance of at least 6 L over the past 24 hours. He has developed some metabolic alkalosis and a serum bicarbonate is up to 37. BUN is at 47 with a creatinine of 1.5. Based on that, we are going to back off on his diuretics. Diabetes. 40 mg every 24 hours. He remains on DuoNeb nebulized treatments around the clock. He remains on a combination of Zosyn and Zithromax. Zosyn was added and the Rocephin was up as the patient sputum Gram stain and culture showed pneumonias aeruginosa. The Is a 16. Hemoglobin Dropped down to 9.0. No Other Significant Events Otherwise for Now. The Patient Is Currently off Pressors. On 01/30/2020, the patient remains extubated. He is doing well. No specific complaints. He was weaned down to 5 L of oxygen by nasal cannula. He was extubated more than 24 hours ago. He is on KVO IV fluids. Lasix has been discontinued as the patient demonstrated excellent diuresis. The patient has been in a negative fluid balance over long and net fluid balance was also negative over the past 24 hours. The patient's creatinine is at 1.5 which is stable compared to yesterday with a BUN of 40. Sodium is up to 147. The patient also has no fever. No chills. He was eating food. His chest x-ray from today is showing improved left pleural effusion with her was a new place right-sided pleural effusion noted. His cardiomediastinal structures were stable and the patient is post bypass surgery. He was found to be somewhat bronchospastic and wheezy on today's evaluation. He was started on IV Solu- Medrol 40 mg every 8 hours. He is still on Zosyn and Zithromax as broad- spectrum antibiotic coverage as the patient was found to have pseudomonas in his sputum. He remains on long-term and to coagulation with Eliquis 5 mg by mouth twice a day. Objective - Vital Signs Vital signs: Vital Signs Temp 97.4 F L 01/30/20 12:00 Pulse 98 01/30/20 14:00 Resp 18 01/30/20 14:00 BP 89/55 01/30/20 07:30 Pulse Ox 95 01/30/20 14:00 Intake & Output 01/29/20 01/30/20 01/30/20 18:59 06:59 18:59 Intake Total 1750 676 732 Output Total 1175 860 440 Balance 575 -184 292 Weight 107.1 kg 105.4 kg Intake: IV 806 276 514 Azithromycin 500 mg In 250 250 Sodium Chloride 0.9% 250 ml @ 250 mls/hr IVPB DAILY [facility] Rx#:[id number] KVO 220 240 143 Piperacillin-Tazobactam 3 200 100 .375 gm In Sodium Chloride 0.9% 100 ml @ 25 mls/hr IVPB Q8HR [facility] Rx# :[id number] Pressure bag 36 36 21 Sodium Ferric Gluconat- 100 Sucrose 125 mg In Sodium Chloride 0.9% 100 ml @ 100 mls/hr IVPB DAILY [facility] Rx#:[id number] Oral 944 400 218 Output: Urine 1175 860 440 Other: Voiding Method Indwelling Catheter Indwelling Catheter Indwelling Catheter ABP, PAP, CO, CI - Last Documented Arterial Blood Pressure 90/35 - Exam GENERAL EXAM: Alert, pleasant 74-year-old gentleman, currently extubated and the patient was taken off the BiPAP and the patient is currently on 5 L of oxygen by nasal cannula. the patient has a left IJ triple-lumen catheter in place. HEAD: Normocephalic. EYES: Normal reaction of pupils, equal size. NOSE: Clear with pink turbinates. THROAT: No erythema or exudates. NECK: No masses, no JVD. CHEST: No chest wall deformity. LUNGS: Equal air entry with crackles in the bilateral posterior bases CVS: S1 and S2 normal with no audible murmur, irregular rhythm. ABDOMEN: No hepatosplenomegaly, normal bowel sounds, no guarding or rigidity. SPINE: No scoliosis or deformity SKIN: No rashes CENTRAL NERVOUS SYSTEM: No focal deficits, tone is normal in all 4 extremities. He did have some confusion and the patient is improved for now. There is a sitter at the bedside. EXTREMITIES: There is 1+ peripheral edema. No clubbing, no cyanosis. P eripheral pulses are intact. - Labs CBC & Chem 7: 01/30/20 13:29 01/30/20 11:59 Labs: Abnormal Lab Results - Last 24 Hours (Table) 01/29/20 01/29/20 01/29/20 Range/Units 15:13 15:13 17:28 WBC (3.8-10.6) k/uL Hgb (13.0-17.5) gm/dL Hct (39.0-53.0) % MCV (80.0-100.0) fL MCH (25.0-35.0) pg MCHC (31.0-37.0) g/dL RDW (11.5-15.5) % Neutrophils # (1.3-7.7) k/uL Sodium (137-145) mmol/L Potassium 2.8 L (3.5-5.1) mmol/L Carbon Dioxide (22-30) mmol/L BUN (9-20) mg/dL Creatinine (0.66-1.25) mg/dL Glucose (74-99) mg/dL POC Glucose (mg/dL) 127 H (75-99) mg/dL Calcium (8.4-10.2) mg/dL Magnesium 2.5 H (1.6-2.3) mg/dL Total Protein (6.3-8.2) g/dL Albumin (3.5-5.0) g/dL 01/29/20 01/30/20 01/30/20 Range/Units 23:20 00:30 04:25 WBC (3.8-10.6) k/uL Hgb (13.0-17.5) gm/dL Hct (39.0-53.0) % MCV (80.0-100.0) fL MCH (25.0-35.0) pg MCHC (31.0-37.0) g/dL RDW (11.5-15.5) % Neutrophils # (1.3-7.7) k/uL Sodium (137-145) mmol/L Potassium 3.3 L (3.5-5.1) mmol/L Carbon Dioxide 38 H (22-30) mmol/L BUN 44 H (9-20) mg/dL Creatinine 1.52 H (0.66-1.25) mg/dL Glucose 133 H (74-99) mg/dL POC Glucose (mg/dL) 145 H (75-99) mg/dL Calcium 8.0 L (8.4-10.2) mg/dL Magnesium (1.6-2.3) mg/dL Total Protein (6.3-8.2) g/dL Albumin (3.5-5.0) g/dL 01/30/20 01/30/20 01/30/20 Range/Units 04:25 07:51 11:41 WBC 13.2 H (3.8-10.6) k/uL Hgb 9.1 L (13.0-17.5) gm/dL Hct 34.7 L (39.0-53.0) % MCV 75.0 L (80.0-100.0) fL MCH 19.7 L (25.0-35.0) pg MCHC 26.3 L (31.0-37.0) g/dL RDW 20.4 H (11.5-15.5) % Neutrophils # 11.0 H (1.3-7.7) k/uL Sodium (137-145) mmol/L Potassium (3.5-5.1) mmol/L Carbon Dioxide (22-30) mmol/L BUN (9-20) mg/dL Creatinine (0.66-1.25) mg/dL Glucose (74-99) mg/dL POC Glucose (mg/dL) 123 H 205 H (75-99) mg/dL Calcium (8.4-10.2) mg/dL Magnesium (1.6-2.3) mg/dL Total Protein (6.3-8.2) g/dL Albumin (3.5-5.0) g/dL 01/30/20 01/30/20 Range/Units 11:59 13:29 WBC 16.0 H (3.8-10.6) k/uL Hgb 9.0 L (13.0-17.5) gm/dL Hct 33.7 L (39.0-53.0) % MCV 75.1 L (80.0-100.0) fL MCH 20.2 L (25.0-35.0) pg MCHC 26.9 L (31.0-37.0) g/dL RDW 20.8 H (11.5-15.5) % Neutrophils # (1.3-7.7) k/uL Sodium 147 H (137-145) mmol/L Potassium (3.5-5.1) mmol/L Carbon Dioxide 40 H (22-30) mmol/L BUN 43 H (9-20) mg/dL Creatinine 1.54 H (0.66-1.25) mg/dL Glucose 188 H (74-99) mg/dL POC Glucose (mg/dL) (75-99) mg/dL Calcium 7.9 L (8.4-10.2) mg/dL Magnesium (1.6-2.3) mg/dL Total Protein 5.8 L (6.3-8.2) g/dL Albumin 2.5 L (3.5-5.0) g/dL Microbiology - Last 24 Hours (Table) 01/26/20 12:06 Blood Culture - Preliminary Blood No Growth after 96 hours 01/26/20 11:56 Blood Culture - Preliminary Blood No Growth after 96 hours Assessment and Plan Plan: 1 acute hypoxic respiratory failure secondary to acute decompensated systolic heaailure/pulmonary edema. The patient's present with congestion heart failure. The patient had a mildly impaired left ventricular systolic function ejection fraction 45-50%. he patient was treated with a combination of diuretics utilizing Lasix and Zaroxolyn was placed on dopamine drip. Nevertheless the patient's condition decompensated and the patient had to be intubated yesterday and placed on mechanical ventilator and the post intubation chest x-rays consistent with pulmonary edema. Note that the patient also has significant pulmonary hypertension on echocardiogram, probably chronic and the PA pressures arequite elevated with an RVSP of 70 without any significant respiratory collapse of the IVC consistent withright-sided fluid overload. He has severe pulmonary hypertension consistent with right heart failure along with mild to moderate MR His LA is severely dilated also. No history of any pulmonary embolism. On 01/27/2020, the patient remains extubated on 5 L of oxygen by nasal cannula. Chest x-ray shows tiny pleural effusion on the right and left-sided pleural effusion is improved. He has pseudomonas aeruginosa and the patient is on Zosyn. Lasix have been discontinued. The patient is feeling better and is eating well. No signs of any significant respiratory distress for now. He was slightly bronchospastic and wheezy and the patient was started on IV Solu Medrol in addition to antibiotic coverage. 2 Acute exacerbation of chronic obstructive pulmonary disease, currently on bronchodilators and systemic steroids. The patient also being treated for pseudomonas aeruginosa in the sputum with Zosyn. 3 severe secondary pulmonary hypertension, details as discussed above 4 Coronary artery disease, the with previous history of coronary artery bypass surgery 5 chronic atrial fibrillation maintained on Eliquis on outpatient basis 6 History of prostate cancer 7 Hyperlipidemia 8 chronic kidney disease stage III without evidence of any hydronephrosis based on the ultrasound of the kidneys done during this current admission. The renal function is also normalized and the creatinine is down to 1.2, and the patient has excellent urine output 9 chronic microcytic anemia, rule out underlying iron deficiency 10 leukocytosis, white cell count remains elevated at 16 Plan Discontinue the Lasix The patient continues to have some degree of metabolic alkalosis and a serum bicarb is at 40, yet the renal function stable at creatinine of 1.5 Date the patient 5 L of oxygen by nasal cannula and discontinued the BiPAP Monitor mental status Zosyn based on pseudomonas aeruginosa cultures in the sputum Give the patient long-term and to coagulation with Eliquis Condition is essentially stable. Advance diet. Monitor white count. Monitor renal function and the patient can be transferred to a telemetry unit today for further evaluation and monitoring.
--- NOTE | 2020-01-30 15:34 | P.PN ---
Subjective Progress Note Date: 01/30/20 This a 74-year-old gentleman with medical history of CAD, MD, CABG, CHF, COPD, DVT, and multiple other medical issues presented to the ER with complaints of worsening shortness of breath and bilateral lower extremity edema. Reports over the last week medications adjusted/Lasix increased per PCP with no improvement in symptoms and presented to the ER. BUN 89, Creatinine 1.6, baseline 1.5, INR 1.5. Denies fever or chills. Denies sore throat. Reports occasional nonproductive cough ,exertional dyspnea, orthopnea. Denies chest pain, palpitations. Denies lightheadedness, dizziness or focal deficits. WBC 14.8. Lactic acid 2.1. Neutrophils 12.8 . Afebrile. EKG reported sinus rhythm with left bundle branch block ,anterior lateral infarct, age undetermined, possible septal sub-endocardial injury. Troponins negative 1. BNP 4320. AST 60, ALT 99. Hemoglobin 9.9. Chest x-ray reporting interstitial pattern, bibasilar consolidation, CHF versus interstitial pneumonia. Vital signs stable, rodrigue ntaining O2 sats in the 90s on 3 L nasal cannula. 01/22/2020 diuresing on Lasix IV push with 24-hour I&O reflecting a negative fluid balance. Edema improving. Renal function improving, BUN 76 creatinine 1.5. Oxygen requirements titrated down to 2 L, maintaining O2 sats in the 90s. Borderline hypotension. Denies chest pain, palpitations or increasing shortness of breath. 01/23/2020 maintained on 1500 MLS fluid restriction, low-salt diet and diuretics . Lasix dosing adjusted yesterday to avoid night dose and facilitate sleep. 24- hour I&O inaccurate. Reports better sleep, breathing improving. Staff reports exertional dyspnea .Maintaining O2 sats in the 90s on 3 L nasal cannula. Bord alex hypotension. Evaluated by nephrology with recommendations noted. Creatinine slowly trending down, currently 1.43. Renal ultrasound unremarkable. LFTs within normal limits with exception of mild elevation of ALT. Sodium 136, potassium 4.3, magnesium 2.2 01/24/2020 Lasix infusion initiated yesterday afternoon as per nephrology. 24- hour I&O reporting increased weight. Significant edema. Worsening dyspnea. Maintaining O2 sats in the low 90s on 4 L nasal cannula O2. Renal function sta ble. Potassium 5.4 Telemetry reporting controlled A. fib with short asymptomatic, nonsustained V. tach run earlier this morning. 01/27/2020 patient developed worsening shortness of breath, was transferred to ICU yesterday, intubated. ABGs noted. Remains vent dependent with FiO2 weaned down to 40% and PEEP weaned down to +6. Maintained on renal dose dopamine, Lasix drip, Levophed, diprovan. Chest x-ray reporting improvement. Renal function improving. Potassium 3.2, magnesium pending. 01/28/2020 chest x-ray reports improvement. Maintained on mechanical ventilation with FiO2 40%, PEEP weaned down to +5. Lasix and dopamine drips have been discontinued. Receiving Diamox 2 doses. Lasix converted to IV push. Remains pressor dependent with Levophed weaning in progress renal function continues to improve, creatinine down to 1.2. Maintained on Rocephin and Zithromax. Sputum culture currently reporting gram-negative bacilli. Potassium being replaced. Sedation holiday being discussed, but patient extremely weak, opening eyes. 01/29/2020 patient extubated yesterday afternoon , maintained overnight on BiPAP .this morning, currently maintaining O2 sats in the 90s on 7 L high flow nasal cannula. Afebrile, T-max 100.6, WBC trending down currently 16. Sputum cultures reporting Pseudomonas aeruginosa, maintained on Zosyn. Sitter at bedside. Standing up at bedside with PT. Chest x-ray reporting improvement left pleural effusion with new trace right pleural effusion with possible bibasilar atelectasis. Hemoglobin dropped to 9. INR 1.3. Diuresing well on Lasix IV push with 24-hour I&O reflecting a negative fluid balance. Renal function mildly worsening, BUN 47, creatinine up to 1.58. Potassium 3.5. Alkalotic,Bicarb 37. Telemetry atrial fibrillation with controlled ventricular rate. 01/30/2020 maintained on Zithromax, Zosyn. Breathing continues to improve, weaned down to 5 L nasal cannula, maintaining O2 sats in the 90s, wheezy. IV steroids added to med regime. Mild tachycardia, low 100s. Afebrile. Diuresed well on Lasix IV push with 24-hour I&O reflecting a negative fluid balance. Chest x-ray reporting improvement left pleural effusion, new trace right pleural effusion. Renal function stable, BUN 43, creatinine 1.54. Sodium up to 147. B icarb 40. Lasix has been discontinued. Objective - Vital Signs Vital signs: Vital Signs Temp 97.4 F L 01/30/20 12:00 Pulse 86 01/30/20 15:00 Resp 15 01/30/20 15:00 BP 108/45 01/30/20 15:00 Pulse Ox 93 L 01/30/20 15:00 Intake & Output 01/29/20 01/30/20 01/30/20 18:59 06:59 18:59 Intake Total 1750 676 732 Output Total 1175 860 440 Balance 575 -184 292 Weight 107.1 kg 105.4 kg Intake: IV 806 276 514 Azithromycin 500 mg In 250 250 Sodium Chloride 0.9% 250 ml @ 250 mls/hr IVPB DAILY [facility] Rx#:[id number] KVO 220 240 143 Piperacillin-Tazobactam 3 200 100 .375 gm In Sodium Chloride 0.9% 100 ml @ 25 mls/hr IVPB Q8HR [facility] Rx# :[id number] Pressure bag 36 36 21 Sodium Ferric Gluconat- 100 Sucrose 125 mg In Sodium Chloride 0.9% 100 ml @ 100 mls/hr IVPB DAILY [facility] Rx#:[id number] Oral 944 400 218 Output: Urine 1175 860 440 Other: Voiding Method Indwelling Catheter Indwelling Catheter Indwelling Catheter ABP, PAP, CO, CI - Last Documented Arterial Blood Pressure 113/48 - Exam VITAL SIGNS: As above GENERAL: Sitting up in bed, no acute distress. Alert and oriented 2-3. HEENT: Conjunctivae normal. eyes normal. NECK: No JVD. No thyroid enlargement. No LNs CARDIOVASCULAR: S1, S2, irregular. Systolic murmur. RESPIRATION: Breath sounds diminished in the bases. Scattered crackles throughout, expiratory wheezing ABDOMEN: Soft, obese, nontender . No guarding. no masses palpable. Bowel sounds heard. LEGS: Bilateral chronic venous stasis with decreasing edema NERVOUS SYSTEM: No focal deficits. Skin: no rash , warm and dry Microbiology 01/26/20 11:56 Blood Blood Culture - Preliminary No Growth after 72 hours 01/26/20 12:06 Blood Blood Culture - Preliminary No Growth after 72 hours 01/26/20 21:25 Sputum Gram Stain - Final 01/26/20 21:25 Sputum Sputum Culture - Final Pseudomonas aeruginosa - Labs CBC & Chem 7: 01/30/20 13:29 01/30/20 11:59 Labs: Abnormal Lab Results - Last 24 Hours (Table) 01/29/20 01/29/20 01/29/20 Range/Units 15:13 15:13 17:28 WBC (3.8-10.6) k/uL Hgb (13.0-17.5) gm/dL Hct (39.0-53.0) % MCV (80.0-100.0) fL MCH (25.0-35.0) pg MCHC (31.0-37.0) g/dL RDW (11.5-15.5) % Neutrophils # (1.3-7.7) k/uL Sodium (137-145) mmol/L Potassium 2.8 L (3.5-5.1) mmol/L Carbon Dioxide (22-30) mmol/L BUN (9-20) mg/dL Creatinine (0.66-1.25) mg/dL Glucose (74-99) mg/dL POC Glucose (mg/dL) 127 H (75-99) mg/dL Calcium (8.4-10.2) mg/dL Magnesium 2.5 H (1.6-2.3) mg/dL Total Protein (6.3-8.2) g/dL Albumin (3.5-5.0) g/dL 01/29/20 01/30/20 01/30/20 Range/Units 23:20 00:30 04:25 WBC (3.8-10.6) k/uL Hgb (13.0-17.5) gm/dL Hct (39.0-53.0) % MCV (80.0-100.0) fL MCH (25.0-35.0) pg MCHC (31.0-37.0) g/dL RDW (11.5-15.5) % Neutrophils # (1.3-7.7) k/uL Sodium (137-145) mmol/L Potassium 3.3 L (3.5-5.1) mmol/L Carbon Dioxide 38 H (22-30) mmol/L BUN 44 H (9-20) mg/dL Creatinine 1.52 H (0.66-1.25) mg/dL Glucose 133 H (74-99) mg/dL POC Glucose (mg/dL) 145 H (75-99) mg/dL Calcium 8.0 L (8.4-10.2) mg/dL Magnesium (1.6-2.3) mg/dL Total Protein (6.3-8.2) g/dL Albumin (3.5-5.0) g/dL 01/30/20 01/30/20 01/30/20 Range/Units 04:25 07:51 11:41 WBC 13.2 H (3.8-10.6) k/uL Hgb 9.1 L (13.0-17.5) gm/dL Hct 34.7 L (39.0-53.0) % MCV 75.0 L (80.0-100.0) fL MCH 19.7 L (25.0-35.0) pg MCHC 26.3 L (31.0-37.0) g/dL RDW 20.4 H (11.5-15.5) % Neutrophils # 11.0 H (1.3-7.7) k/uL Sodium (137-145) mmol/L Potassium (3.5-5.1) mmol/L Carbon Dioxide (22-30) mmol/L BUN (9-20) mg/dL Creatinine (0.66-1.25) mg/dL Glucose (74-99) mg/dL POC Glucose (mg/dL) 123 H 205 H (75-99) mg/dL Calcium (8.4-10.2) mg/dL Magnesium (1.6-2.3) mg/dL Total Protein (6.3-8.2) g/dL Albumin (3.5-5.0) g/dL 01/30/20 01/30/20 Range/Units 11:59 13:29 WBC 16.0 H (3.8-10.6) k/uL Hgb 9.0 L (13.0-17.5) gm/dL Hct 33.7 L (39.0-53.0) % MCV 75.1 L (80.0-100.0) fL MCH 20.2 L (25.0-35.0) pg MCHC 26.9 L (31.0-37.0) g/dL RDW 20.8 H (11.5-15.5) % Neutrophils # (1.3-7.7) k/uL Sodium 147 H (137-145) mmol/L Potassium (3.5-5.1) mmol/L Carbon Dioxide 40 H (22-30) mmol/L BUN 43 H (9-20) mg/dL Creatinine 1.54 H (0.66-1.25) mg/dL Glucose 188 H (74-99) mg/dL POC Glucose (mg/dL) (75-99) mg/dL Calcium 7.9 L (8.4-10.2) mg/dL Magnesium (1.6-2.3) mg/dL Total Protein 5.8 L (6.3-8.2) g/dL Albumin 2.5 L (3.5-5.0) g/dL Microbiology - Last 24 Hours (Table) 01/26/20 12:06 Blood Culture - Preliminary Blood No Growth after 96 hours 01/26/20 11:56 Blood Culture - Preliminary Blood No Growth after 96 hours Assessment and Plan Assessment: Acute hypoxic respiratory failure secondary to decompensated acute CHF systolic dysfunction secondary to pulmonary edema, status post mechanical ventilator- dependent, status post BiPAP Hypotension secondary to the above, pressor dependent Acute on chronic CHF exacerbation, systolic dysfunction, EF 45-50%, status post Lasix and renal dose dopamine drips Possible interstitial pneumonia, community-acquired, sputum culture reporting Pseudomonas aeruginosa. Acute COPD exacerbation Lactic acidosis Acute on Chronic renal failure, stage III. Baseline creatinine 1.5, cardiorenal. Acute hypoxic respiratory failure secondary to acute CHF exacerbation, systolic dysfunction, status post mechanical ventilator dependent. Chronic microcytic anemia, iron deficiency Chronic persistent atrial fibrillation, maintained on Eliquis CAD, history of MD, CABG, stent Hypertension Osteoarthritis Former nicotine dependence Obesity, BMI 32.9 mitral regurgitation tricuspid regurgitation Severe pulmonary hypertension Degenerative joint disease History of prostate cancer Choi catheter placement per urology, possibly urinary retention, possible stricture Hypokalemia secondary to diuresing Metabolic alkalosis Acute metabolic encephalopathy, multifactorial, improving Plan: Continue on current medication regime , Diamox, monitoring and symptomatic treatment. Continue antibiotics of Zosyn, secondary to sputum with Pseudomonas aeruginosa. Lasix discontinued. Close monitoring of renal function, el ectrolytes with repeat labs ordered for a.m. Anticoagulated with Eliquis. PT/OT. Patient cleared by project manager interior design for transfer out of ICU to stepdown unit .Prognosis guarded given multiple complex medical issues. The impression and plan of care has been dictated as directed. : I performed a history and examination of this patient, discussed the same with the dictator. I agree with the dictator's note ,documented as a scribe. Any additional findings or plans will be noted.
--- NOTE | 2020-01-30 15:39 | PN ---
PROGRESS NOTE Patient is seen for followup for acute kidney injury which was initially mainly cardiorenal, for which patient was being diuresed. He was maintained on Lasix drip. However, he developed significant metabolic alkalosis and worsening of renal function. Lasix drip was discontinued and currently patient is maintained on IV Lasix once a day. This is now discontinued. Patient had developed episodes of hypotension with occasional blood pressure dropping down to the 90s for systolic. His heart rate is 93 per minute. He is afebrile. Patient is awake, confused, not in any acute distress. Examination of lower extremities shows edema 2+ bilaterally. Chronic skin changes noted. Abdomen is soft, nontender. Labs show hemoglobin 9.0, sodium 147, potassium 3.8, chloride 101. CO2 is 40, BUN 43, serum creatinine 1.54. ASSESSMENT: 1. Acute kidney injury, most recently associated with recent diuresis and hypotension. However, patient is nonoliguric with good urine output. Lasix is now discontinued, which is okay. We can continue to monitor his volume status. Chest x-ray from yesterday shows improved left pleural effusion, and clinically patient is stable in terms of volume status. His serum creatinine is staying at 1.5 for the last couple of days. He continues to have good urine output with no major nephrotoxic medications noted. 2. Mild hypernatremia associated with free water deficit. Patient is encouraged to increase plain water. Continue off of Lasix. Repeat labs in a.m. I will add low- dose D5W if the hypernatremia is worse tomorrow. 3. Pneumonia, with sputum culture growing Pseudomonas. 4. Metabolic alkalosis secondary to diuresis, maintained on Diamox. PLAN: Encourage increased free water intake. Continue antibiotics. Repeat labs in a.m. MMODL / IJN: [id number] /
[2020-01-30 17:19] LABS: Glucose,Whole Blood 141 mg/dL (75-99)
[2020-01-30] MEDS: ATORVASTATIN 20 MG TAB PO SCH (20:48)
[2020-01-30] MEDS: POTASSIUM CHLORIDE ER 20 MEQ TAB.ER PO SCH (20:48)
[2020-01-31] MEDS: PIPERACILLIN-TAZOBACTAM 3.375 GM in SODIUM CHLORIDE 0.9% 100 ML IVPB SCH ×4 (00:07→17:43)
[2020-01-31 00:09] LABS: Glucose,Whole Blood 176 mg/dL (75-99)
[2020-01-31] MEDS: methylPREDNISolone SOD SUCCI 40 MG/ML 1 ML VIAL IV SCH ×3 (00:15→16:22)
[2020-01-31] MEDS: INSULIN ASPART (NovoLOG) 100 UNIT/ML VIAL SQ SCH ×4 (00:15→17:42)
[2020-01-31 06:10] LABS: Glucose,Whole Blood 140 mg/dL (75-99)
[2020-01-31] MEDS: IPRATROPIUM-ALBUTEROL 3 ML NEB INHALATION SCH ×4 (07:14→18:53)
[2020-01-31] MEDS: FORMOTEROL FUMARATE 20 MCG/2 ML NEBU INHALATION SCH ×2 (07:14→18:53)
[2020-01-31] MEDS: BUDESONIDE 1 MG/2 ML NEBU INHALATION SCH ×2 (07:14→18:53)
[2020-01-31 08:19] LABS: Calcium 7.9 mg/dL (8.4-10.2); Potassium 3.5 mmol/L (3.5-5.1)
[2020-01-31] MEDS: PANTOPRAZOLE 40 MG/10 ML VIAL IV SCH (08:52)
[2020-01-31] MEDS: AZITHROMYCIN 500 MG in SODIUM CHLORIDE 0.9% 250 ML IVPB SCH (08:52)
[2020-01-31] MEDS: METOPROLOL TARTRATE 25 MG TAB PO SCH ×2 (08:52→21:56)
[2020-01-31] MEDS: APIXABAN 5 MG TAB PO SCH ×2 (08:52→21:56)
--- NOTE | 2020-01-31 10:23 | P.PN ---
Subjective Progress Note Date: 01/31/20 This is a 74-year-old male patient with known history of CAD, previous bypass surgery, COPD, congestion heart failure, chronic atrial fibrillation hypertension, hyperlipidemia, who presented to the hospital with symptoms of progressively worsening shortness of breath. The patient was in respiratory failure requiring mechanical ventilation. He is being followed today on the cardiac unit. At present the patient is off any diuretics because of abnormality in renal function, this is being managed by nephrology. Blood pressure 104/60 with a heart rate of 90. Sodium 140, potassium 3.5, BUN 45, creatinine 1.5. Objective - Vital Signs Vital signs: Vital Signs Temp 97.5 F L 01/31/20 08:00 Pulse 96 01/31/20 08:04 Resp 20 01/31/20 08:00 BP 103/61 01/31/20 08:00 Pulse Ox 93 L 01/31/20 08:00 Intake & Output 01/30/20 01/31/20 01/31/20 18:59 06:59 18:59 Intake Total 778 840 Output Total 640 Balance 138 840 Weight 107.5 kg Intake: IV 560 Azithromycin 500 mg In 250 Sodium Chloride 0.9% 250 ml @ 250 mls/hr IVPB DAILY [facility] Rx#:[id number] KVO 166 Piperacillin-Tazobactam 3 100 .375 gm In Sodium Chloride 0.9% 100 ml @ 25 mls/hr IVPB Q8HR [facility] Rx# :[id number] Pressure bag 44 Oral 218 840 Output: Urine 640 Other: Voiding Method Indwelling Catheter Indwelling Catheter ABP, PAP, CO, CI - Last Documented Arterial Blood Pressure 112/49 - Exam GENERAL EXAM: Alert, pleasant 74-year-old gentleman, in no acute distress at the time of my examination HEAD: Normocephalic. EYES: Normal reaction of pupils, equal size. NOSE: Clear with pink turbinates. THROAT: No erythema or exudates. NECK: No masses, no JVD. CHEST: No chest wall deformity. LUNGS: Equal air entry with crackles in the bilateral posterior bases CVS: S1 and S2 normal with no audible murmur, irregular rhythm. ABDOMEN: No hepatosplenomegaly, normal bowel sounds, no guarding or rigidity. SPINE: No scoliosis or deformity SKIN: No rashes CENTRAL NERVOUS SYSTEM: No focal deficits, tone is normal in all 4 extremities. He did have some confusion and the patient is improved for now. There is a si tter at the bedside. EXTREMITIES: There is 1+ peripheral edema. No clubbing, no cyanosis. Peripher al pulses are intact. - Labs CBC & Chem 7: 01/30/20 13:29 01/31/20 07:52 Labs: Abnormal Lab Results - Last 24 Hours (Table) 01/30/20 01/30/20 01/30/20 Range/Units 11:41 11:59 13:29 WBC 16.0 H (3.8-10.6) k/uL Hgb 9.0 L (13.0-17.5) gm/dL Hct 33.7 L (39.0-53.0) % MCV 75.1 L (80.0-100.0) fL MCH 20.2 L (25.0-35.0) pg MCHC 26.9 L (31.0-37.0) g/dL RDW 20.8 H (11.5-15.5) % Sodium 147 H (137-145) mmol/L Carbon Dioxide 40 H (22-30) mmol/L BUN 43 H (9-20) mg/dL Creatinine 1.54 H (0.66-1.25) mg/dL Glucose 188 H (74-99) mg/dL POC Glucose (mg/dL) 205 H (75-99) mg/dL Calcium 7.9 L (8.4-10.2) mg/dL Total Protein 5.8 L (6.3-8.2) g/dL Albumin 2.5 L (3.5-5.0) g/dL 01/30/20 01/31/20 01/31/20 Range/Units 17:17 00:08 06:08 WBC (3.8-10.6) k/uL Hgb (13.0-17.5) gm/dL Hct (39.0-53.0) % MCV (80.0-100.0) fL MCH (25.0-35.0) pg MCHC (31.0-37.0) g/dL RDW (11.5-15.5) % Sodium (137-145) mmol/L Carbon Dioxide (22-30) mmol/L BUN (9-20) mg/dL Creatinine (0.66-1.25) mg/dL Glucose (74-99) mg/dL POC Glucose (mg/dL) 141 H 176 H 140 H (75-99) mg/dL Calcium (8.4-10.2) mg/dL Total Protein (6.3-8.2) g/dL Albumin (3.5-5.0) g/dL 01/31/20 Range/Units 07:52 WBC (3.8-10.6) k/uL Hgb (13.0-17.5) gm/dL Hct (39.0-53.0) % MCV (80.0-100.0) fL MCH (25.0-35.0) pg MCHC (31.0-37.0) g/dL RDW (11.5-15.5) % Sodium (137-145) mmol/L Carbon Dioxide 37 H (22-30) mmol/L BUN 45 H (9-20) mg/dL Creatinine 1.59 H (0.66-1.25) mg/dL Glucose 132 H (74-99) mg/dL POC Glucose (mg/dL) (75-99) mg/dL Calcium 7.9 L (8.4-10.2) mg/dL Total Protein (6.3-8.2) g/dL Albumin (3.5-5.0) g/dL Microbiology - Last 24 Hours (Table) 01/26/20 12:06 Blood Culture - Preliminary Blood No Growth after 96 hours 01/26/20 11:56 Blood Culture - Preliminary Blood No Growth after 96 hours Assessment and Plan Plan: Assessment and Plan: #1 acute hypoxic respiratory failure secondary to acute systolic congestive heart failure nary edema. #2 Acute exacerbation of chronic obstructive pulmonary disease #3 severe secondary pulmonary hypertension #4 Coronary artery disease, the with previous history of coronary artery bypass surgery #5 chronic atrial fibrillation maintained on Eliquis on outpatient basis #6 History of prostate cancer #7 Hyperlipidemia #8 chronic kidney disease stage III #9 chronic microcytic anemia, rule out underlying iron deficiency Plan From cardiology's perspective, we will recommend the patient on his current medications. Diuretic management as per nephrology. DNP note has been reviewed, I agree with a documented findings and plan of care. Patient was seen and examined.
[2020-01-31 11:42] LABS: Glucose,Whole Blood 167 mg/dL (75-99)
--- NOTE | 2020-01-31 12:33 | PN ---
PROGRESS NOTE Patient is seen for followup for acute kidney injury. He was initially maintained on Lasix drip for severe volume overload and CHF. Patient's serum creatinine has been staying at about 1.5. It did go down to 1.2 at one point. He also developed metabolic alkalosis. Therefore, he was taken off diuretics. Renal function is currently fairly stable. Patient is awake, comfortable. He has been transferred out of the ICU. PHYSICAL EXAMINATION: On examination today, blood pressure 95/55, heart rate 85 per minute, he is afebrile. Examination of the heart S1, S2. Examination of the lungs, decreased breath sounds at the bases. Abdomen is soft, obese. Examination of the lower extremities shows edema 2+ bilaterally. PHYSICIAN EXTENDER exam grossly intact. LABS: Show sodium 140, potassium 3.5, chloride 98, CO2 is 37, BUN 45, creatinine 1.59, hemoglobin 9.0. ASSESSMENT: 1. Acute kidney injury, cardiorenal, renal function had improved; however, serum creatinine has increased again. However, I believe that maybe his baseline at about 1.5. I will resume loop diuretics. 2. Metabolic alkalosis secondary to diuretics, status post Diamox. 3. Hypokalemia, maintained on supplementation. 4. Pneumonia with sputum culture growing Pseudomonas, maintained on antibiotics. 5. Congestive heart failure, ejection fraction not known, most likely systolic from the notes. It appears that the ejection fraction has been 45%-50% from Cardiology notes. PLAN: Resume oral loop diuretics. Monitor for alkalosis. Repeat labs in a.m. MMLATHAL / ROSALINON: [id number] /
[2020-01-31] MEDS: FUROSEMIDE 10 MG/ML 4 ML VIAL IV SCH ×2 (12:52→16:23)
[2020-01-31 13:07] VITALS: BMI 32.1
--- NOTE | 2020-01-31 14:35 | P.PN ---
Subjective Progress Note Date: 01/31/20 Principal diagnosis: Acute exacerbation of congestive heart failure/COPD The patient is seen today 01/31/2020 in follow-up on the selective care unit. He is currently sitting up in a chair at the bedside. Awake and alert in no acute distress. Currently maintaining O2 saturations in the mid 90s on 5 L high flow nasal cannula. He is afebrile. Sputum cultures positive for pseudomonas. Blood cultures reveal no growth. Sodium 140. Potassium 3.5. Creatinine 1.59. He is continued on bronchodilators, IV Solu-Medrol, antibiotics in the form of Zosyn. He remains on IV diuretics 40 mg of Lasix every 8 hours. Continued with lower extremity edema. Currently in a positive balance. Weight 107.5 kg. Objective - Vital Signs Vital signs: Vital Signs Temp 97.3 F L 01/31/20 10:57 Pulse 100 01/31/20 11:15 Resp 20 01/31/20 10:57 BP 95/55 01/31/20 10:57 Pulse Ox 96 01/31/20 10:57 Intake & Output 01/30/20 01/31/20 01/31/20 18:59 06:59 18:59 Intake Total 778 840 Output Total 640 Balance 138 840 Weight 107.5 kg 107.5 kg Intake: IV 560 Azithromycin 500 mg In 250 Sodium Chloride 0.9% 250 ml @ 250 mls/hr IVPB DAILY [facility] Rx#:[id number] KVO 166 Piperacillin-Tazobactam 3 100 .375 gm In Sodium Chloride 0.9% 100 ml @ 25 mls/hr IVPB Q8HR [facility] Rx# :[id number] Pressure bag 44 Oral 218 840 Output: Urine 640 Other: Voiding Method Indwelling Catheter Indwelling Catheter Indwelling Catheter ABP, PAP, CO, CI - Last Documented Arterial Blood Pressure 112/49 - Exam GENERAL EXAM: Alert, pleasant 74-year-old gentleman, up in a chair at the bedside, on 5 L high flow nasal cannula currently, comfortable in no apparent distress. HEAD: Normocephalic. EYES: Normal reaction of pupils, equal size. NOSE: Clear with pink turbinates. THROAT: No erythema or exudates. NECK: No masses, no JVD. CHEST: No chest wall deformity. LUNGS: Equal air entry with crackles in the bilateral posterior bases CVS: S1 and S2 normal with no audible murmur, irregular rhythm. ABDOMEN: No hepatosplenomegaly, normal bowel sounds, no guarding or rigidity. SPINE: No scoliosis or deformity SKIN: No rashes CENTRAL NERVOUS SYSTEM: No focal deficits, tone is normal in all 4 extremities. EXTREMITIES: There is 1-2+ peripheral edema. No clubbing, no cyanosis. Marley pheral pulses are intact. - Labs CBC & Chem 7: 01/30/20 13:29 01/31/20 07:52 Labs: Abnormal Lab Results - Last 24 Hours (Table) 01/30/20 01/31/20 01/31/20 Range/Units 17:17 00:08 06:08 Carbon Dioxide (22-30) mmol/L BUN (9-20) mg/dL Creatinine (0.66-1.25) mg/dL Glucose (74-99) mg/dL POC Glucose (mg/dL) 141 H 176 H 140 H (75-99) mg/dL Calcium (8.4-10.2) mg/dL 01/31/20 01/31/20 Range/Units 07:52 11:40 Carbon Dioxide 37 H (22-30) mmol/L BUN 45 H (9-20) mg/dL Creatinine 1.59 H (0.66-1.25) mg/dL Glucose 132 H (74-99) mg/dL POC Glucose (mg/dL) 167 H (75-99) mg/dL Calcium 7.9 L (8.4-10.2) mg/dL Microbiology - Last 24 Hours (Table) 01/26/20 12:06 Blood Culture - Preliminary Blood No Growth after 120 hours 01/26/20 11:56 Blood Culture - Preliminary Blood No Growth after 120 hours Assessment and Plan Assessment: 1 Acute exacerbation of chronic systolic congestive heart failure with mildly impaired left ventricular systolic function ejection fraction 45-50%. The patient did develop acute hypoxic respiratory failure requiring intubation and mechanical ventilatory support. Recovered. Currently on 5 L high flow nasal cannula. 2 Acute exacerbation of chronic obstructive pulmonary disease 3 Pulmonary hypertension 4 Coronary artery disease 5 History of osteoarthritis 6 History of prostate cancer 7 Hyperlipidemia 8 Atrial fibrillation anticoagulated with Eliquis 9 Acute on chronic kidney disease Plan: The patient was seen and evaluated by Dr. Contreras Continue the current treatment plan. Zosyn for pseudomonas We'll continue to titrate down the FiO2 as tolerated BiPAP support as necessary Continue diuretics Repeat a chest x-ray in the a.m. We'll continue to follow and make further recommendations based on his clinical status I, the cosigning physician, performed a history & physical examination of the patient. Lungs sounds with crackles in the bilateral posterior bases. Maintaining good O2 saturations in the 90s on 5 L high flow nasal cannula. I discussed the assessment and plan of care with my nurse practitioner, Latisha Lowe. I attest to the above note as dictated by her.
[2020-01-31] MEDS ORDERED: FUROSEMIDE 40 MG TAB PO SCH (16:00)
[2020-01-31] MEDS: SPIRONOLACTONE 25 MG TAB PO SCH (16:23)
--- NOTE | 2020-01-31 16:26 | P.PN ---
Subjective Progress Note Date: 01/31/20 This a 74-year-old gentleman with medical history of CAD, OK, CABG, CHF, COPD, DVT, and multiple other medical issues presented to the ER with complaints of worsening shortness of breath and bilateral lower extremity edema. Reports over the last week medications adjusted/Lasix increased per PCP with no improvement in symptoms and presented to the ER. BUN 89, Creatinine 1.6, baseline 1.5, INR 1.5. Denies fever or chills. Denies sore throat. Reports occasional nonproductive cough ,exertional dyspnea, orthopnea. Denies chest pain, palpitations. Denies lightheadedness, dizziness or focal deficits. WBC 14.8. Lactic acid 2.1. Neutrophils 12.8 . Afebrile. EKG reported sinus rhythm with left bundle branch block ,anterior lateral infarct, age undetermined, possible septal sub-endocardial injury. Troponins negative 1. BNP 4320. AST 60, ALT 99. Hemoglobin 9.9. Chest x-ray reporting interstitial pattern, bibasilar consolidation, CHF versus interstitial pneumonia. Vital signs stable, rodrigue ntaining O2 sats in the 90s on 3 L nasal cannula. 01/22/2020 diuresing on Lasix IV push with 24-hour I&O reflecting a negative fluid balance. Edema improving. Renal function improving, BUN 76 creatinine 1.5. Oxygen requirements titrated down to 2 L, maintaining O2 sats in the 90s. Borderline hypotension. Denies chest pain, palpitations or increasing shortness of breath. 01/23/2020 maintained on 1500 MLS fluid restriction, low-salt diet and diuretics . Lasix dosing adjusted yesterday to avoid night dose and facilitate sleep. 24- hour I&O inaccurate. Reports better sleep, breathing improving. Staff reports exertional dyspnea .Maintaining O2 sats in the 90s on 3 L nasal cannula. Bord alex hypotension. Evaluated by nephrology with recommendations noted. Creatinine slowly trending down, currently 1.43. Renal ultrasound unremarkable. LFTs within normal limits with exception of mild elevation of ALT. Sodium 136, potassium 4.3, magnesium 2.2 01/24/2020 Lasix infusion initiated yesterday afternoon as per nephrology. 24- hour I&O reporting increased weight. Significant edema. Worsening dyspnea. Maintaining O2 sats in the low 90s on 4 L nasal cannula O2. Renal function sta ble. Potassium 5.4 Telemetry reporting controlled A. fib with short asymptomatic, nonsustained V. tach run earlier this morning. 01/27/2020 patient developed worsening shortness of breath, was transferred to ICU yesterday, intubated. ABGs noted. Remains vent dependent with FiO2 weaned down to 40% and PEEP weaned down to +6. Maintained on renal dose dopamine, Lasix drip, Levophed, diprovan. Chest x-ray reporting improvement. Renal function improving. Potassium 3.2, magnesium pending. 01/28/2020 chest x-ray reports improvement. Maintained on mechanical ventilation with FiO2 40%, PEEP weaned down to +5. Lasix and dopamine drips have been discontinued. Receiving Diamox 2 doses. Lasix converted to IV push. Remains pressor dependent with Levophed weaning in progress renal function continues to improve, creatinine down to 1.2. Maintained on Rocephin and Zithromax. Sputum culture currently reporting gram-negative bacilli. Potassium being replaced. Sedation holiday being discussed, but patient extremely weak, opening eyes. 01/29/2020 patient extubated yesterday afternoon , maintained overnight on BiPAP .this morning, currently maintaining O2 sats in the 90s on 7 L high flow nasal cannula. Afebrile, T-max 100.6, WBC trending down currently 16. Sputum cultures reporting Pseudomonas aeruginosa, maintained on Zosyn. Sitter at bedside. Standing up at bedside with PT. Chest x-ray reporting improvement left pleural effusion with new trace right pleural effusion with possible bibasilar atelectasis. Hemoglobin dropped to 9. INR 1.3. Diuresing well on Lasix IV push with 24-hour I&O reflecting a negative fluid balance. Renal function mildly worsening, BUN 47, creatinine up to 1.58. Potassium 3.5. Alkalotic,Bicarb 37. Telemetry atrial fibrillation with controlled ventricular rate. 01/30/2020 maintained on Zithromax, Zosyn. Breathing continues to improve, weaned down to 5 L nasal cannula, maintaining O2 sats in the 90s, wheezy. IV steroids added to med regime. Mild tachycardia, low 100s. Afebrile. Diuresed well on Lasix IV push with 24-hour I&O reflecting a negative fluid balance. Chest x-ray reporting improvement left pleural effusion, new trace right pleural effusion. Renal function stable, BUN 43, creatinine 1.54. Sodium up to 147. B icarb 40. Lasix has been discontinued. 01/31/2020 transferred out of ICU currently on stepdown unit. Continues on nebulized bronchodilators, Zosyn, IV steroids, IV push Lasix . 24-hour I&O reflecting a positive fluid balance. maintaining O2 sats steroids in the 90s on 5 L high flow nasal cannula. Borderline hypotension. Afebrile. Objective - Vital Signs Vital signs: Vital Signs Temp 97.3 F L 01/31/20 10:57 Pulse 85 01/31/20 10:57 Resp 20 01/31/20 10:57 BP 95/55 01/31/20 10:57 Pulse Ox 96 01/31/20 10:57 Intake & Output 01/30/20 01/31/20 01/31/20 18:59 06:59 18:59 Intake Total 778 840 Output Total 640 Balance 138 840 Weight 107.5 kg Intake: IV 560 Azithromycin 500 mg In 250 Sodium Chloride 0.9% 250 ml @ 250 mls/hr IVPB DAILY [facility] Rx#:[id number] KVO 166 Piperacillin-Tazobactam 3 100 .375 gm In Sodium Chloride 0.9% 100 ml @ 25 mls/hr IVPB Q8HR [facility] Rx# :[id number] Pressure bag 44 Oral 218 840 Output: Urine 640 Other: Voiding Method Indwelling Catheter Indwelling Catheter Indwelling Catheter ABP, PAP, CO, CI - Last Documented Arterial Blood Pressure 112/49 - Exam VITAL SIGNS: As above GENERAL: Sitting up in chair, no acute distress. Mild anxiety, intermittent confusion, alert and oriented 2. HEENT: Conjunctivae normal. eyes normal. NECK: No JVD. No thyroid enlargement. No LNs CARDIOVASCULAR: S1, S2, irregular. Systolic murmur. RESPIRATION: Breath sounds diminished in the bases. Scattered crackles bilateral bases, expiratory wheezing ABDOMEN: Soft, obese, nontender . No guarding. no masses palpable. Bowel sounds heard. LEGS: Bilateral chronic venous stasis with decreasing edema NERVOUS SYSTEM: No focal deficits. Skin: no rash , warm and dry Microbiology 01/26/20 12:06 Blood Blood Culture - Preliminary No Growth after 120 hours 01/26/20 11:56 Blood Blood Culture - Preliminary No Growth after 120 hours 01/26/20 21:25 Sputum Gram Stain - Final 01/26/20 21:25 Sputum Sputum Culture - Final Pseudomonas aeruginosa - Labs CBC & Chem 7: 01/30/20 13:29 01/31/20 07:52 Labs: Abnormal Lab Results - Last 24 Hours (Table) 01/30/20 01/30/20 01/30/20 Range/Units 11:41 11:59 13:29 WBC 16.0 H (3.8-10.6) k/uL Hgb 9.0 L (13.0-17.5) gm/dL Hct 33.7 L (39.0-53.0) % MCV 75.1 L (80.0-100.0) fL MCH 20.2 L (25.0-35.0) pg MCHC 26.9 L (31.0-37.0) g/dL RDW 20.8 H (11.5-15.5) % Sodium 147 H (137-145) mmol/L Carbon Dioxide 40 H (22-30) mmol/L BUN 43 H (9-20) mg/dL Creatinine 1.54 H (0.66-1.25) mg/dL Glucose 188 H (74-99) mg/dL POC Glucose (mg/dL) 205 H (75-99) mg/dL Calcium 7.9 L (8.4-10.2) mg/dL Total Protein 5.8 L (6.3-8.2) g/dL Albumin 2.5 L (3.5-5.0) g/dL 01/30/20 01/31/20 01/31/20 Range/Units 17:17 00:08 06:08 WBC (3.8-10.6) k/uL Hgb (13.0-17.5) gm/dL Hct (39.0-53.0) % MCV (80.0-100.0) fL MCH (25.0-35.0) pg MCHC (31.0-37.0) g/dL RDW (11.5-15.5) % Sodium (137-145) mmol/L Carbon Dioxide (22-30) mmol/L BUN (9-20) mg/dL Creatinine (0.66-1.25) mg/dL Glucose (74-99) mg/dL POC Glucose (mg/dL) 141 H 176 H 140 H (75-99) mg/dL Calcium (8.4-10.2) mg/dL Total Protein (6.3-8.2) g/dL Albumin (3.5-5.0) g/dL 01/31/20 Range/Units 07:52 WBC (3.8-10.6) k/uL Hgb (13.0-17.5) gm/dL Hct (39.0-53.0) % MCV (80.0-100.0) fL MCH (25.0-35.0) pg MCHC (31.0-37.0) g/dL RDW (11.5-15.5) % Sodium (137-145) mmol/L Carbon Dioxide 37 H (22-30) mmol/L BUN 45 H (9-20) mg/dL Creatinine 1.59 H (0.66-1.25) mg/dL Glucose 132 H (74-99) mg/dL POC Glucose (mg/dL) (75-99) mg/dL Calcium 7.9 L (8.4-10.2) mg/dL Total Protein (6.3-8.2) g/dL Albumin (3.5-5.0) g/dL Microbiology - Last 24 Hours (Table) 01/26/20 12:06 Blood Culture - Preliminary Blood No Growth after 96 hours 01/26/20 11:56 Blood Culture - Preliminary Blood No Growth after 96 hours Assessment and Plan Assessment: Acute hypoxic respiratory failure secondary to decompensated acute CHF systolic dysfunction secondary to pulmonary edema, status post mechanical ventilator- dependent, status post BiPAP Hypotension secondary to the above, s/p pressor dependent Acute on chronic CHF exacerbation, systolic dysfunction, EF 45-50%, status post Lasix and renal dose dopamine drips Possible interstitial pneumonia, community-acquired, sputum culture reporting Pseudomonas aeruginosa. Acute COPD exacerbation Acute on Chronic renal failure, stage III. Baseline creatinine 1.5, cardiorenal. Acute hypoxic respiratory failure secondary to acute CHF exacerbation, systolic dysfunction, status post mechanical ventilator dependent. Severe pulmonary hypertension Acute metabolic encephalopathy, multifactorial, improving Chronic microcytic anemia, iron deficiency Chronic persistent atrial fibrillation, maintained on Eliquis CAD, history of OK, CABG, stent History of Hypertension Former nicotine dependence Obesity, BMI 32.9 mitral regurgitation tricuspid regurgitation Degenerative joint disease History of prostate cancer Choi catheter placement per urology, possibly urinary retention, possible stricture Plan: Continue on current medication regime , Diamox, monitoring and symptomatic treatment. Maintain antibiotics of Zosyn, nebulized bronchodilators, diuretics. Strict I&O's. Close monitoring of renal function, electrolytes with repeat labs ordered for a.m. Anticoagulated with Eliquis. PT/OT.Prognosis guarded given multiple complex medical issues. The impression and plan of care has been dictated as directed. : I performed a history and examination of this patient, discussed the same with the dictator. I agree with the dictator's note ,documented as a scribe. Any additional findings or plans will be noted.
[2020-01-31 17:12] LABS: Glucose,Whole Blood 140 mg/dL (75-99)
[2020-01-31] MEDS: ATORVASTATIN 20 MG TAB PO SCH (21:56)
[2020-01-31] MEDS: POTASSIUM CHLORIDE ER 20 MEQ TAB.ER PO SCH (21:56)
[2020-01-31 22:10] LABS: Glucose,Whole Blood 147 mg/dL (75-99)
[2020-02-01 00:03] LABS: Glucose,Whole Blood 187 mg/dL (75-99)
[2020-02-01] MEDS: FUROSEMIDE 10 MG/ML 4 ML VIAL IV SCH ×2 (00:20→09:08)
[2020-02-01] MEDS: INSULIN ASPART (NovoLOG) 100 UNIT/ML VIAL SQ SCH ×4 (00:21→17:42)
[2020-02-01] MEDS: methylPREDNISolone SOD SUCCI 40 MG/ML 1 ML VIAL IV SCH ×3 (00:21→16:05)
[2020-02-01] MEDS: PIPERACILLIN-TAZOBACTAM 3.375 GM in SODIUM CHLORIDE 0.9% 100 ML IVPB SCH ×3 (03:47→18:26)
[2020-02-01 06:06] LABS: Glucose,Whole Blood 149 mg/dL (75-99)
--- NOTE | 2020-02-01 07:44 | XR ---
EXAMINATION TYPE: XR chest 1V portable DATE OF EXAM: 02/01/2020 HISTORY: CHF. REFERENCE: Previous study dated 01/29/2020. FINDINGS: The study is moderately rotated. There has been a midline sternotomy. The heart is enlarged. There are bibasilar infiltrates. There are bilateral effusions, greater on the left than the right. IMPRESSION: 1. SUBOPTIMAL EXAMINATION. 2. CARDIOMEGALY. 3. BIBASILAR INFILTRATES, WORSE ON THE LEFT THAN THE RIGHT. 4. SMALL, BILATERAL EFFUSIONS, GREATER ON THE LEFT THAN THE RIGHT.
[2020-02-01] MEDS: IPRATROPIUM-ALBUTEROL 3 ML NEB INHALATION SCH ×4 (08:11→19:55)
[2020-02-01] MEDS: BUDESONIDE 1 MG/2 ML NEBU INHALATION SCH ×2 (08:11→19:55)
[2020-02-01] MEDS: FORMOTEROL FUMARATE 20 MCG/2 ML NEBU INHALATION SCH ×2 (08:11→19:55)
[2020-02-01] MEDS ORDERED: AZITHROMYCIN 500 MG TAB PO SCH (09:00)
[2020-02-01] MEDS: PANTOPRAZOLE 40 MG/10 ML VIAL IV SCH (09:08)
[2020-02-01] MEDS: SPIRONOLACTONE 25 MG TAB PO SCH (09:08)
[2020-02-01] MEDS: METOPROLOL TARTRATE 25 MG TAB PO SCH ×2 (09:08→20:29)
[2020-02-01] MEDS: APIXABAN 5 MG TAB PO SCH ×2 (09:08→20:29)
[2020-02-01 09:24] LABS: Anisocytosis Moderate; Basophils % (A) 0 %; Eosinophils % (A) 0 %; HCT 33.3 % (39.0-53.0); HGB 9.3 gm/dL (13.0-17.5); Hypochromasia Marked; Lymphocytes # (A) 0.7 k/uL (1.0-4.8); Lymphocytes % (A) 5 %; MCH 20.9 pg (25.0-35.0); MCHC 27.9 g/dL (31.0-37.0); MCV 75.1 fL (80.0-100.0); Mean Platelet Volume 8.8; Microcytosis Moderate; Monocytes # (A) 0.4 k/uL (0-1.0); Monocytes % (A) 2 %; Neutrophils # (A) 15.2 k/uL (1.3-7.7); Neutrophils % (A) 93 %; Platelet Count 212 k/uL (150-450); Poikilocytosis Slight; RBC 4.44 m/uL (4.30-5.90); RDW 21.7 % (11.5-15.5); WBC 16.3 k/uL (3.8-10.6)
[2020-02-01 09:27] LABS: Albumin 2.7 g/dL (3.5-5.0); Calcium 8.1 mg/dL (8.4-10.2); Magnesium 2.6 mg/dL (1.6-2.3); Potassium 3.2 mmol/L (3.5-5.1); Total Bilirubin 1.1 mg/dL (0.2-1.3)
[2020-02-01 11:30] LABS: Glucose,Whole Blood 215 mg/dL (75-99)
[2020-02-01] MEDS: POTASSIUM CHLORIDE ER 20 MEQ TAB.ER PO SCH ×5 (11:43→20:29)
--- NOTE | 2020-02-01 11:55 | P.PN ---
Subjective Progress Note Date: 02/01/20 Principal diagnosis: Acute exacerbation of chronic COPD Bilateral pulmonary infiltrate, Pseudomonas from sputum culture Exacerbation of chronic systolic congestive heart failure with minimally or mildly impaired left ventricular systolic function ejection fraction 45-50% This patient did develop acute hypoxic respiratory failure requiring intubation and mechanical ventilatory support from which he recovered currently on 5 L high flow oxygen This patient has significantly improved over does have acute exacerbation of chronic pulmonary disease, pulmonary hypertension coronary artery disease and bilateral pulmonary infiltrates Objective - Vital Signs Vital signs: Vital Signs Temp 97.9 F 02/01/20 11:38 Pulse 83 02/01/20 11:38 Resp 20 02/01/20 11:38 BP 93/57 02/01/20 11:38 Pulse Ox 93 L 02/01/20 11:38 Intake & Output 01/31/20 02/01/20 02/01/20 18:59 06:59 18:59 Intake Total 830 160 Output Total 450 Balance 830 -290 Weight 107.5 kg 112 kg Intake: IV 350 60 Azthromycin 250 KVO 60 Piperacillin-Tazobactam 3 100 .375 gm In Sodium Chloride 0.9% 100 ml @ 25 mls/hr IVPB Q8HR [facility] Rx# :[id number] Oral 480 100 Output: Urine 450 Other: Voiding Method Indwelling Catheter Indwelling Catheter Indwelling Catheter ABP, PAP, CO, CI - Last Documented Arterial Blood Pressure 112/49 - Exam Negative Covid 19 testing General: [Patient awake, alert and oriented times 3. Patient in no acute distress.] HEENT: [PERRL. EOMI. No pharyngeal erythema or exudate.] Neck: [No adenopathy.] Cardiac: [Heart regular in rate and rhythm. No S3. No S4. No clicks, rubs. No murmur.] Lungs: [Clear to auscultation bilaterally.] Abdomen: [No mass. No organomegaly. Bowel sounds presnt and normoactive in all 4 quadrants.] Extremes: 3+ pitting edema no cyanosis no claudication normal pulses] : [] Musculoskeletal: [No joint erythema, edema or tenderness.] Skin: [No rash.] Neurologic: [No lateralizing deficits. CN II - XII grossly intact.] Lymphatic: [No adenopathy.] - Labs CBC & Chem 7: 02/01/20 08:59 02/01/20 08:59 Labs: Abnormal Lab Results - Last 24 Hours (Table) 01/31/20 01/31/20 01/31/20 Range/Units 11:40 17:07 22:08 WBC (3.8-10.6) k/uL Hgb (13.0-17.5) gm/dL Hct (39.0-53.0) % MCV (80.0-100.0) fL MCH (25.0-35.0) pg MCHC (31.0-37.0) g/dL RDW (11.5-15.5) % Neutrophils # (1.3-7.7) k/uL Lymphocytes # (1.0-4.8) k/uL Sodium (137-145) mmol/L Potassium (3.5-5.1) mmol/L Chloride (98-107) mmol/L Carbon Dioxide (22-30) mmol/L BUN (9-20) mg/dL Creatinine (0.66-1.25) mg/dL Glucose (74-99) mg/dL POC Glucose (mg/dL) 167 H 140 H 147 H (75-99) mg/dL Calcium (8.4-10.2) mg/dL Magnesium (1.6-2.3) mg/dL Total Protein (6.3-8.2) g/dL Albumin (3.5-5.0) g/dL 02/01/20 02/01/20 02/01/20 Range/Units 00:02 06:05 08:59 WBC 16.3 H (3.8-10.6) k/uL Hgb 9.3 L (13.0-17.5) gm/dL Hct 33.3 L (39.0-53.0) % MCV 75.1 L (80.0-100.0) fL MCH 20.9 L (25.0-35.0) pg MCHC 27.9 L (31.0-37.0) g/dL RDW 21.7 H (11.5-15.5) % Neutrophils # 15.2 H (1.3-7.7) k/uL Lymphocytes # 0.7 L (1.0-4.8) k/uL Sodium (137-145) mmol/L Potassium (3.5-5.1) mmol/L Chloride (98-107) mmol/L Carbon Dioxide (22-30) mmol/L BUN (9-20) mg/dL Creatinine (0.66-1.25) mg/dL Glucose (74-99) mg/dL POC Glucose (mg/dL) 187 H 149 H (75-99) mg/dL Calcium (8.4-10.2) mg/dL Magnesium (1.6-2.3) mg/dL Total Protein (6.3-8.2) g/dL Albumin (3.5-5.0) g/dL 02/01/20 02/01/20 Range/Units 08:59 11:28 WBC (3.8-10.6) k/uL Hgb (13.0-17.5) gm/dL Hct (39.0-53.0) % MCV (80.0-100.0) fL MCH (25.0-35.0) pg MCHC (31.0-37.0) g/dL RDW (11.5-15.5) % Neutrophils # (1.3-7.7) k/uL Lymphocytes # (1.0-4.8) k/uL Sodium 136 L (137-145) mmol/L Potassium 3.2 L (3.5-5.1) mmol/L Chloride 96 L (98-107) mmol/L Carbon Dioxide 34 H (22-30) mmol/L BUN 57 H (9-20) mg/dL Creatinine 1.89 H (0.66-1.25) mg/dL Glucose 192 H (74-99) mg/dL POC Glucose (mg/dL) 215 H (75-99) mg/dL Calcium 8.1 L (8.4-10.2) mg/dL Magnesium 2.6 H (1.6-2.3) mg/dL Total Protein 6.0 L (6.3-8.2) g/dL Albumin 2.7 L (3.5-5.0) g/dL Microbiology - Last 24 Hours (Table) 01/26/20 12:06 Blood Culture - Preliminary Blood No Growth after 120 hours 01/26/20 11:56 Blood Culture - Preliminary Blood No Growth after 120 hours Assessment and Plan (1) Acute respiratory failure with hypoxia Current Visit: Yes Status: Acute Priority: High Code(s): J96.01 - ACUTE RESPIRATORY FAILURE WITH HYPOXIA SNOMED Code(s): 19055642 (2) Acute systolic CHF (congestive heart failure) Current Visit: Yes Status: Acute Priority: High Code(s): I50.21 - ACUTE SYSTOLIC (CONGESTIVE) HEART FAILURE SNOMED Code(s): 178564591 (3) At risk for readmission to hospital Current Visit: Yes Status: Acute Code(s): Z91.89 - OTH PERSONAL RISK FACTORS, NOT ELSEWHERE CLASSIFIED SNOMED Code(s): 5674360124083 (4) Congestive heart failure Current Visit: Yes Status: Acute Code(s): I50.9 - HEART FAILURE, UNSPECIFIED SNOMED Code(s): 34298362 (5) Pneumonia Current Visit: Yes Status: Acute Code(s): J18.9 - PNEUMONIA, UNSPECIFIED ORGANISM SNOMED Code(s): 676265792 (6) Anemia of chronic disease Current Visit: Yes Status: Chronic Priority: Medium Code(s): D63.8 - ANEMIA IN OTHER CHRONIC DISEASES CLASSIFIED ELSEWHERE SNOMED Code(s): 234 367105 (7) Atrial fibrillation Current Visit: Yes Status: Chronic Priority: Medium Code(s): I48.91 - UNSPECIFIED ATRIAL FIBRILLATION SNOMED Code(s): 59679110 (8) COPD (chronic obstructive pulmonary disease) Current Visit: Yes Status: Chronic Priority: Medium Code(s): J44.9 - CHRONIC OBSTRUCTIVE PULMONARY DISEASE, UNSPECIFIED SNOMED Code(s): 07796354 (9) Chronic renal disease, stage 3, moderately decreased glomerular filtration rate between 30-59 mL/min/1.73 square meter Current Visit: Yes Status: Chronic Priority: Medium Code(s): N18.3 - CHRONIC KIDNEY DISEASE, STAGE 3 (MODERATE) SNOMED Code(s): 965583180 (10) Essential (primary) hypertension Current Visit: Yes Status: Chronic Priority: Low Code(s): I10 - ESSENTIAL (PRIMARY) HYPERTENSION SNOMED Code(s): 72713037 (11) Pulmonary hypertension Current Visit: Yes Status: Chronic Priority: High Code(s): I27.20 - PUL MONARY HYPERTENSION, UNSPECIFIED SNOMED Code(s): 45913689 Plan: Acute exacerbation of chronic systolic congestive heart failure with mildly im paired ejection fraction 45-50% Hypoxic respiratory failure requiring intubation and mechanical ventilatory support recovered Currently on high flow oxygen 5 L per nasal cannula Acute exacerbation of chronic obstructive pulmonary disease Pulmonary hypertension Coronary artery disease by history Osteoarthritis by history Prostate cancer by history Hyperlipidemia by history Atrial fibrillation currently on Eliquis Acute on chronic kidney disease Plan Zosyn for pseudomonas Titrate FiO2 for pulmonary BiPAP support as necessary Judicious use of diuretics Repeat chest x-rays Noted 25 mg spironolactone I'll reevaluate in the morning Time with Patient: Greater than 30
--- NOTE | 2020-02-01 13:04 | PN ---
PROGRESS NOTE Patient is seen for followup for acute kidney injury. He has been started back on IV Lasix. Patient was initially admitted with fluid overload and was maintained on Lasix drip. He diuresed well, however, serum creatinine had increased and patient developed metabolic alkalosis and therefore the diuretics were discontinued. He has developed edema again and was restarted on IV Lasix. Currently patient denies any significant shortness of breath. PHYSICAL EXAMINATION: On examination, blood pressure was 105/60 this morning, heart rate 83 per minute, he is afebrile. Examination of lower extremities shows edema 3+ bilaterally. Chronic skin changes noted. Abdomen is soft, morbidly obese. PROMPT CARE RN exam shows patient moving all 4 extremities. LABS: Show sodium 136, potassium 3.2, chloride 96, CO2 is 34, BUN 57, creatinine 1.89. ASSESSMENT: 1. Acute kidney injury, cardiorenal, initially improved and then renal function worsened secondary to over-diuresis. Now his creatinine is back up to 1.89. The patient is restarted on IV Lasix. His chest x-ray from today shows small bilateral effusions, left greater than right with cardiomegaly. Weight has increased as well. Blood pressure remains on the lower side. I will continue with the IV Lasix for now and add midodrine since blood pressure remains low. 2. Cardiomyopathy, ejection fraction 45% to 50%. PLAN: Replace potassium. Continue to maintain patient on diuretics as his edema has worsened. However, chest x-ray does not show significant congestive heart failure. I will add midodrine to help with the low perfusion pressures. MMODL / IJN: [id number] /
--- NOTE | 2020-02-01 13:05 | P.PN ---
Subjective Progress Note Date: 02/01/20 Principal diagnosis: Acute exacerbation of congestive heart failure/COPD The patient is seen today 01/31/2020 in follow-up on the selective care unit. He is currently sitting up in a chair at the bedside. Awake and alert in no acute distress. Currently maintaining O2 saturations in the mid 90s on 5 L high flow nasal cannula. He is afebrile. Sputum cultures positive for pseudomonas. Blood cultures reveal no growth. Sodium 140. Potassium 3.5. Creatinine 1.59. He is continued on bronchodilators, IV Solu-Medrol, antibiotics in the form of Zosyn. He remains on IV diuretics 40 mg of Lasix every 8 hours. Continued with lower extremity edema. Currently in a positive balance. Weight 107.5 kg. The patient is seen today 02/01/2020 follow-up on the selective care unit. He is currently resting in bed. Awake and alert in no acute distress. Slightly agitated today. Stating he needs to go home. He denies any worsening shortness of breath. He is on 5 L high flow nasal cannula to maintain O2 saturations in the 90s. He's been afebrile. Sputum cultures positive for pseudomonas aeruginosa. White count 16.3. Hemoglobin 9.3. Sodium 136. Potassium 3.2. Bicarb 34. Creatinine 1.89. He is continued on bronchodilators, IV Solu- Medrol, IV diuretics. Antibiotics in the form of Zosyn. Anticoagulated with Eliquis. Objective - Vital Signs Vital signs: Vital Signs Temp 97.9 F 02/01/20 11:38 Pulse 69 02/01/20 12:06 Resp 20 02/01/20 11:38 BP 93/57 02/01/20 11:38 Pulse Ox 93 L 02/01/20 11:38 Intake & Output 01/31/20 02/01/20 02/01/20 18:59 06:59 18:59 Intake Total 830 160 Output Total 450 Balance 830 -290 Weight 107.5 kg 112 kg Intake: IV 350 60 Azthromycin 250 KVO 60 Piperacillin-Tazobactam 3 100 .375 gm In Sodium Chloride 0.9% 100 ml @ 25 mls/hr IVPB Q8HR [facility] Rx# :[id number] Oral 480 100 Output: Urine 450 Other: Voiding Method Indwelling Catheter Indwelling Catheter Indwelling Catheter ABP, PAP, CO, CI - Last Documented Arterial Blood Pressure 112/49 - Exam GENERAL EXAM: Alert, pleasant 74-year-old gentleman, resting in bed, on 5 L high flow nasal cannula currently, comfortable in no apparent distress. HEAD: Normocephalic. EYES: Normal reaction of pupils, equal size. NOSE: Clear with pink turbinates. THROAT: No erythema or exudates. NECK: No masses, no JVD. CHEST: No chest wall deformity. LUNGS: Equal air entry with crackles in the bilateral posterior bases CVS: S1 and S2 normal with no audible murmur, irregular rhythm. ABDOMEN: No hepatosplenomegaly, normal bowel sounds, no guarding or rigidity. SPINE: No scoliosis or deformity SKIN: No rashes CENTRAL NERVOUS SYSTEM: No focal deficits, tone is normal in all 4 extremities. EXTREMITIES: There is 1-2+ peripheral edema. No clubbing, no cyanosis. Peripheral pulses are intact. - Labs CBC & Chem 7: 02/01/20 08:59 02/01/20 08:59 Labs: Abnormal Lab Results - Last 24 Hours (Table) 01/31/20 01/31/20 02/01/20 Range/Units 17:07 22:08 00:02 WBC (3.8-10.6) k/uL Hgb (13.0-17.5) gm/dL Hct (39.0-53.0) % MCV (80.0-100.0) fL MCH (25.0-35.0) pg MCHC (31.0-37.0) g/dL RDW (11.5-15.5) % Neutrophils # (1.3-7.7) k/uL Lymphocytes # (1.0-4.8) k/uL Sodium (137-145) mmol/L Potassium (3.5-5.1) mmol/L Chloride (98-107) mmol/L Carbon Dioxide (22-30) mmol/L BUN (9-20) mg/dL Creatinine (0.66-1.25) mg/dL Glucose (74-99) mg/dL POC Glucose (mg/dL) 140 H 147 H 187 H (75-99) mg/dL Calcium (8.4-10.2) mg/dL Magnesium (1.6-2.3) mg/dL Total Protein (6.3-8.2) g/dL Albumin (3.5-5.0) g/dL 02/01/20 02/01/20 02/01/20 Range/Units 06:05 08:59 08:59 WBC 16.3 H (3.8-10.6) k/uL Hgb 9.3 L (13.0-17.5) gm/dL Hct 33.3 L (39.0-53.0) % MCV 75.1 L (80.0-100.0) fL MCH 20.9 L (25.0-35.0) pg MCHC 27.9 L (31.0-37.0) g/dL RDW 21.7 H (11.5-15.5) % Neutrophils # 15.2 H (1.3-7.7) k/uL Lymphocytes # 0.7 L (1.0-4.8) k/uL Sodium 136 L (137-145) mmol/L Potassium 3.2 L (3.5-5.1) mmol/L Chloride 96 L (98-107) mmol/L Carbon Dioxide 34 H (22-30) mmol/L BUN 57 H (9-20) mg/dL Creatinine 1.89 H (0.66-1.25) mg/dL Glucose 192 H (74-99) mg/dL POC Glucose (mg/dL) 149 H (75-99) mg/dL Calcium 8.1 L (8.4-10.2) mg/dL Magnesium 2.6 H (1.6-2.3) mg/dL Total Protein 6.0 L (6.3-8.2) g/dL Albumin 2.7 L (3.5-5.0) g/dL 02/01/20 Range/Units 11:28 WBC (3.8-10.6) k/uL Hgb (13.0-17.5) gm/dL Hct (39.0-53.0) % MCV (80.0-100.0) fL MCH (25.0-35.0) pg MCHC (31.0-37.0) g/dL RDW (11.5-15.5) % Neutrophils # (1.3-7.7) k/uL Lymphocytes # (1.0-4.8) k/uL Sodium (137-145) mmol/L Potassium (3.5-5.1) mmol/L Chloride (98-107) mmol/L Carbon Dioxide (22-30) mmol/L BUN (9-20) mg/dL Creatinine (0.66-1.25) mg/dL Glucose (74-99) mg/dL POC Glucose (mg/dL) 215 H (75-99) mg/dL Calcium (8.4-10.2) mg/dL Magnesium (1.6-2.3) mg/dL Total Protein (6.3-8.2) g/dL Albumin (3.5-5.0) g/dL Microbiology - Last 24 Hours (Table) 01/26/20 12:06 Blood Culture - Preliminary Blood No Growth after 120 hours 01/26/20 11:56 Blood Culture - Preliminary Blood No Growth after 120 hours Assessment and Plan Assessment: 1 Acute exacerbation of chronic systolic congestive heart failure with mildly impaired left ventricular systolic function ejection fraction 45-50%. The patient did develop acute hypoxic respiratory failure requiring intubation and mechanical ventilatory support. Recovered. Currently on 5 L high flow nasal cannula. 2 Acute exacerbation of chronic obstructive pulmonary disease 3 Pulmonary hypertension 4 Coronary artery disease 5 History of osteoarthritis 6 History of prostate cancer 7 Hyperlipidemia 8 Atrial fibrillation anticoagulated with Eliquis 9 Acute on chronic kidney disease Plan: The patient was seen and evaluated by Dr. Contreras Chest x-ray reviewed Continue IV diuretics Continue bronchodilators, IV Solu-Medrol Continue Zosyn Titrate down the FiO2 as tolerated We'll continue to follow and make further recommendations based on his clinical status I, the cosigning physician, performed a history & physical examination of the patient. Lungs sounds with crackles in the bilateral posterior bases. Maintaining good O2 saturations in the 90s on 5 L high flow nasal cannula. I discussed the assessment and plan of care with my nurse practitioner, Latisha Lowe. I attest to the above note as dictated by her.
[2020-02-01] MEDS: MIDODRINE 5 MG TAB PO SCH ×2 (13:25→17:41)
[2020-02-01 14:07] LABS: Appearance,Urine Clear (Clear); Bacteria,Urine Rare /hpf; Bilirubin,Urine Negative (Negative); Blood,Urine Large (Negative); Color,Urine Yellow; Glucose,Urine (UA) Negative (Negative); Hyaline Casts,Urine 21 /lpf (0-2); Ketones,Urine Negative (Negative); Leukocyte Esterase,Urine Negative (Negative); Mucus,Urine Occasional /hpf; Nitrite,Urine Negative (Negative); PH, Urine 5.5 (5.0-8.0); Protein,Urine Trace (Negative); RBC,Urine >182 /hpf (0-5); Specific Gravity,Urine 1.013 (1.001-1.035); Squamous Epithelial Cell,Urine <1 /hpf (0-4); Urobilinogen,Urine <2.0 mg/dL (<2.0); WBC,Urine 10 /hpf (0-5)
[2020-02-01 16:55] LABS: Glucose,Whole Blood 164 mg/dL (75-99)
--- NOTE | 2020-02-01 18:42 | P.PN ---
Subjective Patient is resting comfortably in bed alert and awake. He wants to go home He is on 5 L of oxygen to maintain his oxygen saturation in the 90s. Sputum cultures positive for Pseudomonas white count 16,000 Currently receiving IV antibiotics He denies any chest discomfort. She does not appear to be short of breath On examination heart sounds are normal Breath sounds are reduced bilaterally No JVD Mild bilateral lower extremity edema Labs are reviewed by 34 creatinine 1.9 potassium 3.2 He is on Zosyn He is anticoagulated with ELIQUIS Blood pressure in the mid 90s to 110 mmHg Respirations normal pulse rate 60s line afebrile 97.3F Impression Acute on chronic systolic heart failure Coronary artery disease status post coronary artery bypass grafting Persistent atrial fibrillation on ELIQUIS Dyslipidemia Chronic kidney disease with acute worsening secondary to overdiuresis Lasix is being resumed Continue other medications as before Objective - Vital Signs Vital signs: Vital Signs Temp 97.3 F L 02/01/20 15:49 Pulse 67 02/01/20 15:49 Resp 20 02/01/20 16:00 BP 110/73 02/01/20 15:49 Pulse Ox 97 02/01/20 15:49 Intake & Output 01/31/20 02/01/20 02/01/20 18:59 06:59 18:59 Intake Total 830 160 220 Output Total 450 Balance 830 -290 220 Weight 107.5 kg 112 kg Intake: IV 350 60 100 Azthromycin 250 KVO 60 Piperacillin-Tazobactam 3 100 .375 gm In Sodium Chloride 0.9% 100 ml @ 25 mls/hr IVPB Q8H [facility] Rx#: [id number] Piperacillin-Tazobactam 3 100 .375 gm In Sodium Chloride 0.9% 100 ml @ 25 mls/hr IVPB Q8HR [facility] Rx# :[id number] Oral 480 100 120 Output: Urine 450 Other: Voiding Method Indwelling Catheter Indwelling Catheter Indwelling Catheter ABP, PAP, CO, CI - Last Documented Arterial Blood Pressure 112/49 - Labs CBC & Chem 7: 02/01/20 08:59 02/01/20 16:00 Labs: Abnormal Lab Results - Last 24 Hours (Table) 01/31/20 02/01/20 02/01/20 Range/Units 22:08 00:02 06:05 WBC (3.8-10.6) k/uL Hgb (13.0-17.5) gm/dL Hct (39.0-53.0) % MCV (80.0-100.0) fL MCH (25.0-35.0) pg MCHC (31.0-37.0) g/dL RDW (11.5-15.5) % Neutrophils # (1.3-7.7) k/uL Lymphocytes # (1.0-4.8) k/uL Sodium (137-145) mmol/L Potassium (3.5-5.1) mmol/L Chloride (98-107) mmol/L Carbon Dioxide (22-30) mmol/L BUN (9-20) mg/dL Creatinine (0.66-1.25) mg/dL Glucose (74-99) mg/dL POC Glucose (mg/dL) 147 H 187 H 149 H (75-99) mg/dL Calcium (8.4-10.2) mg/dL Magnesium (1.6-2.3) mg/dL Total Protein (6.3-8.2) g/dL Albumin (3.5-5.0) g/dL Urine Protein (Negative) Urine Blood (Negative) Urine RBC (0-5) /hpf Urine WBC (0-5) /hpf Urine Bacteria (None) /hpf Hyaline Casts (0-2) /lpf Urine Mucus (None) /hpf 02/01/20 02/01/20 02/01/20 Range/Units 08:59 08:59 11:28 WBC 16.3 H (3.8-10.6) k/uL Hgb 9.3 L (13.0-17.5) gm/dL Hct 33.3 L (39.0-53.0) % MCV 75.1 L (80.0-100.0) fL MCH 20.9 L (25.0-35.0) pg MCHC 27.9 L (31.0-37.0) g/dL RDW 21.7 H (11.5-15.5) % Neutrophils # 15.2 H (1.3-7.7) k/uL Lymphocytes # 0.7 L (1.0-4.8) k/uL Sodium 136 L (137-145) mmol/L Potassium 3.2 L (3.5-5.1) mmol/L Chloride 96 L (98-107) mmol/L Carbon Dioxide 34 H (22-30) mmol/L BUN 57 H (9-20) mg/dL Creatinine 1.89 H (0.66-1.25) mg/dL Glucose 192 H (74-99) mg/dL POC Glucose (mg/dL) 215 H (75-99) mg/dL Calcium 8.1 L (8.4-10.2) mg/dL Magnesium 2.6 H (1.6-2.3) mg/dL Total Protein 6.0 L (6.3-8.2) g/dL Albumin 2.7 L (3.5-5.0) g/dL Urine Protein (Negative) Urine Blood (Negative) Urine RBC (0-5) /hpf Urine WBC (0-5) /hpf Urine Bacteria (None) /hpf Hyaline Casts (0-2) /lpf Urine Mucus (None) /hpf 02/01/20 02/01/20 Range/Units 11:30 16:53 WBC (3.8-10.6) k/uL Hgb (13.0-17.5) gm/dL Hct (39.0-53.0) % MCV (80.0-100.0) fL MCH (25.0-35.0) pg MCHC (31.0-37.0) g/dL RDW (11.5-15.5) % Neutrophils # (1.3-7.7) k/uL Lymphocytes # (1.0-4.8) k/uL Sodium (137-145) mmol/L Potassium (3.5-5.1) mmol/L Chloride (98-107) mmol/L Carbon Dioxide (22-30) mmol/L BUN (9-20) mg/dL Creatinine (0.66-1.25) mg/dL Glucose (74-99) mg/dL POC Glucose (mg/dL) 164 H (75-99) mg/dL Calcium (8.4-10.2) mg/dL Magnesium (1.6-2.3) mg/dL Total Protein (6.3-8.2) g/dL Albumin (3.5-5.0) g/dL Urine Protein Trace H (Negative) Urine Blood Large H (Negative) Urine RBC >182 H (0-5) /hpf Urine WBC 10 H (0-5) /hpf Urine Bacteria Rare H (None) /hpf Hyaline Casts 21 H (0-2) /lpf Urine Mucus Occasional H (None) /hpf Microbiology - Last 24 Hours (Table) 01/26/20 11:56 Blood Culture - Final Blood No Growth after 144 hours 01/26/20 12:06 Blood Culture - Final Blood No Growth after 144 hours
[2020-02-01] MEDS: ATORVASTATIN 20 MG TAB PO SCH (20:29)
[2020-02-02 00:21] LABS: Glucose,Whole Blood 215 mg/dL (75-99)
[2020-02-02] MEDS: INSULIN ASPART (NovoLOG) 100 UNIT/ML VIAL SQ SCH ×5 (00:27→23:49)
[2020-02-02] MEDS: methylPREDNISolone SOD SUCCI 40 MG/ML 1 ML VIAL IV SCH ×4 (00:27→23:49)
[2020-02-02] MEDS: PIPERACILLIN-TAZOBACTAM 3.375 GM in SODIUM CHLORIDE 0.9% 100 ML IVPB SCH ×3 (03:59→18:46)
[2020-02-02 06:28] LABS: Glucose,Whole Blood 155 mg/dL (75-99)
[2020-02-02] MEDS: MIDODRINE 5 MG TAB PO SCH ×3 (06:55→16:47)
--- NOTE | 2020-02-02 07:15 | XR ---
EXAMINATION TYPE: XR chest 1V portable DATE OF EXAM: 02/02/2020 HISTORY: CHF. REFERENCE: Previous study dated 02/01/2020. FINDINGS: The study remains significantly rotated. There is been a midline sternotomy. The heart appears enlarged. There is a left basilar infiltrate. I suspect a left effusion. There are now increased interstitial markings present bilaterally. IMPRESSION: 1. SUBOPTIMAL EXAMINATION. 2. CARDIOMEGALY. 3. LEFT BASILAR INFILTRATE WITH A CONCOMITANT EFFUSION. 4. INCREASING INTERSTITIAL CHANGE MAY BE DUE TO INTERSTITIAL PNEUMONIA. SOME DEGREE OF CONGESTIVE HEA RT FAILURE COULD NOT BE EXCLUDED. PLEASE CORRELATE CLINICALLY.
[2020-02-02] MEDS: BUDESONIDE 1 MG/2 ML NEBU INHALATION SCH ×2 (07:59→19:17)
[2020-02-02] MEDS: IPRATROPIUM-ALBUTEROL 3 ML NEB INHALATION SCH ×4 (07:59→19:17)
[2020-02-02] MEDS: FORMOTEROL FUMARATE 20 MCG/2 ML NEBU INHALATION SCH ×2 (07:59→19:17)
[2020-02-02 09:07] LABS: Calcium 8.4 mg/dL (8.4-10.2); Potassium 4.6 mmol/L (3.5-5.1)
[2020-02-02] MEDS: FUROSEMIDE 10 MG/ML 4 ML VIAL IV SCH (09:41)
[2020-02-02] MEDS: SPIRONOLACTONE 25 MG TAB PO SCH (09:42)
[2020-02-02] MEDS: PANTOPRAZOLE 40 MG/10 ML VIAL IV SCH (09:42)
[2020-02-02] MEDS: APIXABAN 5 MG TAB PO SCH ×2 (09:42→23:48)
[2020-02-02 11:46] LABS: Glucose,Whole Blood 165 mg/dL (75-99)
--- NOTE | 2020-02-02 11:49 | PN ---
PROGRESS NOTE Patient is seen for followup for acute kidney injury. He was admitted to the hospital initially with CHF exacerbation and volume overload. Patient was diuresed aggressively with Lasix drip. The Lasix drip was discontinued and patient was doing well and he was transferred out of the ICU. He had also been on dopamine at that time given his significant history of CHF. More recently, patient's edema had worsened and therefore he was restarted on IV Lasix. His creatinine has increased to 1.8 and 1.9 mg/dL. I believe his baseline is about 1.5-1.4. This morning, patient is comfortable, awake. He is not in any acute distress. Blood pressure was 100/57, heart rate 75 per minute. He is afebrile. Examination of the heart S1, S2. Examination of the lungs, decreased breath sounds at bases as per nursing staff. Examination lower extremities shows edema 1+ bilaterally. Chronic skin changes are noted. SYSTEMS SU[employer] OFFICER exam is grossly intact. LABS SHOW: Sodium 134, potassium 4.6, chloride 97, CO2 is 28, BUN 65, creatinine 1.93, calcium 8.4. ASSESSMENT: 1. Kidney injury cardiorenal, renal function had improved and serum creatinine is now worsening again. I believe this is mostly associated with hypotension/ hypoperfusion. Patient was started on midodrine yesterday. I will increase it to 10 mg t.i.d. today. He has good urine output. I will continue with the once a day dosing on the Lasix. 2. Cardiomyopathy, ejection fraction 45% to 50%. 3. Metabolic alkalosis status post Diamox. 4. Anemia of chronic disease maintained on Aranesp. 5. Chronic kidney disease stage III. Baseline creatinine about 1.5-1.4 mg/dL. It had gone down to 1.2. I am not sure if that was accurate. PLAN: Increase midodrine. Continue with the current dose of IV Lasix. MMODL / IJN: [id number] /
--- NOTE | 2020-02-02 12:17 | P.PN ---
Subjective Progress Note Date: 02/02/20 Principal diagnosis: Acute exacerbation of congestive heart failure/COPD The patient is seen today 01/31/2020 in follow-up on the selective care unit. He is currently sitting up in a chair at the bedside. Awake and alert in no acute distress. Currently maintaining O2 saturations in the mid 90s on 5 L high flow nasal cannula. He is afebrile. Sputum cultures positive for pseudomonas. Blood cultures reveal no growth. Sodium 140. Potassium 3.5. Creatinine 1.59. He is continued on bronchodilators, IV Solu-Medrol, antibiotics in the form of Zosyn. He remains on IV diuretics 40 mg of Lasix every 8 hours. Continued with lower extremity edema. Currently in a positive balance. Weight 107.5 kg. The patient is seen today 02/01/2020 follow-up on the selective care unit. He is currently resting in bed. Awake and alert in no acute distress. Slightly agitated today. Stating he needs to go home. He denies any worsening shortness of breath. He is on 5 L high flow nasal cannula to maintain O2 saturations in the 90s. He's been afebrile. Sputum cultures positive for pseudomonas aeruginosa. White count 16.3. Hemoglobin 9.3. Sodium 136. Potassium 3.2. Bicarb 34. Creatinine 1.89. He is continued on bronchodilators, IV Solu- Medrol, IV diuretics. Antibiotics in the form of Zosyn. Anticoagulated with Eliquis. The patient is seen today 02/02/2020 in follow-up on the selective care unit. He is currently resting comfortably in bed. A bit more awake and alert. Still confused at times. He is at 5 L high flow nasal cannula saturations in the 90s. He is afebrile. Sputum culture positive for pseudomonas. Blood culture reveals no growth. Sodium 134. Potassium 4.6. Bicarb 28. Creatinine 1.93. He remains on antibiotics in the form of Zosyn along with bronchodilators and IV Solu-Medrol. Continued on IV diuretics. Currently in a positive balance. Weight 109 kg. Objective - Vital Signs Vital signs: Vital Signs Temp 97.6 F 02/02/20 08:58 Pulse 84 02/02/20 12:08 Resp 20 02/02/20 08:58 BP 93/58 02/02/20 08:58 Pulse Ox 90 L 02/02/20 08:58 Intake & Output 02/01/20 02/02/20 02/02/20 18:59 06:59 18:59 Intake Total 220 560 120 Balance 220 560 120 Weight 109 kg Intake: IV 100 100 Piperacillin-Tazobactam 3 100 100 .375 gm In Sodium Chloride 0.9% 100 ml @ 25 mls/hr IVPB Q8H [facility] Rx#: [id number] Oral 120 460 120 Other: Voiding Method Indwelling Catheter Indwelling Catheter ABP, PAP, CO, CI - Last Documented Arterial Blood Pressure 112/49 - Exam GENERAL EXAM: Alert, pleasant 74-year-old gentleman, resting in bed, on 5 L high flow nasal cannula currently, comfortable in no apparent distress. HEAD: Normocephalic. EYES: Normal reaction of pupils, equal size. NOSE: Clear with pink turbinates. THROAT: No erythema or exudates. NECK: No masses, no JVD. CHEST: No chest wall deformity. LUNGS: Equal air entry with crackles in the bilateral posterior bases CVS: S1 and S2 normal with no audible murmur, irregular rhythm. ABDOMEN: No hepatosplenomegaly, normal bowel sounds, no guarding or rigidity. SPINE: No scoliosis or deformity SKIN: No rashes CENTRAL NERVOUS SYSTEM: No focal deficits, tone is normal in all 4 extremities. EXTREMITIES: There is 1-2+ peripheral edema. No clubbing, no cyanosis. Peripheral pulses are intact. - Labs CBC & Chem 7: 02/01/20 08:59 02/02/20 08:37 Labs: Abnormal Lab Results - Last 24 Hours (Table) 02/01/20 02/01/20 02/02/20 Range/Units 11:30 16:53 00:17 Sodium (137-145) mmol/L Chloride (98-107) mmol/L BUN (9-20) mg/dL Creatinine (0.66-1.25) mg/dL Glucose (74-99) mg/dL POC Glucose (mg/dL) 164 H 215 H (75-99) mg/dL Urine Protein Trace H (Negative) Urine Blood Large H (Negative) Urine RBC >182 H (0-5) /hpf Urine WBC 10 H (0-5) /hpf Urine Bacteria Rare H (None) /hpf Hyaline Casts 21 H (0-2) /lpf Urine Mucus Occasional H (None) /hpf 02/02/20 02/02/20 02/02/20 Range/Units 06:26 08:37 11:45 Sodium 134 L (137-145) mmol/L Chloride 97 L (98-107) mmol/L BUN 65 H (9-20) mg/dL Creatinine 1.93 H (0.66-1.25) mg/dL Glucose 184 H (74-99) mg/dL POC Glucose (mg/dL) 155 H 165 H (75-99) mg/dL Urine Protein (Negative) Urine Blood (Negative) Urine RBC (0-5) /hpf Urine WBC (0-5) /hpf Urine Bacteria (None) /hpf Hyaline Casts (0-2) /lpf Urine Mucus (None) /hpf Microbiology - Last 24 Hours (Table) 01/26/20 11:56 Blood Culture - Final Blood No Growth after 144 hours 01/26/20 12:06 Blood Culture - Final Blood No Growth after 144 hours Assessment and Plan Assessment: 1 Acute exacerbation of chronic systolic congestive heart failure with mildly impaired left ventricular systolic function ejection fraction 45-50%. The patient did develop acute hypoxic respiratory failure requiring intubation and mechanical ventilatory support. Recovered. Currently on 5 L high flow nasal cannula., On IV diuretics 2 Acute exacerbation of chronic obstructive pulmonary disease complicated by sputum positive for pseudomonas aeruginosa, remains on Zosyn 3 Pulmonary hypertension 4 Coronary artery disease 5 History of osteoarthritis 6 History of prostate cancer 7 Hyperlipidemia 8 Atrial fibrillation anticoagulated with Eliquis 9 Acute on chronic kidney disease Plan: The patient was seen and evaluated by Dr. Contreras Continue the current treatment plan Titrate down the FiO2 as tolerated We'll continue to follow and make further recommendations based on his clinical status I, the cosigning physician, performed a history & physical examination of the patient. Lungs sounds with crackles in the bilateral posterior bases. Maintaining good O2 saturations in the 90s on 5 L high flow nasal cannula. I discussed the assessment and plan of care with my nurse practitioner, Latisha Lowe. I attest to the above note as dictated by her.
[2020-02-02] MEDS: METOPROLOL TARTRATE 25 MG TAB PO SCH ×2 (12:45→23:52)
[2020-02-02] MEDS: DARBEPOETIN ALFA 40 MCG/0.4 ML SYRINGE SQ SCH (12:46)
--- NOTE | 2020-02-02 13:23 | P.PN ---
Subjective Progress Note Date: 02/02/20 Principal diagnosis: Acute exacerbation of chronic COPD Bilateral pulmonary infiltrate, Pseudomonas from sputum culture Exacerbation of chronic systolic congestive heart failure with minimally or mildly impaired left ventricular systolic function ejection fraction 45-50% This patient did develop acute hypoxic respiratory failure requiring intubation and mechanical ventilatory support from which he recovered currently on 5 L high flow oxygen This patient has significantly improved over does have acute exacerbation of chronic pulmonary disease, pulmonary hypertension coronary artery disease and bilateral pulmonary infiltrates Lasix was increased along with patient started on spironolactone he's lost 3 pounds since yesterday heart failure has improved pulmonary status has improved. Renal insufficiency has worsened slightly because of increase in diuretic Objective - Vital Signs Vital signs: Vital Signs Temp 97.4 F L 02/02/20 12:00 Pulse 84 02/02/20 12:08 Resp 20 02/02/20 12:00 BP 87/58 02/02/20 12:00 Pulse Ox 95 02/02/20 12:00 Intake & Output 02/01/20 02/02/20 02/02/20 18:59 06:59 18:59 Intake Total 220 560 120 Balance 220 560 120 Weight 109 kg Intake: IV 100 100 Piperacillin-Tazobactam 3 100 100 .375 gm In Sodium Chloride 0.9% 100 ml @ 25 mls/hr IVPB Q8H [facility] Rx#: [id number] Oral 120 460 120 Other: Voiding Method Indwelling Catheter Indwelling Catheter ABP, PAP, CO, CI - Last Documented Arterial Blood Pressure 112/49 - Exam Negative Covid 19 testing General: [Patient awake, alert and oriented times 3. Patient in no acute distress.] HEENT: [PERRL. EOMI. No pharyngeal erythema or exudate.] Neck: [No adenopathy.] Cardiac: [Heart regular in rate and rhythm. No S3. No S4. No clicks, rubs. No murmur.] Lungs: [Clear to auscultation bilaterally.] Abdomen: [No mass. No organomegaly. Bowel sounds presnt and normoactive in all 4 quadrants.] Extremes: 1+ pitting edema no cyanosis no claudication normal pulses] : [] Musculoskeletal: [No joint erythema, edema or tenderness.] Skin: [No rash.] Neurologic: [No lateralizing deficits. CN II - XII grossly intact.] Lymphatic: [No adenopathy.] - Labs CBC & Chem 7: 02/01/20 08:59 02/02/20 08:37 Labs: Abnormal Lab Results - Last 24 Hours (Table) 02/01/20 02/01/20 02/02/20 Range/Units 11:30 16:53 00:17 Sodium (137-145) mmol/L Chloride (98-107) mmol/L BUN (9-20) mg/dL Creatinine (0.66-1.25) mg/dL Glucose (74-99) mg/dL POC Glucose (mg/dL) 164 H 215 H (75-99) mg/dL Urine Protein Trace H (Negative) Urine Blood Large H (Negative) Urine RBC >182 H (0-5) /hpf Urine WBC 10 H (0-5) /hpf Urine Bacteria Rare H (None) /hpf Hyaline Casts 21 H (0-2) /lpf Urine Mucus Occasional H (None) /hpf 02/02/20 02/02/20 02/02/20 Range/Units 06:26 08:37 11:45 Sodium 134 L (137-145) mmol/L Chloride 97 L (98-107) mmol/L BUN 65 H (9-20) mg/dL Creatinine 1.93 H (0.66-1.25) mg/dL Glucose 184 H (74-99) mg/dL POC Glucose (mg/dL) 155 H 165 H (75-99) mg/dL Urine Protein (Negative) Urine Blood (Negative) Urine RBC (0-5) /hpf Urine WBC (0-5) /hpf Urine Bacteria (None) /hpf Hyaline Casts (0-2) /lpf Urine Mucus (None) /hpf Microbiology - Last 24 Hours (Table) 01/26/20 11:56 Blood Culture - Final Blood No Growth after 144 hours 01/26/20 12:06 Blood Culture - Final Blood No Growth after 144 hours Assessment and Plan (1) Acute respiratory failure with hypoxia Current Visit: Yes Status: Acute Priority: High Code(s): J96.01 - ACUTE RESPIRATORY FAILURE WITH HYPOXIA SNOMED Code(s): 52553318 (2) Acute systolic CHF (congestive heart failure) Current Visit: Yes Status: Acute Priority: High Code(s): I50.21 - ACUTE SYSTOLIC (CONGESTIVE) HEART FAILURE SNOMED Code(s): 019558698 (3) At risk for readmission to hospital Current Visit: Yes Status: Acute Code(s): Z91.89 - OTH PERSONAL RISK FACTORS, NOT ELSEWHERE CLASSIFIED SNOMED Code(s): 4096563185374 (4) Congestive heart failure Current Visit: Yes Status: Acute Code(s): I50.9 - HEART FAILURE, UNSPECIFIED SNOMED Code(s): 45850435 (5) Pneumonia Current Visit: Yes Status: Acute Code(s): J18.9 - PNEUMONIA, UNSPECIFIED ORGANISM SNOMED Code(s): 805411764 (6) Anemia of chronic disease Current Visit: Yes Status: Chronic Priority: Medium Code(s): D63.8 - ANEMIA IN OTHER CHRONIC DISEASES CLASSIFIED ELSEWHERE SNOMED Code(s): 176336274 (7) Atrial fibrillation Current Visit: Yes Status: Chronic Priority: Medium Code(s): I48.91 - UNSPECIFIED ATRIAL FIBRILLATION SNOMED Code(s): 44620828 (8) COPD (chronic obstructive pulmonary disease) Current Visit: Yes Status: Chronic Priority: Medium Code(s): J44.9 - CHRONIC OBSTRUCTIVE PULMONARY DISEASE, UNSPECIFIED SNOMED Code(s): 45280995 (9) Chronic renal disease, stage 3, moderately decreased glomerular filtration rate between 30-59 mL/min/1.73 square meter Current Visit: Yes Status: Chronic Priority: Medium Code(s): N18.3 - CHRONIC KIDNEY DISEASE, STAGE 3 (MODERATE) SNOMED Code(s): 035036885 (10) Essential (primary) hypertension Current Visit: Yes Status: Chronic Priority: Low Code(s): I10 - ESSENTIAL (PRIMARY) HYPERTENSION SNOMED Code(s): 73196559 (11) Pulmonary hypertension Current Visit: Yes Status: Chronic Priority: High Code(s): I27.20 - PULMONARY HYPERTENSION, UNSPECIFIED SNOMED Code(s): 31829862 Plan: Acute exacerbation of chronic systolic congestive heart failure with mildly impaired ejection fraction 45-50% Hypoxic respiratory failure requiring intubation and mechanical ventilatory support recovered Currently on high flow oxygen 5 L per nasal cannula Acute exacerbation of chronic obstructive pulmonary disease Pulmonary hypertension Coronary artery disease by history Osteoarthritis by history Prostate cancer by history Hyperlipidemia by history Atrial fibrillation currently on Eliquis Acute on chronic kidney disease Plan Zosyn for pseudomonas Titrate FiO2 for pulmonary BiPAP support as necessary Judicious use of diuretics Repeat chest x-rays Noted 25 mg spironolactone I'll reevaluate in the morning Time with Patient: Greater than 30
[2020-02-02 16:51] LABS: Glucose,Whole Blood 172 mg/dL (75-99)
[2020-02-02 20:26] LABS: Glucose,Whole Blood 204 mg/dL (75-99)
[2020-02-02 23:38] LABS: Glucose,Whole Blood 231 mg/dL (75-99)
[2020-02-02] MEDS: ATORVASTATIN 20 MG TAB PO SCH (23:48)
[2020-02-02] MEDS: POTASSIUM CHLORIDE ER 20 MEQ TAB.ER PO SCH (23:48)
[2020-02-03 06:04] LABS: Glucose,Whole Blood 138 mg/dL (75-99)
[2020-02-03] MEDS: PIPERACILLIN-TAZOBACTAM 3.375 GM in SODIUM CHLORIDE 0.9% 100 ML IVPB SCH ×3 (06:49→18:08)
[2020-02-03] MEDS: INSULIN ASPART (NovoLOG) 100 UNIT/ML VIAL SQ SCH ×3 (06:50→18:08)
[2020-02-03] MEDS: MIDODRINE 5 MG TAB PO SCH ×3 (06:50→16:24)
[2020-02-03] MEDS: BUDESONIDE 1 MG/2 ML NEBU INHALATION SCH ×2 (07:50→19:21)
[2020-02-03] MEDS: IPRATROPIUM-ALBUTEROL 3 ML NEB INHALATION SCH ×4 (07:50→19:21)
[2020-02-03] MEDS: FORMOTEROL FUMARATE 20 MCG/2 ML NEBU INHALATION SCH ×2 (07:50→19:21)
[2020-02-03] MEDS: APIXABAN 5 MG TAB PO SCH ×2 (10:11→20:49)
[2020-02-03] MEDS: PANTOPRAZOLE 40 MG TABLET PO SCH (10:12)
[2020-02-03] MEDS: METOPROLOL TARTRATE 25 MG TAB PO SCH ×2 (10:12→20:48)
[2020-02-03] MEDS: SPIRONOLACTONE 25 MG TAB PO SCH (10:12)
[2020-02-03] MEDS: methylPREDNISolone SOD SUCCI 40 MG/ML 1 ML VIAL IV SCH (10:13)
[2020-02-03] MEDS: FUROSEMIDE 10 MG/ML 4 ML VIAL IV SCH (10:14)
--- NOTE | 2020-02-03 11:02 | P.PN ---
Subjective Patient is seen in follow-up for acute kidney injury and chronic kidney disease. Creatinine 1.9 as of yesterday. Currently maintained on Lasix 40 mg IV once daily. Blood pressure had been running low and is currently maintained on midodrine 3 times daily. Still quite edematous. Vital signs are stable. General: The patient appeared well nourished and normally developed. HEENT: Head exam is unremarkable. Neck is without jugular venous distension. LUNGS: Lungs are clear to auscultation and percussion. Breath sounds decreased. HEART: Rate and Rhythm are regular. ABDOMEN: Soft. No distention. EXTREMITITES: Chronic changes noted. 2+ edema. Objective - Vital Signs Vital signs: Vital Signs Temp 97.2 F L 02/03/20 00:00 Pulse 76 02/03/20 08:15 Resp 20 02/03/20 04:00 BP 103/63 02/03/20 04:00 Pulse Ox 94 L 02/03/20 04:00 Intake & Output 02/02/20 02/03/20 02/03/20 18:59 06:59 18:59 Intake Total 220 240 Output Total 740 Balance 220 -740 240 Weight 112 kg Intake: IV 100 Piperacillin-Tazobactam 3 100 .375 gm In Sodium Chloride 0.9% 100 ml @ 25 mls/hr IVPB Q8H [facility] Rx#: [id number] Oral 120 240 Output: Urine 740 Other: Voiding Method Indwelling Catheter Indwelling Catheter # Voids 1 ABP, PAP, CO, CI - Last Documented Arterial Blood Pressure 112/49 - Labs CBC & Chem 7: 02/01/20 08:59 02/02/20 08:37 Labs: Abnormal Lab Results - Last 24 Hours (Table) 02/02/20 02/02/20 02/02/20 Range/Units 11:45 16:49 20:25 POC Glucose (mg/dL) 165 H 172 H 204 H (75-99) mg/dL 02/02/20 02/03/20 Range/Units 23:37 06:02 POC Glucose (mg/dL) 231 H 138 H (75-99) mg/dL Assessment and Plan Plan: Assessment: 1. Chronic kidney disease stage III with baseline creatinine near 1.5. GFR at baseline. No hydronephrosis noted on kidney ultrasound. UA benign. 2. Acute on chronic systolic CHF with ejection fraction of 45-50% with mild to moderate mitral and tricuspid regurgitation. 3. Severe pulmonary hypertension. 4. Volume overload. 5. Acute kidney injury mostly prerenal secondary to cardiorenal syndrome. Also component of hypotension. Creatinine 1.9 as of yesterday. Plan: Maintain midodrine. Maintain IV Lasix. Continue to monitor renal function and urine output.
[2020-02-03 11:45] LABS: Glucose,Whole Blood 148 mg/dL (75-99)
[2020-02-03 12:18] LABS: Anisocytosis Marked; Basophils % (A) 0 %; Eosinophils % (A) 0 %; HCT 34.7 % (39.0-53.0); HGB 9.9 gm/dL (13.0-17.5); Hypochromasia Marked; Lymphocytes # (A) 0.6 k/uL (1.0-4.8); Lymphocytes % (A) 3 %; MCH 20.8 pg (25.0-35.0); MCHC 28.4 g/dL (31.0-37.0); MCV 73.1 fL (80.0-100.0); Mean Platelet Volume 8.3; Microcytosis Marked; Monocytes # (A) 0.7 k/uL (0-1.0); Monocytes % (A) 4 %; Neutrophils # (A) 16.3 k/uL (1.3-7.7); Neutrophils % (A) 92 %; Platelet Count 217 k/uL (150-450); Poikilocytosis Slight; RBC 4.75 m/uL (4.30-5.90); WBC 17.8 k/uL (3.8-10.6)
[2020-02-03 12:19] LABS: RDW 25.1 % (11.5-15.5)
--- NOTE | 2020-02-03 12:25 | P.PN ---
Subjective Progress Note Date: 02/03/20 Principal diagnosis: Acute exacerbation of congestive heart failure/COPD The patient is seen today 01/31/2020 in follow-up on the selective care unit. He is currently sitting up in a chair at the bedside. Awake and alert in no acute distress. Currently maintaining O2 saturations in the mid 90s on 5 L high flow nasal cannula. He is afebrile. Sputum cultures positive for pseudomonas. Blood cultures reveal no growth. Sodium 140. Potassium 3.5. Creatinine 1.59. He is continued on bronchodilators, IV Solu-Medrol, antibiotics in the form of Zosyn. He remains on IV diuretics 40 mg of Lasix every 8 hours. Continued with lower extremity edema. Currently in a positive balance. Weight 107.5 kg. The patient is seen today 02/01/2020 follow-up on the selective care unit. He is currently resting in bed. Awake and alert in no acute distress. Slightly agitated today. Stating he needs to go home. He denies any worsening shortness of breath. He is on 5 L high flow nasal cannula to maintain O2 saturations in the 90s. He's been afebrile. Sputum cultures positive for pseudomonas aeruginosa. White count 16.3. Hemoglobin 9.3. Sodium 136. Potassium 3.2. Bicarb 34. Creatinine 1.89. He is continued on bronchodilators, IV Solu- Medrol, IV diuretics. Antibiotics in the form of Zosyn. Anticoagulated with Eliquis. The patient is seen today 02/02/2020 in follow-up on the selective care unit. He is currently resting comfortably in bed. A bit more awake and alert. Still confused at times. He is at 5 L high flow nasal cannula saturations in the 90s. He is afebrile. Sputum culture positive for pseudomonas. Blood culture reveals no growth. Sodium 134. Potassium 4.6. Bicarb 28. Creatinine 1.93. He remains on antibiotics in the form of Zosyn along with bronchodilators and IV Solu-Medrol. Continued on IV diuretics. Currently in a positive balance. Weight 109 kg. The patient is seen today 02/03/2020 in follow-up on the selective care unit. Currently resting in bed. Awake and alert in no acute distress. Somewhat confused as to time and place. He is currently maintaining O2 saturations in the 90s on 5 L/m per nasal cannula. He's been afebrile. Sputum culture was positive for pseudomonas aeruginosa. Blood cultures reveal no growth. White count 17.8. Hemoglobin 9.9. He remains on Zosyn, IV Solu-Medrol and bronchodilators. Continue on IV diuretics. Anticoagulated with Eliquis. Objective - Vital Signs Vital signs: Vital Signs Temp 97.2 F L 02/03/20 00:00 Pulse 80 02/03/20 11:46 Resp 20 02/03/20 04:00 BP 103/63 02/03/20 04:00 Pulse Ox 94 L 02/03/20 04:00 Intake & Output 02/02/20 02/03/20 02/03/20 18:59 06:59 18:59 Intake Total 220 240 Output Total 740 200 Balance 220 -740 40 Weight 112 kg Intake: IV 100 Piperacillin-Tazobactam 3 100 .375 gm In Sodium Chloride 0.9% 100 ml @ 25 mls/hr IVPB Q8H [facility] Rx#: [id number] Oral 120 240 Output: Urine 740 200 Other: Voiding Method Indwelling Catheter Indwelling Catheter # Voids 1 ABP, PAP, CO, CI - Last Documented Arterial Blood Pressure 112/49 - Exam GENERAL EXAM: Alert, pleasant 74-year-old gentleman, resting in bed, on 5 L high flow nasal cannula currently, comfortable in no apparent distress. HEAD: Normocephalic. EYES: Normal reaction of pupils, equal size. NOSE: Clear with pink turbinates. THROAT: No erythema or exudates. NECK: No masses, no JVD. CHEST: No chest wall deformity. LUNGS: Equal air entry with crackles in the bilateral posterior bases CVS: S1 and S2 normal with no audible murmur, irregular rhythm. ABDOMEN: No hepatosplenomegaly, normal bowel sounds, no guarding or rigidity. SPINE: No scoliosis or deformity SKIN: No rashes CENTRAL NERVOUS SYSTEM: No focal deficits, tone is normal in all 4 extremities. EXTREMITIES: There is 1-2+ peripheral edema. No clubbing, no cyanosis. Peripheral pulses are intact. - Labs CBC & Chem 7: 02/01/20 08:59 02/02/20 08:37 Labs: Abnormal Lab Results - Last 24 Hours (Table) 02/02/20 02/02/20 02/02/20 Range/Units 16:49 20:25 23:37 POC Glucose (mg/dL) 172 H 204 H 231 H (75-99) mg/dL 02/03/20 02/03/20 Range/Units 06:02 11:44 POC Glucose (mg/dL) 138 H 148 H (75-99) mg/dL Assessment and Plan Assessment: 1 Acute exacerbation of chronic systolic congestive heart failure with mildly impaired left ventricular systolic function ejection fraction 45-50%. The pat ient did develop acute hypoxic respiratory failure requiring intubation and mechanical ventilatory support. Recovered. Currently on 5 L high flow nasal cannula., On IV diuretics 2 Acute exacerbation of chronic obstructive pulmonary disease complicated by sputum positive for pseudomonas aeruginosa, remains on Zosyn 3 Pulmonary hypertension 4 Coronary artery disease 5 History of osteoarthritis 6 History of prostate cancer 7 Hyperlipidemia 8 Atrial fibrillation anticoagulated with Eliquis 9 Acute on chronic kidney disease Plan: The patient was seen and evaluated by Dr. Man We'll switch to oral prednisone Continue antibiotics and bronchodilators Remains on IV diuretics Titrate down the FiO2 as tolerated We'll continue to follow and make further recommendations based on his clinical status I, the cosigning physician, performed a history & physical examination of the patient. Lungs sounds with crackles in the bilateral posterior bases. Maintaining good O2 saturations in the 90s on 5 L high flow nasal cannula. I discussed the assessment and plan of care with my nurse practitioner, Latisha Lowe. I attest to the above note as dictated by her.
[2020-02-03 12:39] LABS: Calcium 8.8 mg/dL (8.4-10.2); Potassium 4.4 mmol/L (3.5-5.1)
--- NOTE | 2020-02-03 16:08 | P.PN ---
Subjective Progress Note Date: 02/03/20 This a 74-year-old gentleman with medical history of CAD, IN, CABG, CHF, COPD, DVT, and multiple other medical issues presented to the ER with complaints of worsening shortness of breath and bilateral lower extremity edema. Reports over the last week medications adjusted/Lasix increased per PCP with no improvement in symptoms and presented to the ER. BUN 89, Creatinine 1.6, baseline 1.5, INR 1.5. Denies fever or chills. Denies sore throat. Reports occasional nonproductive cough ,exertional dyspnea, orthopnea. Denies chest pain, palpitations. Denies lightheadedness, dizziness or focal deficits. WBC 14.8. Lactic acid 2.1. Neutrophils 12.8 . Afebrile. EKG reported sinus rhythm with left bundle branch block ,anterior lateral infarct, age undetermined, possible septal sub-endocardial injury. Troponins negative 1. BNP 4320. AST 60, ALT 99. Hemoglobin 9.9. Chest x-ray reporting interstitial pattern, bibasilar consolidation, CHF versus interstitial pneumonia. Vital signs stable, rodrigue ntaining O2 sats in the 90s on 3 L nasal cannula. 01/22/2020 diuresing on Lasix IV push with 24-hour I&O reflecting a negative fluid balance. Edema improving. Renal function improving, BUN 76 creatinine 1.5. Oxygen requirements titrated down to 2 L, maintaining O2 sats in the 90s. Borderline hypotension. Denies chest pain, palpitations or increasing shortness of breath. 01/23/2020 maintained on 1500 MLS fluid restriction, low-salt diet and diuretics . Lasix dosing adjusted yesterday to avoid night dose and facilitate sleep. 24- hour I&O inaccurate. Reports better sleep, breathing improving. Staff reports exertional dyspnea .Maintaining O2 sats in the 90s on 3 L nasal cannula. Bord alex hypotension. Evaluated by nephrology with recommendations noted. Creatinine slowly trending down, currently 1.43. Renal ultrasound unremarkable. LFTs within normal limits with exception of mild elevation of ALT. Sodium 136, potassium 4.3, magnesium 2.2 01/24/2020 Lasix infusion initiated yesterday afternoon as per nephrology. 24- hour I&O reporting increased weight. Significant edema. Worsening dyspnea. Maintaining O2 sats in the low 90s on 4 L nasal cannula O2. Renal function sta ble. Potassium 5.4 Telemetry reporting controlled A. fib with short asymptomatic, nonsustained V. tach run earlier this morning. 01/27/2020 patient developed worsening shortness of breath, was transferred to ICU yesterday, intubated. ABGs noted. Remains vent dependent with FiO2 weaned down to 40% and PEEP weaned down to +6. Maintained on renal dose dopamine, Lasix drip, Levophed, diprovan. Chest x-ray reporting improvement. Renal function improving. Potassium 3.2, magnesium pending. 01/28/2020 chest x-ray reports improvement. Maintained on mechanical ventilation with FiO2 40%, PEEP weaned down to +5. Lasix and dopamine drips have been discontinued. Receiving Diamox 2 doses. Lasix converted to IV push. Remains pressor dependent with Levophed weaning in progress renal function continues to improve, creatinine down to 1.2. Maintained on Rocephin and Zithromax. Sputum culture currently reporting gram-negative bacilli. Potassium being replaced. Sedation holiday being discussed, but patient extremely weak, opening eyes. 01/29/2020 patient extubated yesterday afternoon , maintained overnight on BiPAP .this morning, currently maintaining O2 sats in the 90s on 7 L high flow nasal cannula. Afebrile, T-max 100.6, WBC trending down currently 16. Sputum cultures reporting Pseudomonas aeruginosa, maintained on Zosyn. Sitter at bedside. Standing up at bedside with PT. Chest x-ray reporting improvement left pleural effusion with new trace right pleural effusion with possible bibasilar atelectasis. Hemoglobin dropped to 9. INR 1.3. Diuresing well on Lasix IV push with 24-hour I&O reflecting a negative fluid balance. Renal function mildly worsening, BUN 47, creatinine up to 1.58. Potassium 3.5. Alkalotic,Bicarb 37. Telemetry atrial fibrillation with controlled ventricular rate. 01/30/2020 maintained on Zithromax, Zosyn. Breathing continues to improve, weaned down to 5 L nasal cannula, maintaining O2 sats in the 90s, wheezy. IV steroids added to med regime. Mild tachycardia, low 100s. Afebrile. Diuresed well on Lasix IV push with 24-hour I&O reflecting a negative fluid balance. Chest x-ray reporting improvement left pleural effusion, new trace right pleural effusion. Renal function stable, BUN 43, creatinine 1.54. Sodium up to 147. B icarb 40. Lasix has been discontinued. 01/31/2020 transferred out of ICU currently on stepdown unit. Continues on nebulized bronchodilators, Zosyn, IV steroids, IV push Lasix . 24-hour I&O reflecting a positive fluid balance. maintaining O2 sats steroids in the 90s on 5 L high flow nasal cannula. Borderline hypotension. Afebrile. 02/03/2020 maintained on nebulized bronchodilators, Zosyn, IV steroids, Lasix IV push. maintaining O2 sats in the 90s on 5 L nasal cannula. Afebrile, WBC 17.8 blood cultures report no growth, sputum culture pseudomonas aeruginosa. Anticoagulated on Eliquis. Confused. Hypotensive,maintained on Midodrin. Objective - Vital Signs Vital signs: Vital Signs Temp 97.2 F L 02/03/20 00:00 Pulse 76 02/03/20 08:15 Resp 20 02/03/20 04:00 BP 103/63 02/03/20 04:00 Pulse Ox 94 L 02/03/20 04:00 Intake & Output 02/02/20 02/03/20 02/03/20 18:59 06:59 18:59 Intake Total 220 240 Output Total 740 Balance 220 -740 240 Weight 112 kg Intake: IV 100 Piperacillin-Tazobactam 3 100 .375 gm In Sodium Chloride 0.9% 100 ml @ 25 mls/hr IVPB Q8H [facility] Rx#: [id number] Oral 120 240 Output: Urine 740 Other: Voiding Method Indwelling Catheter Indwelling Catheter # Voids 1 ABP, PAP, CO, CI - Last Documented Arterial Blood Pressure 112/49 - Exam VITAL SIGNS: As above GENERAL: Sitting up in chair, no acute distress. Confused, disoriented to place and time. HEENT: Conjunctivae normal. eyes normal. NECK: No JVD. No thyroid enlargement. No LNs CARDIOVASCULAR: S1, S2, irregular. Systolic murmur. RESPIRATION: Breath sounds diminished in the bases. Scattered coarse crackles bilateral bases ABDOMEN: Soft, obese, nontender . No guarding. no masses palpable. Bowel sounds heard. LEGS: Bilateral chronic venous stasis with positive edema NERVOUS SYSTEM: No focal deficits. Skin: no rash , warm and dry Microbiology 01/26/20 11:56 Blood Blood Culture - Final No Growth after 144 hours 01/26/20 12:06 Blood Blood Culture - Final No Growth after 144 hours 01/26/20 21:25 Sputum Gram Stain - Final 01/26/20 21:25 Sputum Sputum Culture - Final Pseudomonas aeruginosa - Labs CBC & Chem 7: 02/03/20 11:55 02/03/20 11:55 Labs: Abnormal Lab Results - Last 24 Hours (Table) 02/02/20 02/02/20 02/02/20 Range/Units 11:45 16:49 20:25 POC Glucose (mg/dL) 165 H 172 H 204 H (75-99) mg/dL 02/02/20 02/03/20 Range/Units 23:37 06:02 POC Glucose (mg/dL) 231 H 138 H (75-99) mg/dL Assessment and Plan Assessment: Acute hypoxic respiratory failure secondary to decompensated acute CHF systolic dysfunction secondary to pulmonary edema, status post mechanical ventilator- dependent, status post BiPAP Hypotension secondary to the above, s/p pressor dependent Acute on chronic CHF exacerbation, systolic dysfunction, EF 45-50%, status post Lasix and renal dose dopamine drips. Prerenal secondary to cardiorenal syndrome, hypotension. Possible interstitial pneumonia, community-acquired, sputum culture reporting Pseudomonas aeruginosa. Acute COPD exacerbation Acute hypoxic respiratory failure secondary to acute CHF exacerbation, systolic dysfunction, status post mechanical ventilator dependent. Acute COPD exacerbation Acute on Chronic renal failure, stage III. Baseline creatinine 1.5, cardiorenal. Severe pulmonary hypertension Acute metabolic encephalopathy, multifactorial Chronic microcytic anemia, iron deficiency Chronic persistent atrial fibrillation, maintained on Eliquis CAD, history of IN, CABG, stent History of Hypertension Former nicotine dependence Obesity, BMI 32.9 mitral regurgitation tricuspid regurgitation Degenerative joint disease History of prostate cancer Choi catheter placement per urology, possibly urinary retention, possible stricture Plan: Continue on current medication regime , Diamox, monitoring and symptomatic treatment. Confused, Seroquel at night added to med regimen. Maintain antibiotics of Zosyn, nebulized bronchodilators, diuretics. Strict I&O's. Close monitoring of renal function, electrolytes with repeat labs ordered for a.m. Anticoagulated with Eliquis. Subacute rehab at discharge. The impression and plan of care has been dictated as directed. : I performed a history and examination of this patient, discussed the same with the dictator. I agree with the dictator's note ,documented as a scribe. Any additional findings or plans will be noted.
[2020-02-03 16:42] LABS: Glucose,Whole Blood 150 mg/dL (75-99)
[2020-02-03 20:28] LABS: Glucose,Whole Blood 148 mg/dL (75-99)
[2020-02-03] MEDS: POTASSIUM CHLORIDE ER 20 MEQ TAB.ER PO SCH (20:49)
[2020-02-03] MEDS: QUEtiapine 25 MG TAB PO SCH (20:49)
[2020-02-03] MEDS: ATORVASTATIN 20 MG TAB PO SCH (20:49)
[2020-02-04 00:15] LABS: Glucose,Whole Blood 170 mg/dL (75-99)
[2020-02-04] MEDS: INSULIN ASPART (NovoLOG) 100 UNIT/ML VIAL SQ SCH ×5 (00:15→21:34)
[2020-02-04 03:00] LABS: Glucose,Whole Blood 161 mg/dL (75-99)
[2020-02-04] MEDS: PIPERACILLIN-TAZOBACTAM 3.375 GM in SODIUM CHLORIDE 0.9% 100 ML IVPB SCH ×3 (04:00→17:52)
[2020-02-04 06:15] LABS: Glucose,Whole Blood 172 mg/dL (75-99)
[2020-02-04] MEDS: MIDODRINE 5 MG TAB PO SCH ×3 (06:18→17:28)
[2020-02-04 06:24] LABS: Calcium 8.5 mg/dL (8.4-10.2); Magnesium 2.9 mg/dL (1.6-2.3); Potassium 4.9 mmol/L (3.5-5.1)
[2020-02-04] MEDS: FORMOTEROL FUMARATE 20 MCG/2 ML NEBU INHALATION SCH ×2 (07:11→19:49)
[2020-02-04] MEDS: IPRATROPIUM-ALBUTEROL 3 ML NEB INHALATION SCH ×4 (07:12→19:49)
[2020-02-04] MEDS: BUDESONIDE 1 MG/2 ML NEBU INHALATION SCH ×2 (07:12→19:49)
[2020-02-04] MEDS ORDERED: predniSONE 20 MG TAB PO SCH (09:00)
--- NOTE | 2020-02-04 09:00 | P.PN ---
Subjective Patient is seen in follow-up for acute kidney injury and chronic kidney disease. Renal function worsening the last 2 days. Creatinine 2.66 today. Currently maintained on Lasix 40 mg IV once daily. Blood pressure had been running low and is currently maintained on midodrine 3 times daily. Still quite edematous. Patient also more confused today. Sitter present at bedside. Vital signs are stable. General: The patient appeared well nourished and normally developed. HEENT: Head exam is unremarkable. Neck is without jugular venous distension. LUNGS: Lungs are clear to auscultation and percussion. Breath sounds decreased. HEART: Rate and Rhythm are regular. ABDOMEN: Soft. No distention. EXTREMITITES: Chronic changes noted. 2+ edema. Objective - Vital Signs Vital signs: Vital Signs Temp 97.2 F L 02/04/20 04:00 Pulse 92 02/04/20 07:30 Resp 20 02/04/20 04:00 BP 127/67 02/04/20 04:00 Pulse Ox 92 L 02/04/20 04:00 Intake & Output 02/03/20 02/04/20 02/04/20 18:59 06:59 18:59 Intake Total 420 0 Output Total 600 300 Balance -180 -300 0 Weight 113 kg Intake: Oral 420 0 Output: Urine 600 300 Other: Voiding Method Indwelling Catheter Indwelling Catheter # Voids 0 ABP, PAP, CO, CI - Last Documented Arterial Blood Pressure 112/49 - Labs CBC & Chem 7: 02/03/20 11:55 02/04/20 05:48 Labs: Abnormal Lab Results - Last 24 Hours (Table) 02/03/20 02/03/20 02/03/20 Range/Units 11:44 11:55 11:55 WBC 17.8 H (3.8-10.6) k/uL Hgb 9.9 L (13.0-17.5) gm/dL Hct 34.7 L (39.0-53.0) % MCV 73.1 L (80.0-100.0) fL MCH 20.8 L (25.0-35.0) pg MCHC 28.4 L (31.0-37.0) g/dL RDW 25.1 H (11.5-15.5) % Neutrophils # 16.3 H (1.3-7.7) k/uL Lymphocytes # 0.6 L (1.0-4.8) k/uL Sodium 135 L (137-145) mmol/L Chloride 97 L (98-107) mmol/L BUN 74 H (9-20) mg/dL Creatinine 2.44 H (0.66-1.25) mg/dL Glucose 131 H (74-99) mg/dL POC Glucose (mg/dL) 148 H (75-99) mg/dL Magnesium (1.6-2.3) mg/dL 02/03/20 02/03/20 02/04/20 Range/Units 16:41 20:26 00:13 WBC (3.8-10.6) k/uL Hgb (13.0-17.5) gm/dL Hct (39.0-53.0) % MCV (80.0-100.0) fL MCH (25.0-35.0) pg MCHC (31.0-37.0) g/dL RDW (11.5-15.5) % Neutrophils # (1.3-7.7) k/uL Lymphocytes # (1.0-4.8) k/uL Sodium (137-145) mmol/L Chloride (98-107) mmol/L BUN (9-20) mg/dL Creatinine (0.66-1.25) mg/dL Glucose (74-99) mg/dL POC Glucose (mg/dL) 150 H 148 H 170 H (75-99) mg/dL Magnesium (1.6-2.3) mg/dL 02/04/20 02/04/20 02/04/20 Range/Units 02:59 05:48 06:13 WBC (3.8-10.6) k/uL Hgb (13.0-17.5) gm/dL Hct (39.0-53.0) % MCV (80.0-100.0) fL MCH (25.0-35.0) pg MCHC (31.0-37.0) g/dL RDW (11.5-15.5) % Neutrophils # (1.3-7.7) k/uL Lymphocytes # (1.0-4.8) k/uL Sodium 136 L (137-145) mmol/L Chloride 97 L (98-107) mmol/L BUN 82 H (9-20) mg/dL Creatinine 2.66 H (0.66-1.25) mg/dL Glucose 134 H (74-99) mg/dL POC Glucose (mg/dL) 161 H 172 H (75-99) mg/dL Magnesium 2.9 H (1.6-2.3) mg/dL Assessment and Plan Plan: Assessment: 1. Chronic kidney disease stage III with baseline creatinine near 1.5. GFR at baseline. No hydronephrosis noted on kidney ultrasound. UA benign. 2. Acute on chronic systolic CHF with ejection fraction of 45-50% with mild to moderate mitral and tricuspid regurgitation. 3. Severe pulmonary hypertension. 4. Volume overload. 5. Acute kidney injury mostly prerenal secondary to cardiorenal syndrome. Also component of hypotension. Creatinine 2.66 today. 6. Pneumonia maintained on antibiotics. Sputum culture positive for Pseudomonas. 7. Anemia of chronic kidney disease maintained on Aranesp. Plan: Maintain midodrine. Maintain IV Lasix. Discontinue potassium supplementation. Continue to monitor renal function and urine output. Repeat chest x-ray. Check ABG.
--- NOTE | 2020-02-04 09:26 | XR ---
EXAMINATION TYPE: XR chest 1V DATE OF EXAM: 02/04/2020 COMPARISON: 02/02/2020 HISTORY: 74-year-old male CHF TECHNIQUE: Single frontal view of the chest is obtained. FINDINGS: Median sternotomy wires with post-CABG clips in the mediastinum. Left base underpenetrated and not well assessed. Diffuse interstitial density is unchanged. IMPRESSION: Similar cardiomegaly and diffuse interstitial density, possible CHF with mild interstitial edema.
[2020-02-04] MEDS: SPIRONOLACTONE 25 MG TAB PO SCH (09:27)
[2020-02-04] MEDS: METOPROLOL TARTRATE 25 MG TAB PO SCH ×2 (09:27→21:32)
[2020-02-04] MEDS: PANTOPRAZOLE 40 MG TABLET PO SCH (09:27)
[2020-02-04] MEDS: APIXABAN 5 MG TAB PO SCH ×2 (09:27→21:32)
[2020-02-04] MEDS: FUROSEMIDE 10 MG/ML 4 ML VIAL IV SCH (09:27)
[2020-02-04 10:54] LABS: ABG Base Excess 0.9 mmol/L; ABG HCO3 25 mmol/L (21-25); ABG Oxygen Saturation 83.4 % (94-97); ABG PCO2 36 mmHg (35-45); ABG PH 7.45 (7.35-7.45); ABG TCO2 26 mmol/L (19-24); Allen Test Performed? Yes
[2020-02-04 11:00] LABS: ABG PO2 52 mmHg (83-108)
[2020-02-04 11:34] LABS: Glucose,Whole Blood 133 mg/dL (75-99)
--- NOTE | 2020-02-04 12:17 | P.PN ---
Subjective Progress Note Date: 02/04/20 Principal diagnosis: Acute exacerbation of congestive heart failure/COPD The patient is seen today 01/31/2020 in follow-up on the selective care unit. He is currently sitting up in a chair at the bedside. Awake and alert in no acute distress. Currently maintaining O2 saturations in the mid 90s on 5 L high flow nasal cannula. He is afebrile. Sputum cultures positive for pseudomonas. Blood cultures reveal no growth. Sodium 140. Potassium 3.5. Creatinine 1.59. He is continued on bronchodilators, IV Solu-Medrol, antibiotics in the form of Zosyn. He remains on IV diuretics 40 mg of Lasix every 8 hours. Continued with lower extremity edema. Currently in a positive balance. Weight 107.5 kg. The patient is seen today 02/01/2020 follow-up on the selective care unit. He is currently resting in bed. Awake and alert in no acute distress. Slightly agitated today. Stating he needs to go home. He denies any worsening shortness of breath. He is on 5 L high flow nasal cannula to maintain O2 saturations in the 90s. He's been afebrile. Sputum cultures positive for pseudomonas aeruginosa. White count 16.3. Hemoglobin 9.3. Sodium 136. Potassium 3.2. Bicarb 34. Creatinine 1.89. He is continued on bronchodilators, IV Solu- Medrol, IV diuretics. Antibiotics in the form of Zosyn. Anticoagulated with Eliquis. The patient is seen today 02/02/2020 in follow-up on the selective care unit. He is currently resting comfortably in bed. A bit more awake and alert. Still confused at times. He is at 5 L high flow nasal cannula saturations in the 90s. He is afebrile. Sputum culture positive for pseudomonas. Blood culture reveals no growth. Sodium 134. Potassium 4.6. Bicarb 28. Creatinine 1.93. He remains on antibiotics in the form of Zosyn along with bronchodilators and IV Solu-Medrol. Continued on IV diuretics. Currently in a positive balance. Weight 109 kg. The patient is seen today 02/03/2020 in follow-up on the selective care unit. Currently resting in bed. Awake and alert in no acute distress. Somewhat confused as to time and place. He is currently maintaining O2 saturations in the 90s on 5 L/m per nasal cannula. He's been afebrile. Sputum culture was positive for pseudomonas aeruginosa. Blood cultures reveal no growth. White count 17.8. Hemoglobin 9.9. He remains on Zosyn, IV Solu-Medrol and bronchodilators. Continue on IV diuretics. Anticoagulated with Eliquis. On 02/04/2020 patient seen in follow-up on selective care unit. He is awake and alert, in no acute distress, he remains on 6 L of oxygen and the pulse ox of 92%, lung sounds improved, no significant rales, rhonchi or congestion, however patient still has significant lower extremity edema, today's chest x-ray shows some improvement in the appearance of interstitial density, and interstitial edema. he continues on IV Lasix at 40 mg daily, he is in -480 mL fluid balance over the last 24 hours. Today's blood gas has been reviewed showing pO2 of 52, pCO2 of 36, pH of 7.45 this was done on FiO2 of 40%, and based on that patient's FiO2 was increased to 10 L with current pulse ox of 96%. At the time of her evaluation patient is resting comfortably in bed, no significant distress. Her has been gradual worsening of patient's renal failure, nephrology is following. Today's labs showed BUN of 82, and creatinine of 2.6. Patient remains on Zosyn for pseudomonal pneumonia Objective - Vital Signs Vital signs: Vital Signs Temp 97.5 F L 02/04/20 11:52 Pulse 88 02/04/20 11:52 Resp 18 02/04/20 11:52 BP 125/71 02/04/20 11:52 Pulse Ox 96 02/04/20 11:52 Intake & Output 02/03/20 02/04/20 02/04/20 18:59 06:59 18:59 Intake Total 420 0 Output Total 600 300 Balance -180 -300 0 Weight 113 kg Intake: Oral 420 0 Output: Urine 600 300 Other: Voiding Method Indwelling Catheter Indwelling Catheter Indwelling Catheter # Voids 0 ABP, PAP, CO, CI - Last Documented Arterial Blood Pressure 112/49 - Exam GENERAL EXAM: Alert, very pleasant, 74-year-old white male, resting comfortably in bed, on 5 L of oxygen with a pulse ox of 90% comfortable in no apparent distress. HEAD: Normocephalic/atraumatic. EYES: Normal reaction of pupils, equal size. Conjunctiva pink, sclera white. NOSE: Clear with pink turbinates. THROAT: No erythema or exudates. NECK: No masses, no JVD, no thyroid enlargement, no adenopathy. CHEST: No chest wall deformity. Symmetrical expansion. LUNGS: Equal air entry with no crackles, wheeze, rhonchi or dullness. CVS: Regular rate and rhythm, normal S1 and S2, no gallops, no murmurs, no rubs ABDOMEN: Soft, nontender. No hepatosplenomegaly, normal bowel sounds, no guarding or rigidity. EXTREMITIES: No clubbing, 2+ lower extremity edema, no cyanosis, 2+ pulses and upper and lower extremities. MUSCULOSKELETAL: Muscle strength and tone normal. SPINE: No scoliosis or deformity SKIN: No rashes CENTRAL NERVOUS SYSTEM: Alert and oriented -3. No focal deficits, tone is normal in all 4 extremities. PSYCHIATRIC: Alert and oriented -3. Appropriate affect. Intact judgment and insight. - Labs CBC & Chem 7: 02/03/20 11:55 02/04/20 05:48 Labs: Abnormal Lab Results - Last 24 Hours (Table) 02/03/20 02/03/20 02/03/20 Range/Units 11:55 11:55 16:41 WBC 17.8 H (3.8-10.6) k/uL Hgb 9.9 L (13.0-17.5) gm/dL Hct 34.7 L (39.0-53.0) % MCV 73.1 L (80.0-100.0) fL MCH 20.8 L (25.0-35.0) pg MCHC 28.4 L (31.0-37.0) g/dL RDW 25.1 H (11.5-15.5) % Neutrophils # 16.3 H (1.3-7.7) k/uL Lymphocytes # 0.6 L (1.0-4.8) k/uL ABG pO2 (83-108) mmHg ABG Total CO2 (19-24) mmol/L ABG O2 Saturation (94-97) % Sodium 135 L (137-145) mmol/L Chloride 97 L (98-107) mmol/L BUN 74 H (9-20) mg/dL Creatinine 2.44 H (0.66-1.25) mg/dL Glucose 131 H (74-99) mg/dL POC Glucose (mg/dL) 150 H (75-99) mg/dL Magnesium (1.6-2.3) mg/dL 02/03/20 02/04/20 02/04/20 Range/Units 20:26 00:13 02:59 WBC (3.8-10.6) k/uL Hgb (13.0-17.5) gm/dL Hct (39.0-53.0) % MCV (80.0-100.0) fL MCH (25.0-35.0) pg MCHC (31.0-37.0) g/dL RDW (11.5-15.5) % Neutrophils # (1.3-7.7) k/uL Lymphocytes # (1.0-4.8) k/uL ABG pO2 (83-108) mmHg ABG Total CO2 (19-24) mmol/L ABG O2 Saturation (94-97) % Sodium (137-145) mmol/L Chloride (98-107) mmol/L BUN (9-20) mg/dL Creatinine (0.66-1.25) mg/dL Glucose (74-99) mg/dL POC Glucose (mg/dL) 148 H 170 H 161 H (75-99) mg/dL Magnesium (1.6-2.3) mg/dL 02/04/20 02/04/20 02/04/20 Range/Units 05:48 06:13 10:48 WBC (3.8-10.6) k/uL Hgb (13.0-17.5) gm/dL Hct (39.0-53.0) % MCV (80.0-100.0) fL MCH (25.0-35.0) pg MCHC (31.0-37.0) g/dL RDW (11.5-15.5) % Neutrophils # (1.3-7.7) k/uL Lymphocytes # (1.0-4.8) k/uL ABG pO2 52 L* (83-108) mmHg ABG Total CO2 26 H (19-24) mmol/L ABG O2 Saturation 83.4 L (94-97) % Sodium 136 L (137-145) mmol/L Chloride 97 L (98-107) mmol/L BUN 82 H (9-20) mg/dL Creatinine 2.66 H (0.66-1.25) mg/dL Glucose 134 H (74-99) mg/dL POC Glucose (mg/dL) 172 H (75-99) mg/dL Magnesium 2.9 H (1.6-2.3) mg/dL 02/04/20 Range/Units 11:23 WBC (3.8-10.6) k/uL Hgb (13.0-17.5) gm/dL Hct (39.0-53.0) % MCV (80.0-100.0) fL MCH (25.0-35.0) pg MCHC (31.0-37.0) g/dL RDW (11.5-15.5) % Neutrophils # (1.3-7.7) k/uL Lymphocytes # (1.0-4.8) k/uL ABG pO2 (83-108) mmHg ABG Total CO2 (19-24) mmol/L ABG O2 Saturation (94-97) % Sodium (137-145) mmol/L Chloride (98-107) mmol/L BUN (9-20) mg/dL Creatinine (0.66-1.25) mg/dL Glucose (74-99) mg/dL POC Glucose (mg/dL) 133 H (75-99) mg/dL Magnesium (1.6-2.3) mg/dL Assessment and Plan Plan: Assessment: #1 Acute exacerbation of chronic systolic congestive heart failure with mildly impaired left ventricular systolic function ejection fraction 45-50%. The patient did develop acute hypoxic respiratory failure requiring intubation and mechanical ventilatory support. Recovered. Currently on 5 L high flow nasal cannula., On IV diuretics #2 Acute exacerbation of chronic obstructive pulmonary disease complicated by sputum positive for pseudomonas aeruginosa, remains on Zosyn #3 Pulmonary hypertension #4 Coronary artery disease #5 History of osteoarthritis #6 History of prostate cancer #7 Hyperlipidemia #8 Atrial fibrillation anticoagulated with Eliquis #9 Acute on chronic kidney disease Plan: Continue with Zosyn, continue with daily dose of IV Lasix, blood gas has been reviewed, FiO2 was increased to 10 L, wean FiO2 to keep O2 sat at 92-94%, continue with Pulmicort, Perforomist, and oral prednisone. Today's chest x-ray has been reviewed still showing diffuse interstitial density. Follow-up chest x-ray in the morning, follow-up electrolytes and renal profile. If dyspnea worsens may place patient on BiPAP. We'll continue to closely follow clinical course. I performed a history & physical examination of the patient and discussed their management with my nurse practitioner, Tg Knapp. I reviewed the nurse practitioner's note and agree with the documented findings and plan of care. Lung sounds are positive for diminished breath sounds. The findings and the impression was discussed with the patient. I attest to the documentation by the nurse practitioner. Time with Patient: Less than 30
[2020-02-04 15:59] VITALS: RESP 20
[2020-02-04 16:43] LABS: Glucose,Whole Blood 97 mg/dL (75-99)
--- NOTE | 2020-02-04 16:45 | P.PN ---
Subjective Progress Note Date: 02/04/20 This a 74-year-old gentleman with medical history of CAD, CA, CABG, CHF, COPD, DVT, and multiple other medical issues presented to the ER with complaints of worsening shortness of breath and bilateral lower extremity edema. Reports over the last week medications adjusted/Lasix increased per PCP with no improvement in symptoms and presented to the ER. BUN 89, Creatinine 1.6, baseline 1.5, INR 1.5. Denies fever or chills. Denies sore throat. Reports occasional nonproductive cough ,exertional dyspnea, orthopnea. Denies chest pain, palpitations. Denies lightheadedness, dizziness or focal deficits. WBC 14.8. Lactic acid 2.1. Neutrophils 12.8 . Afebrile. EKG reported sinus rhythm with left bundle branch block ,anterior lateral infarct, age undetermined, possible septal sub-endocardial injury. Troponins negative 1. BNP 4320. AST 60, ALT 99. Hemoglobin 9.9. Chest x-ray reporting interstitial pattern, bibasilar consolidation, CHF versus interstitial pneumonia. Vital signs stable, rodrigue ntaining O2 sats in the 90s on 3 L nasal cannula. 01/22/2020 diuresing on Lasix IV push with 24-hour I&O reflecting a negative fluid balance. Edema improving. Renal function improving, BUN 76 creatinine 1.5. Oxygen requirements titrated down to 2 L, maintaining O2 sats in the 90s. Borderline hypotension. Denies chest pain, palpitations or increasing shortness of breath. 01/23/2020 maintained on 1500 MLS fluid restriction, low-salt diet and diuretics . Lasix dosing adjusted yesterday to avoid night dose and facilitate sleep. 24- hour I&O inaccurate. Reports better sleep, breathing improving. Staff reports exertional dyspnea .Maintaining O2 sats in the 90s on 3 L nasal cannula. Bord alex hypotension. Evaluated by nephrology with recommendations noted. Creatinine slowly trending down, currently 1.43. Renal ultrasound unremarkable. LFTs within normal limits with exception of mild elevation of ALT. Sodium 136, potassium 4.3, magnesium 2.2 01/24/2020 Lasix infusion initiated yesterday afternoon as per nephrology. 24- hour I&O reporting increased weight. Significant edema. Worsening dyspnea. Maintaining O2 sats in the low 90s on 4 L nasal cannula O2. Renal function sta ble. Potassium 5.4 Telemetry reporting controlled A. fib with short asymptomatic, nonsustained V. tach run earlier this morning. 01/27/2020 patient developed worsening shortness of breath, was transferred to ICU yesterday, intubated. ABGs noted. Remains vent dependent with FiO2 weaned down to 40% and PEEP weaned down to +6. Maintained on renal dose dopamine, Lasix drip, Levophed, diprovan. Chest x-ray reporting improvement. Renal function improving. Potassium 3.2, magnesium pending. 01/28/2020 chest x-ray reports improvement. Maintained on mechanical ventilation with FiO2 40%, PEEP weaned down to +5. Lasix and dopamine drips have been discontinued. Receiving Diamox 2 doses. Lasix converted to IV push. Remains pressor dependent with Levophed weaning in progress renal function continues to improve, creatinine down to 1.2. Maintained on Rocephin and Zithromax. Sputum culture currently reporting gram-negative bacilli. Potassium being replaced. Sedation holiday being discussed, but patient extremely weak, opening eyes. 01/29/2020 patient extubated yesterday afternoon , maintained overnight on BiPAP .this morning, currently maintaining O2 sats in the 90s on 7 L high flow nasal cannula. Afebrile, T-max 100.6, WBC trending down currently 16. Sputum cultures reporting Pseudomonas aeruginosa, maintained on Zosyn. Sitter at bedside. Standing up at bedside with PT. Chest x-ray reporting improvement left pleural effusion with new trace right pleural effusion with possible bibasilar atelectasis. Hemoglobin dropped to 9. INR 1.3. Diuresing well on Lasix IV push with 24-hour I&O reflecting a negative fluid balance. Renal function mildly worsening, BUN 47, creatinine up to 1.58. Potassium 3.5. Alkalotic,Bicarb 37. Telemetry atrial fibrillation with controlled ventricular rate. 01/30/2020 maintained on Zithromax, Zosyn. Breathing continues to improve, weaned down to 5 L nasal cannula, maintaining O2 sats in the 90s, wheezy. IV steroids added to med regime. Mild tachycardia, low 100s. Afebrile. Diuresed well on Lasix IV push with 24-hour I&O reflecting a negative fluid balance. Chest x-ray reporting improvement left pleural effusion, new trace right pleural effusion. Renal function stable, BUN 43, creatinine 1.54. Sodium up to 147. B icarb 40. Lasix has been discontinued. 01/31/2020 transferred out of ICU currently on stepdown unit. Continues on nebulized bronchodilators, Zosyn, IV steroids, IV push Lasix . 24-hour I&O reflecting a positive fluid balance. maintaining O2 sats steroids in the 90s on 5 L high flow nasal cannula. Borderline hypotension. Afebrile. 02/03/2020 maintained on nebulized bronchodilators, Zosyn, IV steroids, Lasix IV push. maintaining O2 sats in the 90s on 5 L nasal cannula. Afebrile, WBC 17.8 blood cultures report no growth, sputum culture pseudomonas aeruginosa. Anticoagulated on Eliquis. Confused. Hypotensive,maintained on Midodrin. 02/04/2020 Continues on Lasix 40 IV push daily, 24-hour I&O inaccurate ,renal function continues to worsen with creatinine up to 2.66, increased confusion with sitter at bedside. Maintaining O2 sats of 90% on 5 L nasal cannula. ABG/chest x-ray ordered. Potassium 4.9. Continues on Midodrin, blood pressures borderline hypotensive. Objective - Vital Signs Vital signs: Vital Signs Temp 97.3 F L 02/04/20 08:00 Pulse 88 02/04/20 08:00 Resp 20 02/04/20 08:00 BP 110/62 02/04/20 08:00 Pulse Ox 90 L 02/04/20 08:00 Intake & Output 02/03/20 02/04/20 02/04/20 18:59 06:59 18:59 Intake Total 420 0 Output Total 600 300 Balance -180 -300 0 Weight 113 kg Intake: Oral 420 0 Output: Urine 600 300 Other: Voiding Method Indwelling Catheter Indwelling Catheter Indwelling Catheter # Voids 0 ABP, PAP, CO, CI - Last Documented Arterial Blood Pressure 112/49 - Exam VITAL SIGNS: As above GENERAL: Sitting up in chair, no acute distress. Confused. HEENT: Conjunctivae normal. eyes normal. NECK: No JVD. No thyroid enlargement. No LNs CARDIOVASCULAR: S1, S2, irregular. Systolic murmur. RESPIRATION: Breath sounds diminished in the bases. Occasional Scattered coarse crackles bilateral bases ABDOMEN: Soft, obese, nontender . No guarding. no masses palpable. Bowel sounds heard. LEGS: Bilateral chronic venous stasis with positive edema NERVOUS SYSTEM: No focal deficits. Skin: no rash , warm and dry Microbiology 01/26/20 11:56 Blood Blood Culture - Final No Growth after 144 hours 01/26/20 12:06 Blood Blood Culture - Final No Growth after 144 hours 01/26/20 21:25 Sputum Gram Stain - Final 01/26/20 21:25 Sputum Sputum Culture - Final Pseudomonas aeruginosa - Labs CBC & Chem 7: 02/03/20 11:55 02/04/20 05:48 Labs: Abnormal Lab Results - Last 24 Hours (Table) 02/03/20 02/03/20 02/03/20 Range/Units 11:44 11:55 11:55 WBC 17.8 H (3.8-10.6) k/uL Hgb 9.9 L (13.0-17.5) gm/dL Hct 34.7 L (39.0-53.0) % MCV 73.1 L (80.0-100.0) fL MCH 20.8 L (25.0-35.0) pg MCHC 28.4 L (31.0-37.0) g/dL RDW 25.1 H (11.5-15.5) % Neutrophils # 16.3 H (1.3-7.7) k/uL Lymphocytes # 0.6 L (1.0-4.8) k/uL ABG pO2 (83-108) mmHg ABG Total CO2 (19-24) mmol/L ABG O2 Saturation (94-97) % Sodium 135 L (137-145) mmol/L Chloride 97 L (98-107) mmol/L BUN 74 H (9-20) mg/dL Creatinine 2.44 H (0.66-1.25) mg/dL Glucose 131 H (74-99) mg/dL POC Glucose (mg/dL) 148 H (75-99) mg/dL Magnesium (1.6-2.3) mg/dL 02/03/20 02/03/20 02/04/20 Range/Units 16:41 20:26 00:13 WBC (3.8-10.6) k/uL Hgb (13.0-17.5) gm/dL Hct (39.0-53.0) % MCV (80.0-100.0) fL MCH (25.0-35.0) pg MCHC (31.0-37.0) g/dL RDW (11.5-15.5) % Neutrophils # (1.3-7.7) k/uL Lymphocytes # (1.0-4.8) k/uL ABG pO2 (83-108) mmHg ABG Total CO2 (19-24) mmol/L ABG O2 Saturation (94-97) % Sodium (137-145) mmol/L Chloride (98-107) mmol/L BUN (9-20) mg/dL Creatinine (0.66-1.25) mg/dL Glucose (74-99) mg/dL POC Glucose (mg/dL) 150 H 148 H 170 H (75-99) mg/dL Magnesium (1.6-2.3) mg/dL 02/04/20 02/04/20 02/04/20 Range/Units 02:59 05:48 06:13 WBC (3.8-10.6) k/uL Hgb (13.0-17.5) gm/dL Hct (39.0-53.0) % MCV (80.0-100.0) fL MCH (25.0-35.0) pg MCHC (31.0-37.0) g/dL RDW (11.5-15.5) % Neutrophils # (1.3-7.7) k/uL Lymphocytes # (1.0-4.8) k/uL ABG pO2 (83-108) mmHg ABG Total CO2 (19-24) mmol/L ABG O2 Saturation (94-97) % Sodium 136 L (137-145) mmol/L Chloride 97 L (98-107) mmol/L BUN 82 H (9-20) mg/dL Creatinine 2.66 H (0.66-1.25) mg/dL Glucose 134 H (74-99) mg/dL POC Glucose (mg/dL) 161 H 172 H (75-99) mg/dL Magnesium 2.9 H (1.6-2.3) mg/dL 02/04/20 Range/Units 10:48 WBC (3.8-10.6) k/uL Hgb (13.0-17.5) gm/dL Hct (39.0-53.0) % MCV (80.0-100.0) fL MCH (25.0-35.0) pg MCHC (31.0-37.0) g/dL RDW (11.5-15.5) % Neutrophils # (1.3-7.7) k/uL Lymphocytes # (1.0-4.8) k/uL ABG pO2 52 L* (83-108) mmHg ABG Total CO2 26 H (19-24) mmol/L ABG O2 Saturation 83.4 L (94-97) % Sodium (137-145) mmol/L Chloride (98-107) mmol/L BUN (9-20) mg/dL Creatinine (0.66-1.25) mg/dL Glucose (74-99) mg/dL POC Glucose (mg/dL) (75-99) mg/dL Magnesium (1.6-2.3) mg/dL Assessment and Plan Assessment: Acute hypoxic respiratory failure secondary to decompensated acute CHF systolic dysfunction secondary to pulmonary edema, status post mechanical ventilator- dependent, status post BiPAP Hypotension secondary to the above, s/p pressor dependent Acute on chronic CHF exacerbation, systolic dysfunction, EF 45-50%, status post Lasix and renal dose dopamine drips. Prerenal secondary to cardiorenal syndrome, hypotension. Possible interstitial pneumonia, community-acquired, sputum culture reporting Pseudomonas aeruginosa. Acute COPD exacerbation Acute hypoxic respiratory failure secondary to acute CHF exacerbation, systolic dysfunction, status post mechanical ventilator dependent. Acute COPD exacerbation Acute on Chronic renal failure, stage III. Baseline creatinine 1.5, cardiorenal. Severe pulmonary hypertension Acute metabolic encephalopathy, multifactorial Chronic microcytic anemia, iron deficiency Chronic persistent atrial fibrillation, maintained on Eliquis CAD, history of CA, CABG, stent History of Hypertension Former nicotine dependence Obesity, BMI 32.9 mitral regurgitation tricuspid regurgitation Degenerative joint disease History of prostate cancer Choi catheter placement per urology, possibly urinary retention, possible stricture Plan: Continue on current medication regime , Diamox, monitoring and symptomatic treatment. Chest x-ray/ABG pending. O2 titration/parameters as per pulmonary. Seroquel added last night to med regimen, remains confused. Continue antibioti cs of Zosyn, nebulized bronchodilators. Diuretics as per nephrology. Strict I&O's. Diet is adjusted to renal /low potassium. Close monitoring of renal function, electrolytes with repeat labs ordered for a.m. Anticoagulated with Eliquis. Subacute rehab at discharge. The impression and plan of care has been dictated as directed. : I performed a history and examination of this patient, discussed the same with the dictator. I agree with the dictator's note ,documented as a scribe. Any additional findings or plans will be noted.
[2020-02-04 20:06] LABS: Glucose,Whole Blood 109 mg/dL (75-99)
[2020-02-04] MEDS: ATORVASTATIN 20 MG TAB PO SCH (21:32)
[2020-02-04] MEDS: QUEtiapine 25 MG TAB PO SCH (21:33)
[2020-02-05 00:08] LABS: Glucose,Whole Blood 123 mg/dL (75-99)
[2020-02-05 00:18] VITALS: BP 105/67; PULSE 52; TEMP 97.2
[2020-02-05] MEDS ORDERED: DEXTROSE 5% IN WATER 50 ML BAG ONE (04:07)
[2020-02-05] MEDS ORDERED: DEXTROSE 5% IN WATER 100 ML BAG IV ONE (04:07)
[2020-02-05] MEDS ORDERED: SODIUM BICARB 8.4% 50 ML SYR (1 MEQ/ML) ONE (04:07)
[2020-02-05] MEDS ORDERED: AMIODARONE 50 MG/ML 9 ML VIAL IV ONE (04:07)
[2020-02-05] MEDS ORDERED: AMIODARONE 50 MG/ML 3 ML VIAL IV ONE (04:07)
[2020-02-05] MEDS ORDERED: NOREPINEPHRINE 1 MG/ML 4 ML VIAL IV ONE (04:07)
[2020-02-05] MEDS ORDERED: EPINEPHrine 10 ML SYRINGE (0.1 MG/ML) ONE (04:07)
[2020-02-05] MEDS ORDERED: DEXTROSE 5% IN WATER 250 ML BAG IV ONE (04:07)
[2020-02-05 04:18] LABS: Glucose,Whole Blood 134 mg/dL (75-99)
--- NOTE | 2020-02-05 05:03 | XR ---
EXAMINATION TYPE: XR chest 1V portable DATE OF EXAM: 02/05/2020 COMPARISON: Yesterday HISTORY: Respiratory distress. TECHNIQUE: Single view FINDINGS: Endotracheal tube is 2.4 cm from the che. There is moderate pulmonary interstitial and a lveolar edema. Heart is enlarged. There are sternal wires. There are chest leads. IMPRESSION: Pulmonary edema appears worse than yesterday and consistent with congestive heart failure . RDS is not excluded.
--- NOTE | 2020-02-05 06:02 | P.EN ---
alex messina called on this patient around 0407 please refer to paper documentation of alex messina for full sequence of events and interventions. multiple rounds of epinephrine , bicarb, were given. patient received DC shock multiple times, and bolused with amiodarone , patient was intubated during the resuscitation patient coded multiple times, initial rhythm was PEA, but later he had pulseless Vtach and also episodes of Vfib , DC shock were delivered , patient bolused with amiodarone upon intubating patient , he had a lot of batsheva bleeding through the ET tube requiring frequent suctioning. seems like he was hemorrhaging in his lungs patient achieved ROSC multiple times however were short lived lasting few minutes each time. patient was never stable enough to be transferred to the ICU to continue supportive care. after multiple episodes of code blue and resuscitation over 60 minutes. he eventually was made DNR, and ultimately pronounced at 0508. primary team Dr Pizarro notified. family notified and were on their way . 74 minutes in critical care time were spent in this patient care
[2020-02-05] MEDS: BUDESONIDE 1 MG/2 ML NEBU INHALATION SCH (09:24)
[2020-02-05] MEDS: IPRATROPIUM-ALBUTEROL 3 ML NEB INHALATION SCH (09:25)
[2020-02-05] MEDS: FORMOTEROL FUMARATE 20 MCG/2 ML NEBU INHALATION SCH (09:25)
--- NOTE | 2020-02-06 09:35 | CDI ---
Documentation Clarification Form Date: 02/06/20 From: Helga Perera Phone: If you have a question about this query, please contact Laura Todd, Bolt Cutter at [phone] between 8am and 5pm. Admit Date: 01/22/20 Discharge Date:02/05/20 Patient Name: Kel Gerber Visit Number: [id number] ATTENTION: The Clinical Documentation Specialists (CDI) and [facility] Coding Staff appreciate your assistance in clarifying documentation. Please respond to the clarification below the line at the bottom and electronically sign. The CDI & [facility] Coding staff will review the response and follow-up if needed. Please note: Queries are made part of the Legal Health Record. If you have any questions, please contact the author of this message via ITS. Dear Dr. Daly The patient presented with the following: Acute on chronic heart failure, possible interstitial pneumonia and found to have Pseudomonas in the sputum. History/Risk Factors: Pseudomonas pneumonia Clinical Indicators: Elevated WBC, lactic acidosis, borderline hypotension documented in your 01/21 progress note WBC: 14.8 Lactic acid: 2.1 Blood cultures: No growth Vitals signs on admission: T. 97.8, 01/21 - 96.2, P. 85, 1 hour later 100, R. 20, BP 105/75, 9 hours later 94/94 Treatment: Antibiotics: IV Zithromax, IV Rocephin, IV Zosyn In your professional opinion, please clarify if these findings signify one of the following conditions, whether the condition is POA, and cause, if known: Condition --->Sepsis ruled out SIRS, without underlying infectious process Sepsis Severe Sepsis Septic Shock Other, please specify Unable to determine Present on Admission Yes No Identify the (suspected) organism Link or clarify if there is associated (due to/with): Organ failure Shock MTDD
--- NOTE | 2020-02-06 09:56 | CDI ---
Documentation Clarification Form Date: 02/06/20 From: Helga Perera Phone: If you have a question about this query, please contact Laura Todd Drainage Engineer at [phone] between 8am and 5pm. Admit Date: 01/22/20 Discharge Date:02/05/20 Patient Name: Kel Gerber Visit Number: [id number] ATTENTION: The Clinical Documentation Specialists (CDI) and [facility] Coding Staff appreciate your assistance in clarifying documentation. Please respond to the clarification below the line at the bottom and electronically sign. The CDI & [facility] Coding staff will review the response and follow-up if needed. Please note: Queries are made part of the Legal Health Record. If you have any questions, please contact the author of this message via ITS. Dear Dr. Nolan Acute kidney injury was documented in Dr. Carlson's 01/20 consult notes and progress notes. Dr. Acevedo documented acute kidney injury in his 01.30 - 12/04 progress notes. History/Risk Factors: CKD stage 3, hypertension, acute congestive heart failure, hypotension Patients baseline BUN/CR/GFR: 43/1.50/62 Clinical Indicators: Elevated Creatinine Current BUN/Cr/GFR: 89/1.60/42 Creatinine: 01/26 - 1.16, 01/28 - 1.58, 02/03 - 2.66 Urine: hyaline casts not tested on admission but 21 on 01/31 Treatment: IV Lasix In order to capture the severity of condition, please clarify if the condition signifies: Acute renal failure, Please specify etiology (if known): Cortical Necrosis Medullary Necrosis Tubular Necrosis Other, please specify Unable to determine atn MTDD
--- NOTE | 2020-02-06 10:12 | CDI ---
Documentation Clarification Form Date: 02/06/20 From: Helga Perera Phone: If you have a question about this query, please contact Laura Todd, Hot Billet Shear Operator at [phone] between 8am and 5pm. Admit Date: 01/22/20 Discharge Date:02/05/20 Patient Name: Kel Gerber Visit Number: [id number] ATTENTION: The Clinical Documentation Specialists (CDI) and [facility] Coding Staff appreciate your assistance in clarifying documentation. Please respond to the clarification below the line at the bottom and electronically sign. The CDI & [facility] Coding staff will review the response and follow-up if needed. Please note: Queries are made part of the Legal Health Record. If you have any questions, please contact the author of this message via ITS. Dear Dr. Daly Conflicting documentation has been found in the medical record: Dr. Carlson documented acute on chronic diastolic heart failure, EF 45 - 50% in his progress notes. Kenyetta Castillo/your documention states acute on chronic CHF exacerbation, systolic dysfunction, EF 45 - 50%. Dr. Mays, Dr. Man and Dr. Bell all documented acute on chronic systolic CHF. History/Risk Factors: CHF, hypertension, chronic persistent a-fib Clinical Indicators: Worsening dyspnea and lower extremity edema VS/Pulse Ox: T. 97.8, P. 85, R. 20, BP 105/75, Pulse ox. 96% on 02 at 3 lpm BNP: 4320 Chest X-Ray: Interstitial pattern with basilar consolidation correlate for CHF vs. pneumonia. ECHO: From December showed mildly impaired LV function with an ejection fraction of 45-50%. Treatment: IV Lasix 40 mg q 8 hrs, IV Lasix 80 mg @ 10 mls/hr In your opinion, what is the most clinically appropriate diagnosis for this patient? Acute on Chronic Diastolic CHF Acute on Chronic Systolic CHF Other explanation of clinical findings Unable to determine (no explanation for clinical findings) MTDD
--- NOTE | 2020-02-06 10:15 | CDI ---
Documentation Clarification Form Date: 02/06/20 From: Helga Perera Phone: If you have a question about this query, please contact Laura Todd, Publicity Person at [phone] between 8am and 5pm. Admit Date: 01/22/20 Discharge Date:02/05/20 Patient Name: Kel Gerber Visit Number: [id number] ATTENTION: The Clinical Documentation Specialists (CDI) and [facility] Coding Staff appreciate your assistance in clarifying documentation. Please respond to the clarification below the line at the bottom and electronically sign. The CDI & [facility] Coding staff will review the response and follow-up if needed. Please note: Queries are made part of the Legal Health Record. If you have any questions, please contact the author of this message via ITS. Dear Dr. Daly The patient presented with the following: Acute on chronic heart failure, possible interstitial pneumonia and found to have Pseudomonas in the sputum. History/Risk Factors: Pseudomonas pneumonia Clinical Indicators: Elevated WBC, lactic acidosis, borderline hypotension documented in your 01/21 progress note WBC: 14.8 Lactic acid: 2.1 Blood cultures: No growth Vitals signs on admission: T. 97.8, 01/21 - 96.2, P. 85, 1 hour later 100, R. 20, BP 105/75, 9 hours later 94/94 Treatment: Antibiotics: IV Zithromax, IV Rocephin, IV Zosyn In your professional opinion, please clarify if these findings signify one of the following conditions, whether the condition is POA, and cause, if known: Condition Sepsis ruled out SIRS, without underlying infectious process Sepsis Severe Sepsis Septic Shock Other, please specify Unable to determine Present on Admission Yes No Identify the (suspected) organism Link or clarify if there is associated (due to/with): Organ failure Shock MTDD
--- NOTE | 2020-02-06 10:28 | CDI ---
Documentation Clarification Form Date: 02/06/20 From: Helga Perera Phone: If you have a question about this query, please contact Laura Todd Stunt Performer at [phone] between 8am and 5pm. Admit Date: 01/22/20 Discharge Date:02/05/20 Patient Name: Kel Gerber Visit Number: [id number] ATTENTION: The Clinical Documentation Specialists (CDI) and [facility] Coding Staff appreciate your assistance in clarifying documentation. Please respond to the clarification below the line at the bottom and electronically sign. The CDI & [facility] Coding staff will review the response and follow-up if needed. Please note: Queries are made part of the Legal Health Record. If you have any questions, please contact the author of this message via ITS. Dear Dr. Daly Borderline hypotension is documented in the 01/21 - 01/24 progress notes. Kenyetta Sneed began documenting hypotension secondary to acute hypoxic respiratory failure and acute systolic CHF, pressor dependent in the 01/26 progress note and after. Patient history/risk factors: CHF exacerbation, CKD 3, hypertension, pulmonary hypertension, pseudomonas pneumonia Clinical Indicators: Low blood pressure Vitals: T. 97.8, P. 85, R. 20 BP: 01/20 - 110/59, 100/64, 94/64; 01/21 - 101/59, 105/71, 97/60, 105/65, 01/22 - 106/71, 115/76, 103/63, 92/60 Treatment: IV Dopamine , IV Norepinephrine Bitartrate 8 mg In your professional opinion, can you please specify the type of shock if known? Septic Shock Suspected or known causative organism Any associated organ failure Cardiogenic Shock Cause Hypovolemic Shock Cause Other, please specify Unable to determine MTDD
--- NOTE | 2020-02-17 10:14 | P.DS ---
Providers Date of admission: 01/22/20 11:46 Expected date of discharge: 02/05/20 Attending physician: Kenji Daly Consults: 01/21/20 09:48 Consult Physician Routine Consulting Provider: Austin Shell Consult Reason/Comments: chf Do you want consulting provider notified?: Yes Consult Physician Routine Consulting Provider: Brittany Acevedo Consult Reason/Comments: chf, crf Do you want consulting provider notified?: Yes 01/24/20 13:10 Consult Physician Routine Consulting Provider: Sidney Mcdonald Consult Reason/Comments: unable to place coleman catheter,retention Do you want consulting provider notified?: Yes 01/25/20 09:27 Consult Physician Routine Consulting Provider: Fei Stafford Consult Reason/Comments: acute hypoxia Do you want consulting provider notified?: Already Contacted Primary care physician: Stated None - Discharge Diagnosis(es) (1) Acute systolic CHF (congestive heart failure) Status: Acute Priority: High (2) Acute respiratory failure with hypoxia Status: Acute Priority: High (3) Chronic renal disease, stage 3, moderately decreased glomerular filtration rate between 30-59 mL/min/1.73 square meter Status: Chronic Priority: Medium (4) Atrial fibrillation Status: Chronic Priority: Medium (5) Coronary arteriosclerosis in [place] artery Status: Chronic Priority: Medium (6) Essential (primary) hypertension Status: Chronic Priority: Low (7) COPD (chronic obstructive pulmonary disease) Status: Chronic Priority: Medium (8) Personal history of prostate cancer Status: Acute Priority: Low (9) Mitral regurgitation Status: Chronic Priority: Low (10) Tricuspid regurgitation Status: Chronic Priority: Medium (11) Pulmonary hypertension Status: Chronic Priority: High (12) Anemia of chronic disease Status: Chronic Priority: Medium (13) Iron deficiency Status: Chronic Priority: Medium Hospital Course: This a 74-year-old gentleman with medical history of CAD, ND, CABG, CHF, COPD, DVT, and multiple other medical issues presented to the ER with complaints of worsening shortness of breath and bilateral lower extremity edema. Reports over the last week medications adjusted/Lasix increased per PCP with no improvement in symptoms and presented to the ER. BUN 89, Creatinine 1.6, baseline 1.5, INR 1.5. Denies fever or chills. Denies sore throat. Reports occasional nonproductive cough ,exertional dyspnea, orthopnea. Denies chest pain, palpitations. Denies lightheadedness, dizziness or focal deficits. WBC 14.8. Lactic acid 2.1. Neutrophils 12.8 . Afebrile. EKG reported sinus rhythm with left bundle branch block ,anterior lateral infarct, age undetermined, possible septal sub-endocardial injury. Troponins negative 1. BNP 4320. AST 60, ALT 99. Hemoglobin 9.9. Chest x-ray reporting interstitial pattern, bibasilar consolidation, CHF versus interstitial pneumonia. Vital signs stable, maintaining O2 sats in the 90s on 3 L nasal cannula. 01/22/2020 diuresing on Lasix IV push with 24-hour I&O reflecting a negative fluid balance. Edema improving. Renal function improving, BUN 76 creatinine 1.5. Oxygen requirements titrated down to 2 L, maintaining O2 sats in the 90s. Borderline hypotension. Denies chest pain, palpitations or increasing shortness of breath. 01/23/2020 maintained on 1500 MLS fluid restriction, low-salt diet and diuretics . Lasix dosing adjusted yesterday to avoid night dose and facilitate sleep. 24- hour I&O inaccurate. Reports better sleep, breathing improving. Staff reports exertional dyspnea .Maintaining O2 sats in the 90s on 3 L nasal cannula. Borderline hypotension. Evaluated by nephrology with recommendations noted. Creatinine slowly trending down, currently 1.43. Renal ultrasound unremarkable. LFTs within normal limits with exception of mild elevation of ALT. Sodium 136, potassium 4.3, magnesium 2.2 01/24/2020 Lasix infusion initiated yesterday afternoon as per nephrology. 24- hour I&O reporting increased weight. Significant edema. Worsening dyspnea. Maintaining O2 sats in the low 90s on 4 L nasal cannula O2. Renal function stable. Potassium 5.4 Telemetry reporting controlled A. fib with short asymptomatic, nonsustained V. tach run earlier this morning. 01/27/2020 patient developed worsening shortness of breath, was transferred to ICU yesterday, intubated. ABGs noted. Remains vent dependent with FiO2 weaned down to 40% and PEEP weaned down to +6. Maintained on renal dose dopamine, Lasix drip, Levophed, diprovan. Chest x-ray reporting improvement. Renal function improving. Potassium 3.2, magnesium pending. 01/28/2020 chest x-ray reports improvement. Maintained on mechanical ventilation with FiO2 40%, PEEP weaned down to +5. Lasix and dopamine drips have been discontinued. Receiving Diamox 2 doses. Lasix converted to IV push. Remains pressor dependent with Levophed weaning in progress renal function continues to improve, creatinine down to 1.2. Maintained on Rocephin and Zithromax. Sputum culture currently reporting gram-negative bacilli. Potassium being replaced. Sedation holiday being discussed, but patient extremely weak, opening eyes. 01/29/2020 patient extubated yesterday afternoon , maintained overnight on BiPAP .this morning, currently maintaining O2 sats in the 90s on 7 L high flow nasal cannula. Afebrile, T-max 100.6, WBC trending down currently 16. Sputum cultures reporting Pseudomonas aeruginosa, maintained on Zosyn. Sitter at bedside. Standing up at bedside with PT. Chest x-ray reporting improvement left pleural effusion with new trace right pleural effusion with possible bibasilar atelectasis. Hemoglobin dropped to 9. INR 1.3. Diuresing well on Lasix IV push with 24-hour I&O reflecting a negative fluid balance. Renal function mildly worsening, BUN 47, creatinine up to 1.58. Potassium 3.5. Alkalotic,Bicarb 37. Telemetry atrial fibrillation with controlled ventricular rate. 01/30/2020 maintained on Zithromax, Zosyn. Breathing continues to improve, weaned down to 5 L nasal cannula, maintaining O2 sats in the 90s, wheezy. IV steroids added to med regime. Mild tachycardia, low 100s. Afebrile. Diuresed well on Lasix IV push with 24-hour I&O reflecting a negative fluid balance. Chest x-ray reporting improvement left pleural effusion, new trace right pleural effusion. Renal function stable, BUN 43, creatinine 1.54. Sodium up to 147. Bicarb 40. Lasix has been discontinued. 01/31/2020 transferred out of ICU currently on stepdown unit. Continues on nebulized bronchodilators, Zosyn, IV steroids, IV push Lasix . 24-hour I&O reflecting a positive fluid balance. maintaining O2 sats steroids in the 90s on 5 L high flow nasal cannula. Borderline hypotension. Afebrile. 02/03/2020 maintained on nebulized bronchodilators, Zosyn, IV steroids, Lasix IV push. maintaining O2 sats in the 90s on 5 L nasal cannula. Afebrile, WBC 17.8 blood cultures report no growth, sputum culture pseudomonas aeruginosa. Anticoagulated on Eliquis. Confused. Hypotensive,maintained on Midodrin. 02/04/2020 Continues on Lasix 40 IV push daily, 24-hour I&O inaccurate ,renal function continues to worsen with creatinine up to 2.66, increased confusion with sitter at bedside. Maintaining O2 sats of 90% on 5 L nasal cannula. ABG/chest x-ray ordered. Potassium 4.9. Continues on Midodrin, blood pressures borderline hypotensive. 02/05/2020: early AM the patient became bradycardic & stopped breathing. An A Team was called and patient went into Asystole. He was resuscitated several times but staff were unable to stabilize him. documentiation per code team Below "alex messina called on this patient around 0407 please refer to paper documentation of alex blue for full sequence of events and interventions. multiple rounds of epinephrine , bicarb, were given. patient received DC shock multiple times, and bolused with amiodarone , patient was intubated during the resuscitation patient coded multiple times, initial rhythm was PEA, but later he had pulseless Vtach and also episodes of Vfib , DC shock were delivered , patient bolused with amiodarone upon intubating patient , he had a lot of batsheva bleeding through the ET tube requiring frequent suctioning. seems like he was hemorrhaging in his lungs patient achieved ROSC multiple times however were short lived lasting few minutes each time. patient was never stable enough to be transferred to the ICU to continue supportive care. after multiple episodes of code blue and resuscitation over 60 minutes. he eventually was made DNR, and ultimately pronounced at 0508. primary team Dr Pizarro notified. family notified and were on their way . 74 minutes in critical care time were spent in this patient care" Plan - Discharge Summary Discharge Rx Participant: No New Discharge Prescriptions: No Action diphenhydrAMINE [Benadryl] 25 mg PO HS Nitroglycerin Sl Tabs [Nitrostat] 0.4 mg SUBLINGUAL Q5M PRN PRN Reason: Chest Pain Colchicine [Colcrys] 0.6 mg PO DAILY PRN PRN Reason: GOUT Allopurinol [Zyloprim] 100 mg PO BID Potassium Chloride [Klor-Con 20] 20 meq PO HS Albuterol Inhaler (Mhu) [Ventolin Hfa Inhaler (Mhu)] 2 puff INHALATION RT-Q6H PRN PRN Reason: Shortness Of Breath Apixaban [Eliquis] 5 mg PO BID Fluticasone/Salmeterol [Advair 500-50 Diskus] 1 puff INHALATION RT-BID Omeprazole 20 mg PO BID Tiotropium 18 Mcg/Puff [Spiriva] 1 puff INHALATION RT-DAILY Simvastatin [Zocor] 40 mg PO HS Furosemide [Lasix] 80 mg PO DAILY Carvedilol [Coreg] 12.5 mg PO BID Ipratropium-Albuterol Nebulize [Duoneb 0.5 mg-3 mg/3 ml Soln] 3 ml INHALATION RT-TID Discharge Medication List Nitroglycerin Sl Tabs [Nitrostat] 0.4 mg SUBLINGUAL Q5M PRN 05/08/15 [History] diphenhydrAMINE [Benadryl] 25 mg PO HS 05/08/15 [History] Albuterol Inhaler (Mhu) [Ventolin Hfa Inhaler (Mhu)] 2 puff INHALATION RT-Q6H PRN 07/05/17 [History] Allopurinol [Zyloprim] 100 mg PO BID 07/05/17 [History] Colchicine [Colcrys] 0.6 mg PO DAILY PRN 07/05/17 [History] Potassium Chloride [Klor-Con 20] 20 meq PO HS 07/05/17 [History] Apixaban [Eliquis] 5 mg PO BID 12/17/19 [History] Fluticasone/Salmeterol [Advair 500-50 Diskus] 1 puff INHALATION RT-BID 12/17/19 [History] Omeprazole 20 mg PO BID 12/17/19 [History] Tiotropium 18 Mcg/Puff [Spiriva] 1 puff INHALATION RT-DAILY 12/17/19 [History] Carvedilol [Coreg] 12.5 mg PO BID 01/21/20 [History] Furosemide [Lasix] 80 mg PO DAILY 01/21/20 [History] Ipratropium-Albuterol Nebulize [Duoneb 0.5 mg-3 mg/3 ml Soln] 3 ml INHALATION RT-TID 01/21/20 [History] Simvastatin [Zocor] 40 mg PO HS 01/21/20 [History] Follow up Appointment(s)/Referral(s): Kenji Daly MD [STAFF PHYSICIAN] - As Needed Activity/Diet/Wound Care/Special Instructions: [facility] will deliver a rollator to the bedside before discharge. Discharge Disposition: - Preliminary Cause of Preliminary Cause of : acute respiratory failure
--- NOTE | 2020-02-18 11:25 | CDI ---
Documentation Clarification Form Date: 02/18/20 From: Helga Perera Phone: If you have a question about this query, please contact Laura [employer] Tender at [phone] between 8am and 5pm. Admit Date: 01/22/20 Discharge Date:02/05/20 Patient Name: Kel Gerber Visit Number: [id number] ATTENTION: The Clinical Documentation Specialists (CDI) and [facility] Coding Staff appreciate your assistance in clarifying documentation. Please respond to the clarification below the line at the bottom and electronically sign. The CDI & [facility] Coding staff will review the response and follow-up if needed. Please note: Queries are made part of the Legal Health Record. If you have any questions, please contact the author of this message via ITS. Dear Dr. Daly Thank you for signing your previous query. Please document a response before signing this query. Borderline hypotension is documented in the 01/21 - 01/24 progress notes. Kenyetta Sneed began documenting hypotension secondary to acute hypoxic respiratory failure and acute systolic CHF, pressor dependent in the 01/26 progress note and after. Patient history/risk factors: CHF exacerbation, CKD 3, hypertension, pulmonary hypertension, pseudomonas pneumonia Clinical Indicators: Low blood pressure Vitals: T. 97.8, P. 85, R. 20 BP: 01/20 - 110/59, 100/64, 94/64; 01/21 - 101/59, 105/71, 97/60, 105/65, 01/22 - 106/71, 115/76, 103/63, 92/60 Treatment: IV Dopamin , IV Norepinephrine Bitartrate 8 mg In your professional opinion, can you please specify the type of shock if known? Septic Shock Suspected or known causative organism Any associated organ failure Cardiogenic Shock Cause Hypovolemic Shock Cause Other, please specify --->Unable to determine I had NOT see the patient during this part of his care MTDD
== END 2020-02-05 05:00 | disposition expired | DRG 291 ==
LOC: EC 07:17 → 4SSUR 10:06 → OBSVTOIN 01-22 11:46 → 4SSUR 01-22 22:53 → 3SCARD 01-24 23:58 → 2SICU 01-26 15:47 → 3SCARD 01-30 17:00
PROVIDERS: ADMIT Family Medicine; ATTEND Family Medicine
PROC: 5A09357 Assistance with Respiratory Ventilation, Less than 24 Consecutive Hours, Continuous Positive Airway Pressure (ICD-10-PCS; 2020-01-25)
PROC: 5A1945Z Respiratory Ventilation, 24-96 Consecutive Hours (ICD-10-PCS; principal; 2020-01-26)
PROC: 0BH17EZ Insertion of Endotracheal Airway into Trachea, Via Natural or Artificial Opening (ICD-10-PCS; principal; 2020-01-26)
PROC: 03HY32Z Insertion of Monitoring Device into Upper Artery, Percutaneous Approach (ICD-10-PCS; 2020-01-26)
PROC: 05H633Z Insertion of Infusion Device into Left Subclavian Vein, Percutaneous Approach (ICD-10-PCS; 2020-01-26)
PROC: 3E033XZ Introduction of Vasopressor into Peripheral Vein, Percutaneous Approach (ICD-10-PCS; 2020-01-26)
PROC: 5A12012 Performance of Cardiac Output, Single, Manual (ICD-10-PCS; 2020-02-05)
DX: I13.0 Hypertensive heart and chronic kidney disease with heart failure and stage 1 through stage 4 chronic kidney disease, or unspecified chronic kidney disease (principal); J15.1 Pneumonia due to Pseudomonas; G93.41 Metabolic encephalopathy; J96.01 Acute respiratory failure with hypoxia; N17.0 Acute kidney failure with tubular necrosis; I50.23 Acute on chronic systolic (congestive) heart failure; E87.0 Hyperosmolality and hypernatremia; E87.4 Mixed disorder of acid-base balance; I47.2 Ventricular tachycardia; I48.19 Other persistent atrial fibrillation; J44.0 Chronic obstructive pulmonary disease with (acute) lower respiratory infection; J44.1 Chronic obstructive pulmonary disease with (acute) exacerbation; I27.29 Other secondary pulmonary hypertension; D63.1 Anemia in chronic kidney disease; N18.3 Chronic kidney disease, stage 3 (moderate); Z20.828 Contact with and (suspected) exposure to other viral communicable diseases; I49.01 Ventricular fibrillation; Z66 Do not resuscitate; D50.9 Iron deficiency anemia, unspecified; I46.2 Cardiac arrest due to underlying cardiac condition; E66.01 Morbid (severe) obesity due to excess calories; Z68.32 Body mass index [BMI] 32.0-32.9, adult; I95.9 Hypotension, unspecified; E78.5 Hyperlipidemia, unspecified; E87.6 Hypokalemia; I08.1 Rheumatic disorders of both mitral and tricuspid valves; I25.10 Atherosclerotic heart disease of native coronary artery without angina pectoris; I25.2 Old myocardial infarction; I25.5 Ischemic cardiomyopathy; I44.7 Left bundle-branch block, unspecified; M19.90 Unspecified osteoarthritis, unspecified site; T50.2X5A Adverse effect of carbonic-anhydrase inhibitors, benzothiadiazides and other diuretics, initial encounter; R33.9 Retention of urine, unspecified; I49.3 Ventricular premature depolarization; I87.8 Other specified disorders of veins; Z79.01 Long term (current) use of anticoagulants; Z79.52 Long term (current) use of systemic steroids; Z79.899 Other long term (current) drug therapy; Z85.46 Personal history of malignant neoplasm of prostate; Z87.891 Personal history of nicotine dependence; Z95.1 Presence of aortocoronary bypass graft; Z95.5 Presence of coronary angioplasty implant and graft; Z86.718 Personal history of other venous thrombosis and embolism; Z91.048 Other nonmedicinal substance allergy status; Z80.1 Family history of malignant neoplasm of trachea, bronchus and lung
CPT/HCPCS: 36415; 36600; 71045; 71250; 76770; 80048; 80053; 81001; 81003; 82533; 82805; 83540; 83550; 83605; 83735; 83880; 84132; 84145; 84443; 84484; 85025; 85027; 85610; 85730; 87040; 87070; 87077; 87186; 87205; 87635; 92950; 93005; 94002; 94003; 94640; 94660; 94760; 96374; 99285